=== PATIENT | female | born 1960 | race Hispanic/Latino ===

== ENCOUNTER 2016-09-25 20:14 | Inpatient (IN) | payer MEDICAID ==
[2016-09-25] MEDS ORDERED: MORPHINE IV ONE (20:56)
[2016-09-25] MEDS ORDERED: ZOFRAN IV ONE (20:56)
--- NOTE | 2016-09-25 20:59 | Emergency Department Report ---
HPI - General Chief Complaint: Dyspnea/Respdistress Time Seen by Provider: 09/25/16 20:43 - HPI HPI: Room 2 The patient is a 56-year-old female presenting with chief complaint of shortness of breath and epigastric abdominal pain. The patient states she developed shortness of breath this morning. Patient states she has had epigastric abdominal pain attributed to her peptic ulcer disease months. The patient states she has had a cough productive of white sputum. The patient admits to an episode of hematemesis 2-3 days ago. Patient was seen and admitted to the hospital by myself several weeks ago for hypoxia Location: [see above] Duration: [see above] Quality: Shortness of breath, pain Severity: [see above] Modifying factors: [see above] Context: [see above] Mode of transportation: [not driving] ED Past Medical Hx - Past Medical History Previous Medical History?: Yes Hx Hypertension: Yes Hx Congestive Heart Failure: Yes Hx Arthritis: Yes Hx COPD: Yes Additional medical history: Sepsis 2013--[place], shingles, no sores, still in pain - Surgical History Past Surgical History?: Yes Additional Surgical History: Skin Grafts placed after acid quiroga (placed 09/2015) - Family History Family history: no significant - Social History Smoking Status: Former Smoker (states she quit "several months ago) Substance Use Type: None (denies illicit drug use) - Medications Home Medications: Home Medications Medication Instructions Recorded Confirmed Last Taken Type Furosemide [Lasix TAB] 40 mg PO QDAY #30 tablet 10/27/15 10/31/15 Unknown Rx SILVER sulfADIAZINE 50 GRAM 1 applic TP BID #1 tube 10/27/15 10/31/15 Unknown Rx [Thermazene 50 Gram] Pantoprazole [Protonix TAB] 40 mg PO BID 42 Days 11/29/15 Unknown Rx predniSONE [Deltasone] 50 mg PO QDAY #5 tab 12/14/15 Unknown Rx ALBUTEROL Inhaler [ProAir HFA 2 puff IH QID PRN #1 inhalation 09/17/16 Unknown Rx Inhaler] Budesonide [Pulmicort Respules] 0.5 mg IH Q12HRT #30 nebu 09/17/16 Unknown Rx Clindamycin [Clindamycin CAP] 300 mg PO QID 5 Days 09/17/16 Unknown Rx Doxycycline Hyclate [Doxycycline 100 mg PO Q12HR #20 tab 09/17/16 Unknown Rx Hyclate TAB] Levofloxacin [Levaquin TAB] 500 mg PO QDAY #7 tablet 09/17/16 Unknown Rx Lisinopril [Zestril TAB] 20 mg PO QDAY #30 tablet 09/17/16 Unknown Rx Metoprolol Xl [Metoprolol 50 mg PO QDAY #30 tablet 09/17/16 Unknown Rx SUCCINATE ER TAB] Nicotine [Habitrol] 14 mg TD DAILY #10 patch 09/17/16 Unknown Rx Tiotropium [Spiriva] 18 mcg IH QDAY #30 cap 09/17/16 Unknown Rx oxyCODONE /ACETAMINOPHEN [Percocet 2 tab PO Q6H PRN #30 tablet 09/17/16 Unknown Rx 5/325 mg] ED Review of Systems ROS: Stated complaint: SOB Other details as noted in HPI Comment: All other systems reviewed and negative Constitutional: denies: chills, fever Eyes: denies: eye pain, eye discharge, vision change ENT: denies: ear pain, throat pain Respiratory: shortness of breath Cardiovascular: denies: chest pain, palpitations Endocrine: no symptoms reported Gastrointestinal: abdominal pain, nausea, vomiting, hematemesis Genitourinary: denies: urgency, dysuria, discharge Musculoskeletal: denies: back pain, joint swelling, arthralgia Skin: denies: rash, lesions Neurological: denies: headache, weakness, paresthesias Psychiatric: denies: anxiety, depression Hematological/Lymphatic: denies: easy bleeding, easy bruising Physical Exam - Physical Exam Vital Signs: Vital Signs 09/25/16 09/25/16 09/25/16 20:20 20:28 20:30 Temperature 98.7 F Pulse Rate 100 H Respiratory 18 Rate Blood Pressure 99/62 84/52 O2 Sat by Pulse 98 99 96 Oximetry 09/25/16 20:40 Temperature Pulse Rate 100 H Respiratory 13 Rate Blood Pressure O2 Sat by Pulse 98 Oximetry Physical Exam: GENERAL: The patient is well-developed well-nourished female lying on stretcher not appearing to be in acute distress. [] HEENT: Normocephalic. Atraumatic. Extraocular motions are intact. Patient has moist mucous membranes. NECK: Supple. Trachea midline CHEST/LUNGS: Clear to auscultation. There is no respiratory distress noted. HEART/CARDIOVASCULAR: Regular. There is no tachycardia. There is no gallop rub or murmur. ABDOMEN: Abdomen is soft, nontender to palpation with stethoscope. Patient has normal bowel sounds. There is no abdominal distention. SKIN: There is no rash. There is no edema. There is no diaphoresis. NEURO: The patient is awake, alert, and oriented. The patient is cooperative. The patient has normal speech MUSCULOSKELETAL:There is no evidence of acute injury. ED Course Vital Signs 09/25/16 09/25/16 09/25/16 20:20 20:28 20:30 Temperature 98.7 F Pulse Rate 100 H Respiratory 18 Rate Blood Pressure 99/62 84/52 O2 Sat by Pulse 98 99 96 Oximetry 09/25/16 20:40 Temperature Pulse Rate 100 H Respiratory 13 Rate Blood Pressure O2 Sat by Pulse 98 Oximetry ED Medical Decision Making - Lab Data Result diagrams: 09/25/16 21:08 09/25/16 21:08 Laboratory Tests 09/25/16 09/25/16 09/25/16 21:08 21:08 21:08 WBC 20.3 H RBC 2.99 L Hgb 10.5 Hct 30.7 MCV 103 H MCH 35 H MCHC 34 RDW 14.6 Plt Count 475 H Add Manual Diff Complete Total Counted 100 Seg Neuts % (Manual) 79.0 H Band Neutrophils % 0 Lymphocytes % (Manual) 13.0 L Reactive Lymphs % (Man) 0 Monocytes % (Manual) 6.0 Eosinophils % (Manual) 2.0 Basophils % (Manual) 0 Metamyelocytes % 0 Myelocytes % 0 Promyelocytes % 0 Blast Cells % 0 Nucleated RBC % 1.0 H Seg Neutrophils # Man 16.0 H Band Neutrophils # 0.0 Lymphocytes # (Manual) 2.6 Abs React Lymphs (Man) 0.0 Monocytes # (Manual) 1.2 H Eosinophils # (Manual) 0.4 Basophils # (Manual) 0.0 Metamyelocytes # 0.0 Myelocytes # 0.0 Promyelocytes # 0.0 Blast Cells # 0.0 WBC Morphology Not Reportable Hypersegmented Neuts Not Reportable Hyposegmented Neuts Not Reportable Hypogranular Neuts Not Reportable Smudge Cells Not Reportable Toxic Granulation Not Reportable Toxic Vacuolation Not Reportable Dohle Bodies Not Reportable Pelger-Huet Anomaly Not Reportable Sanchez Rods Not Reportable Platelet Estimate Appears increased Clumped Platelets Not Reportable Plt Clumps, EDTA Not Reportable Large Platelets 1+ Giant Platelets Not Reportable Platelet Satelliting Not Reportable Plt Morphology Comment Not Reportable RBC Morphology Not Reportable Dimorphic RBCs Not Reportable Polychromasia Not Reportable Hypochromasia 1+ Poikilocytosis Not Reportable Anisocytosis 1+ Microcytosis Not Reportable Macrocytosis Not Reportable Spherocytes Not Reportable Pappenheimer Bodies Not Reportable Sickle Cells Not Reportable Target Cells Not Reportable Tear Drop Cells Not Reportable Ovalocytes Not Reportable Helmet Cells Not Reportable [place] Bodies Not Reportable [place] Rings Not Reportable Ranjan Cells Not Reportable Bite Cells Not Reportable Crenated Cell Not Reportable Elliptocytes Not Reportable Acanthocytes (Spur) Not Reportable Rouleaux Not Reportable Hemoglobin C Crystals Not Reportable Schistocytes Not Reportable Malaria parasites Not Reportable [place] Bodies Not Reportable Hem Pathologist Commnt No PT 14.1 INR 1.04 APTT 39.8 H D-Dimer 420.26 H POC ABG pH POC ABG pCO2 POC ABG pO2 POC ABG HCO3 POC ABG Total CO2 POC ABG O2 Sat POC ABG Base Excess FiO2 Sodium 131 L Potassium 4.5 Chloride 89.1 L Carbon Dioxide 24 Anion Gap 22 BUN 2 L Creatinine 0.6 L Estimated GFR > 60 BUN/Creatinine Ratio 3.33 Glucose 100 Calcium 8.6 Total Bilirubin < 0.20 AST 11 ALT 12 Alkaline Phosphatase 86 Total Creatine Kinase 33 CK-MB (CK-2) 2.0 CK-MB (CK-2) Rel Index 6.0 H Troponin T NT-Pro-B Natriuret Pep 355.6 Total Protein 5.5 L Albumin 3.2 L Albumin/Globulin Ratio 1.4 Amylase Lipase Blood Type Antibody Screen SHANNA Antibody Screen 09/25/16 09/25/16 09/25/16 21:08 21:08 21:08 WBC RBC Hgb Hct MCV MCH MCHC RDW Plt Count Add Manual Diff Total Counted Seg Neuts % (Manual) Band Neutrophils % Lymphocytes % (Manual) Reactive Lymphs % (Man) Monocytes % (Manual) Eosinophils % (Manual) Basophils % (Manual) Metamyelocytes % Myelocytes % Promyelocytes % Blast Cells % Nucleated RBC % Seg Neutrophils # Man Band Neutrophils # Lymphocytes # (Manual) Abs React Lymphs (Man) Monocytes # (Manual) Eosinophils # (Manual) Basophils # (Manual) Metamyelocytes # Myelocytes # Promyelocytes # Blast Cells # WBC Morphology Hypersegmented Neuts Hyposegmented Neuts Hypogranular Neuts Smudge Cells Toxic Granulation Toxic Vacuolation Dohle Bodies Pelger-Huet Anomaly Sanchez Rods Platelet Estimate Clumped Platelets Plt Clumps, EDTA Large Platelets Giant Platelets Platelet Satelliting Plt Morphology Comment RBC Morphology Dimorphic RBCs Polychromasia Hypochromasia Poikilocytosis Anisocytosis Microcytosis Macrocytosis Spherocytes Pappenheimer Bodies Sickle Cells Target Cells Tear Drop Cells Ovalocytes Helmet Cells [place] Bodies [place] Rings Ranjan Cells Bite Cells Crenated Cell Elliptocytes Acanthocytes (Spur) Rouleaux Hemoglobin C Crystals Schistocytes Malaria parasites [place] Bodies Hem Pathologist Commnt PT INR APTT D-Dimer POC ABG pH POC ABG pCO2 POC ABG pO2 POC ABG HCO3 POC ABG Total CO2 POC ABG O2 Sat POC ABG Base Excess FiO2 Sodium Potassium Chloride Carbon Dioxide Anion Gap BUN Creatinine Estimated GFR BUN/Creatinine Ratio Glucose Calcium Total Bilirubin AST ALT Alkaline Phosphatase Total Creatine Kinase CK-MB (CK-2) CK-MB (CK-2) Rel Index Troponin T < 0.010 NT-Pro-B Natriuret Pep Total Protein Albumin Albumin/Globulin Ratio Amylase 51 Lipase 45 Blood Type AB POSITIVE Antibody Screen TNR SHANNA Antibody Screen Negative 09/25/16 09/25/16 21:25 21:44 WBC RBC Hgb Hct MCV MCH MCHC RDW Plt Count Add Manual Diff Total Counted Seg Neuts % (Manual) Band Neutrophils % Lymphocytes % (Manual) Reactive Lymphs % (Man) Monocytes % (Manual) Eosinophils % (Manual) Basophils % (Manual) Metamyelocytes % Myelocytes % Promyelocytes % Blast Cells % Nucleated RBC % Seg Neutrophils # Man Band Neutrophils # Lymphocytes # (Manual) Abs React Lymphs (Man) Monocytes # (Manual) Eosinophils # (Manual) Basophils # (Manual) Metamyelocytes # Myelocytes # Promyelocytes # Blast Cells # WBC Morphology Hypersegmented Neuts Hyposegmented Neuts Hypogranular Neuts Smudge Cells Toxic Granulation Toxic Vacuolation Dohle Bodies Pelger-Huet Anomaly [place] Rods Platelet Estimate Clumped Platelets Plt Clumps, EDTA Large Platelets Giant Platelets Platelet Satelliting Plt Morphology Comment RBC Morphology Dimorphic RBCs Polychromasia Hypochromasia Poikilocytosis Anisocytosis Microcytosis Macrocytosis Spherocytes Pappenheimer Bodies Sickle Cells Target Cells Tear Drop Cells Ovalocytes Helmet Cells [place] Bodies [place] Rings [place] Cells Bite Cells Crenated Cell Elliptocytes Acanthocytes (Spur) Rouleaux Hemoglobin C Crystals Schistocytes Malaria parasites [place] Bodies Hem Pathologist Commnt PT INR APTT D-Dimer POC ABG pH 7.459 H 7.384 POC ABG pCO2 33.0 L 38.7 POC ABG pO2 24 L 52 L POC ABG HCO3 23.4 23.1 POC ABG Total CO2 24 24 POC ABG O2 Sat 48 86 POC ABG Base Excess 0 -2 FiO2 21 21 Sodium Potassium Chloride Carbon Dioxide Anion Gap BUN Creatinine Estimated GFR BUN/Creatinine Ratio Glucose Calcium Total Bilirubin AST ALT Alkaline Phosphatase Total Creatine Kinase CK-MB (CK-2) CK-MB (CK-2) Rel Index Troponin T NT-Pro-B Natriuret Pep Total Protein Albumin Albumin/Globulin Ratio Amylase Lipase Blood Type Antibody Screen SHANNA Antibody Screen - EKG Data -: EKG Interpreted by Mn EKG shows normal: sinus rhythm Rate: normal - EKG Data When compared to previous EKG there are: changes noted Interpretation: nonspecific ST-T wave monisha (Biphasic T-wave in lead V3 when compared to previous EKG dated 09/15/2016) - Radiology Data Radiology results: report reviewed (CT chest), image reviewed (CT chest) CT chest (read by radiologist)-no pulmonary embolism or other acute chest finding. Fluid adjacent to the gastric pylorus and duodenal bulb may be secondary to peptic ulcer disease or other infectious/inflammatory process. Clinical correlation is requested. - Differential Diagnosis CHF, COPD, PE, ACS, pancreatitis, peptic ulcer disease, malingering Critical care attestation.: If time is entered above; I have spent that time in minutes in the direct care of this critically ill patient, excluding procedure time. ED Disposition Clinical Impression: Hypoxia, Leukocytosis Disposition: [id number] OP ADMIT IP TO THIS HOSP Is pt being admited?: Yes Does the pt Need Aspirin: No Condition: Fair Referrals: PRIMARY CARE, [Primary Care Provider] - 3-5 Days Time of Disposition: 00:19 (hospitalist paged)
[2016-09-25 21:36] LABS: Hematocrit 30.7 % (30.3-42.9); Hemoglobin 10.5 gm/dl (10.1-14.3); Mean Corpuscular HGB Conc 34 % (30-34); Mean Corpuscular Hemoglobin 35 pg (28-32); Mean Corpuscular Volume 103 fl (79-97); Platelet Count 475 K/mm3 (140-440); Red Blood Count 2.99 M/mm3 (3.65-5.03); Red Cell Distribution Width 14.6 % (13.2-15.2)
[2016-09-25 21:39] LABS: White Blood Count 20.3 K/mm3 (4.5-11.0)
[2016-09-25 21:41] LABS: Amylase 51 units/L (27-131); Lipase 45 units/L (13-60)
[2016-09-25 21:46] LABS: INR 1.04 (0.87-1.13)
[2016-09-25 21:47] LABS: Partial Thromboplastin Time 39.8 Sec. (24.2-36.6)
[2016-09-25 21:51] LABS: Alanine Aminotransferase 12 units/L (7-56); Albumin 3.2 g/dL (3.9-5); Albumin/Globulin Ratio 1.4 %; Alkaline Phosphatase 86 units/L (35-129); Anion Gap 22 mmol/L; BUN/Creatinine Ratio 3.33; Bilirubin,Total < 0.20 mg/dL (0.1-1.2); Blood Urea Nitrogen 2 mg/dL (7-17); Calcium 8.6 mg/dL (8.4-10.2); Carbon Dioxide 24 mmol/L (22-30); Chloride 89.1 mmol/L (98-107); Creatine Kinase 33 units/L (30-135); Glucose 100 mg/dL (65-100); Potassium 4.5 mmol/L (3.6-5.0); Sodium 131 mmol/L (137-145); Total Protein 5.5 g/dL (6.3-8.2)
[2016-09-25 22:05] LABS: ISTAT DEVICE 0
[2016-09-25 22:05] LABS: ISTAT Base Excess -2; ISTAT DEVICE 0; ISTAT HCO3 23.1; ISTAT PCO2 38.7 (35-45); ISTAT PH 7.384 (7.35-7.45); ISTAT PO2 52 (80-105); ISTAT SO2 86; ISTAT TCO2 24
[2016-09-25 22:12] LABS: Basophils % (Manual) 0 % (0.0-1.8); Blastocytes % (Manual) 0 %
[2016-09-25 22:13] LABS: Anisocytosis 1+; Large Platelets 1+; Platelet Estimate Appears Increased
[2016-09-25 22:14] LABS: Diff Status Complete; Hypochromasia 1+
[2016-09-25] MEDS ORDERED: NACL ONE (22:56)
--- NOTE | 2016-09-25 23:55 | Cat Scan Report ---
FINAL REPORT EXAM: CT ANGIO CHEST HISTORY: hypoxia TECHNIQUE: CT imaging obtained through the chest in pulmonary angiographic phase following intravenous administration of Omnipaque 350 contrast. Transaxial, Coronal and sagittal reformats including maximal intensity projections are provided. PRIORS: 12/12/2015, CT 11/27/2015 FINDINGS: Heart size within normal limits. Coronary artery disease is noted. Main pulmonary artery is within normal limits in caliber. No pulmonary embolism. Thoracic aorta is normal in course and caliber. No pneumothorax, effusion or focal airspace disease. Mild centrilobular emphysema. The central airways are patent. No bronchiectasis. Imaged portion of the upper abdomen is remarkable for jose-pyloric and periduodenal fluid on axial series 3, image 129. The superficial soft tissues are unremarkable. No acute bony abnormality or worrisome osseous lesions identified. IMPRESSION: No pulmonary embolism or other acute chest finding. Fluid adjacent to the gastric pylorus and duodenal bulb may be secondary to peptic ulcer disease or other infectious/inflammatory process. Clinical correlation is requested.
--- NOTE | 2016-09-26 02:23 | Admit Criteria Form ---
Admission Criteria Documentation: PULMONARY DISEASE GRG Clinical Indications for Admission to Inpatient Care ( Place 'X' for any and all applicable criteria): Hospital admission is needed for appropriate care of the patient because of 1 or more of the following(1)(2): [ ]I. Impending or actual respiratory arrest. See Respiratory Failure GRG guideline for severe respiratory disease and long-term mechanical ventilation patients. (3)(4) (5) [ ]II. Severe airflow or ventilation abnormalities (not responsive to emergency and observation care treatment as appropriate) as indicated by 1 or more of the following (6)(7)(8)(9) : [ ]a) PCO2 greater than 42 mm Hg (5.6 kPa) and pH less than 7.35 (new) [ ]b) Documented PCO2 increased more than 5 mm Hg (0.7 kPa) from disease baseline [ ]c) Airflow measurements[A] less than 60% of previous best or predicted (eg, peak expiratory flow rate less than 300 L/min) despite intensive emergent treatment(B) [ ]d) Required respiratory treatments that are performable only in acute inpatient setting [ ]III. Severe respiratory findings (not responsive to emergency and observation care treatment as appropriate) including 1 or more of the following(6)(9)(10): [ ]a) Respiratory distress as indicated by ALL of the following(6)(11): [ ]i) Patient with 1 or more of the following: [ ]1) Dyspnea (difficulty breathing) [ ]2) Tachypnea [ ]3) Abnormal breathing pattern (eg, chest retractions) [ ]4) Other evidence of difficulty breathing [ ]ii) Evidence of respiratory compromise indicated by 1 or more of the following: [ ]1) Hypoxemia [ ]2) Altered mental status [ ]3) Other evidence of respiratory compromise (eg, pulmonary edema on chest x-ray) [ ]b) Stridor [ ]c) Gross hemoptysis(12) [ ]d) Acute cyanosis [ ]IV. Chronic lung disease with severe deterioration (not responsive to emergency and observation care treatment as appropriate) as indicated by 1 or more of the following(7) (13): [ ]a) SaO2 5% below baseline in patient with chronic hypoxemia [ ]b) New requirement for supplemental oxygen to keep SaO2 at baseline or acceptable level [ ]c) Required supplemental oxygen performable only in acute inpatient setting [ ]d) Severe airflow or ventilation abnormalities [ ]e) Previouslymobile patient unable to walk between rooms [ ]f) Inability to eat or sleep due to dyspnea [ ]g) Altered mental status that is severe or persistent [ ]V. Empyema or lung abscess(14)(15) [ ]Vl. Severe atelectasis or lung collapse(16)(17) [ ]Luis. Tuberculosis requiring inpatient treatment as indicated by 1 or more of the following(18)(19)(20)(21): [ ]a) Diagnosis suspected (eg, symptomatic patient from endemic area or in high-risk population, with abnormal chest imaging) and cannot be ruled out within observation care timeframe (ie, sputum analysis, nucleic acid amplification techniques not rapidly available or not diagnostic) [ ]b) Severely symptomatic patient (eg, Hypoxemia, Hemodynamic instability, Tachypnea) [ ]c) Bzkvp-[id number]-ymrhgpyvr infection suspected in newly diagnosed patient (eg, treatment regimen may require near-term adjustment) [ ]d) Newly diagnosed patient at high-risk of short-term deterioration (eg, HIV positive, frail, immunocompromised, chronic lung disease) [ ]e) High infectivity suspected (eg, laryngeal disease, cavitary pulmonary lesions, ongoing positivity of sputum) and 1 or more of the following: [ ]i) Unexposed household contacts at high risk (eg, immunocompromised, elderly, infants, chronic lung disease) [ ]ii) Patient unable or unwilling to avoid exposing others (eg, significant psychiatric disease, substance abuse, developmental disability) [ ]f) Complication of tuberculosis requiring inpatient treatment (eg , constrictive pericarditis, tubercular meningitis) [ ]g) Hospitalization mandated by public health authority (eg, patient continually noncompliant with directly observed therapy) [ ]VIII. High-risk pulmonary infection as indicated by 1 or more of the following(22)(23)(24)(25): [ ]a) Temperature less than 95 degrees F (35 degrees C) or greater than 103.1 degrees F (39.5 degrees C) [ ]b) Hemodynamic instability [ ]c) Immunocompromised patient (eg, AIDS, post transplant, neutropenic)(26)(27) [ ]d) History of severe COPD(28) [ ]e) History of severely symptomatic congestive heart failure(29) [ ]f) Other high-risk comorbidity (eg, poorly controlled diabetes, cirrhosis, chronic renal insufficiency) [ ]g) Hypoxemia [ ]h) severe stridor (30) [ ]i) Outpatient, observation, or recovery facility therapy has failed, is not appropriate, or is not feasible. [ ]IX. Complications of tracheostomy that remains after emergency or observation level care(31)(32)(33)(34) [ ]X. Respiratory complications of organ transplant (eg, rejection, respiratory failure, respiratory infection)(27) [ ]XI. Severe pulmonary arterial hypertension or pulmonary vascular disease requiring inpatient care indicated by 1 or more of the following(35)(36)(37)(38): [ ]a) Initiation or change of vasodilators (IV, subcutaneous, or inhaled) or other vasoactive medications needed [ ]b) IV anticoagulation needed (eg, immediate anticoagulation necessary, alternatives not appropriate) [ ]c) Arterial or pulmonary artery catheter monitoring needed due to infusion or other treatment [ ]XII. Cystic fibrosis requiring inpatient care as indicated by 1 or more of the following(39)(40): [ ]a) Severe exacerbation that does not respond to intensified home therapy(41) [ ]b) Severe exacerbation with patient unable to perform prescribed treatments at home [ ]c) Pneumonia [ ]d) Pneumothorax(42) [ ]e) Atelectasis [ ]f) Hemoptysis(43) [ ]XIII. Bronchiectasis requiring inpatient care as indicated by 1 or more of the following(44)(45): [ ]a) Respiratory distress [ ]b) Severe exacerbation and outpatient or observation care therapy has failed, is not appropriate, or is not feasible. [ ]XIV. Sarcoidosis requiring inpatient care as indicated by 1 or more of the following(46)(47)(48): [ ]a) Respiratory distress [ ]b) Cardiac involvement with arrhythmia(49) [ ]c) Outpatient or observation care therapy has failed, is not appropriate, or is not feasible. [ ]XV. Intestitial lung disease requiring inpatient care as indicated by 1 or more of the following(50)(51): [ ]a) Respiratory distress [ ]b) Severe exacerbation and outpatient or observation care therapy has failed, is not appropriate, or is not feasible [ ]XVI. Allergic pneumonitis requiring inpatient care as indicated by 1 or more of the following(52): [ ]a) Respiratory distress [ ]b) Acute eosinophilic pneumonia [ ]c) [place] with cardiac involvement [ ]d) Outpatient or observation care therapy has failed, is not appropriate, or is not feasible [ ]XVIl. Severe right heart failure requiring inpatient care as indicated by 1 or more of the following(35)(53)(54): [ ]a) Respiratory distress [ ]b) Debilitating anasarca that remains after emergency or observation level care (eg, tissue [ ]c) breakdown with severe infection, inability to void due to edema) [C](41)(42)(43)(44) [ ]d) Hemodynamic instability [ ]e) Syncope [ ]f) Angina that requires inpatient care (eg, not treatable in emergency or observation level of care) [ ]g) Increasing organ failure (eg, liver congestion with significant and worsening or new elevation of transaminases) [ ]XVIll. Injury requiring inpatient care (medical) as indicated by 1 or more of the following(59)(60)(61) [ ]a) Significant inhalation injury (eg, smoke inhalation, other toxic inhalation)(62)(63)(64) [ ]b) Airway obstruction that remains or is unstable after emergency or observation level care(65)(66) [ ]c) Severe pain requiring acute inpatient management [ ]d) Lung contusion(67) [ ]e) Flail chest(68) [ ]f) Bronchial tree injury [ ]g) Air or fat emboli [ ]h) Other injury not treatable in emergency or observation level care (eg, hemothorax)(55) [ ]XlX. Pulmonary hemorrhage or significant hemoptysis(12)(43)(69) [ ]XXl. Complications of transplanted lung indicated by 1 or more of the following(70)(71) [ ]a) Acute graft rejection requiring inpatient management (eg, intravenous immunosuppression)(72)(73)(74) [ ]b) Failure of transplant lung as indicated by 1 or more of the following(75)(76): [ ]i) Anastomotic leak [ ]ii) Airway ischemia or necrosis [ ]iii) Airway fistula [ ]iv) Obstructing granulation tissue requiring intervention [ ]v) Bronchial stenosis or stricture requiring intervention [ ]vi) Tracheobronchomalacia requiring intervention [ ]vii) Severe airflow or ventilation abnormalities [ ]viii) Severe respiratory findings [ ]c) Infection requiring inpatient management (eg, Hemodynamic instability, need for intravenous antimicrobial treatment)(77)(78)(79)(80)(81)(82 [ ]d) Other complication of transplanted lung (eg, obliterative bronchiolitis, plastic bronchitis, thrombotic microangiopathy, constrictive pericarditis) requiring inpatient management(83)(84)(85)(86)(87) [ ]XXll. Inpatient palliative care needed.[D](88)(89)(90)(91) [X ]XXlll. Pulmonary Disease condition, symptom, or finding for which emergency and observation care have failed or are not considered appropriate. The original [facility] content created by [employer] has been revised. The portions of the content which have been revised are identified through the use of italic text or in bold, and [facility] has neither reviewed nor approved the modified material. All other unmodified content is copyright [employer] [facility] [facility]. Please see references footnoted in the original [facility] edition 2017 Admission Criteria Met: Yes
[2016-09-26] MEDS ORDERED: MILK OF MAGNESIA PO PRN (02:42)
[2016-09-26] MEDS ORDERED: TYLENOL PO PRN (02:42)
[2016-09-26] MEDS ORDERED: DULCOLAX PR PRN (02:42)
[2016-09-26] MEDS ORDERED: ZOFRAN IV PRN (02:42)
--- NOTE | 2016-09-26 02:46 | History and Physical Report ---
History of Present Illness Date of examination: 09/26/16 History of present illness: 55-year-old woman history of COPD on home oxygen, hypertension, coronary comes emergency room with complaints of shortness of breath,. The patient is homeless and currently lives in a shed, she has no oxygen. States she had an episode of hematemesis last week Patient denies chest pain, palpitation, abdominal pain, hematochezia, dysuria, frequency, focal weakness, dysarthria, fever chills, polydipsia polyuria, hot or cold intolerance, easy bruisability, or rash or bleeding from mucosal membrane, rhinorrhea, epistaxis, earache, tinnitus, blurry vision, eye discharge , anxiety, depression. Other review of systems negative PAST SURGICAL HISTORY: Skin graft SOCIAL HISTORY: Smokes 5 cigars a day, no alcohol or drugs FAMILY HISTORY: Hypertension Medications and Allergies Allergies Allergy/AdvReac Type Severity Reaction Status Date / Time Penicillins Allergy Unknown Verified 09/25/16 20:28 Home Medications Medication Instructions Recorded Confirmed Last Taken Type Furosemide [Lasix TAB] 40 mg PO QDAY #30 tablet 10/27/15 10/31/15 Unknown Rx SILVER sulfADIAZINE 50 GRAM 1 applic TP BID #1 tube 10/27/15 10/31/15 Unknown Rx [Thermazene 50 Gram] Pantoprazole [Protonix TAB] 40 mg PO BID 42 Days 11/29/15 Unknown Rx predniSONE [Deltasone] 50 mg PO QDAY #5 tab 12/14/15 Unknown Rx ALBUTEROL Inhaler [ProAir HFA 2 puff IH QID PRN #1 inhalation 09/17/16 Unknown Rx Inhaler] Budesonide [Pulmicort Respules] 0.5 mg IH Q12HRT #30 nebu 09/17/16 Unknown Rx Clindamycin [Clindamycin CAP] 300 mg PO QID 5 Days 09/17/16 Unknown Rx Doxycycline Hyclate [Doxycycline 100 mg PO Q12HR #20 tab 09/17/16 Unknown Rx Hyclate TAB] Levofloxacin [Levaquin TAB] 500 mg PO QDAY #7 tablet 09/17/16 Unknown Rx Lisinopril [Zestril TAB] 20 mg PO QDAY #30 tablet 09/17/16 Unknown Rx Metoprolol Xl [Metoprolol 50 mg PO QDAY #30 tablet 09/17/16 Unknown Rx SUCCINATE ER TAB] Nicotine [Habitrol] 14 mg TD DAILY #10 patch 09/17/16 Unknown Rx Tiotropium [Spiriva] 18 mcg IH QDAY #30 cap 09/17/16 Unknown Rx oxyCODONE /ACETAMINOPHEN [Percocet 2 tab PO Q6H PRN #30 tablet 09/17/16 Unknown Rx 5/325 mg] Exam - Physical Exam Narrative exam: Gen. appearance: Patient lying in bed, no apparent distress HEENT: Normocephalic, atraumatic, pupils equally round and reactive to light, extraocular movement intact, and no sclericterus,. No JVD or thyromegaly or nodule,neck supple, no carotid bruit ,mucous membranes moist, no exudate or erythema Heart: S1, S2, regular rate and rhythm Lungs: Wheezing Clear to auscultation crackles bilaterally, breathing comfortable Abdomen: Positive bowel sounds, nontender, nondistended, no organomegaly Extremity: No edema, cyanosis, clubbing Skin: No rash, nodules, warm, dry Neuro: Oriented 3, cranial nerves II-12 intact, speech is fluent, motor and sensory intact - Constitutional Vitals: Temp Pulse Resp BP Pulse Ox 98.7 F 116 H 18 93/46 100 09/25/16 20:28 09/26/16 01:10 09/26/16 01:10 09/26/16 01:10 09/26/16 01:10 Results - Labs CBC & Chem 7: 09/25/16 21:08 09/25/16 21:08 Labs: Abnormal lab results 09/25/16 09/25/16 09/25/16 Range/Units 21:08 21:08 21:08 WBC 20.3 H (4.5-11.0) K/mm3 RBC 2.99 L (3.65-5.03) M/mm3 MCV 103 H (79-97) fl MCH 35 H (28-32) pg Plt Count 475 H (140-440) K/mm3 Seg Neuts % (Manual) 79.0 H (40.0-70.0) % Lymphocytes % (Manual) 13.0 L (13.4-35.0) % Nucleated RBC % 1.0 H (0.0-0.9) % Seg Neutrophils # Man 16.0 H (1.8-7.7) K/mm3 Monocytes # (Manual) 1.2 H (0.0-0.8) K/mm3 APTT 39.8 H (24.2-36.6) Sec. D-Dimer 420.26 H (0-234) ng/mlDDU POC ABG pH (7.35-7.45) POC ABG pCO2 (35-45) POC ABG pO2 (80-105) Sodium 131 L (137-145) mmol/L Chloride 89.1 L (98-107) mmol/L BUN 2 L (7-17) mg/dL Creatinine 0.6 L (0.7-1.2) mg/dL CK-MB (CK-2) Rel Index 6.0 H (0-4) Total Protein 5.5 L (6.3-8.2) g/dL Albumin 3.2 L (3.9-5) g/dL 09/25/16 09/25/16 Range/Units 21:25 21:44 WBC (4.5-11.0) K/mm3 RBC (3.65-5.03) M/mm3 MCV (79-97) fl MCH (28-32) pg Plt Count (140-440) K/mm3 Seg Neuts % (Manual) (40.0-70.0) % Lymphocytes % (Manual) (13.4-35.0) % Nucleated RBC % (0.0-0.9) % Seg Neutrophils # Man (1.8-7.7) K/mm3 Monocytes # (Manual) (0.0-0.8) K/mm3 APTT (24.2-36.6) Sec. D-Dimer (0-234) ng/mlDDU POC ABG pH 7.459 H (7.35-7.45) POC ABG pCO2 33.0 L (35-45) POC ABG pO2 24 L 52 L (80-105) Sodium (137-145) mmol/L Chloride (98-107) mmol/L BUN (7-17) mg/dL Creatinine (0.7-1.2) mg/dL CK-MB (CK-2) Rel Index (0-4) Total Protein (6.3-8.2) g/dL Albumin (3.9-5) g/dL Assessment and Plan COPD exacerbation Hematemesis, resolved Peptic ulcer disease Hypertension Admit to medicine Start high-dose IV steroids, nebulized treatments Monitor hemoglobin Start GI and DVT prophylaxis with SCD Continue appropriate outpatient medications
[2016-09-26] MEDS ORDERED: ZITHROMAX PO ONE (08:20)
[2016-09-26] MEDS ORDERED: LASIX IV SCH (09:00)
[2016-09-26] MEDS: DUONEB 0.5 MG-3 MG/3 ML SOLN IH SCH ×2 (09:05→15:00)
[2016-09-26 09:50] LABS: ISTAT Base Excess TNR; ISTAT HCO3 TNR; ISTAT PCO2 TNR (35-45); ISTAT PH TNR (7.35-7.45)
[2016-09-26 09:51] LABS: ISTAT PO2 TNR (80-105); ISTAT SO2 TNR; ISTAT TCO2 TNR
[2016-09-26] MEDS ORDERED: LOVENOX SUB-Q SCH (10:00)
[2016-09-26] MEDS ORDERED: TOPROL XL PO SCH (10:00)
[2016-09-26] MEDS ORDERED: HABITROL TD SCH (10:00)
[2016-09-26] MEDS ORDERED: PROTONIX IV SCH (10:00)
[2016-09-26] MEDS ORDERED: ZESTRIL PO SCH (10:00)
[2016-09-26] MEDS ORDERED: PROTONIX PO SCH (10:00)
--- NOTE | 2016-09-26 13:20 | Discharge Summary ---
Providers - Providers Date of Admission: 09/26/16 02:42 Attending physician: ASHLEY LESLIE MD Primary care physician: METAL MELTER Hospitalization Condition: Fair Hospital course: 55-year-old woman history of COPD on home oxygen, hypertension, coronary comes emergency room with complaints of shortness of breath, she has chronic shortness of breath. She is on home oxygen. She was seen because she had some shortness of breath, however shortness of breath resolved shortly after receiving nebulizer treatments and steroids. She was offered skilled nursing placement as she does not have a residence at present, however she refused stating that she does not trust been around people and she gets by by herself she gets a monthly check and she would rather stay in hotels. She stated that she has oxygen wheelchair and her check coming and does not need any further services. She reported having an episode of coffee-ground emesis about a week ago that has since resolved and further vomiting, no weakness and fatigue. She did have baseline status. She was referred to [facility] neurology clinic for follow-up of episode of coffee-ground emesis, hemoglobin was stable while she was in hospital. Discharge diagnoses COPD exacerbation Acute on chronic hypoxic respiratory failure CHF, chronic systolic Coffee-ground emesis, possible GI bleed Disposition: DC-01 TO HOME OR SELFCARE Time spent for discharge: 33 minutes Core Measure Documentation - Palliative Care Palliative Care/ Comfort Measures: Not Applicable - Core Measures Any of the following diagnoses?: heart failure - Heart Failure Discharge Requirements EARL/ARB for LVSD if EF <40%: Yes Beta jania at discharge: Yes Exam - Constitutional Vitals: Temp Pulse Resp BP Pulse Ox 98.5 F 10 L 18 109/77 99 09/26/16 08:00 09/26/16 10:22 09/26/16 08:00 09/26/16 08:00 09/26/16 08:00 General appearance: Present: no acute distress, well-nourished - EENT Eyes: Present: PERRL ENT: hearing intact, clear oral mucosa - Neck Neck: Present: supple, normal ROM - Respiratory Respiratory effort: normal Respiratory: bilateral: CTA - Cardiovascular Heart Sounds: Present: S1 & S2. Absent: rub, click - Extremities Extremities: pulses symmetrical, No edema Peripheral Pulses: within normal limits - Abdominal General gastrointestinal: Present: soft, non-tender, non-distended, normal bowel sounds Female genitourinary: Present: normal - Integumentary Integumentary: Present: clear, warm, dry - Musculoskeletal Musculoskeletal: gait normal, strength equal bilaterally - Psychiatric Psychiatric: appropriate mood/affect, intact judgment & insight - Neurologic Neurologic: CNII-XII intact, moves all extremities Plan Follow up with: PRIMARY CAREMD [Primary Care Provider] - 3-5 Days ISAI CONNELLY MD [Staff Physician] - 7 Days Prescriptions: ALBUTEROL Inhaler [ProAir HFA Inhaler] 2 puff IH QID PRN #1 inhalation PRN Reason: Shortness Of Breath Azithromycin [Zithromax TAB] 250 mg PO QDAY #4 tablet Budesonide [Pulmicort Respules] 0.5 mg IH Q12HRT #30 nebu Furosemide [Lasix TAB] 40 mg PO QDAY #30 tablet Gabapentin [Neurontin] 100 mg PO Q8HR #90 capsule Ipratropium/Albuterol Sulfate [Duoneb 0.5 mg-3 mg/3 ml Soln] 1 ampul IH Q6HRT # 120 ampul.neb Lisinopril [Zestril TAB] 20 mg PO QDAY #30 tablet Metoprolol Xl [Metoprolol SUCCINATE ER TAB] 50 mg PO QDAY #30 tablet Nicotine [Habitrol] 14 mg TD DAILY #30 patch oxyCODONE /ACETAMINOPHEN [Percocet 5/325 mg] 2 tab PO Q6H PRN #14 tablet PRN Reason: Pain, Moderate (4-6) Pantoprazole [Protonix TAB] 40 mg PO BID #60 tablet Prednisone [predniSONE 5 mg (6-Day Pack, 21 Tabs)] 5 mg PO .TAPER #1 tab.ds.pk SILVER sulfADIAZINE 50 GRAM [Thermazene 50 Gram] 1 applic TP BID #1 tube Tiotropium [Spiriva] 18 mcg IH QDAY #30 cap
[2016-09-26] MEDS ORDERED: NEURONTIN PO SCH (14:00)
[2016-09-26 15:19] VITALS: BP 109/66
[2016-09-26] MEDS ORDERED: BROVANA NEBU IH SCH (20:00)
[2016-09-26] MEDS ORDERED: PULMICORT IH SCH (20:00)
[2016-09-27] MEDS ORDERED: ZITHROMAX PO SCH (10:00)
== END 2016-09-26 17:00 | disposition home or self-care (01) | DRG 189 ==
LOC: ED 20:14 → 3A 09-26 02:42
PROVIDERS: ADMIT Internal Medicine; ATTEND Internal Medicine
PROC: 4A033R1 Measurement of Arterial Saturation, Peripheral, Percutaneous Approach (ICD-10-PCS; principal; 2016-09-26)
DX: J96.21 Acute and chronic respiratory failure with hypoxia (principal); J44.1 Chronic obstructive pulmonary disease with (acute) exacerbation; I11.0 Hypertensive heart disease with heart failure; M19.90 Unspecified osteoarthritis, unspecified site; F17.200 Nicotine dependence, unspecified, uncomplicated; K27.9 Peptic ulcer, site unspecified, unspecified as acute or chronic, without hemorrhage or perforation; I50.22 Chronic systolic (congestive) heart failure; Z88.0 Allergy status to penicillin
CPT/HCPCS: 36415; 71275; 80053; 82150; 82550; 82553; 82803; 83690; 83880; 84484; 85007; 85025; 85379; 85610; 85730; 86850; 86900; 86901; 93005; 93010; 94640; J1940; J2270; J2405; J2930; Q9967

== ENCOUNTER 2016-10-08 19:39 | Emergency (ER) | payer MEDICAID ==
[2016-10-09 02:45] LABS: Basophils % (Auto) 0.6 % (0.0-1.8); Eosinophils % (Auto) 0.5 % (0.0-4.3); Hematocrit 38.6 % (30.3-42.9); Hemoglobin 13.1 gm/dl (10.1-14.3); Mean Corpuscular HGB Conc 34 % (30-34); Mean Corpuscular Hemoglobin 35 pg (28-32); Mean Corpuscular Volume 102 fl (79-97); Platelet Count 514 K/mm3 (140-440); Red Blood Count 3.77 M/mm3 (3.65-5.03); White Blood Count 19.8 K/mm3 (4.5-11.0)
[2016-10-09 03:09] LABS: Creatine Kinase MB 1.7 ng/mL (0.0-4.0)
[2016-10-09 03:11] LABS: Alanine Aminotransferase 14 units/L (7-56); Albumin 3.9 g/dL (3.9-5); Albumin/Globulin Ratio 1.2 %; Alkaline Phosphatase 90 units/L (35-129); Anion Gap 20 mmol/L; BUN/Creatinine Ratio 14.44; Blood Urea Nitrogen 13 mg/dL (7-17); Calcium 9.2 mg/dL (8.4-10.2); Carbon Dioxide 26 mmol/L (22-30); Chloride 82.7 mmol/L (98-107); Creatine Kinase 22 units/L (30-135); Glucose 99 mg/dL (65-100); Lipase 65 units/L (13-60); Potassium 3.1 mmol/L (3.6-5.0); Sodium 126 mmol/L (137-145); Total Protein 7.1 g/dL (6.3-8.2)
--- NOTE | 2016-10-09 08:18 | XRay Report ---
Chest 2 views. History: Dyspnea. Findings: The heart and pulmonary vessels are normal. The lungs are hyperinflated and clear. There is no pleural fluid. Impression: No acute findings or interval changes since October 02, 2016.
--- NOTE | 2016-10-09 13:16 | Emergency Department Report ---
ED General Adult HPI - General Chief complaint: Dyspnea/Respdistress Stated complaint: OARLIA Time Seen by Provider: 10/09/16 13:13 Source: EMS Mode of arrival: Wheelchair Limitations: No Limitations - History of Present Illness Initial comments: This is a patient with recent discharge from this facility. Apparently she was admitted and evaluated for chest pain. Her discharge summary indicates that she was treated for an exacerbation of COPD with steroids and nebulized treatment. I do not think she is currently on prednisone however. She was thought to have "sepsis due to bronchitis", "hyponatremia on Lasix". Her workup included myocardial perfusion scan which I believe was negative as well as CTA of the chest. Patient reports that she has had other CTAs at other facilities which have come out negative. The patient again presents to this facility complaining of weakness, 75 pound weight loss, right-sided chest pain and some dyspnea. She is noted to have multiple ecchymotic areas of her arms. She states that she has had this since she was treated with blood thinners for hospitalization more than one year ago. She is not currently on anticoagulants nor Plavix. According to the record the patient is "functionally quadriplegic" and wheelchair bound. She has previously been on O2 but does not have access to this now. -: week(s), month(s) Location: chest Radiation: non-radiation Severity scale (0 -10): 7 Quality: aching Consistency: constant Improves with: none Worsens with: none Associated Symptoms: cough, shortness of breath, weakness Treatments Prior to Arrival: none - Related Data Home Medications Medication Instructions Recorded Confirmed Last Taken Doxycycline [Vibramycin CAP] 100 mg PO Q12HR 10/03/16 10/03/16 10/03/16 Previous Rx's Medication Instructions Recorded Last Taken Type ALBUTEROL Inhaler [ProAir HFA 2 puff IH QID PRN #1 inhalation 09/26/16 Unknown Rx Inhaler] Budesonide [Pulmicort Respules] 0.5 mg IH Q12HRT #30 nebu 09/26/16 Unknown Rx Furosemide [Lasix TAB] 40 mg PO QDAY #30 tablet 09/26/16 10/03/16 Rx Gabapentin [Neurontin] 100 mg PO Q8HR #90 capsule 09/26/16 Unknown Rx Ipratropium/Albuterol Sulfate 1 ampul IH Q6HRT #120 ampul.neb 09/26/16 Unknown Rx [DUONEB *Not for PRN Use*] Lisinopril [Zestril TAB] 20 mg PO QDAY #30 tablet 09/26/16 Unknown Rx Metoprolol Xl [Metoprolol 50 mg PO QDAY #30 tablet 09/26/16 Unknown Rx SUCCINATE ER TAB] oxyCODONE /ACETAMINOPHEN [Percocet 2 tab PO Q6H PRN #14 tablet 09/26/16 Unknown Rx 5/325 mg] Tiotropium [Spiriva] 18 mcg IH QDAY #30 cap 10/04/16 Unknown Rx Allergies Allergy/AdvReac Type Severity Reaction Status Date / Time Penicillins Allergy Unknown Verified 09/25/16 20:28 ED Review of Systems ROS: Stated complaint: ORALIA Other details as noted in HPI Constitutional: weakness. denies: chills, fever Eyes: denies: eye pain, eye discharge, vision change ENT: denies: ear pain, throat pain Respiratory: cough (chronic without any acute exacerbation), shortness of breath , wheezing Cardiovascular: chest pain. denies: palpitations Endocrine: no symptoms reported Gastrointestinal: nausea, other (weight loss). denies: abdominal pain, diarrhea Genitourinary: denies: urgency, dysuria, discharge Musculoskeletal: denies: back pain, joint swelling, arthralgia Skin: denies: rash, lesions Neurological: denies: headache, weakness, paresthesias Psychiatric: denies: anxiety, depression Hematological/Lymphatic: denies: easy bleeding, easy bruising ED Past Medical Hx - Past Medical History Previous Medical History?: Yes Hx Hypertension: Yes Hx Congestive Heart Failure: Yes Hx Arthritis: Yes Hx COPD: Yes Additional medical history: Sepsis 2013--Todd, shingles, no sores, still in pain - Surgical History Past Surgical History?: Yes Additional Surgical History: Skin Grafts placed after acid quiroga (placed 09/2015) - Social History Smoking Status: Current Some Day Smoker - Medications Home Medications: Home Medications Medication Instructions Recorded Confirmed Last Taken Type ALBUTEROL Inhaler [ProAir HFA 2 puff IH QID PRN #1 inhalation 09/26/16 10/03/16 Unknown Rx Inhaler] Budesonide [Pulmicort Respules] 0.5 mg IH Q12HRT #30 nebu 09/26/16 10/03/16 Unknown Rx Furosemide [Lasix TAB] 40 mg PO QDAY #30 tablet 09/26/16 10/03/16 10/03/16 Rx Gabapentin [Neurontin] 100 mg PO Q8HR #90 capsule 09/26/16 10/03/16 Unknown Rx Ipratropium/Albuterol Sulfate 1 ampul IH Q6HRT #120 ampul.neb 09/26/16 10/03/16 Unknown Rx [DUONEB *Not for PRN Use*] Lisinopril [Zestril TAB] 20 mg PO QDAY #30 tablet 09/26/16 10/03/16 Unknown Rx Metoprolol Xl [Metoprolol 50 mg PO QDAY #30 tablet 09/26/16 10/03/16 Unknown Rx SUCCINATE ER TAB] oxyCODONE /ACETAMINOPHEN [Percocet 2 tab PO Q6H PRN #14 tablet 09/26/16 Unknown Rx 5/325 mg] Doxycycline [Vibramycin CAP] 100 mg PO Q12HR 10/03/16 10/03/16 10/03/16 History Tiotropium [Spiriva] 18 mcg IH QDAY #30 cap 10/04/16 Unknown Rx ED Physical Exam - General Limitations: No Limitations General appearance: cachectic, other (fellow volume depleted) - Head Head exam: Present: atraumatic - Eye Eye exam: Absent: scleral icterus - ENT ENT exam: Present: mucous membranes dry - Neck Neck exam: Present: normal inspection. Absent: tenderness, meningismus - Respiratory Respiratory exam: Present: wheezes, decreased breath sounds - Cardiovascular Cardiovascular Exam: Present: regular rate, normal rhythm. Absent: systolic murmur, diastolic murmur, rubs, gallop - GI/Abdominal GI/Abdominal exam: Present: soft, normal bowel sounds. Absent: distended, tenderness, guarding, rebound, rigid - Extremities Exam Extremities exam: Present: normal capillary refill, other (no acute deformity). Absent: tenderness, pedal edema, joint swelling, calf tenderness - Back Exam Back exam: Present: normal inspection. Absent: CVA tenderness (R), CVA tenderness (L) - Neurological Exam Neurological exam: Present: alert, oriented X3, CN II-XII intact. Absent: motor sensory deficit - Psychiatric Psychiatric exam: Present: normal affect, normal mood - Skin Skin exam: Present: warm, dry, intact, ecchymosis. Absent: rash ED Course Vital Signs 10/08/16 10/09/16 10/09/16 19:40 05:18 13:32 Temperature 97.2 F L 98.8 F Pulse Rate 115 H 97 H Pulse Rate [ 98 H Anterior Bilateral Upper Lobe] Respiratory 18 Rate Respiratory 16 Rate [Anterior Bilateral Upper Lobe] Blood Pressure 85/55 126/80 O2 Sat by Pulse 97 100 Oximetry 10/09/16 13:44 Temperature Pulse Rate Pulse Rate [ 97 H Anterior Bilateral Upper Lobe] Respiratory Rate Respiratory 16 Rate [Anterior Bilateral Upper Lobe] Blood Pressure O2 Sat by Pulse Oximetry - Reevaluation(s) Reevaluation #1: Discussed with Dr. Gutierrez. States will see and admit. 10/09/16 14:09 10/09/16 14:09 ED Medical Decision Making - Lab Data Result diagrams: 10/09/16 02:31 10/09/16 02:31 Laboratory Results - last 24 hr 10/09/16 10/09/16 02:31 02:31 WBC 19.8 H RBC 3.77 Hgb 13.1 Hct 38.6 MCV 102 H MCH 35 H MCHC 34 RDW 14.0 Plt Count 514 H Lymph % (Auto) 17.5 Ross % (Auto) 6.4 Eos % (Auto) 0.5 Baso % (Auto) 0.6 Lymph # 3.5 Ross # 1.3 H Eos # 0.1 Baso # 0.1 Seg Neutrophils % 75.0 H Seg Neutrophils # 14.9 H Sodium 126 L Potassium 3.1 L D Chloride 82.7 L Carbon Dioxide 26 Anion Gap 20 BUN 13 Creatinine 0.9 Estimated GFR > 60 BUN/Creatinine Ratio 14.44 Glucose 99 Calcium 9.2 Total Bilirubin 0.40 AST 11 ALT 14 Alkaline Phosphatase 90 Total Creatine Kinase 22 L CK-MB (CK-2) 1.7 CK-MB (CK-2) Rel Index 7.7 H Troponin T < 0.010 Total Protein 7.1 Albumin 3.9 Albumin/Globulin Ratio 1.2 Lipase 65 H - EKG Data -: EKG Interpreted by Me EKG shows normal: sinus rhythm, axis, intervals, QRS complexes, ST-T waves Rate: normal - EKG Data Interpretation: other (P pulmonale) - Radiology Data interpreted by me: Chest x-ray showed no acute process Critical care attestation.: If time is entered above; I have spent that time in minutes in the direct care of this critically ill patient, excluding procedure time. ED Disposition Clinical Impression: COPD exacerbation, Hyponatremia, Hypokalemia, Right-sided chest pain Leukocytosis Qualifiers: Leukocytosis type: unspecified Qualified Code(s): D72.829 - Elevated white blood cell count, unspecified Disposition: OP ADMIT IP TO THIS HOSP Is pt being admited?: Yes Does the pt Need Aspirin: Yes Condition: Stable Instructions: Chronic Obstructive Pulmonary Disease (ED), Chest Pain (ED) Referrals: PRIMARY CARE, [Primary Care Provider] - 3-5 Days Time of Disposition: 14:09
[2016-10-09] MEDS ORDERED: DUONEB *Not for PRN Use IH ONE (13:24)
[2016-10-09] MEDS ORDERED: NACL 0.9% 1000 ML 1,000 ML IV ONE (13:25)
[2016-10-09] MEDS ORDERED: K-DUR PO ONE (13:25)
[2016-10-09] MEDS ORDERED: NORCO 5/325 PO ONE (13:25)
[2016-10-09] MEDS ORDERED: BABY ASPIRIN PO ONE (14:10)
--- NOTE | 2016-10-09 14:11 | Admit Criteria Form ---
Admission Criteria Documentation: GENERAL ADMISSION CRITERIA (Place 'X' for any and all applicable criteria): Admission is indicated for ANY ONE of the following: [ ]I. Hemodynamic instability as indicated by ANY ONE of the following(1)(2) (3)(4)(5): [ ]a) Vital sign abnormality not readily corrected by appropriate treatment within 12 to 24 hours indicated by ANY ONE of the following: [ ]i) Hypotension [ ]ii) Symptomatic Tachycardia unresponsive to treatment (eg , analgesia, fluids, sedation as indicated) [ ]iii) Orthostatic vital sign changes unresponsive to treatment (eg, fluids) [ ]b) Vital sign abnormality that is severe indicated by ANY ONE of the following: [ ]i) Inadequate perfusion indicated by ANY ONE of the following: [ ]1) Lactic acidosis (greater than 2 mmol/L) [ ]2) New abnormal capillary refill (greater than 3 seconds) [ ]3) Other metabolic acidosis (arterial pH less than 7.35) not otherwise explained [ ]4) Reduced urine output [ ]5) Altered mental status [ ]6) Myocardial Ischemia [ ]v) Mean arterial pressure[A] less than 60 mm Hg [ ]vi) Mean arterial pressure[A] less than 70 mm Hg after 30 minutes of appropriate treatment (eg, fluid resuscitation) [ ]vii) IV inotropic or vasopressor medication required to maintain adequate blood pressure or perfusion [ ]viii) Sustained heart rate greater than 120 beats per minute in adult or child 6 years or older[B]] [ ]II. Hypertension requiring inpatient treatment as indicated by ANY ONE of the following(6)(7)(8): [ ]a) SBP greater than 220 mm Hg or DBP greater than 120 mm Hg despite treatment [ ]b) SBP greater than 140 mm Hg or DBP greater than 100 mm Hg with evidence of acute end organ damage as indicated by ANY ONE of the following: [ ]i) Encephalopathy [ ]ii) Acute renal failure as indicated by new onset of ANY ONE of the following(9)(10)(11)(12)(13): [ ]1) A 3-fold rise in serum creatinine from baseline [ ]2) Serum creatinine greater than 4 mg/dL ( 354 micromoles/L) with acute rise greater than 0.5 mg/dL (44.2 micromoles/L) [ ]3) Reduction of more than 75% in estimated glomerular filtration rate from baseline [ ]4) Estimated glomerular filtration rate less than 35 mL/min/1.73m2 (0.59 mL/sec/1.73m2) in child up to 18 years of age [ ]5) Cessation of urine output indicated by ALL of the following: [ ]A. Adequate volume status [ ]B. Inadequate urine output as indicated by ANY ONE of the following: [ ]a. Urine output less than 0.3 mL/kg/hr for 24 hours [ ]b. Anuria (urine output less than 0.1 mL/kg/hr) for 12 hours [ ]iii) Aortic dissection [ ]iv) Myocardial ischemia [ ]v) Left ventricular heart failure [ ]vi) Retinal hemorrhage [ ]vii) Other significant finding [ ]c) Hypertension in child requiring inpatient treatment as indicated by ALL of the following(14)(15)(16): [ ]i) Outpatient treatment not effective, not available, or not appropriate [ ]ii) SBP or DBP greater than 95th percentile for age [ ]iii) Evidence of acute end organ damage as indicated by ANY ONE of the following: [ ]1) Altered mental status [ ]2) Acute renal failure as indicated by new onset of ANY ONE of the following(9)(10)(11)(12)(13): [ ]A. A 3-fold rise in serum creatinine from baseline [ ]B. Serum creatinine greater than 4 mg/dL (354 micromoles/L) with acute rise greater than 0.5 mg/dL (44.2 micromoles/L) [ ]C. Reduction of more than 75% in estimated glomerular filtration rate from baseline [ ]D. Estimated glomerular filtration rate less than 35 mL/min/1.73m2 (0.59 mL/sec/1.73m2)in child up to 18 years of age [ ]E. Cessation of urine output indicated by ALL of the following: [ ]a. Adequate volume status [ ]b. Inadequate urine output as indicated by ANY ONE of the following: [ ]1) Urine output less than 0.3 mL/kg/hr for 24 hours [ ]2) Anuria (urine output less than 0.1 mL/kg/hr) for 12 hours [ ]3) Severe headache [ ]4) Visual disturbance [ ]5) Retinal hemorrhage [ ]6) Other significant finding [ ]III. Acute cardiac or peripheral ischemia as indicated by ANY ONE of the following: [ ]a) Acute coronary syndrome(17)(18) [ ]b) Acute peripheral ischemia (eg, pulseless, cool, mottled, or cyanotic extremity)(19) [ ]IV. Cardiac arrhythmias or findings of immediate concern indicated by ANY ONE of the following(20)(21): [ ]a) Heart rhythms that are inherently dangerous or unstable indicated by ANY ONE of the following(22)(23)(24): [ ]i) Resuscitated ventricular fibrillation or cardiac arrest [ ]ii) Ventricular escape rhythm [ ]iii) Sustained ventricular tachycardia (30 seconds or more of ventricular rhythm at greater than 100 beats per minute) [ ]iv) Nonsustained ventricular tachycardia and ANY ONE of the following: [ ]1) Suspected cardiac ischemia as cause or consequence of ventricular tachycardia [ ]2) In setting of acute myocarditis [ ]b) Unstable cardiac conduction defects indicated by ANY ONE of the following(24)(25)(26): [ ]i) Type II second-degree atrioventricular block [ ]ii) Third-degree atrioventricular block [ ]iii) New-onset left bundle branch block with suspected myocardial ischemia [ ]c) Any heart rhythm and ANY ONE of the following(22)(23)(27)(28)( 29): [ ] i) Continuous long-term ECG monitoring needed (eg, initiation of drug requiring monitoring for more than 24 hours) [ ] ii) Patient has automatic implanted cardioverter defibrillator that is repeatedly firing, malfunctioning, or in need of immediate adjustment of settings beyond the scope of ambulatory or observation care. [ ]d) Heart rhythms of concern due to ANY ONE of the following: [ ]i) Hypotension [ ]ii) Respiratory distress [ ]iii) Association with other significant symptoms (eg, bradycardia with syncope or ongoing dizziness, supraventricular tachycardia with chest pain) (27)(28) (30) [ ] V. Severe heart failure as indicated by ANY ONE of the following ( 31)(32): [ ]a) Respiratory distress [ ]b) Hypotension [ ]c) Anasarca (refractory to outpatient therapy) [ ]d) Cardiac arrhythmias of immediate concern [ ]e) Myocardial ischemia [ ]. Respiratory abnormalities, including ANY ONE of the following(33)(34) (35)(36): [ ]a) Respiratory rate greater than 30 breaths per minute unresponsive to treatment [A] [ ]b) New saturation of arterial oxygen less than 90% [ ]c) New partial pressure of carbon dioxide greater than 44 mm Hg ( 5.9 kPa) [ ]d) Supplemental oxygen or respiratory treatments needed that are new or not performable at other levels of care [ ]e) New-onset cyanosis [ ]f) Inability to protect airway [ ]g) Chronic lung disease with severe deterioration (not responsive to emergency and observation care treatment as appropriate) as indicated by ANY ONE of the following(34)(36 ): [ ]i) SaO2 5% below baseline in patient with chronic hypoxemia [ ]ii) New requirement for supplemental oxygen to keep SaO2 at baseline or acceptable level [ ]iii) Required supplemental oxygen performable only in acute inpatient setting [ ]iv) Severe airflow or ventilation abnormalities [ ]v) Previously mobile patient unable to walk between rooms [ ]vi Inability to eat or sleep due to dyspnea [ ]vii) Rapid rate of exacerbation onset [ ]viii) Altered mental status ]VII. Severe airflow or ventilation abnormalities (not responsive to emergency and observation care treatment as appropriate) as indicated by ANY ONE of the following(33)(34)(35)(37): [ ]a) PCO2 greater than 42 mm Hg (5.6 kPa) and pH less than 7.35 (new ) [ ]b) Documented PCO2 increased more than 5 mm Hg (0.7 kPa) from disease baseline [ ]c) Airflow measurements [B] less than 60% of previous best or predicted (eg, peak expiratory flow rate less than 300 L/minute) despite intensive emergent treatment [C] [ ]d) Required respiratory treatments that are performable only in acute inpatient setting [ ]VIII. Impending or actual respiratory arrest ( Also use Respiratory Failure GRG for severe respiratory disease and long-term mechanical ventilation patients) [ ]IX. Neurologic abnormalities, including ANY ONE of the following: [ ]a) New findings that suggest ANY ONE of the following: [ ]i) EXCELLENCE LEADER infection(38) [ ]ii) Cerebral bleeding, ischemia, or vasospasm(39)(40) [ ]iii) Increased intracranial pressure, hydrocephalus, or cerebral edema(41)(42)(43) [ ]iv) Spinal cord injury(44) [ ]b) Uncontrolled seizures(45) [ ]c) New-onset coma (eg, [place] coma scale score less than 9) or unexplained abnormal mental status (eg, [place] coma scale score less than 14) [D](41)(46)(47) [ ]X. New-onset severe neurologic findings requiring inpatient care; examples include(42)(48)(49): [ ]a) Papilledema [ ]b) Cerebral edema [ ]c) Mass effect on CT scan [ ]XI. Suspected acute intra-abdominal process with peritoneal signs, abdominal mass, or similar findings (50)(51)(52) [ ]XII. Severe physiologic disorder remaining after emergency or observation level care (as appropriate) as indicated by ANY ONE of the following (53): [ ]a) Significant dehydration [ ]b) Diabetic ketoacidosis [ ]c) Hyperglycemic hyperosmolar state (eg, osmolality greater than 320 mOsm/kg (mmol/kg) [ ]d) Hypoglycemia [ ]e) Other (new) acid-base disorder with pH less than 7.35 or greater than 7.5(54) [ ]f) Thyroid storm (55) [ ]g) Myxedema coma (55) [ ]XIII. Abdominal abnormalities with ANY ONE of the following(56)(57): [ ]a) Absent bowel sounds with complete ileus [ ]b) Signs of intestinal obstruction or peritonitis [E] [ ]c) Nausea and vomiting that cannot be controlled with outpatient or observation care [ ]XIV. Acute renal failure as indicated by new onset of ANY ONE of the following(9)(10)(11)(12)(13): [ ]a) A 3-fold rise in serum creatinine from baseline [ ]b) Serum creatinine greater than 4 mg/dL (354 micromoles/L) with acute rise greater than 0.5 mg/dL (44.2 micromoles/L) [ ]c) Reduction of more than 75% in estimated glomerular filtration rate from baseline [ ]d) Estimated glomerular filtration rate less than 35 mL/min/ 1.73m2 (0.59 mL/sec/1.73m2) in child up to 18 years of age [ ]e) Cessation of urine output indicated by ALL of the following: [ ]i) Adequate volume status [ ]ii) Inadequate urine output as indicated by ANY ONE of the following: [ ]1) Urine output less than 0.3 mL/kg/hr for 24 hours [ ]2) Anuria (urine output less than 0.1 mL/kg/hr) for 12 hours [ ]XV. Significant uremic complications as indicated by ANY ONE of the following(58)(59)(60): [ ]a) Outpatient therapy is ineffective or not feasible for ANY ONE of the following: [ ]i) Severe heart failure [ ]ii) Severehypertension [ ]iii) Pleural effusion [ ]iv) Pericarditis or pericardial effusion [ ]b) Cardiac arrhythmias of immediate concern [ ]c) Intractable nausea or vomiting [ ]d) Recurrent seizures [ ]e) Encephalopathy [ ]f) Bleeding abnormalities (eg, platelet dysfunction) with active (eg, gastrointestinal) bleeding [ ]g) Dialysis indicated before long-term access or ambulatory arrangements can be made [ ]h) Significant metabolic or electrolyte abnormalities (eg, severe acidosis or hyperkalemia) [ ]XVI. High fever or other high-risk infection situation as indicated by ANY ONE of the following(61)(62)(63)(64): [ ]a) Outpatient and observation care antimicrobial treatment unavailable, not effective, or not appropriate [ ]b) Documented bacteremia [ ]c) Temperature greater than 40.5 degrees C (104.9 degrees F) ( oral) [ ]d) Temperature greater than 39.5 degrees C (103.1 degrees F) ( oral) or less than 36 degrees C (96.8 degrees F) (rectal) that does not respond to e treatment and observation care [ ] XVII. Temperature less than 95 degrees F (35 degrees C)(rectal)(65) [ ] XVIII. Severe nutritional abnormalities as indicated by ALL of the following (66)(67): [ ]a) Inability to tolerate or establish sufficient oral or other enteral nutrition in outpatient setting [ ]b) Parenteral nutrition regimen need that must be implemented on inpatient basis [X ] XIX. Severe electrolyte abnormalities indicated by ALL of the following(68 )(69)(70): [X ]a) Electrolytes and associated findings are not as expected for patient baseline or acceptable treatment effects. [X ]b) Severe abnormalities indicated by ANY ONE of the following: [X ]i) Sodium less than 130 mEq/L (mmol/L) (new) [ ]ii)Sodium less than 135 mEq/L (mmol/L) with ANY ONE of the following: [ ]1) Uncorrectable (to near normal or chronic baseline) after trial of outpatient and emergency treatment [ ]2) Altered mental status [ ]3) Seizures [ ]4) Severe medical etiology requiring inpatient management (eg, heart failure, hypovolemia) [ ]iii) Sodium greater than 155 mEq/L (mmol/L) [ ]iv) Sodium greater than 150 mEq/L (mmol/L) with ANY ONE of the following: [ ]1) Uncorrectable (to near normal or chronic baseline) with outpatient and emergency treatment [ ]2) Altered mental status [ ]3) Seizures [ ]4) Severe medical etiology (eg, hypovolemia, diabetes insipidus) [ ]v) Potassium less than 2.5 mEq/L (mmol/L) despite outpatient and emergency treatment [ ]vi) Potassium less than 3 mEq/L (mmol/L) with ANY ONE of the following: [ ]1) Weakness [ ]2) Cardiac abnormality (eg, arrhythmia, conduction disturbance) [ ]3) Cardiac ischemia [ ]4) Ileus [ ]5) Ongoing medical cause requiring inpatient management (eg, acute renal wasting or SIADH) [ ]6) Other severe symptoms [ ]vii) Potassium greater than 6.5 mEq/L (mmol/L) [ ]viii) Potassium greater than 5 mEq/L (mmol/L) with ANY ONE of the following: [ ]1) Uncorrectable (to near normal or chronic baseline) with outpatient and emergency treatment [ ]2) Severe ECG findings [F] [ ]3) Acute worsening of renal failure (creatinine greater than 2.5 mg/dL (221 micromoles/L) or significant elevation for age and size) [ ]4) Severe weakness [ ]5) Severe medical etiology (eg, hemolysis, infection, drug overdose) [ ]ix) Calcium less than 7 mg/dL (1.75 mmol/L) despite outpatient and emergency treatment (72) [ ]x) Calcium less than 8 mg/dL (2 mmol/L) with significant symptoms or findings; examples include(72): [ ]1) Altered mental status [ ]2) Muscle spasms [ ]3) Seizures [ ]4) Breathing difficulty [ ]5) Cardiac abnormality (eg, arrhythmia or conduction disturbance) [ ]xi) Calcium greater than 14 mg/dL (3.5 mmol/L)(72) [ ]xii) Calcium greater than 12 mg/dL (3 mmol/L) with ANY ONE of the following(72): [ ]1) Uncorrectable (to near normal or chronic baseline) with outpatient and emergency treatment [ ]2) Significant dehydration or hypovolemia as indicated by ALL of the following(70)(73)(74): [ ]A. Not resolved with initial treatments [ ]B. Clinically significant dehydration as indicated by ANY ONE of the following: [ ]a. Vomiting refractory to outpatient treatment (ie, precluding oral rehydration) [ ]b. Inability to drink [ ]c. Hypernatremia or other electrolyte abnormality unable to be corrected with outpatient and emergency treatment [ ]d. Failure to remain hydrated with outpatient therapy [ ]e. Reduced urine output [ ]f. Hypotension [ ]g. Serious cause for dehydration requiring acute hospitalization (eg, bowel obstruction, increased intracranial pressure, infectious cause) [ ]h. Child with ANY ONE of the following(75): [ ]1) Severe abdominal tenderness [ ]2) Adequate care not available at home [ ]3) Severe dehydration ( greater than 9% loss of body weight) [ ]4) Significant symptoms or findings; examples include: [ ]A. Altered mental status [ ]B. Cardiac abnormality (eg, arrhythmia, conduction disturbance) [ ]C. Malignant etiology requiring inpatient treatment [ ]xiii) Phosphorus less than 1 mg/dL (0.32 mmol/L) [ ]xiv) Phosphorus less than 1.5 mg/dL (0.48 mmol/L) with ANY ONE of the following: [ ]1) Patient unresponsive to outpatient and emergency treatment [ ]2) Significant symptoms or findings; examples include: [ ]A. Weakness [ ]B. Altered mental status [ ]C. Breathing difficulty [ ]D. Seizures [ ]E. Rhabdomyolysis [ ]xv) Phosphorus greater than 10 mg/dL (3.2 mmol/L) [ ]xvi) Phosphorus greater than 4.5 mg/dL (1.45 mmol/L) (new) with ANY ONE of the following: [ ]1) Severe medical etiology (eg, crush injury, acute renal failure) [ ]2) Associated hypocalcemia with significant findings; examples include: [ ]A. Neurologic symptoms [ ]B. Altered mental status [ ]C. Muscle spasms [ ]D. Seizures [ ]E. Breathing difficulty [ ]F. Cardiac abnormality (eg, arrhythmia, conduction disturbance) [ ]xvii) Magnesium less than 1 mg/dL (0.41 mmol/L) [ ]xviii) Magnesium less than 1.5 mg/dL (0.62 mmol/L) with ANY ONE of the following: [ ]1) Patient unresponsive to outpatient and emergency treatment [ ]2) Associated hypocalcemia with significant findings; examples include: [ ]A. Altered mental status [ ]B. Muscle spasms [ ]C. Seizures [ ]D. Breathing difficulty [ ]E. Cardiac abnormality (eg, arrhythmia , conduction disturbance) [ ]3) Associated hypokalemia (potassium less than 3 mEq/L (mmol/L)) with risk of arrhythmia [ ]xix) Magnesium greater than 4 mEq/L (2 mmol/L) [ ]xx) Magnesium greater than 2.5 mEq/L (1.25 mmol/L) with significant symptoms or findings; examples include: [ ]1) Weakness [ ]2) Altered mental status [ ]3) Cardiac abnormality (eg, arrhythmia, conduction disturbance) [ ]4) Breathing difficulty [ ]5) Severe medical etiology (eg, renal failure, hypovolemia) [ ]xxi) Uric acid greater than 20 mg/dL (1190 micromoles/L)(76) [ ]xxii) Uric acid greater than 8 mg/dL (476 micromoles/L) with significant symptoms or findings of tumor lysis syndrome; examples include(76): [ ]1) Creatinine greater than 1.5 times upper limit of normal [ ]2) Cardiac abnormality (eg, arrhythmia, conduction disturbance) [ ]3) Seizure [ ]XX. Acute blood loss causing significant abnormality as indicated by ANY ONE of the following(77)(78): [ ]a) Hemoglobin less than 10 g/dL (100 g/L) (not baseline) [ ]b) Hematocrit less than 30% (0.30) (not baseline) [ ]c) Repeat hematocrit decreased more than 2% (0.02) [ ]d) Uncontrolled bleeding [ ]XXI. Severe anemia indicated by ANY ONE of the following(78)(79): [ ]a) Altered mental status [ ]b) Chest pain [ ]c) Exertional dyspnea [ ]d) Syncope [ ]e) Other findings suggesting inadequate perfusion [ ]f) Treatment with transfusion or volume replacement is ineffective at resolving ANY ONE of the following [G]: [ ]i) Tachycardia for age [ ]ii) Orthostatic vital sign changes as indicated by ANY ONE of the following(80): [ ]1) Fall in SBP of 20 mm Hg or more 1 to 3 minutes after patient sits or stands from recumbent position [ ]2) Fall in DBP of 10 mm Hg or more 1 to 3 minutes after patient sits or stands from recumbent position [ ]XXII. High-risk low platelet count as indicated by ANY ONE of the following( 81)(82): [ ]a) Severe or life-threatening bleeding (eg, intracranial, major gastrointestinal, or extensive mucosal bleeding), with any reduced platelet count [ ]b) Platelet count less than 20,000/mm3 (20 x109/L) with any active bleeding [ ]c) Platelet count less than 10,000/mm3 (10 x109/L) with minor purpura or petechiae [ ]d) Platelet count less than 5000/mm3 (5 x109/L) [ ]e) Low platelet count with hemolytic anemia [ ]XXIII. Disseminated intravascular coagulation(77)(83) [ ]XXIV. Severe adverse drug or systemic toxin reaction requiring inpatient treatment; examples include(84)(85): [ ]a) Serotonin syndrome(86) [ ]b) Neuroleptic malignant syndrome(86) [ ]c) Cholinergic syndrome with severe symptoms (eg, bronchorrhea, weakness, mental status changes, seizures) [ ]d) Sympathetic syndrome with severe symptoms (eg, seizures, mental status changes, cardiac dysrhythmias) [ ]e) Anticholinergic syndrome [ ]XXV. Severe pain requiring acute inpatient management as indicated by ALL of the following (87)(88)(89): [ ]a) Continuous or frequent (eg, every 2 to 4 hours) parenteral analgesics required [H] [ ]b) Rapid improvement expected from treatment or acute intervention (eg, surgery, anesthesia procedure) [ ]XXVI.Severe behavioral health issues judged unmanageable at a lower level of care (eg, residential) in a patient who is ANY ONE of the following(91) [ ]a) Acutely suicidal [ ]b) A danger to self (eg, self-mutilating or suicidal behavior) [ ]c) A danger to others (eg, assaultive or homicidal behavior) [ ]d) Incapacitated because of grave disability (eg, inability to provide for self at lower level of care) (92) [ ]XXVII. Inpatient monitoring needed; examples include(1)(3)(87)(93)(94)(95)(96 ): [ ]a) Vital signs, neurologic signs, or vascular checks more frequently than every 4 hours [ ]b) Cardiac or respiratory monitoring beyond the scope (eg, over 24 hours) of observation care [ ]c) Pulmonary artery catheter monitoring [ ]d) Suspected compartment syndrome(97) (98) [ ]e) Cerebral bleeding, hydrocephalus, or vasospasm monitoring [ ]f) Increased intracranial pressure or cerebral edema monitoring [ ]g) monitoring [ ]XXVIII. Treatment requiring inpatient care; examples include: [ ]a) IV fluid to replace significant ongoing losses (greater than 3 L/m2 per day)(53) [ ]b) High concentration oxygen (greater than 40%)(33)(99)(100) [ ]c) Frequent respiratory therapy (more frequently than every 4 hours) to maintain airflow rates greater than 60% of baseline(33)(99)(100) [ ]d) Epidural analgesia(87) [ ]e) IV anticoagulation, vasoactive, or antiarrhythmic medication(19 )(23) [ ]f) Acute thrombolytics (generally require 24 hours of observation )(101)(102) [ ]XXIX. Emergency procedures needed; examples include: [ ]a) Emergency inpatient surgery [ ]b) Temporary pacemaker placement(103) [ ]c) Chest tube placement with active evacuation (eg, suction, drainage)(104) [ ]d) Emergent cardioversion(105) [ ]e) Emergent cardiac or vascular procedures (eg, cardiac catheterization, angioplasty) (17)(18) [ ]f) Emergent dialysis access placement and institution(10)(106) [ ]g) Emergent pericardiocentesis(107) [ ]h) Emergent plasmapheresis or leukapheresis(83) [ ]i) Emergent tracheostomy The original [employer] content created by [employer] has been revised. The portions of the content which have been revised are identified through the use of italic text or in bold, and [employer] has neither reviewed nor approved the modified material. All other unmodified content is copyright [employer]. Please see references footnoted in the original [employer] edition 2016 Admission Criteria Met: Yes
[2016-10-09] MEDS ORDERED: ULTRAM PO ONE (14:12)
[2016-10-09 14:42] LABS: INR 0.96 (0.87-1.13)
[2016-10-09 15:34] VITALS: BP 130/70
== END 2016-10-09 14:40 | disposition left against medical advice (07) ==
LOC: ED 19:39
DX: J44.1 Chronic obstructive pulmonary disease with (acute) exacerbation (principal); E87.1 Hypo-osmolality and hyponatremia; R07.89 Other chest pain; D72.829 Elevated white blood cell count, unspecified; E87.6 Hypokalemia; I10 Essential (primary) hypertension; I50.9 Heart failure, unspecified; M19.90 Unspecified osteoarthritis, unspecified site; J44.9 Chronic obstructive pulmonary disease, unspecified; A41.9 Sepsis, unspecified organism; Z72.0 Tobacco use; Z88.0 Allergy status to penicillin
CPT/HCPCS: 36415; 51701; 71020; 80048; 80053; 82140; 82550; 82553; 83690; 83880; 84439; 84443; 84484; 85025; 85610; 85730; 87040; 93005; 93010; 94640; 96360; 99284; J7030

== ENCOUNTER 2016-11-21 20:36 | Inpatient (IN) | payer MEDICAID ==
[2016-11-21] MEDS ORDERED: DUONEB *Not for PRN Use IH ONE (20:46)
[2016-11-21] MEDS ORDERED: MAGNESIUM SULFATE 2GM/50ML 2 GM/50 ML BAG IV ONE (21:24)
[2016-11-21] MEDS ORDERED: NORCO 5/325 PO ONE (21:26)
[2016-11-21 21:56] LABS: Hematocrit 36.2 % (30.3-42.9); Hemoglobin 11.9 gm/dl (10.1-14.3); Mean Corpuscular HGB Conc 33 % (30-34); Mean Corpuscular Hemoglobin 31 pg (28-32); Mean Corpuscular Volume 94 fl (79-97); Platelet Count 347 K/mm3 (140-440); Red Blood Count 3.85 M/mm3 (3.65-5.03); White Blood Count 13.8 K/mm3 (4.5-11.0)
[2016-11-21 22:04] LABS: Anion Gap 16 mmol/L; BUN/Creatinine Ratio 8.57; Blood Urea Nitrogen 6 mg/dL (7-17); Calcium 8.5 mg/dL (8.4-10.2); Carbon Dioxide 29 mmol/L (22-30); Chloride 99.3 mmol/L (98-107); Glucose 73 mg/dL (65-100); Sodium 140 mmol/L (137-145)
[2016-11-21 22:06] LABS: INR 0.93 (0.87-1.13)
--- NOTE | 2016-11-21 22:21 | Emergency Department Report ---
ED Shortness of Breath HPI - General Chief Complaint: Dyspnea/Respdistress Stated Complaint: ORALIA Time Seen by Provider: 11/21/16 21:19 Source: EMS Mode of arrival: Stretcher Limitations: No Limitations - History of Present Illness Initial Comments: 56-year-old female with a past medical history arthritis, CHF, COPD, and hypertension presents to the hospital complaints of shortness of breath chronically but worsening today. Patient using her inhaler without any provement. Patient is not having any nebulizing machines, she does not use home oxygen, has never been intubated. Patient does continue to smoke on occasion. Positive cough productive of clear sputum occasionally yellow. Patient complains of intermittent chest tightness associated with shortness of breath and wheezing. No reports of fever. Patient chronically uses a wheelchair. Positive history of bleeding peptic ulcer disease and chronic posthepatic neuralgia. - Related Data Home Medications Medication Instructions Recorded Confirmed Last Taken Doxycycline [Vibramycin CAP] 100 mg PO Q12HR 10/03/16 11/22/16 10/03/16 Previous Rx's Medication Instructions Recorded Last Taken Type ALBUTEROL Inhaler [ProAir HFA 2 puff IH QID PRN #1 inhalation 09/26/16 Unknown Rx Inhaler] Budesonide [Pulmicort Respules] 0.5 mg IH Q12HRT #30 nebu 09/26/16 Unknown Rx Furosemide [Lasix TAB] 40 mg PO QDAY #30 tablet 09/26/16 10/03/16 Rx Gabapentin [Neurontin] 100 mg PO Q8HR #90 capsule 09/26/16 Unknown Rx Ipratropium/Albuterol Sulfate 1 ampul IH Q6HRT #120 ampul.neb 09/26/16 Unknown Rx [DUONEB *Not for PRN Use*] Lisinopril [Zestril TAB] 20 mg PO QDAY #30 tablet 09/26/16 Unknown Rx Metoprolol Xl [Metoprolol 50 mg PO QDAY #30 tablet 09/26/16 Unknown Rx SUCCINATE ER TAB] oxyCODONE /ACETAMINOPHEN [Percocet 2 tab PO Q6H PRN #14 tablet 09/26/16 Unknown Rx 5/325 mg] Tiotropium [Spiriva] 18 mcg IH QDAY #30 cap 10/04/16 Unknown Rx Allergies Allergy/AdvReac Type Severity Reaction Status Date / Time Penicillins Allergy Unknown Verified 09/25/16 20:28 ED Review of Systems ROS: Stated complaint: ORALIA Other details as noted in HPI Comment: All other systems reviewed and negative Other: Constitutional: No fevers chills Eyes: No eye pain visual changes ENT: No ear pain or throat pain Neck: Denies pain Respiratory: As per HPI Cardiovascular: Denies palpitations, syncope GI: Denies abdominal pain, nausea, vomiting, diarrhea : Denies dysuria Musculoskeletal: Denies back pain Skin: Denies rash, lesions, erythema Neurologic: Denies headache, numbness, weakness Psychiatric: Denies suicidal ideation, hallucinations ED Past Medical Hx - Past Medical History Hx Hypertension: Yes Hx Congestive Heart Failure: Yes Hx Arthritis: Yes Hx COPD: Yes Additional medical history: Sepsis 2013--[place], history shingles with chronic postherpetic neurologist. Bleeding peptic ulcers requiring blood transfusion - Surgical History Additional Surgical History: Skin Grafts placed after acid quiroga (placed 09/2015) - Social History Smoking Status: Current Every Day Smoker Substance Use Type: Alcohol - Medications Home Medications: Home Medications Medication Instructions Recorded Confirmed Last Taken Type ALBUTEROL Inhaler [ProAir HFA 2 puff IH QID PRN #1 inhalation 09/26/16 11/22/16 Unknown Rx Inhaler] Budesonide [Pulmicort Respules] 0.5 mg IH Q12HRT #30 nebu 09/26/16 11/22/16 Unknown Rx Furosemide [Lasix TAB] 40 mg PO QDAY #30 tablet 09/26/16 11/22/16 10/03/16 Rx Gabapentin [Neurontin] 100 mg PO Q8HR #90 capsule 09/26/16 11/22/16 Unknown Rx Ipratropium/Albuterol Sulfate 1 ampul IH Q6HRT #120 ampul.neb 09/26/16 11/22/16 Unknown Rx [DUONEB *Not for PRN Use*] Lisinopril [Zestril TAB] 20 mg PO QDAY #30 tablet 09/26/16 11/22/16 Unknown Rx Metoprolol Xl [Metoprolol 50 mg PO QDAY #30 tablet 09/26/16 11/22/16 Unknown Rx SUCCINATE ER TAB] oxyCODONE /ACETAMINOPHEN [Percocet 2 tab PO Q6H PRN #14 tablet 09/26/16 Unknown Rx 5/325 mg] Doxycycline [Vibramycin CAP] 100 mg PO Q12HR 10/03/16 11/22/16 10/03/16 History Tiotropium [Spiriva] 18 mcg IH QDAY #30 cap 10/04/16 11/22/16 Unknown Rx ED Physical Exam - General Limitations: No Limitations - Other Other exam information: General: No limitations, patient is alert in no acute distress Head exam: Atraumatic, normocephalic Eyes exam: Normal appearance ENT: Moist mucous membrane, normal oropharynx Neck exam: Normal inspection, full range of motion Respiratory exam: Diminished breath sounds bilaterally, no rales, crackles. No wheezing while receiving nebulized treatment Cardiovascular: Normal rate and rhythm Abdomen: Soft, nondistended, and nontender, with normal bowel sounds, no rebound, or guarding Extremity: Full range of motion normal inspection no deformity, no calf tenderness or edema Back: Normal Inspection, full range of motion, no tenderness Neurologic: Alert, oriented x3, cranial nerves intact, no motor or sensory deficit Psychiatric: normal affect, normal mood Skin: Warm, dry, intact ED Course Vital Signs 11/21/16 11/21/16 11/21/16 21:31 21:50 21:54 Temperature 98.6 F Pulse Rate 94 H Pulse Rate [ 108 H Anterior Bilateral Throughout] Respiratory 22 22 Rate Respiratory 20 Rate [Anterior Bilateral Throughout] Blood Pressure 87/52 [Left] O2 Sat by Pulse 100 100 Oximetry - Reevaluation(s) Reevaluation #1: 11/22/16 01:15 pt continues to feel sob and weak ED Medical Decision Making - Lab Data Result diagrams: 11/21/16 21:32 11/21/16 21:32 Lab Results 11/21/16 11/21/16 11/21/16 Range/Units 21:32 21:32 21:32 WBC 13.8 H (4.5-11.0) K/mm3 RBC 3.85 (3.65-5.03) M/mm3 Hgb 11.9 (10.1-14.3) gm/dl Hct 36.2 (30.3-42.9) % MCV 94 (79-97) fl MCH 31 (28-32) pg MCHC 33 (30-34) % RDW 17.0 H (13.2-15.2) % Plt Count 347 (140-440) K/mm3 Baso % (Auto) Rail Tractor Operator Add Manual Diff Complete Total Counted 100 Seg Neuts % (Manual) 77.0 H (40.0-70.0) % Band Neutrophils % 0 % Lymphocytes % (Manual) 15.0 (13.4-35.0) % Reactive Lymphs % (Man) 0 % Monocytes % (Manual) 4.0 (0.0-7.3) % Eosinophils % (Manual) 2.0 (0.0-4.3) % Basophils % (Manual) 2.0 H (0.0-1.8) % Metamyelocytes % 0 % Myelocytes % 0 % Promyelocytes % 0 % Blast Cells % 0 % Nucleated RBC % Not Reportable Seg Neutrophils # Man 10.6 H (1.8-7.7) K/mm3 Band Neutrophils # 0.0 K/mm3 Lymphocytes # (Manual) 2.1 (1.2-5.4) K/mm3 Abs React Lymphs (Man) 0.0 K/mm3 Monocytes # (Manual) 0.6 (0.0-0.8) K/mm3 Eosinophils # (Manual) 0.3 (0.0-0.4) K/mm3 Basophils # (Manual) 0.3 H (0.0-0.1) K/mm3 Metamyelocytes # 0.0 K/mm3 Myelocytes # 0.0 K/mm3 Promyelocytes # 0.0 K/mm3 Blast Cells # 0.0 K/mm3 WBC Morphology Not Reportable Hypersegmented Neuts Not Reportable Hyposegmented Neuts Not Reportable Hypogranular Neuts Not Reportable Smudge Cells Not Reportable Toxic Granulation Not Reportable Toxic Vacuolation Not Reportable Dohle Bodies Not Reportable Pelger-Huet Anomaly Not Reportable Sanchez Rods Not Reportable Platelet Estimate Appears normal Clumped Platelets Not Reportable Plt Clumps, EDTA Not Reportable Large Platelets Not Reportable Giant Platelets Not Reportable Platelet Satelliting Not Reportable Plt Morphology Comment Not Reportable RBC Morphology Not Reportable Dimorphic RBCs Not Reportable Polychromasia Not Reportable Hypochromasia Not Reportable Poikilocytosis Not Reportable Anisocytosis Few Microcytosis Not Reportable Macrocytosis Not Reportable Spherocytes Not Reportable Pappenheimer Bodies Not Reportable Sickle Cells Not Reportable Target Cells Not Reportable Tear Drop Cells Rare Ovalocytes Not Reportable Stomatocytes Few Helmet Cells Not Reportable Izquierdo-Brentford Bodies Not Reportable Conley Rings Not Reportable Ranjan Cells Not Reportable Bite Cells Not Reportable Crenated Cell Not Reportable Elliptocytes Not Reportable Acanthocytes (Spur) Not Reportable Rouleaux Not Reportable Hemoglobin C Crystals Not Reportable Schistocytes Not Reportable Malaria parasites Not Reportable Alton Bodies Not Reportable Hem Pathologist Commnt No PT (12.2-14.9) Sec. INR (0.87-1.13) Sodium 140 (137-145) mmol/L Potassium 4.0 (3.6-5.0) mmol/L Chloride 99.3 (98-107) mmol/L Carbon Dioxide 29 (22-30) mmol/L Anion Gap 16 mmol/L BUN 6 L (7-17) mg/dL Creatinine 0.7 (0.7-1.2) mg/dL Estimated GFR > 60 ml/min BUN/Creatinine Ratio 8.57 % Glucose 73 (65-100) mg/dL Calcium 8.5 (8.4-10.2) mg/dL Troponin T < 0.010 (0.00-0.029) ng/mL NT-Pro-B Natriuret Pep 712.8 (0-900) pg/mL 11/21/16 Range/Units 21:32 WBC (4.5-11.0) K/mm3 RBC (3.65-5.03) M/mm3 Hgb (10.1-14.3) gm/dl Hct (30.3-42.9) % MCV (79-97) fl MCH (28-32) pg MCHC (30-34) % RDW (13.2-15.2) % Plt Count (140-440) K/mm3 Baso % (Auto) Add Manual Diff Total Counted Seg Neuts % (Manual) (40.0-70.0) % Band Neutrophils % % Lymphocytes % (Manual) (13.4-35.0) % Reactive Lymphs % (Man) % Monocytes % (Manual) (0.0-7.3) % Eosinophils % (Manual) (0.0-4.3) % Basophils % (Manual) (0.0-1.8) % Metamyelocytes % % Myelocytes % % Promyelocytes % % Blast Cells % % Nucleated RBC % Seg Neutrophils # Man (1.8-7.7) K/mm3 Band Neutrophils # K/mm3 Lymphocytes # (Manual) (1.2-5.4) K/mm3 Abs React Lymphs (Man) K/mm3 Monocytes # (Manual) (0.0-0.8) K/mm3 Eosinophils # (Manual) (0.0-0.4) K/mm3 Basophils # (Manual) (0.0-0.1) K/mm3 Metamyelocytes # K/mm3 Myelocytes # K/mm3 Promyelocytes # K/mm3 Blast Cells # K/mm3 WBC Morphology Hypersegmented Neuts Hyposegmented Neuts Hypogranular Neuts Smudge Cells Toxic Granulation Toxic Vacuolation Dohle Bodies Pelger-Huet Anomaly Sanchez Rods Platelet Estimate Clumped Platelets Plt Clumps, EDTA Large Platelets Giant Platelets Platelet Satelliting Plt Morphology Comment RBC Morphology Dimorphic RBCs Polychromasia Hypochromasia Poikilocytosis Anisocytosis Microcytosis Macrocytosis Spherocytes Pappenheimer Bodies Sickle Cells Target Cells Tear Drop Cells Ovalocytes Stomatocytes Helmet Cells Izquierdo-Brentford Bodies Conley Rings Ranjan Cells Bite Cells Crenated Cell Elliptocytes Acanthocytes (Spur) Rouleaux Hemoglobin C Crystals Schistocytes Malaria parasites Alton Bodies Hem Pathologist Commnt PT 12.4 (12.2-14.9) Sec. INR 0.93 (0.87-1.13) Sodium (137-145) mmol/L Potassium (3.6-5.0) mmol/L Chloride (98-107) mmol/L Carbon Dioxide (22-30) mmol/L Anion Gap mmol/L BUN (7-17) mg/dL Creatinine (0.7-1.2) mg/dL Estimated GFR ml/min BUN/Creatinine Ratio % Glucose (65-100) mg/dL Calcium (8.4-10.2) mg/dL Troponin T (0.00-0.029) ng/mL NT-Pro-B Natriuret Pep (0-900) pg/mL - EKG Data -: EKG Interpreted by Me (sinus rhythm rate 100 no STEMI) - EKG Data When compared to previous EKG there are: no significant change (compared to 02/2017) - Radiology Data Radiology results: image reviewed (cxr: naf) - Medical Decision Making Ancillary admitted to the hospital for a COPD exacerbation with generalized weakness - Differential Diagnosis COPD, bronchitis, CHF, PE Critical Care Time: No Critical care attestation.: If time is entered above; I have spent that time in minutes in the direct care of this critically ill patient, excluding procedure time. ED Disposition Clinical Impression: COPD exacerbation Disposition: OP ADMIT IP TO THIS HOSP Is pt being admited?: Yes Condition: Stable Time of Disposition: 01:16 (/hosp)
[2016-11-21 22:37] LABS: Blastocytes % (Manual) 0 %
[2016-11-21 22:38] LABS: Stomatocytes Few
[2016-11-21 22:39] LABS: Anisocytosis Few; Diff Status Complete; Tear Drop Cells Rare
[2016-11-22] MEDS ORDERED: ZOFRAN IV PRN (02:02)
[2016-11-22] MEDS ORDERED: TYLENOL PO PRN (02:02)
[2016-11-22] MEDS ORDERED: MILK OF MAGNESIA PO PRN (02:02)
[2016-11-22] MEDS ORDERED: DULCOLAX PR PRN (02:02)
[2016-11-22] MEDS: CLEOCIN PO SCH ×2 (02:05→10:04)
--- NOTE | 2016-11-22 02:14 | History and Physical Report ---
History of Present Illness Date of examination: 11/22/16 History of present illness: 55-year-old woman history of COPD on home oxygencomes emergency room with complaints of shortness of breath,. The patient has no electricity or water at home, she is unable to use oxygen or nebulizer treatments. Also complaining that her wisdom tooth on the right is hurting and swollen Review Of Systems: Constitutional: no fever, chills, weight loss Ears, eyes, nose, mouth and throat: no nasal congestion, no nasal discharge, no sinus pressure, blurry vision, diplopia Neck: No neck pain or rigidity. Cardiovascular: chest pain, orthopnea, palpitations Respiratory: No cough Gastrointestinal: abdominal pain, hematochezia Genitourinary : no dysuria, frequency , hematuria Musculoskeletal: no joint swelling or muscle ache Integumentary: no rash, no pruritis Neurological: no parathesias, focal weakness Endocrine: no cold or heat intolerance, no polyuria or polydipsia Hematologic/Lymphatic: no easy bruising, no easy bleeding, no gland swelling Allergic/Immunologic: no urticaria, no angioedema. Past medical history:COPD on home oxyge PAST SURGICAL HISTORY: Skin graft SOCIAL HISTORY: Smokes 5 cigars a day, no alcohol or drugs FAMILY HISTORY: Hypertension Medications and Allergies Allergies Allergy/AdvReac Type Severity Reaction Status Date / Time Penicillins Allergy Unknown Verified 09/25/16 20:28 Home Medications Medication Instructions Recorded Confirmed Last Taken Type ALBUTEROL Inhaler [ProAir HFA 2 puff IH QID PRN #1 inhalation 09/26/16 11/22/16 Unknown Rx Inhaler] Budesonide [Pulmicort Respules] 0.5 mg IH Q12HRT #30 nebu 09/26/16 11/22/16 Unknown Rx Furosemide [Lasix TAB] 40 mg PO QDAY #30 tablet 09/26/16 11/22/16 10/03/16 Rx Gabapentin [Neurontin] 100 mg PO Q8HR #90 capsule 09/26/16 11/22/16 Unknown Rx Ipratropium/Albuterol Sulfate 1 ampul IH Q6HRT #120 ampul.neb 09/26/16 11/22/16 Unknown Rx [DUONEB *Not for PRN Use*] Lisinopril [Zestril TAB] 20 mg PO QDAY #30 tablet 09/26/16 11/22/16 Unknown Rx Metoprolol Xl [Metoprolol 50 mg PO QDAY #30 tablet 09/26/16 11/22/16 Unknown Rx SUCCINATE ER TAB] oxyCODONE /ACETAMINOPHEN [Percocet 2 tab PO Q6H PRN #14 tablet 09/26/16 Unknown Rx 5/325 mg] Doxycycline [Vibramycin CAP] 100 mg PO Q12HR 10/03/16 11/22/16 10/03/16 History Tiotropium [Spiriva] 18 mcg IH QDAY #30 cap 10/04/16 11/22/16 Unknown Rx Active Meds: Active Medications Acetaminophen (Tylenol) 650 mg PO Q4H PRN PRN Reason: Pain MILD(1-3)/Fever >100.5/PENG Acetaminophen/Hydrocodone Bitart ([place] 5/325) 1 each PO Q6H PRN PRN Reason: Pain, Moderate (4-6) Albuterol/Ipratropium (Duoneb *Not For Prn Use*) 1 ampul IH Q6HRT PRASANNA Bisacodyl (Dulcolax) 10 mg AL QDAY PRN PRN Reason: Constipation unrelieved by [facility] [place] Clindamycin HCl (Cleocin) 300 mg PO Q8H PRASANNA Enoxaparin Sodium (Lovenox) 30 mg SUB-Q QDAY PRASANNA Magnesium Hydroxide (Milk Of Magnesia) 30 ml PO Q4H PRN PRN Reason: Constipation Methylprednisolone Sodium Succinate (Solu-Medrol) 125 mg IV Q6H PRASANNA Ondansetron HCl (Zofran) 4 mg IV Q8H PRN PRN Reason: N/V unrelieved by Reglan Exam - Physical Exam Narrative exam: Gen. appearance: Patient lying in bed, no apparent distress HEENT: Normocephalic, atraumatic, pupils equally round and reactive to light, extraocular movement intact, and no sclericterus,. No JVD or thyromegaly or nodule,neck supple, no carotid bruit ,mucous membranes moist, no exudate or erythema Heart: S1, S2, regular rate and rhythm Lungs: Wheezing bilaterally, breathing comfortable Abdomen: Positive bowel sounds, nontender, nondistended, no organomegaly Extremity: No edema, cyanosis, clubbing Skin: No rash, nodules, warm, dry Neuro: Oriented 3, cranial nerves II-12 intact, speech is fluent, motor and sensory intact - Constitutional Vitals: Temp Pulse Resp BP Pulse Ox 98.6 F 94 H 22 87/52 100 11/21/16 21:54 11/21/16 21:54 11/21/16 21:54 11/21/16 21:54 11/21/16 21:54 Results - Labs CBC & Chem 7: 11/21/16 21:32 11/21/16 21:32 Labs: Abnormal lab results 11/21/16 11/21/16 Range/Units 21:32 21:32 WBC 13.8 H (4.5-11.0) K/mm3 RDW 17.0 H (13.2-15.2) % Seg Neuts % (Manual) 77.0 H (40.0-70.0) % Basophils % (Manual) 2.0 H (0.0-1.8) % Seg Neutrophils # Man 10.6 H (1.8-7.7) K/mm3 Basophils # (Manual) 0.3 H (0.0-0.1) K/mm3 BUN 6 L (7-17) mg/dL - Imaging and Cardiology EKG: image reviewed Chest x-ray: image reviewed Assessment and Plan Assessment COPD exacerbation Tooth abscess Plan Admit to medicine Start high-dose IV steroids, nebulized treatments, clindamycin DVT prophylaxis with SCD Continue appropriate outpatient medications
[2016-11-22] MEDS: NORCO 5/325 PO PRN ×2 (02:52→05:55)
[2016-11-22 03:06] LABS: Creatine Kinase MB 1.9 ng/mL (0.0-4.0)
[2016-11-22 03:07] LABS: Creatine Kinase 23 units/L (30-135)
[2016-11-22] MEDS ORDERED: DUONEB *Not for PRN Use IH SCH (08:00)
--- NOTE | 2016-11-22 08:16 | XRay Report ---
PORTABLE CHEST INDICATION: Shortness of breath. History of CHF/COPD. COMPARISON: 10/09/2016 FINDINGS: Portable, frontal chest radiograph demonstrates stable cardiomediastinal silhouette. Stable hyperexpanded lungs with slightly prominent markings throughout. Possible bibasilar nipple shadows. No pleural effusions or CHF. EKG leads. Demineralized bones. CONCLUSION: COPD again suspected without significant acute chest process, as described. Please correlate. Thank you for the opportunity to participate in this patient's care.
--- NOTE | 2016-11-22 08:21 | Admit Criteria Form ---
Admission Criteria Documentation: COPD Clinical Indications for Admission to Inpatient Care ([place]/ check or initial the applicable condition/criteria) Admission is indicated for ANY ONE of the following (1)(2)(3): [ ]I. Acute exacerbation by high-risk comorbidity(e.g., pneumonia, dysrhythmia, heart failure, pleural effusion, pneumothorax) or severe underlying COPD (eg, baseline FEV1 less than 50% predicted) [X ]II. Inpatient admission required[A] rather than observation care (see Chronic Obstructive Pulmonary Disease: Observation Care) because of ANY ONE of the following: [X ]a) New or pre-existing signs or symptoms of COPD (eg, dyspnea or Tachypnea at rest or with minimal activity) that persist despite outpatient and observation care treatment [ ]b) New-onset hypoxemia (room air SaO2 less than 90%, PO2 less than 60 mm Hg (8.0 kPa)) that persists despite outpatient and observation care treatment [ ]c) Worsening of pre-existing hypoxemia (eg, new or increased requirement for supplemental oxygen to maintain oxygenation at baseline level) that persists despite outpatient and observation care treatment, with oxygen treatment needs performable only in acute inpatient setting [ ]d) Hypercarbia (PCO2 greater than 40 mm Hg (5.3 kPa))-induced respiratory acidosis (pH less than 7.35) that persists despite outpatient and observation care treatment [ ]e) Supplemental oxygen or respiratory treatments for over 24 hours that are performable only in acute inpatient setting [ ]f) Chest tube placement with active evacuation (e.g., suction, drainage) (6) [ ]g) Other condition, treatment or monitoring requiring inpatient admission [ ]III. Planned invasive surgical or diagnostic procedures requiring acute- care hospitalization [ ]IV. Acute respiratory failure (e.g., uncompensated hypercarbia, severe hypoxemia) [ ]V. Severe comorbid condition (e.g., severe steroid myopathy, acute vertebral fracture) that has acutely worsened pulmonary function [ ]. Altered mental status that is severe or persistent Extended stay beyond goal length of stay may be needed for (29)(30)(31)(32)(33) : [ ]a ) Respiratory Failure. [ ]b) Severe or persisting hypoxemia or hypercarbia [ ]c) Severe or persistent dyspnea [ ]d) Clinically significant Comorbidities (e.g. chronic heart failure, atrial fibrillation with rapid response, pneumonia)(36) [ ]e) Malnutrition (33) The original [facility] [facility] content created by [facility] has been revised. The portions of the content which have been revised are identified through the use of italic text or in bold, and [facility] has neither reviewed nor approved the modified material. All other unmodified content is copyright [facility]. Please see references footnoted in the original [facility] edition 2017 Admission Criteria Met: Yes
[2016-11-22 08:29] VITALS: BP 100/56
[2016-11-22 08:40] LABS: Creatine Kinase MB 1.4 ng/mL (0.0-4.0)
[2016-11-22 08:41] LABS: Creatine Kinase 19 units/L (30-135)
[2016-11-22] MEDS ORDERED: LOVENOX SUB-Q SCH (10:00)
[2016-11-22] MEDS ORDERED: ORAJEL 20% MM PRN (10:00)
[2016-11-22 10:10] LABS: Hemoglobin 11.3 gm/dl (10.1-14.3); Mean Corpuscular HGB Conc 32 % (30-34); Mean Corpuscular Hemoglobin 30 pg (28-32); Mean Corpuscular Volume 94 fl (79-97); Red Cell Distribution Width 16.3 % (13.2-15.2); White Blood Count 7.8 K/mm3 (4.5-11.0)
--- NOTE | 2016-11-22 10:30 | Discharge Summary ---
Providers - Providers Date of Admission: 11/22/16 02:02 Attending physician: MIKEY MACEDO 11/22/16 10:27 Consult to Case Management [CONS] Routine Services Needed at Discharge: Vacuum Pan Tender Primary care physician: MOTOR VEHICLE ASSEMBLY SUPERVISOR Hospitalization Condition: Stable Disposition: DC-30 STILL A PATIENT Exam - Constitutional Vitals: Temp Pulse Resp BP Pulse Ox 98.6 F 80 19 100/56 100 11/22/16 07:00 11/22/16 07:00 11/22/16 07:00 11/22/16 07:00 11/22/16 07:00 Plan Activity: no restrictions Additional Instructions: 1.Follow up with PCP in 1 week. 2.Follow up with Dentist in 1-2 days. 3.Continue home Oxygen Follow up with: PRIMARY CARE,MD [Primary Care Provider] - 7 Days Prescriptions: Benzocaine [Orajel Liquid 20%] 1 applic MM Q6H PRN #1 bottle PRN Reason: Mouth Pain Prednisone [predniSONE 5 mg (6-Day Pack, 21 Tabs)] 5 mg PO .TAPER #1 tab.ds.pk traMADol [Ultram 50 MG tab] 50 mg PO Q6HR PRN #12 tablet PRN Reason: Pain
[2016-11-22 11:28] LABS: Platelet Count 297 K/mm3 (140-440)
== END 2016-11-22 11:42 | disposition home or self-care (01) | DRG 158 ==
LOC: ED 20:36 → 3A 11-22 02:02
PROVIDERS: ADMIT Internal Medicine; ATTEND Internal Medicine
DX: K04.7 Periapical abscess without sinus (principal); J44.1 Chronic obstructive pulmonary disease with (acute) exacerbation; M19.90 Unspecified osteoarthritis, unspecified site; J44.9 Chronic obstructive pulmonary disease, unspecified; I50.9 Heart failure, unspecified; I11.0 Hypertensive heart disease with heart failure; F17.210 Nicotine dependence, cigarettes, uncomplicated; Z82.49 Family history of ischemic heart disease and other diseases of the circulatory system
CPT/HCPCS: 36415; 71010; 80048; 82550; 82553; 83880; 84484; 85007; 85025; 85027; 85610; 93005; 93010; 94640; 96374; 96375; J1650; J2930; J3475

== ENCOUNTER 2016-12-04 15:54 | Inpatient (IN) | payer MEDICAID ==
[2016-12-04 17:07] LABS: Basophils % (Auto) 0.1 % (0.0-1.8); Eosinophils % (Auto) 0.2 % (0.0-4.3); Hematocrit 37.4 % (30.3-42.9); Hemoglobin 12.2 gm/dl (10.1-14.3); Mean Corpuscular HGB Conc 33 % (30-34); Mean Corpuscular Hemoglobin 30 pg (28-32); Mean Corpuscular Volume 93 fl (79-97); Platelet Count 291 K/mm3 (140-440); Red Blood Count 4.03 M/mm3 (3.65-5.03); Red Cell Distribution Width 16.7 % (13.2-15.2); White Blood Count 18.8 K/mm3 (4.5-11.0)
[2016-12-04 17:16] LABS: INR 0.86 (0.87-1.13)
[2016-12-04] MEDS ORDERED: MAGNESIUM SULFATE 2GM/50ML 2 GM/50 ML BAG IV ONE (17:17)
[2016-12-04] MEDS ORDERED: ATIVAN IV ONE (17:17)
[2016-12-04] MEDS ORDERED: DUONEB *Not for PRN Use IH ONE ×2 (17:17→22:45)
[2016-12-04] MEDS ORDERED: NACL 0.9% 1000 ML 1,000 ML IV ONE (17:17)
[2016-12-04 17:31] LABS: Alanine Aminotransferase 22 units/L (7-56); Albumin 4.1 g/dL (3.9-5); Albumin/Globulin Ratio 1.5 %; Alkaline Phosphatase 81 units/L (35-129); Blood Urea Nitrogen 15 mg/dL (7-17); Calcium 9.2 mg/dL (8.4-10.2); Carbon Dioxide 32 mmol/L (22-30); Chloride 91.7 mmol/L (98-107); Glucose 68 mg/dL (65-100); Lipase 23 units/L (13-60); Potassium 3.7 mmol/L (3.6-5.0); Sodium 139 mmol/L (137-145); Total Protein 6.8 g/dL (6.3-8.2)
[2016-12-04 17:38] LABS: Anion Gap 19 mmol/L
[2016-12-04] MEDS ORDERED: PROVENTIL IH ONE (18:05)
[2016-12-04] MEDS ORDERED: ULTRAM PO ONE (18:57)
[2016-12-04] MEDS ORDERED: LEVAQUIN 500MG/100ML 500 MG/100 ML BAG IV SCH (19:00)
--- NOTE | 2016-12-04 19:17 | Emergency Department Report ---
ED General Adult HPI - General Chief complaint: Dyspnea/Respdistress Stated complaint: ORALIA,CHEST PAIN Time Seen by Provider: 12/04/16 16:49 Source: patient, EMS Mode of arrival: Stretcher Limitations: Physical Limitation - History of Present Illness Initial comments: Patient is a chronically nicotine dependent COPD with frequent hospitalizations. She arrives in the emergency department quite anxious stating that she can't breathe. She states he has no home nebulizer and no home oxygen. She has been recently discharged. She also immediately states that she has post hepatic neuralgia and she needs two Ultram. I have reviewed her previous blood gases. They do show substantial hypoxia. However she does not appear to retain CO2. 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) Radiation: non-radiation Severity scale (0 -10): 0 Quality: burning, aching Consistency: constant Improves with: none Worsens with: none Associated Symptoms: cough (cough is productive she states white sputum), shortness of breath (wheezing) Treatments Prior to Arrival: none - Related Data Previous Rx's Medication Instructions Recorded Last Taken Type ALBUTEROL Inhaler [ProAir HFA 2 puff IH QID PRN #1 inhalation 09/26/16 Unknown Rx Inhaler] Budesonide [Pulmicort Respules] 0.5 mg IH Q12HRT #30 nebu 09/26/16 Unknown Rx Furosemide [Lasix TAB] 40 mg PO QDAY #30 tablet 09/26/16 10/03/16 Rx Gabapentin [Neurontin] 100 mg PO Q8HR #90 capsule 09/26/16 Unknown Rx Ipratropium/Albuterol Sulfate 1 ampul IH Q6HRT #120 ampul.neb 09/26/16 Unknown Rx [DUONEB *Not for PRN Use*] Lisinopril [Zestril TAB] 20 mg PO QDAY #30 tablet 09/26/16 Unknown Rx Tiotropium [Spiriva] 18 mcg IH QDAY #30 cap 10/04/16 Unknown Rx Benzocaine [Orajel Liquid 20%] 1 applic MM Q6H PRN #1 bottle 11/22/16 Unknown Rx Azithromycin [Zithromax Z-KIM] 0 mg PO DAILY #1 tab 12/02/16 Unknown Rx Prednisone [predniSONE 5 mg (6-Day 5 mg PO .TAPER #1 tab.ds.pk 12/02/16 Unknown Rx Pack, 21 Tabs)] traMADol [Ultram 50 MG tab] 50 mg PO Q8H PRN #12 tablet 12/02/16 Unknown Rx Allergies Allergy/AdvReac Type Severity Reaction Status Date / Time Penicillins Allergy Unknown Verified 09/25/16 20:28 ED Review of Systems ROS: Stated complaint: ORALIA,CHEST PAIN Other details as noted in HPI Constitutional: denies: chills, fever Eyes: denies: eye pain, eye discharge, vision change ENT: denies: ear pain, throat pain Respiratory: cough, shortness of breath, wheezing Cardiovascular: chest pain (chronic right-sided). denies: palpitations Endocrine: no symptoms reported Gastrointestinal: denies: abdominal pain, nausea, diarrhea Genitourinary: denies: urgency, dysuria, discharge Musculoskeletal: denies: back pain, joint swelling, arthralgia Skin: denies: rash, lesions Neurological: denies: headache, weakness, paresthesias Psychiatric: denies: anxiety, depression Hematological/Lymphatic: denies: easy bleeding, easy bruising ED Past Medical Hx - Past Medical History Hx Hypertension: Yes Hx Congestive Heart Failure: Yes Hx Diabetes: No Hx Arthritis: Yes Hx COPD: Yes Additional medical history: Sepsis 2013--[place], history shingles with chronic postherpetic neurologist. Bleeding peptic ulcers requiring blood transfusion - Surgical History Additional Surgical History: Skin Grafts placed after acid quiroga (placed 09/2015) - Social History Smoking Status: Current Every Day Smoker Substance Use Type: None - Medications Home Medications: Home Medications Medication Instructions Recorded Confirmed Last Taken Type ALBUTEROL Inhaler [ProAir HFA 2 puff IH QID PRN #1 inhalation 09/26/16 11/24/16 Unknown Rx Inhaler] Budesonide [Pulmicort Respules] 0.5 mg IH Q12HRT #30 nebu 09/26/16 11/24/16 Unknown Rx Furosemide [Lasix TAB] 40 mg PO QDAY #30 tablet 09/26/16 11/24/16 10/03/16 Rx Gabapentin [Neurontin] 100 mg PO Q8HR #90 capsule 09/26/16 11/24/16 Unknown Rx Ipratropium/Albuterol Sulfate 1 ampul IH Q6HRT #120 ampul.neb 09/26/16 11/24/16 Unknown Rx [DUONEB *Not for PRN Use*] Lisinopril [Zestril TAB] 20 mg PO QDAY #30 tablet 09/26/16 11/24/16 Unknown Rx Tiotropium [Spiriva] 18 mcg IH QDAY #30 cap 10/04/16 11/24/16 Unknown Rx Benzocaine [Orajel Liquid 20%] 1 applic MM Q6H PRN #1 bottle 11/22/16 11/24/16 Unknown Rx Azithromycin [Zithromax Z-KIM] 0 mg PO DAILY #1 tab 12/02/16 Unknown Rx Prednisone [predniSONE 5 mg (6-Day 5 mg PO .TAPER #1 tab.ds.pk 12/02/16 Unknown Rx Pack, 21 Tabs)] traMADol [Ultram 50 MG tab] 50 mg PO Q8H PRN #12 tablet 12/02/16 Unknown Rx ED Physical Exam - General Limitations: Physical Limitation General appearance: alert, anxious - Head Head exam: Present: atraumatic, normocephalic - Eye Eye exam: Present: normal appearance. Absent: scleral icterus - ENT ENT exam: Present: mucous membranes dry - Neck Neck exam: Present: normal inspection. Absent: tenderness, meningismus - Respiratory Respiratory exam: Present: respiratory distress, wheezes, rhonchi - Cardiovascular Cardiovascular Exam: Present: normal rhythm, tachycardia. Absent: systolic murmur, diastolic murmur, rubs, gallop - GI/Abdominal GI/Abdominal exam: Present: soft, normal bowel sounds. Absent: distended, tenderness, guarding, rebound - Extremities Exam Extremities exam: Present: normal inspection - Back Exam Back exam: Present: normal inspection - Neurological Exam Neurological exam: Present: alert, oriented X3, CN II-XII intact. Absent: motor sensory deficit - Psychiatric Psychiatric exam: Present: anxious, flat affect - Skin Skin exam: Present: warm, dry, intact, normal color. Absent: rash ED Course Vital Signs 12/04/16 12/04/16 16:06 18:48 Temperature 99.0 F 99.0 F Pulse Rate 130 H 110 H Respiratory 24 22 Rate Blood Pressure 119/62 Blood Pressure 100/57 [Left] O2 Sat by Pulse 95 92 Oximetry - Reevaluation(s) Reevaluation #1: Patient is given a small dose of Ativan which appeared to be of help. She was given 2 nebs and additional albuterol. Her pulse oximetry was well maintained on 2 L nasal cannula. She requested Ultram for her chronic right-sided chest pain. I discussed her case with Dr. Gutierrez, hospitalist. The patient will be admitted to the hospitalist service. 12/04/16 19:25 ED Medical Decision Making - Lab Data Result diagrams: 12/04/16 16:42 12/04/16 16:42 Laboratory Results - last 24 hr 12/04/16 12/04/16 12/04/16 16:42 16:42 16:42 WBC 18.8 H RBC 4.03 Hgb 12.2 Hct 37.4 MCV 93 MCH 30 MCHC 33 RDW 16.7 H Plt Count 291 Lymph % (Auto) 4.7 L [place] % (Auto) 5.1 Eos % (Auto) 0.2 Baso % (Auto) 0.1 Lymph # 0.9 L [place] # 1.0 H Eos # 0.0 Baso # 0.0 Seg Neutrophils % 89.9 H Seg Neutrophils # 16.9 H PT 12.1 L INR 0.86 L APTT 28.0 D-Dimer 184.25 Sodium 139 Potassium 3.7 Chloride 91.7 L Carbon Dioxide 32 H D Anion Gap 19 BUN 15 Creatinine 0.5 L Estimated GFR > 60 BUN/Creatinine Ratio 30.00 Glucose 68 Calcium 9.2 Magnesium 2.20 Total Bilirubin 0.40 AST 18 ALT 22 Alkaline Phosphatase 81 Troponin T Total Protein 6.8 Albumin 4.1 Albumin/Globulin Ratio 1.5 Lipase 23 12/04/16 16:42 WBC RBC Hgb Hct MCV MCH MCHC RDW Plt Count Lymph % (Auto) [place] % (Auto) Eos % (Auto) Baso % (Auto) Lymph # [place] # Eos # Baso # Seg Neutrophils % Seg Neutrophils # PT INR APTT D-Dimer Sodium Potassium Chloride Carbon Dioxide Anion Gap BUN Creatinine Estimated GFR BUN/Creatinine Ratio Glucose Calcium Magnesium Total Bilirubin AST ALT Alkaline Phosphatase Troponin T < 0.010 Total Protein Albumin Albumin/Globulin Ratio Lipase - EKG Data -: EKG Interpreted by Md EKG shows normal: sinus rhythm, axis, intervals, QRS complexes, ST-T waves Rate: tachycardia - EKG Data Interpretation: nonspecific ST-T wave monisha, other (right atrial enlargement and possible left atrial enlargement nonspecific changes) - Radiology Data interpreted by me: Chest x-ray shows chronic changes in the right base. I don't see any acute infiltrate Critical care attestation.: If time is entered above; I have spent that time in minutes in the direct care of this critically ill patient, excluding procedure time. ED Disposition Clinical Impression: COPD exacerbation, Tobacco abuse Leukocytosis Qualifiers: Leukocytosis type: unspecified Qualified Code(s): D72.829 - Elevated white blood cell count, unspecified Disposition: OP ADMIT IP TO THIS HOSP Is pt being admited?: Yes Does the pt Need Aspirin: Yes Condition: Stable Instructions: Chronic Obstructive Pulmonary Disease (ED) Referrals: PRIMARY CARE, [Primary Care Provider] - 3-5 Days Time of Disposition: 19:29
[2016-12-04] MEDS ORDERED: BABY ASPIRIN PO ONE (19:36)
--- NOTE | 2016-12-04 20:26 | Admit Criteria Form ---
Admission Criteria Documentation: COPD Clinical Indications for Admission to Inpatient Care (Lime/ check or initial the applicable condition/criteria) Admission is indicated for ANY ONE of the following (1)(2)(3): [ ]I. Acute exacerbation by high-risk comorbidity(e.g., pneumonia, dysrhythmia, heart failure, pleural effusion, pneumothorax) or severe underlying COPD (eg, baseline FEV1 less than 50% predicted) [X ]II. Inpatient admission required[A] rather than observation care (see Chronic Obstructive Pulmonary Disease: Observation Care) because of ANY ONE of the following: [X ]a) New or pre-existing signs or symptoms of COPD (eg, dyspnea or Tachypnea at rest or with minimal activity) that persist despite outpatient and observation care treatment [ ]b) New-onset hypoxemia (room air SaO2 less than 90%, PO2 less than 60 mm Hg (8.0 kPa)) that persists despite outpatient and observation care treatment [ ]c) Worsening of pre-existing hypoxemia (eg, new or increased requirement for supplemental oxygen to maintain oxygenation at baseline level) that persists despite outpatient and observation care treatment, with oxygen treatment needs performable only in acute inpatient setting [ ]d) Hypercarbia (PCO2 greater than 40 mm Hg (5.3 kPa))-induced respiratory acidosis (pH less than 7.35) that persists despite outpatient and observation care treatment [ ]e) Supplemental oxygen or respiratory treatments for over 24 hours that are performable only in acute inpatient setting [ ]f) Chest tube placement with active evacuation (e.g., suction, drainage) (6) [ ]g) Other condition, treatment or monitoring requiring inpatient admission [ ]III. Planned invasive surgical or diagnostic procedures requiring acute- care hospitalization [ ]IV. Acute respiratory failure (e.g., uncompensated hypercarbia, severe hypoxemia) [ ]V. Severe comorbid condition (e.g., severe steroid myopathy, acute vertebral fracture) that has acutely worsened pulmonary function [ ]. Altered mental status that is severe or persistent Extended stay beyond goal length of stay may be needed for (29)(30)(31)(32)(33) : [ ]a ) Respiratory Failure. [ ]b) Severe or persisting hypoxemia or hypercarbia [ ]c) Severe or persistent dyspnea [ ]d) Clinically significant Comorbidities (e.g. chronic heart failure, atrial fibrillation with rapid response, pneumonia)(36) [ ]e) Malnutrition (33) The original [facility] content created by [facility] has been revised. The portions of the content which have been revised are identified through the use of italic text or in bold, and [facility] has neither reviewed nor approved the modified material. All other unmodified content is copyright [facility]. Please see references footnoted in the original [facility] edition 2017 Admission Criteria Met: Yes
[2016-12-04] MEDS ORDERED: BABY ASPIRIN ONE (21:02)
[2016-12-04] MEDS ORDERED: ULTRAM PO PRN (21:16)
[2016-12-04] MEDS ORDERED: PROAIR IH PRN (21:16)
--- NOTE | 2016-12-04 21:16 | History and Physical Report ---
History of Present Illness Date of examination: 12/04/16 Date of admission: 12/04/16 19:36 Medications and Allergies Allergies Allergy/AdvReac Type Severity Reaction Status Date / Time Penicillins Allergy Unknown Verified 09/25/16 20:28 Home Medications Medication Instructions Recorded Confirmed Last Taken Type ALBUTEROL Inhaler [ProAir HFA 2 puff IH QID PRN #1 inhalation 09/26/16 11/24/16 Unknown Rx Inhaler] Budesonide [Pulmicort Respules] 0.5 mg IH Q12HRT #30 nebu 09/26/16 11/24/16 Unknown Rx Furosemide [Lasix TAB] 40 mg PO QDAY #30 tablet 09/26/16 11/24/16 10/03/16 Rx Gabapentin [Neurontin] 100 mg PO Q8HR #90 capsule 09/26/16 11/24/16 Unknown Rx Ipratropium/Albuterol Sulfate 1 ampul IH Q6HRT #120 ampul.neb 09/26/16 11/24/16 Unknown Rx [DUONEB *Not for PRN Use*] Lisinopril [Zestril TAB] 20 mg PO QDAY #30 tablet 09/26/16 11/24/16 Unknown Rx Tiotropium [Spiriva] 18 mcg IH QDAY #30 cap 10/04/16 11/24/16 Unknown Rx Benzocaine [Orajel Liquid 20%] 1 applic MM Q6H PRN #1 bottle 11/22/16 11/24/16 Unknown Rx Azithromycin [Zithromax Z-KIM] 0 mg PO DAILY #1 tab 12/02/16 Unknown Rx Prednisone [predniSONE 5 mg (6-Day 5 mg PO .TAPER #1 tab.ds.pk 12/02/16 Unknown Rx Pack, 21 Tabs)] traMADol [Ultram 50 MG tab] 50 mg PO Q8H PRN #12 tablet 12/02/16 Unknown Rx Active Meds: Active Medications Sodium Chloride (Nacl 0.9% 1000 Ml) 1,000 mls @ 125 mls/hr IV ONCE ONE Stop: 12/05/16 01:16 Last Admin: 12/04/16 18:47 Dose: 125 mls/hr Levofloxacin/Dextrose (Levaquin 500mg/100ml) 500 mg in 100 mls @ 100 mls/hr IV Q24H PRASANNA PRN Reason: Protocol Last Admin: 12/04/16 20:02 Dose: 100 mls/hr Exam - Constitutional Vitals: Temp Pulse Resp BP Pulse Ox 99.0 F 110 H 22 100/57 92 12/04/16 18:48 12/04/16 18:48 12/04/16 18:48 12/04/16 18:48 12/04/16 18:48 Results - Labs CBC & Chem 7: 12/04/16 16:42 12/04/16 16:42 Labs: Laboratory Last Values WBC 18.8 K/mm3 (4.5-11.0) H 12/04/16 16:42 RBC 4.03 M/mm3 (3.65-5.03) 12/04/16 16:42 Hgb 12.2 gm/dl (10.1-14.3) 12/04/16 16:42 Hct 37.4 % (30.3-42.9) 12/04/16 16:42 MCV 93 fl (79-97) 12/04/16 16:42 MCH 30 pg (28-32) 12/04/16 16:42 MCHC 33 % (30-34) 12/04/16 16:42 RDW 16.7 % (13.2-15.2) H 12/04/16 16:42 Plt Count 291 K/mm3 (140-440) 12/04/16 16:42 Lymph % (Auto) 4.7 % (13.4-35.0) L 12/04/16 16:42 [place] % (Auto) 5.1 % (0.0-7.3) 12/04/16 16:42 Eos % (Auto) 0.2 % (0.0-4.3) 12/04/16 16:42 Baso % (Auto) 0.1 % (0.0-1.8) 12/04/16 16:42 Lymph # 0.9 K/mm3 (1.2-5.4) L 12/04/16 16:42 [place] # 1.0 K/mm3 (0.0-0.8) H 12/04/16 16:42 Eos # 0.0 K/mm3 (0.0-0.4) 12/04/16 16:42 Baso # 0.0 K/mm3 (0.0-0.1) 12/04/16 16:42 Seg Neutrophils % 89.9 % (40.0-70.0) H 12/04/16 16:42 Seg Neutrophils # 16.9 K/mm3 (1.8-7.7) H 12/04/16 16:42 PT 12.1 Sec. (12.2-14.9) L 12/04/16 16:42 INR 0.86 (0.87-1.13) L 12/04/16 16:42 APTT 28.0 Sec. (24.2-36.6) 12/04/16 16:42 D-Dimer 184.25 ng/mlDDU (0-234) 12/04/16 16:42 Sodium 139 mmol/L (137-145) 12/04/16 16:42 Potassium 3.7 mmol/L (3.6-5.0) 12/04/16 16:42 Chloride 91.7 mmol/L (98-107) L 12/04/16 16:42 Carbon Dioxide 32 mmol/L (22-30) H D 12/04/16 16:42 Anion Gap 19 mmol/L 12/04/16 16:42 BUN 15 mg/dL (7-17) 12/04/16 16:42 Creatinine 0.5 mg/dL (0.7-1.2) L 12/04/16 16:42 Estimated GFR > 60 ml/min 12/04/16 16:42 BUN/Creatinine Ratio 30.00 % 12/04/16 16:42 Glucose 68 mg/dL (65-100) 12/04/16 16:42 Calcium 9.2 mg/dL (8.4-10.2) 12/04/16 16:42 Magnesium 2.20 mg/dL (1.7-2.3) 12/04/16 16:42 Total Bilirubin 0.40 mg/dL (0.1-1.2) 12/04/16 16:42 AST 18 units/L (5-40) 12/04/16 16:42 ALT 22 units/L (7-56) 12/04/16 16:42 Alkaline Phosphatase 81 units/L (35-129) 12/04/16 16:42 Troponin T < 0.010 ng/mL (0.00-0.029) 12/04/16 16:42 Total Protein 6.8 g/dL (6.3-8.2) 12/04/16 16:42 Albumin 4.1 g/dL (3.9-5) 12/04/16 16:42 Albumin/Globulin Ratio 1.5 % 12/04/16 16:42 Lipase 23 units/L (13-60) 12/04/16 16:42
[2016-12-04] MEDS ORDERED: ZOFRAN IV PRN (21:17)
[2016-12-04] MEDS ORDERED: TYLENOL PO PRN (21:17)
[2016-12-04] MEDS ORDERED: DULCOLAX PR PRN (21:17)
[2016-12-04] MEDS ORDERED: AMBIEN PO PRN (21:20)
[2016-12-04] MEDS ORDERED: PROVENTIL IH PRN (21:21)
[2016-12-04] MEDS ORDERED: DUONEB *Not for PRN Use IH (21:22)
[2016-12-04] MEDS ORDERED: DUONEB *Not for PRN Use IH SCH (21:30)
[2016-12-04] MEDS ORDERED: PEPCID IV ONE (21:48)
[2016-12-04] MEDS ORDERED: ZESTRIL ONE (21:48)
[2016-12-04] MEDS ORDERED: NEURONTIN ONE (21:48)
[2016-12-04] MEDS: NEURONTIN PO SCH (21:57)
[2016-12-04] MEDS: PEPCID IV SCH (21:57)
[2016-12-04] MEDS: ZESTRIL PO SCH (21:57)
[2016-12-04] MEDS ORDERED: LEVAQUIN 250MG/50ML 250 MG/50 ML BAG IV ONE (22:00)
[2016-12-04] MEDS ORDERED: LEVAQUIN 750MG/150ML 750 MG/150 ML BAG IV SCH (22:00)
[2016-12-04] MEDS ORDERED: AMBIEN ONE (22:43)
[2016-12-04] MEDS ORDERED: PULMICORT IH ONE (22:44)
[2016-12-04] MEDS: PULMICORT IH SCH (22:48)
[2016-12-04] MEDS: DUONEB *Not for PRN Use IH SCH (22:48)
[2016-12-04] MEDS: AMBIEN PO PRN (22:58)
[2016-12-05] MEDS: DUONEB *Not for PRN Use IH SCH ×4 (02:38→20:43)
[2016-12-05] MEDS: NEURONTIN PO SCH ×3 (05:07→21:19)
[2016-12-05] MEDS: LASIX PO SCH (05:07)
[2016-12-05 05:49] LABS: Hematocrit 33.8 % (30.3-42.9); Hemoglobin 11.2 gm/dl (10.1-14.3); Mean Corpuscular HGB Conc 33 % (30-34); Mean Corpuscular Hemoglobin 30 pg (28-32); Mean Corpuscular Volume 92 fl (79-97); Platelet Count 217 K/mm3 (140-440); Red Blood Count 3.68 M/mm3 (3.65-5.03); Red Cell Distribution Width 16.8 % (13.2-15.2); White Blood Count 7.6 K/mm3 (4.5-11.0)
[2016-12-05 06:03] LABS: Alanine Aminotransferase 17 units/L (7-56); Albumin 3.1 g/dL (3.9-5); Albumin/Globulin Ratio 1.1 %; Alkaline Phosphatase 64 units/L (35-129); Anion Gap 15 mmol/L; Blood Urea Nitrogen 17 mg/dL (7-17); Calcium 8.4 mg/dL (8.4-10.2); Carbon Dioxide 27 mmol/L (22-30); Chloride 94.4 mmol/L (98-107); Glucose 139 mg/dL (65-100); Potassium 4.3 mmol/L (3.6-5.0); Sodium 132 mmol/L (137-145); Total Protein 5.9 g/dL (6.3-8.2)
[2016-12-05] MEDS: PULMICORT IH SCH ×2 (07:09→20:44)
[2016-12-05] MEDS ORDERED: PROVENTIL IH PRN (08:00)
[2016-12-05 08:14] LABS: Basophils % (Manual) 0 % (0.0-1.8); Blastocytes % (Manual) 0 %; Eosinophils % (Manual) 0 % (0.0-4.3); Total Cells Counted Percent 0
--- NOTE | 2016-12-05 08:14 | XRay Report ---
CHEST TWO VIEWS: 12/04/16 15:54:00 CLINICAL: Dyspnea. COMPARISON: 11/30/16 FINDINGS: Normal heart and pulmonary vasculature. The lungs are mildly hyperexpanded but clear. No airspace disease or pleural effusion. Mild degenerative changes in the spine. IMPRESSION: Mild pulmonary hyperinflation but otherwise normal.
[2016-12-05 08:15] LABS: Diff Status Complete; Platelet Estimate Cons; RBC Morphology Normal
[2016-12-05] MEDS: DILAUDID IV PRN ×2 (08:30→21:15)
[2016-12-05] MEDS: PEPCID IV SCH (09:21)
[2016-12-05] MEDS: ZESTRIL PO SCH (09:23)
--- NOTE | 2016-12-05 09:46 | Event Note ---
Date: 12/05/16 See H/p in reports
[2016-12-05] MEDS ORDERED: SPIRIVA IH SCH (10:00)
--- NOTE | 2016-12-05 10:02 | Progress Note ---
Assessment and Plan Assessment and plan: Acute hypoxic respiratory failure. Patient's saturations on admission were found to be 77%. Patient will be maintained on O2 and we will start BiPAP as clinically indicated. Continue supportive care. Acute COPD exacerbation. Patient will be maintained on the COPD pathway. Continue IV steroids and bronchodilators. Sepsis. Patient meets criteria given the tachycardia and leukocytosis diagnosis of acute bronchitis. Continue to follow blood cultures and lactic acid levels. Acute bronchitis. Chest x-ray reveals no evidence of pneumonia. Continue IV antibiotics and monitor closely. Chronic pain syndrome. Patient is narcotic dependent. Continue supportive care. Tobacco abuse. Patient will be counseled on cessation. Compensated chronic congestive heart failure. DVT prophylaxis. History Interval history: Patient complains of cough. Hospitalist Physical - Constitutional Vitals: Temp Pulse Resp BP Pulse Ox 97.7 F 104 H 18 129/79 77 L 12/05/16 07:44 12/05/16 09:23 12/05/16 09:00 12/05/16 09:23 12/05/16 07:44 General appearance: Present: no acute distress, well-nourished - EENT Eyes: Present: PERRL, EOM intact ENT: hearing intact, clear oral mucosa, dentition normal - Neck Neck: Present: supple, normal ROM - Respiratory Respiratory effort: normal Respiratory: bilateral: diminished, rhonchi, wheezing - Cardiovascular Rhythm: regular Heart Sounds: Present: S1 & S2. Absent: gallop, rub - Extremities Extremities: no ischemia, No edema, Full ROM - Abdominal General gastrointestinal: soft, non-tender, non-distended, normal bowel sounds - Integumentary Integumentary: Present: clear, warm, dry - Neurologic Neurologic: CNII-XII intact, moves all extremities Results - Labs CBC & Chem 7: 12/05/16 05:26 12/05/16 05:26 Labs: Laboratory Last Values WBC 7.6 K/mm3 (4.5-11.0) 12/05/16 05:26 RBC 3.68 M/mm3 (3.65-5.03) 12/05/16 05:26 Hgb 11.2 gm/dl (10.1-14.3) 12/05/16 05:26 Hct 33.8 % (30.3-42.9) 12/05/16 05:26 MCV 92 fl (79-97) 12/05/16 05:26 MCH 30 pg (28-32) 12/05/16 05:26 MCHC 33 % (30-34) 12/05/16 05:26 RDW 16.8 % (13.2-15.2) H 12/05/16 05:26 Plt Count 217 K/mm3 (140-440) 12/05/16 05:26 Lymph % (Auto) 4.7 % (13.4-35.0) L 12/04/16 16:42 [place] % (Auto) 5.1 % (0.0-7.3) 12/04/16 16:42 Eos % (Auto) 0.2 % (0.0-4.3) 12/04/16 16:42 Baso % (Auto) 0.1 % (0.0-1.8) 12/04/16 16:42 Lymph # 0.9 K/mm3 (1.2-5.4) L 12/04/16 16:42 [place] # 1.0 K/mm3 (0.0-0.8) H 12/04/16 16:42 Eos # 0.0 K/mm3 (0.0-0.4) 12/04/16 16:42 Baso # 0.0 K/mm3 (0.0-0.1) 12/04/16 16:42 Add Manual Diff Complete 12/05/16 05:26 Total Counted 100 12/05/16 05:26 Seg Neutrophils % Banjo Repairer 12/05/16 05:26 Seg Neuts % (Manual) 93.0 % (40.0-70.0) H 12/05/16 05:26 Band Neutrophils % 0 % 12/05/16 05:26 Lymphocytes % (Manual) 7.0 % (13.4-35.0) L 12/05/16 05:26 Reactive Lymphs % (Man) 0 % 12/05/16 05:26 Monocytes % (Manual) 0 % (0.0-7.3) 12/05/16 05:26 Eosinophils % (Manual) 0 % (0.0-4.3) 12/05/16 05:26 Basophils % (Manual) 0 % (0.0-1.8) 12/05/16 05:26 Metamyelocytes % 0 % 12/05/16 05:26 Myelocytes % 0 % 12/05/16 05:26 Promyelocytes % 0 % 12/05/16 05:26 Blast Cells % 0 % 12/05/16 05:26 Nucleated RBC % Not Reportable 12/05/16 05:26 Seg Neutrophils # 16.9 K/mm3 (1.8-7.7) H 12/04/16 16:42 Seg Neutrophils # Man 7.1 K/mm3 (1.8-7.7) 12/05/16 05:26 Band Neutrophils # 0.0 K/mm3 12/05/16 05:26 Lymphocytes # (Manual) 0.5 K/mm3 (1.2-5.4) L 12/05/16 05:26 Abs React Lymphs (Man) 0.0 K/mm3 12/05/16 05:26 Monocytes # (Manual) 0.0 K/mm3 (0.0-0.8) 12/05/16 05:26 Eosinophils # (Manual) 0.0 K/mm3 (0.0-0.4) 12/05/16 05:26 Basophils # (Manual) 0.0 K/mm3 (0.0-0.1) 12/05/16 05:26 Metamyelocytes # 0.0 K/mm3 12/05/16 05:26 Myelocytes # 0.0 K/mm3 12/05/16 05:26 Promyelocytes # 0.0 K/mm3 12/05/16 05:26 Blast Cells # 0.0 K/mm3 12/05/16 05:26 WBC Morphology Not Reportable 12/05/16 05:26 Hypersegmented Neuts Not Reportable 12/05/16 05:26 Hyposegmented Neuts Not Reportable 12/05/16 05:26 Hypogranular Neuts Not Reportable 12/05/16 05:26 Smudge Cells Not Reportable 12/05/16 05:26 Toxic Granulation Not Reportable 12/05/16 05:26 Toxic Vacuolation Not Reportable 12/05/16 05:26 Dohle Bodies Not Reportable 12/05/16 05:26 Pelger-Huet Anomaly Not Reportable 12/05/16 05:26 [place] Rods Not Reportable 12/05/16 05:26 Platelet Estimate Cons 12/05/16 05:26 Clumped Platelets Not Reportable 12/05/16 05:26 Plt Clumps, EDTA Not Reportable 12/05/16 05:26 Large Platelets Not Reportable 12/05/16 05:26 Giant Platelets Not Reportable 12/05/16 05:26 Platelet Satelliting Not Reportable 12/05/16 05:26 Plt Morphology Comment Not Reportable 12/05/16 05:26 RBC Morphology Normal 12/05/16 05:26 Dimorphic RBCs Not Reportable 12/05/16 05:26 Polychromasia Not Reportable 12/05/16 05:26 Hypochromasia Not Reportable 12/05/16 05:26 Poikilocytosis Not Reportable 12/05/16 05:26 Anisocytosis Not Reportable 12/05/16 05:26 Microcytosis Not Reportable 12/05/16 05:26 Macrocytosis Not Reportable 12/05/16 05:26 Spherocytes Not Reportable 12/05/16 05:26 Pappenheimer Bodies Not Reportable 12/05/16 05:26 Sickle Cells Not Reportable 12/05/16 05:26 Target Cells Not Reportable 12/05/16 05:26 Tear Drop Cells Not Reportable 12/05/16 05:26 Ovalocytes Not Reportable 12/05/16 05:26 Helmet Cells Not Reportable 12/05/16 05:26 [place] Bodies Not Reportable 12/05/16 05:26 [place] Rings Not Reportable 12/05/16 05:26 Ranjan Cells Not Reportable 12/05/16 05:26 Bite Cells Not Reportable 12/05/16 05:26 Crenated Cell Not Reportable 12/05/16 05:26 Elliptocytes Not Reportable 12/05/16 05:26 Acanthocytes (Spur) Not Reportable 12/05/16 05:26 Rouleaux Not Reportable 12/05/16 05:26 Hemoglobin C Crystals Not Reportable 12/05/16 05:26 Schistocytes Not Reportable 12/05/16 05:26 Malaria parasites Not Reportable 12/05/16 05:26 [place] Bodies Not Reportable 12/05/16 05:26 Hem Pathologist Commnt No 12/05/16 05:26 PT 12.1 Sec. (12.2-14.9) L 12/04/16 16:42 INR 0.86 (0.87-1.13) L 12/04/16 16:42 APTT 28.0 Sec. (24.2-36.6) 12/04/16 16:42 D-Dimer 184.25 ng/mlDDU (0-234) 12/04/16 16:42 Sodium 132 mmol/L (137-145) L D 12/05/16 05:26 Potassium 4.3 mmol/L (3.6-5.0) 12/05/16 05:26 Chloride 94.4 mmol/L (98-107) L 12/05/16 05:26 Carbon Dioxide 27 mmol/L (22-30) 12/05/16 05:26 Anion Gap 15 mmol/L 12/05/16 05:26 BUN 17 mg/dL (7-17) 12/05/16 05:26 Creatinine 0.4 mg/dL (0.7-1.2) L 12/05/16 05:26 Estimated GFR > 60 ml/min 12/05/16 05:26 BUN/Creatinine Ratio 42.50 % 12/05/16 05:26 Glucose 139 mg/dL (65-100) H 12/05/16 05:26 Hemoglobin A1c 5.3 % (4-6) 12/04/16 16:42 Calcium 8.4 mg/dL (8.4-10.2) 12/05/16 05:26 Magnesium 2.20 mg/dL (1.7-2.3) 12/04/16 16:42 Total Bilirubin 0.30 mg/dL (0.1-1.2) 12/05/16 05:26 AST 16 units/L (5-40) 12/05/16 05:26 ALT 17 units/L (7-56) 12/05/16 05:26 Alkaline Phosphatase 64 units/L (35-129) 12/05/16 05:26 Troponin T < 0.010 ng/mL (0.00-0.029) 12/04/16 16:42 Total Protein 5.9 g/dL (6.3-8.2) L 12/05/16 05:26 Albumin 3.1 g/dL (3.9-5) L 12/05/16 05:26 Albumin/Globulin Ratio 1.1 % 12/05/16 05:26 Lipase 23 units/L (13-60) 12/04/16 16:42
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
[2016-12-05] MEDS: HALDOL PO PRN (13:20)
[2016-12-05] MEDS: HABITROL TD SCH (13:20)
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
[2016-12-05] MEDS ORDERED: LEVAQUIN 750MG/150ML 750 MG/150 ML BAG IV SCH (19:00)
[2016-12-05] MEDS: LEVAQUIN PO SCH (21:19)
[2016-12-05] MEDS: PEPCID PO SCH (21:19)
[2016-12-05] MEDS: AMBIEN PO PRN (23:05)
[2016-12-06] MEDS: DILAUDID IV PRN (04:10)
[2016-12-06] MEDS: LASIX PO SCH (05:13)
[2016-12-06] MEDS: NEURONTIN PO SCH ×3 (05:13→21:34)
[2016-12-06 07:00] LABS: Hematocrit 33.4 % (30.3-42.9); Hemoglobin 11.1 gm/dl (10.1-14.3); Mean Corpuscular HGB Conc 33 % (30-34); Mean Corpuscular Hemoglobin 30 pg (28-32); Mean Corpuscular Volume 91 fl (79-97); Platelet Count 274 K/mm3 (140-440); Red Blood Count 3.66 M/mm3 (3.65-5.03); Red Cell Distribution Width 16.5 % (13.2-15.2); White Blood Count 12.9 K/mm3 (4.5-11.0)
[2016-12-06 07:21] LABS: BUN/Creatinine Ratio 33.33; Blood Urea Nitrogen 20 mg/dL (7-17); Calcium 8.9 mg/dL (8.4-10.2); Carbon Dioxide 31 mmol/L (22-30); Glucose 150 mg/dL (65-100); Potassium 3.5 mmol/L (3.6-5.0); Sodium 139 mmol/L (137-145)
[2016-12-06 07:34] LABS: Anion Gap 19 mmol/L
[2016-12-06] MEDS: DUONEB *Not for PRN Use IH SCH ×3 (08:20→22:54)
[2016-12-06] MEDS: PULMICORT IH SCH ×2 (08:20→22:54)
--- NOTE | 2016-12-06 09:13 | Progress Note ---
Assessment and Plan Assessment and plan: Acute hypoxic respiratory failure. Patient's saturations on admission were found to be 77%. Patient will be maintained on O2 and we will start BiPAP as clinically indicated. Continue supportive care. Acute COPD exacerbation. Patient will be maintained on the COPD pathway. Continue IV steroids and bronchodilators. Leukocytosis. Etiology likely secondary to steroids. Acute bronchitis. Chest x-ray reveals no evidence of pneumonia. Continue IV antibiotics and monitor closely. Chronic pain syndrome. Patient is narcotic dependent. Continue supportive care. Tobacco abuse. Patient will be counseled on cessation. Compensated chronic congestive heart failure. DVT prophylaxis. History Interval history: Patient still complains of cough. Hospitalist Physical - Constitutional Vitals: Temp Pulse Resp BP Pulse Ox 97.7 F 96 H 22 129/79 92 12/05/16 07:44 12/05/16 20:58 12/06/16 07:40 12/05/16 09:23 12/05/16 20:47 General appearance: Present: no acute distress, well-nourished - EENT Eyes: Present: PERRL, EOM intact ENT: hearing intact, clear oral mucosa, dentition normal - Neck Neck: Present: supple, normal ROM - Respiratory Respiratory effort: normal Respiratory: bilateral: CTA - Cardiovascular Rhythm: regular Heart Sounds: Present: S1 & S2. Absent: gallop, rub - Extremities Extremities: no ischemia, No edema, Full ROM - Abdominal General gastrointestinal: soft, non-tender, non-distended, normal bowel sounds - Integumentary Integumentary: Present: clear, warm, dry - Neurologic Neurologic: CNII-XII intact, moves all extremities Results - Labs CBC & Chem 7: 12/06/16 05:50 12/06/16 05:50 Labs: Laboratory Last Values WBC 12.9 K/mm3 (4.5-11.0) H 12/06/16 05:50 RBC 3.66 M/mm3 (3.65-5.03) 12/06/16 05:50 Hgb 11.1 gm/dl (10.1-14.3) 12/06/16 05:50 Hct 33.4 % (30.3-42.9) 12/06/16 05:50 MCV 91 fl (79-97) 12/06/16 05:50 MCH 30 pg (28-32) 12/06/16 05:50 MCHC 33 % (30-34) 12/06/16 05:50 RDW 16.5 % (13.2-15.2) H 12/06/16 05:50 Plt Count 274 K/mm3 (140-440) 12/06/16 05:50 Lymph % (Auto) 4.7 % (13.4-35.0) L 12/04/16 16:42 [place] % (Auto) 5.1 % (0.0-7.3) 12/04/16 16:42 Eos % (Auto) 0.2 % (0.0-4.3) 12/04/16 16:42 Baso % (Auto) 0.1 % (0.0-1.8) 12/04/16 16:42 Lymph # 0.9 K/mm3 (1.2-5.4) L 12/04/16 16:42 [place] # 1.0 K/mm3 (0.0-0.8) H 12/04/16 16:42 Eos # 0.0 K/mm3 (0.0-0.4) 12/04/16 16:42 Baso # 0.0 K/mm3 (0.0-0.1) 12/04/16 16:42 Add Manual Diff Complete 12/05/16 05:26 Total Counted 100 12/05/16 05:26 Seg Neutrophils % Slot Floor Attendant 12/06/16 05:50 Seg Neuts % (Manual) 93.0 % (40.0-70.0) H 12/05/16 05:26 Band Neutrophils % 0 % 12/05/16 05:26 Lymphocytes % (Manual) 7.0 % (13.4-35.0) L 12/05/16 05:26 Reactive Lymphs % (Man) 0 % 12/05/16 05:26 Monocytes % (Manual) 0 % (0.0-7.3) 12/05/16 05:26 Eosinophils % (Manual) 0 % (0.0-4.3) 12/05/16 05:26 Basophils % (Manual) 0 % (0.0-1.8) 12/05/16 05:26 Metamyelocytes % 0 % 12/05/16 05:26 Myelocytes % 0 % 12/05/16 05:26 Promyelocytes % 0 % 12/05/16 05:26 Blast Cells % 0 % 12/05/16 05:26 Nucleated RBC % Not Reportable 12/05/16 05:26 Seg Neutrophils # 16.9 K/mm3 (1.8-7.7) H 12/04/16 16:42 Seg Neutrophils # Man 7.1 K/mm3 (1.8-7.7) 12/05/16 05:26 Band Neutrophils # 0.0 K/mm3 12/05/16 05:26 Lymphocytes # (Manual) 0.5 K/mm3 (1.2-5.4) L 12/05/16 05:26 Abs React Lymphs (Man) 0.0 K/mm3 12/05/16 05:26 Monocytes # (Manual) 0.0 K/mm3 (0.0-0.8) 12/05/16 05:26 Eosinophils # (Manual) 0.0 K/mm3 (0.0-0.4) 12/05/16 05:26 Basophils # (Manual) 0.0 K/mm3 (0.0-0.1) 12/05/16 05:26 Metamyelocytes # 0.0 K/mm3 12/05/16 05:26 Myelocytes # 0.0 K/mm3 12/05/16 05:26 Promyelocytes # 0.0 K/mm3 12/05/16 05:26 Blast Cells # 0.0 K/mm3 12/05/16 05:26 WBC Morphology Not Reportable 12/05/16 05:26 Hypersegmented Neuts Not Reportable 12/05/16 05:26 Hyposegmented Neuts Not Reportable 12/05/16 05:26 Hypogranular Neuts Not Reportable 12/05/16 05:26 Smudge Cells Not Reportable 12/05/16 05:26 Toxic Granulation Not Reportable 12/05/16 05:26 Toxic Vacuolation Not Reportable 12/05/16 05:26 Dohle Bodies Not Reportable 12/05/16 05:26 Pelger-Huet Anomaly Not Reportable 12/05/16 05:26 Sanchez Rods Not Reportable 12/05/16 05:26 Platelet Estimate Cons 12/05/16 05:26 Clumped Platelets Not Reportable 12/05/16 05:26 Plt Clumps, EDTA Not Reportable 12/05/16 05:26 Large Platelets Not Reportable 12/05/16 05:26 Giant Platelets Not Reportable 12/05/16 05:26 Platelet Satelliting Not Reportable 12/05/16 05:26 Plt Morphology Comment Not Reportable 12/05/16 05:26 RBC Morphology Normal 12/05/16 05:26 Dimorphic RBCs Not Reportable 12/05/16 05:26 Polychromasia Not Reportable 12/05/16 05:26 Hypochromasia Not Reportable 12/05/16 05:26 Poikilocytosis Not Reportable 12/05/16 05:26 Anisocytosis Not Reportable 12/05/16 05:26 Microcytosis Not Reportable 12/05/16 05:26 Macrocytosis Not Reportable 12/05/16 05:26 Spherocytes Not Reportable 12/05/16 05:26 Pappenheimer Bodies Not Reportable 12/05/16 05:26 Sickle Cells Not Reportable 12/05/16 05:26 Target Cells Not Reportable 12/05/16 05:26 Tear Drop Cells Not Reportable 12/05/16 05:26 Ovalocytes Not Reportable 12/05/16 05:26 Helmet Cells Not Reportable 12/05/16 05:26 Izquierdo-Barrett Bodies Not Reportable 12/05/16 05:26 Shelby Rings Not Reportable 12/05/16 05:26 Ranjan Cells Not Reportable 12/05/16 05:26 Bite Cells Not Reportable 12/05/16 05:26 Crenated Cell Not Reportable 12/05/16 05:26 Elliptocytes Not Reportable 12/05/16 05:26 Acanthocytes (Spur) Not Reportable 12/05/16 05:26 Rouleaux Not Reportable 12/05/16 05:26 Hemoglobin C Crystals Not Reportable 12/05/16 05:26 Schistocytes Not Reportable 12/05/16 05:26 Malaria parasites Not Reportable 12/05/16 05:26 Alton Bodies Not Reportable 12/05/16 05:26 Hem Pathologist Commnt No 12/05/16 05:26 PT 12.1 Sec. (12.2-14.9) L 12/04/16 16:42 INR 0.86 (0.87-1.13) L 12/04/16 16:42 APTT 28.0 Sec. (24.2-36.6) 12/04/16 16:42 D-Dimer 184.25 ng/mlDDU (0-234) 12/04/16 16:42 Sodium 139 mmol/L (137-145) D 12/06/16 05:50 Potassium 3.5 mmol/L (3.6-5.0) L 12/06/16 05:50 Chloride 93.0 mmol/L (98-107) L 12/06/16 05:50 Carbon Dioxide 31 mmol/L (22-30) H 12/06/16 05:50 Anion Gap 19 mmol/L 12/06/16 05:50 BUN 20 mg/dL (7-17) H 12/06/16 05:50 Creatinine 0.6 mg/dL (0.7-1.2) L 12/06/16 05:50 Estimated GFR > 60 ml/min 12/06/16 05:50 BUN/Creatinine Ratio 33.33 % 12/06/16 05:50 Glucose 150 mg/dL (65-100) H 12/06/16 05:50 Hemoglobin A1c 5.3 % (4-6) 12/04/16 16:42 Calcium 8.9 mg/dL (8.4-10.2) 12/06/16 05:50 Magnesium 2.20 mg/dL (1.7-2.3) 12/04/16 16:42 Total Bilirubin 0.30 mg/dL (0.1-1.2) 12/05/16 05:26 AST 16 units/L (5-40) 12/05/16 05:26 ALT 17 units/L (7-56) 12/05/16 05:26 Alkaline Phosphatase 64 units/L (35-129) 12/05/16 05:26 Troponin T < 0.010 ng/mL (0.00-0.029) 12/04/16 16:42 Total Protein 5.9 g/dL (6.3-8.2) L 12/05/16 05:26 Albumin 3.1 g/dL (3.9-5) L 12/05/16 05:26 Albumin/Globulin Ratio 1.1 % 12/05/16 05:26 Lipase 23 units/L (13-60) 12/04/16 16:42
[2016-12-06 09:19] LABS: Basophils % (Manual) 0 % (0.0-1.8); Blastocytes % (Manual) 0 %; Diff Status Complete; Eosinophils % (Manual) 0 % (0.0-4.3); RBC Morphology Normal
[2016-12-06] MEDS: HABITROL TD SCH (10:09)
[2016-12-06] MEDS: PEPCID PO SCH ×2 (10:10→21:34)
[2016-12-06] MEDS: PERCOCET 5/325 PO PRN (10:10)
[2016-12-06] MEDS: ZESTRIL PO SCH (10:10)
--- NOTE | 2016-12-06 13:31 | Progress Note ---
Assessment and Plan Imp: 1. Acute bronchitis 2. Centrilobular emphysema 3. COPD exac. 4. A/C respiratory failure, hypoxia 5. Chronic nicotine dependence, cigs 6. Non-compliance Rec: 1. Only taking Proventil at home prn; would add dual bronchodilator such as Bevespi 2 puffs BID at d/c (believe this is covered on Medicaid) 2. Agree w/ Solumedrol -> taper, Levaquin, Duonebs, Pulmicort/Brovana 3. Stop smoking, patient aware 4. Need to make sure she has home O2 5. Recurrent hospital admissions are due to #'s 5 and 6 above 6. Mucinex BID 7. Flutter valve 8. Pain management per primary Plan of care reviewed w/ patient, she understands/agrees Subjective Date of service: 12/06/16 Principal diagnosis: COPD exac. Interval history: Still with SOB, wheezing, cough w/ yellow sputum. Having trouble clearing sputum. On NC. Active Medications Acetaminophen (Tylenol) 650 mg PO Q4H PRN PRN Reason: Pain MILD(1-3)/Fever >100.5/PENG Albuterol (Proventil) 2.5 mg IH Q4HRT PRN PRN Reason: Shortness Of Breath Albuterol/Ipratropium (Duoneb *Not For Prn Use*) 1 ampul IH TIDRT [facility] Last Admin: 12/06/16 13:23 Dose: 1 ampul Arformoterol Tartrate (Brovana Nebu) 15 mcg IH Q12HRT [facility] Bisacodyl (Dulcolax) 10 mg PA QDAY PRN PRN Reason: Constipation unrelieved by MOM Budesonide (Pulmicort) 0.5 mg IH Q12HRT [facility] Last Admin: 12/06/16 08:20 Dose: 0.5 mg Famotidine (Pepcid) 20 mg PO BID [facility] Last Admin: 12/06/16 10:10 Dose: 20 mg Furosemide (Lasix) 40 mg PO DAILY@0600 [facility] Last Admin: 12/06/16 05:13 Dose: 40 mg Gabapentin (Neurontin) 100 mg PO Q8HR [facility] Last Admin: 12/06/16 05:13 Dose: 100 mg Guaifenesin (Mucinex Er) 600 mg PO BID [facility] Haloperidol (Haldol) 2 mg PO Q8H PRN PRN Reason: Agitation Last Admin: 12/05/16 13:20 Dose: 2 mg Levofloxacin (Levaquin) 750 mg PO Q24H [facility] Last Admin: 12/05/16 21:19 Dose: 750 mg Lisinopril (Zestril) 20 mg PO QDAY [facility] Last Admin: 12/05/16 09:23 Dose: Not Given Magnesium Hydroxide (Milk Of Magnesia) 30 ml PO Q4H PRN PRN Reason: Constipation Methylprednisolone Sodium Succinate (Solu-Medrol) 40 mg IV Q8HR [facility] Nicotine (Habitrol) 21 mg TD QDAY [facility] Last Admin: 12/06/16 10:09 Dose: 21 mg Ondansetron HCl (Zofran) 4 mg IV Q8H PRN PRN Reason: N/V unrelieved by Reglan Oxycodone/Acetaminophen (Percocet 5/325) 1 tab PO Q6H PRN PRN Reason: Pain, Moderate (4-6) Last Admin: 12/06/16 10:10 Dose: 1 tab Tramadol HCl (Ultram) 50 mg PO Q8H PRN PRN Reason: Pain Last Admin: 12/05/16 13:21 Dose: 50 mg Zolpidem Tartrate (Ambien) 5 mg PO QHS PRN PRN Reason: Insomnia Last Admin: 12/05/16 23:05 Dose: 5 mg Objective Vital Signs - 12hr 12/06/16 12/06/16 12/06/16 04:10 07:40 08:20 Pulse Rate [ 104 H Anterior Bilateral Throughout] Respiratory 21 22 Rate Respiratory 20 Rate [Anterior Bilateral Throughout] O2 Sat by Pulse 94 Oximetry 12/06/16 12/06/16 08:30 13:23 Pulse Rate [ 109 H 108 H Anterior Bilateral Throughout] Respiratory Rate Respiratory 20 20 Rate [Anterior Bilateral Throughout] O2 Sat by Pulse Oximetry Constitutional: no acute distress, alert Eyes: non-icteric ENT: oropharynx moist Neck: supple Ascultation: Bilateral: wheezes Cardiovascular: regular rate and rhythm Gastrointestinal: normoactive bowel sounds, soft, non-tender, non-distended Integumentary: normal Extremities: no cyanosis, no edema, pink and warm Neurologic: normal mental status, non-focal exam, pupils equal and round, CN II- XII normal Psychiatric: anxious CBC and BMP: 12/06/16 05:50 12/06/16 05:50 ABG, PT/INR, D-dimer: PT/INR, D-dimer PT 12.1 Sec. (12.2-14.9) L 12/04/16 16:42 INR 0.86 (0.87-1.13) L 12/04/16 16:42 D-Dimer 184.25 ng/mlDDU (0-234) 12/04/16 16:42 Abnormal lab findings: Abnormal Labs 12/05/16 12/05/16 12/06/16 05:26 05:26 05:50 WBC 12.9 H RDW 16.8 H 16.5 H Seg Neuts % (Manual) 93.0 H 91.0 H Lymphocytes % (Manual) 7.0 L 7.0 L Seg Neutrophils # Man 11.7 H Lymphocytes # (Manual) 0.5 L 0.9 L Sodium 132 L D Potassium Chloride 94.4 L Carbon Dioxide BUN Creatinine 0.4 L Glucose 139 H Total Protein 5.9 L Albumin 3.1 L 12/06/16 05:50 WBC RDW Seg Neuts % (Manual) Lymphocytes % (Manual) Seg Neutrophils # Man Lymphocytes # (Manual) Sodium Potassium 3.5 L Chloride 93.0 L Carbon Dioxide 31 H BUN 20 H Creatinine 0.6 L Glucose 150 H Total Protein Albumin Chest x-ray: report reviewed, image reviewed
[2016-12-06] MEDS: MUCINEX ER PO SCH ×2 (15:44→21:34)
[2016-12-06] MEDS: MILK OF MAGNESIA PO PRN (15:48)
[2016-12-06] MEDS: AMBIEN PO PRN (21:34)
[2016-12-06] MEDS: LEVAQUIN PO SCH (21:37)
[2016-12-06] MEDS: BROVANA NEBU IH SCH (22:53)
[2016-12-07] MEDS: NEURONTIN PO SCH ×3 (05:18→21:00)
[2016-12-07] MEDS: PERCOCET 5/325 PO PRN ×3 (05:18→20:52)
[2016-12-07] MEDS: LASIX PO SCH (05:19)
[2016-12-07] MEDS: MUCINEX ER PO SCH ×2 (10:00→21:00)
[2016-12-07] MEDS: ZESTRIL PO SCH ×2 (10:14→10:18)
[2016-12-07] MEDS: PEPCID PO SCH ×2 (10:14→21:00)
[2016-12-07] MEDS: HABITROL TD SCH (10:14)
--- NOTE | 2016-12-07 10:15 | Progress Note ---
Assessment and Plan - Patient Problems (1) COPD exacerbation Current Visit: Yes Status: Acute Plan to address problem: Patient advanced disease on steroids and bronchodilators at this time. We'll need to ensure long-term beta agonists and long-term steroid use and oxygen BiPAP upon discharge. (2) Leukocytosis Current Visit: Yes Status: Acute Qualifiers: Leukocytosis type: unspecified Qualified Code(s): D72.829 - Elevated white blood cell count, unspecified Plan to address problem: Resolving most likely secondary to acute bronchitis. (3) Tobacco abuse Current Visit: Yes Status: Acute Plan to address problem: Tobacco cessation education (4) Acute bronchitis Current Visit: No Status: Acute Qualifiers: Bronchitis organism: B Plan to address problem: Continue current antibiotics markedly steroids and bronchodilators. Seems to be improving. (5) Acute respiratory failure, unspecified whether with hypoxia or hypercapnia Current Visit: No Status: Acute Qualifiers: Respiratory failure complication: hypoxia Qualified Code(s): J96.01 - Acute respiratory failure with hypoxia Plan to address problem: Defect Kyle acute bronchitis COPD exacerbation continue COPD pathway (6) COPD (chronic obstructive pulmonary disease) Current Visit: No Status: Acute Qualifiers: COPD type: C Chronic bronchitis type: C Emphysema type: E (7) Congestive heart failure Current Visit: No Status: Acute Qualifiers: Congestive heart failure type: C Congestive heart failure chronicity: C Plan to address problem: I'll compensated not active at this time. (8) Shingles rash Current Visit: No Status: Acute Qualifiers: Herpes zoster complications: without complications Herpes zoster neurologic complication detail: H Herpes zoster ocular complication detail: H Qualified Code(s): B02.9 - Zoster without complications (9) Oral aphthous ulcer Current Visit: Yes Status: Acute Plan to address problem: Add Magic mouthwash History Interval history: patient complains of mouth pain today also continues to cough productive cough have chronic shortness of breath at night. Hospitalist Physical - Constitutional Vitals: Temp Pulse Resp BP Pulse Ox 97.9 F 80 20 136/85 92 12/07/16 07:07 12/07/16 07:07 12/07/16 07:07 12/07/16 07:07 12/07/16 07:07 General appearance: Present: no acute distress, well-nourished - EENT Eyes: Present: PERRL, EOM intact ENT: hearing intact, clear oral mucosa, ulcerations - Neck Neck: Present: supple, normal ROM - Respiratory Respiratory: bilateral: diminished, rhonchi - Extremities Extremities: no ischemia, pulses intact, No edema, normal temperature, normal color Peripheral Pulses: within normal limits - Abdominal General gastrointestinal: soft, non-tender, normal bowel sounds - Psychiatric Psychiatric: appropriate mood/affect - Neurologic Neurologic: CNII-XII intact, moves all extremities Results - Labs CBC & Chem 7: 12/06/16 05:50 12/06/16 05:50 Labs: Laboratory Last Values WBC 12.9 K/mm3 (4.5-11.0) H 12/06/16 05:50 RBC 3.66 M/mm3 (3.65-5.03) 12/06/16 05:50 Hgb 11.1 gm/dl (10.1-14.3) 12/06/16 05:50 Hct 33.4 % (30.3-42.9) 12/06/16 05:50 MCV 91 fl (79-97) 12/06/16 05:50 MCH 30 pg (28-32) 12/06/16 05:50 MCHC 33 % (30-34) 12/06/16 05:50 RDW 16.5 % (13.2-15.2) H 12/06/16 05:50 Plt Count 274 K/mm3 (140-440) 12/06/16 05:50 Lymph % (Auto) 4.7 % (13.4-35.0) L 12/04/16 16:42 Charles % (Auto) 5.1 % (0.0-7.3) 12/04/16 16:42 Eos % (Auto) 0.2 % (0.0-4.3) 12/04/16 16:42 Baso % (Auto) 0.1 % (0.0-1.8) 12/04/16 16:42 Lymph # 0.9 K/mm3 (1.2-5.4) L 12/04/16 16:42 Charles # 1.0 K/mm3 (0.0-0.8) H 12/04/16 16:42 Eos # 0.0 K/mm3 (0.0-0.4) 12/04/16 16:42 Baso # 0.0 K/mm3 (0.0-0.1) 12/04/16 16:42 Add Manual Diff Complete 12/06/16 05:50 Total Counted 100 12/06/16 05:50 Seg Neutrophils % Long Term 12/06/16 05:50 Seg Neuts % (Manual) 91.0 % (40.0-70.0) H 12/06/16 05:50 Band Neutrophils % 0 % 12/06/16 05:50 Lymphocytes % (Manual) 7.0 % (13.4-35.0) L 12/06/16 05:50 Reactive Lymphs % (Man) 0 % 12/06/16 05:50 Monocytes % (Manual) 2.0 % (0.0-7.3) 12/06/16 05:50 Eosinophils % (Manual) 0 % (0.0-4.3) 12/06/16 05:50 Basophils % (Manual) 0 % (0.0-1.8) 12/06/16 05:50 Metamyelocytes % 0 % 12/06/16 05:50 Myelocytes % 0 % 12/06/16 05:50 Promyelocytes % 0 % 12/06/16 05:50 Blast Cells % 0 % 12/06/16 05:50 Nucleated RBC % Not Reportable 12/06/16 05:50 Seg Neutrophils # 16.9 K/mm3 (1.8-7.7) H 12/04/16 16:42 Seg Neutrophils # Man 11.7 K/mm3 (1.8-7.7) H 12/06/16 05:50 Band Neutrophils # 0.0 K/mm3 12/06/16 05:50 Lymphocytes # (Manual) 0.9 K/mm3 (1.2-5.4) L 12/06/16 05:50 Abs React Lymphs (Man) 0.0 K/mm3 12/06/16 05:50 Monocytes # (Manual) 0.3 K/mm3 (0.0-0.8) 12/06/16 05:50 Eosinophils # (Manual) 0.0 K/mm3 (0.0-0.4) 12/06/16 05:50 Basophils # (Manual) 0.0 K/mm3 (0.0-0.1) 12/06/16 05:50 Metamyelocytes # 0.0 K/mm3 12/06/16 05:50 Myelocytes # 0.0 K/mm3 12/06/16 05:50 Promyelocytes # 0.0 K/mm3 12/06/16 05:50 Blast Cells # 0.0 K/mm3 12/06/16 05:50 WBC Morphology Not Reportable 12/06/16 05:50 Hypersegmented Neuts Not Reportable 12/06/16 05:50 Hyposegmented Neuts Not Reportable 12/06/16 05:50 Hypogranular Neuts Not Reportable 12/06/16 05:50 Smudge Cells Not Reportable 12/06/16 05:50 Toxic Granulation Not Reportable 12/06/16 05:50 Toxic Vacuolation Not Reportable 12/06/16 05:50 Dohle Bodies Not Reportable 12/06/16 05:50 Pelger-Huet Anomaly Not Reportable 12/06/16 05:50 Sanchez Rods Not Reportable 12/06/16 05:50 Platelet Estimate Appears normal 12/06/16 05:50 Clumped Platelets Not Reportable 12/06/16 05:50 Plt Clumps, EDTA Not Reportable 12/06/16 05:50 Large Platelets Not Reportable 12/06/16 05:50 Giant Platelets Not Reportable 12/06/16 05:50 Platelet Satelliting Not Reportable 12/06/16 05:50 Plt Morphology Comment Not Reportable 12/06/16 05:50 RBC Morphology Normal 12/06/16 05:50 Dimorphic RBCs Not Reportable 12/06/16 05:50 Polychromasia Not Reportable 12/06/16 05:50 Hypochromasia Not Reportable 12/06/16 05:50 Poikilocytosis Not Reportable 12/06/16 05:50 Anisocytosis Not Reportable 12/06/16 05:50 Microcytosis Not Reportable 12/06/16 05:50 Macrocytosis Not Reportable 12/06/16 05:50 Spherocytes Not Reportable 12/06/16 05:50 Pappenheimer Bodies Not Reportable 12/06/16 05:50 Sickle Cells Not Reportable 12/06/16 05:50 Target Cells Not Reportable 12/06/16 05:50 Tear Drop Cells Not Reportable 12/06/16 05:50 Ovalocytes Not Reportable 12/06/16 05:50 Helmet Cells Not Reportable 12/06/16 05:50 [place] Bodies Not Reportable 12/06/16 05:50 [place] Rings Not Reportable 12/06/16 05:50 [place] Cells Not Reportable 12/06/16 05:50 Bite Cells Not Reportable 12/06/16 05:50 Crenated Cell Not Reportable 12/06/16 05:50 Elliptocytes Not Reportable 12/06/16 05:50 Acanthocytes (Spur) Not Reportable 12/06/16 05:50 Rouleaux Not Reportable 12/06/16 05:50 Hemoglobin C Crystals Not Reportable 12/06/16 05:50 Schistocytes Not Reportable 12/06/16 05:50 Malaria parasites Not Reportable 12/06/16 05:50 [place] Bodies Not Reportable 12/06/16 05:50 Hem Pathologist Commnt No 12/06/16 05:50 PT 12.1 Sec. (12.2-14.9) L 12/04/16 16:42 INR 0.86 (0.87-1.13) L 12/04/16 16:42 APTT 28.0 Sec. (24.2-36.6) 12/04/16 16:42 D-Dimer 184.25 ng/mlDDU (0-234) 12/04/16 16:42 Sodium 139 mmol/L (137-145) D 12/06/16 05:50 Potassium 3.5 mmol/L (3.6-5.0) L 12/06/16 05:50 Chloride 93.0 mmol/L (98-107) L 12/06/16 05:50 Carbon Dioxide 31 mmol/L (22-30) H 12/06/16 05:50 Anion Gap 19 mmol/L 12/06/16 05:50 BUN 20 mg/dL (7-17) H 12/06/16 05:50 Creatinine 0.6 mg/dL (0.7-1.2) L 12/06/16 05:50 Estimated GFR > 60 ml/min 12/06/16 05:50 BUN/Creatinine Ratio 33.33 % 12/06/16 05:50 Glucose 150 mg/dL (65-100) H 12/06/16 05:50 Hemoglobin A1c 5.3 % (4-6) 12/04/16 16:42 Calcium 8.9 mg/dL (8.4-10.2) 12/06/16 05:50 Magnesium 2.20 mg/dL (1.7-2.3) 12/04/16 16:42 Total Bilirubin 0.30 mg/dL (0.1-1.2) 12/05/16 05:26 AST 16 units/L (5-40) 12/05/16 05:26 ALT 17 units/L (7-56) 12/05/16 05:26 Alkaline Phosphatase 64 units/L (35-129) 12/05/16 05:26 Troponin T < 0.010 ng/mL (0.00-0.029) 12/04/16 16:42 Total Protein 5.9 g/dL (6.3-8.2) L 12/05/16 05:26 Albumin 3.1 g/dL (3.9-5) L 12/05/16 05:26 Albumin/Globulin Ratio 1.1 % 12/05/16 05:26 Lipase 23 units/L (13-60) 12/04/16 16:42 - Imaging and Cardiology Chest x-ray: image reviewed
[2016-12-07] MEDS: DUONEB *Not for PRN Use IH SCH ×3 (11:22→20:32)
[2016-12-07] MEDS: BROVANA NEBU IH SCH ×2 (11:22→20:37)
[2016-12-07] MEDS: PULMICORT IH SCH ×2 (11:22→20:36)
[2016-12-07] MEDS: HALDOL PO PRN (11:30)
--- NOTE | 2016-12-07 12:51 | Progress Note ---
Assessment and Plan Imp: 1. Acute bronchitis 2. Centrilobular emphysema 3. COPD exac. 4. A/C respiratory failure, hypoxia 5. Chronic nicotine dependence, cigs 6. Non-compliance Rec: 1. Only taking Proventil at home prn; would add dual bronchodilator such as Bevespi 2 puffs BID at d/c (believe this is covered on Medicaid) 2. Agree w/ Solumedrol -> taper again and send out on long prednisone taper; cont. Levaquin x 7 days total; cont. Duonebs, Pulmicort/Brovana 3. Stop smoking, patient aware 4. Magic mouthwash 5. Recurrent hospital admissions are due to #'s 5 and 6 above 6. Mucinex BID 7. Flutter valve 8. Pain management per primary 9. Please check with mental health case manager to make sure she has home O2 set up prior to d /c; once this is done she can go pulm-caceres Plan of care reviewed w/ patient, she understands/agrees Subjective Date of service: 12/07/16 Principal diagnosis: COPD exac. Interval history: Remains on NC. Multiple complaints including chest pain from prior shingles, anxiety, mouth hurting, SOB. Active Medications Acetaminophen (Tylenol) 650 mg PO Q4H PRN PRN Reason: Pain MILD(1-3)/Fever >100.5/PENG Albuterol (Proventil) 2.5 mg IH Q4HRT PRN PRN Reason: Shortness Of Breath Albuterol/Ipratropium (Duoneb *Not For Prn Use*) 1 ampul IH TIDRT [facility] Last Admin: 12/07/16 11:22 Dose: Not Given Arformoterol Tartrate (Brovana Nebu) 15 mcg IH Q12HRT [facility] Last Admin: 12/07/16 11:22 Dose: Not Given Bisacodyl (Dulcolax) 10 mg [place] QDAY PRN PRN Reason: Constipation unrelieved by MOM Budesonide (Pulmicort) 0.5 mg IH Q12HRT [facility] Last Admin: 12/07/16 11:22 Dose: Not Given Famotidine (Pepcid) 20 mg PO BID [facility] Last Admin: 12/07/16 10:14 Dose: 20 mg Furosemide (Lasix) 40 mg PO DAILY@0600 [facility] Last Admin: 12/07/16 05:19 Dose: 40 mg Gabapentin (Neurontin) 100 mg PO Q8HR [facility] Last Admin: 12/07/16 05:18 Dose: 100 mg Guaifenesin (Mucinex Er) 600 mg PO BID [facility] Last Admin: 12/07/16 10:00 Dose: 600 mg Haloperidol (Haldol) 2 mg PO Q8H PRN PRN Reason: Agitation Last Admin: 12/07/16 11:30 Dose: 2 mg Levofloxacin (Levaquin) 750 mg PO Q24H [facility] Last Admin: 12/06/16 21:37 Dose: 750 mg Lidocaine HCl (Magic Mouthwash) 15 ml PO TID [facility] Lisinopril (Zestril) 20 mg PO QDAY [facility] Last Admin: 12/07/16 10:18 Dose: Not Given Magnesium Hydroxide (Milk Of Magnesia) 30 ml PO Q4H PRN PRN Reason: Constipation Last Admin: 12/06/16 15:48 Dose: 30 ml Methylprednisolone Sodium Succinate (Solu-Medrol) 20 mg IV Q8HR [facility] Nicotine (Habitrol) 21 mg TD QDAY [facility] Last Admin: 12/07/16 10:14 Dose: 21 mg Ondansetron HCl (Zofran) 4 mg IV Q8H PRN PRN Reason: N/V unrelieved by Reglan Oxycodone/Acetaminophen (Percocet 5/325) 1 tab PO Q6H PRN PRN Reason: Pain, Moderate (4-6) Last Admin: 12/07/16 11:37 Dose: 1 tab Tramadol HCl (Ultram) 50 mg PO Q8H PRN PRN Reason: Pain Last Admin: 12/05/16 13:21 Dose: 50 mg Zolpidem Tartrate (Ambien) 5 mg PO QHS PRN PRN Reason: Insomnia Last Admin: 12/06/16 21:34 Dose: 5 mg Objective Vital Signs - 12hr 12/07/16 07:07 Temperature 97.9 F Pulse Rate 80 Respiratory 20 Rate Blood Pressure 136/85 O2 Sat by Pulse 92 Oximetry Constitutional: no acute distress, alert Eyes: non-icteric ENT: oropharynx moist Neck: supple Effort: normal Ascultation: Bilateral: clear Cardiovascular: regular rate and rhythm Gastrointestinal: normoactive bowel sounds, soft, non-tender, non-distended Integumentary: normal Extremities: no cyanosis, no edema, pink and warm Neurologic: normal mental status, non-focal exam, pupils equal and round, CN II- XII normal Psychiatric: anxious CBC and BMP: 12/06/16 05:50 12/06/16 05:50 ABG, PT/INR, D-dimer: PT/INR, D-dimer PT 12.1 Sec. (12.2-14.9) L 12/04/16 16:42 INR 0.86 (0.87-1.13) L 12/04/16 16:42 D-Dimer 184.25 ng/mlDDU (0-234) 12/04/16 16:42 Abnormal lab findings: Abnormal Labs 12/05/16 12/05/16 12/06/16 05:26 05:26 05:50 WBC 12.9 H RDW 16.8 H 16.5 H Seg Neuts % (Manual) 93.0 H 91.0 H Lymphocytes % (Manual) 7.0 L 7.0 L Seg Neutrophils # Man 11.7 H Lymphocytes # (Manual) 0.5 L 0.9 L Sodium 132 L D Potassium Chloride 94.4 L Carbon Dioxide BUN Creatinine 0.4 L Glucose 139 H Total Protein 5.9 L Albumin 3.1 L 12/06/16 05:50 WBC RDW Seg Neuts % (Manual) Lymphocytes % (Manual) Seg Neutrophils # Man Lymphocytes # (Manual) Sodium Potassium 3.5 L Chloride 93.0 L Carbon Dioxide 31 H BUN 20 H Creatinine 0.6 L Glucose 150 H Total Protein Albumin Chest x-ray: report reviewed, image reviewed
[2016-12-07] MEDS: MAGIC MOUTHWASH PO SCH ×2 (13:37→21:00)
[2016-12-07] MEDS: ATIVAN IV PRN (18:27)
[2016-12-07] MEDS: MILK OF MAGNESIA PO PRN (18:28)
[2016-12-07] MEDS: LEVAQUIN PO SCH (21:03)
[2016-12-07] MEDS: AMBIEN PO PRN (23:00)
[2016-12-08] MEDS: PERCOCET 5/325 PO PRN ×2 (03:47→11:49)
[2016-12-08] MEDS: LASIX PO SCH (05:49)
[2016-12-08] MEDS: NEURONTIN PO SCH (05:49)
[2016-12-08] MEDS: ATIVAN IV PRN ×2 (05:55→11:51)
[2016-12-08 07:39] VITALS: BP 138/94
[2016-12-08] MEDS: BROVANA NEBU IH SCH (08:46)
[2016-12-08] MEDS: DUONEB *Not for PRN Use IH SCH ×2 (08:46→13:45)
[2016-12-08] MEDS: PULMICORT IH SCH (08:46)
--- NOTE | 2016-12-08 08:51 | Discharge Summary ---
Providers - Providers Date of Admission: 12/04/16 19:36 Date of discharge: 12/08/16 Attending physician: NEVA ALBARRAN 12/04/16 21:17 Consult to Physician [CONS] Routine Consulting Provider: SAMUEL JIMENEZ Reason For Exam: COPD Place consult to:: DR. JIMENEZ Notified:: OFFICE Phone number called:: [phone] Was contact made?: Yes If yes, spoke with:: JACOB Jeter called:: 09:31 12/05/16 11:35 Consult to Mental Health [CONS] Routine Reason For Exam: tangential thinking Place consult to:: Mental Health Notified:: Meena Phone number called:: [phone] Was contact made?: Yes If yes, spoke with:: Meena Jeter called:: 12:07 Primary care physician: MECH[employer]IC [employer]INE Hospitalization Condition: Poor Hospital course: Patient presented with a COPD exacerbation and acute bronchitis. Patient has multiple exacerbations all secondary to continue cigarette smoking. We mentioned smoking cessation many times throughout the last 48 hours. And stressed his importance. Would discharge on 7 days of Levaquin. We'll also start patient on long-acting beta agonist and long-acting steroids as well as along 3 week steroid tape and follow-up pulmonology and also be discharged with home O2. Disposition: TO HOME OR SELFCARE - Discharge Diagnoses (1) COPD exacerbation Status: Acute (2) Leukocytosis Status: Acute Qualifiers: Leukocytosis type: unspecified Qualified Code(s): D72.829 - Elevated white blood cell count, unspecified (3) Tobacco abuse Status: Acute (4) Acute bronchitis Status: Acute Qualifiers: Bronchitis organism: B (5) Acute respiratory failure, unspecified whether with hypoxia or hypercapnia Status: Acute Qualifiers: Respiratory failure complication: hypoxia Qualified Code(s): J96.01 - Acute respiratory failure with hypoxia (6) COPD (chronic obstructive pulmonary disease) Status: Acute Qualifiers: COPD type: C Chronic bronchitis type: C Emphysema type: E (7) Congestive heart failure Status: Inactive Qualifiers: Congestive heart failure type: C Congestive heart failure chronicity: C (8) Shingles rash Status: Chronic Qualifiers: Herpes zoster complications: without complications Herpes zoster neurologic complication detail: H Herpes zoster ocular complication detail: H Qualified Code(s): B02.9 - Zoster without complications (9) Oral aphthous ulcer Status: Acute Core Measure Documentation - Palliative Care Palliative Care/ Comfort Measures: Not Applicable - Core Measures Any of the following diagnoses?: history only Exam - Constitutional Vitals: Temp Pulse Resp BP Pulse Ox 97.9 F 111 H 16 138/94 96 12/08/16 07:37 12/08/16 07:37 12/08/16 07:37 12/08/16 07:37 12/08/16 07:37 General appearance: Present: no acute distress - EENT Eyes: Present: PERRL, EOM intact ENT: hearing intact, clear oral mucosa - Neck Neck: Present: supple, normal ROM - Respiratory Respiratory effort: normal Respiratory: bilateral: wheezing (few at chronic) - Cardiovascular Rhythm: regular - Extremities Extremities: no ischemia, pulses intact, pulses symmetrical, No edema, normal temperature Peripheral Pulses: within normal limits - Abdominal General gastrointestinal: Present: soft, non-tender, non-distended - Musculoskeletal Musculoskeletal: strength equal bilaterally - Psychiatric Psychiatric: appropriate mood/affect - Neurologic Neurologic: CNII-XII intact Plan Activity: no restrictions, other (stop smoking) Weight Bearing Status: Weight Bear as Tolerated Diet: low salt Special Instructions: smoking cessation Durable Medical Equipment Needed Upon Discharge: Oxygen Follow up with: PRIMARY CARE, [Primary Care Provider] - 3-5 Days Prescriptions: ALBUTEROL Inhaler [ProAir HFA Inhaler] 2 puff IH QID PRN #1 inhalation PRN Reason: Shortness Of Breath ALBUTEROL NEB's [Proventil 0.083% NEBS] 2.5 mg IH Q4HRT PRN #7 nebu PRN Reason: Shortness Of Breath Arformoterol Nebu [Brovana Nebu] 15 mcg IH Q12HRT #1 ml Budesonide [Pulmicort Respules] 0.5 mg IH Q12HRT #30 nebu Gabapentin [Neurontin] 100 mg PO Q8HR #90 capsule Glycopyrrolate/Formoterol Fum [Bevespi Aerosphere Inhaler] 10.7 gm IH BID #7 hfa.aer.ad guaiFENesin ER [Mucinex ER] 600 mg PO BID #20 tablet Haloperidol [Haldol] 2 mg PO Q8H PRN #30 tablet PRN Reason: Agitation Ipratropium/Albuterol Sulfate [DUONEB *Not for PRN Use*] 1 ampul IH Q6HRT #120 ampul.neb Levofloxacin [Levaquin TAB] 500 mg PO QDAY #10 tablet Levofloxacin [Levaquin TAB] 750 mg PO Q24H #7 tablet Nicotine [Habitrol] 21 mg TD QDAY #20 patch Nystas/Diphen/Xyl Visc/Mylanta [Magic Mouthwash] 15 ml PO TID #1 oral.liqd oxyCODONE /ACETAMINOPHEN [Percocet 5/325 mg] 1 tab PO Q6H PRN #30 tablet PRN Reason: Pain, Moderate (4-6) Prednisone [predniSONE (Donell) ER TAB] 10 mg PO QDAY #30 tablet. traMADol [Ultram 50 MG tab] 50 mg PO Q8H PRN #12 tablet PRN Reason: Pain
[2016-12-08] MEDS: MUCINEX ER PO SCH (11:49)
[2016-12-08] MEDS: HABITROL TD SCH (11:51)
[2016-12-08] MEDS: PEPCID PO SCH (11:51)
[2016-12-08] MEDS: ZESTRIL PO SCH (11:52)
== END 2016-12-08 14:40 | disposition home or self-care (01) | DRG 871 ==
LOC: ED 15:54 → 4A 19:36 → 3A 12-05 01:02
PROVIDERS: ADMIT Internal Medicine; ATTEND Hospitalist
DX: A41.9 Sepsis, unspecified organism (principal); J96.21 Acute and chronic respiratory failure with hypoxia; J44.1 Chronic obstructive pulmonary disease with (acute) exacerbation; J20.9 Acute bronchitis, unspecified; G89.4 Chronic pain syndrome; F17.210 Nicotine dependence, cigarettes, uncomplicated; F41.9 Anxiety disorder, unspecified; I11.0 Hypertensive heart disease with heart failure; I50.9 Heart failure, unspecified; M19.90 Unspecified osteoarthritis, unspecified site; J44.0 Chronic obstructive pulmonary disease with (acute) lower respiratory infection; B02.9 Zoster without complications; K12.0 Recurrent oral aphthae; Z71.6 Tobacco abuse counseling; Z88.0 Allergy status to penicillin; Z91.14 Patient's other noncompliance with medication regimen; Z79.51 Long term (current) use of inhaled steroids
CPT/HCPCS: 36415; 71020; 80048; 80053; 83036; 83690; 83735; 84484; 85007; 85025; 85379; 85610; 85730; 93005; 93010; 94640; 94760; 96365; 96366; 96367; 96375; 99285; 99406; J1170; J1956; J2060; J2920; J2930; J3475; J7030

== ENCOUNTER 2017-02-22 10:36 | Emergency (ER) | payer MEDICAID ==
[2017-02-22 11:27] LABS: Basophils % (Auto) 0.2 % (0.0-1.8); Eosinophils % (Auto) 1.5 % (0.0-4.3); Hematocrit 33.3 % (30.3-42.9); Hemoglobin 10.4 gm/dl (10.1-14.3); Mean Corpuscular HGB Conc 31 % (30-34); Mean Corpuscular Hemoglobin 28 pg (28-32); Mean Corpuscular Volume 90 fl (79-97); Platelet Count 494 K/mm3 (140-440); Red Blood Count 3.72 M/mm3 (3.65-5.03); White Blood Count 19.8 K/mm3 (4.5-11.0)
[2017-02-22 11:35] LABS: Red Cell Distribution Width 20.3 % (13.2-15.2)
[2017-02-22 11:40] LABS: Anion Gap 14 mmol/L; BUN/Creatinine Ratio 30; Blood Urea Nitrogen 12 mg/dL (7-17); Calcium 8.9 mg/dL (8.4-10.2); Carbon Dioxide 29 mmol/L (22-30); Chloride 100.5 mmol/L (98-107); Glucose 121 mg/dL (65-100); Potassium 4.3 mmol/L (3.6-5.0); Sodium 139 mmol/L (137-145)
--- NOTE | 2017-02-22 12:07 | XRay Report ---
CHEST TWO VIEWS: 02/22/17 10:36:00 CLINICAL: Chest pain. COMPARISON: [facility] Chest 02/17/17 FINDINGS: Stable mild cardiomegaly. Normal pulmonary vessels. Stable pulmonary hyperinflation andblunting costophrenic angles. No airspace disease or pleural effusion. Osteopenia. Exaggerated thoracic kyphosis and anterior wedge compression fractures of T6 and T8 which appear to benew compared to 12/12/16 CT chest. IMPRESSION: Stable COPD and mild cardiomegaly without CHF. Acute or subacute T6 and T8 nontraumatic vertebral compression fractures.
[2017-02-22] MEDS ORDERED: ATROVENT IH ONE (21:05)
[2017-02-22] MEDS ORDERED: PROVENTIL IH ONE (21:06)
--- NOTE | 2017-02-22 21:09 | Emergency Department Report ---
ED Shortness of Breath HPI - General Chief Complaint: Dyspnea/Respdistress Stated Complaint: SOB Time Seen by Provider: 02/22/17 20:49 Source: patient Mode of arrival: Wheelchair Limitations: Other - History of Present Illness Initial Comments: 57 yo pat that looks 77 yr old is chronically on 2l oxygen at home. She is chronically short of breath and recently admitted to the hospital. Pt is complaining of shortness of breath and rib and back pain. she denies trauma MD Complaint: shortness of breath -: year(s) (many) Pain Scale: 5 Quality: aching, throbbing Consistency: constant Improves With: medication Worsens With: movement Known History Of: COPD Context: recent URI Associated Symptoms: cough, other (rib and back pain) - Related Data Previous Rx's Medication Instructions Recorded Last Taken Type ALBUTEROL Inhaler [ProAir HFA 2 puff IH QID PRN #1 inhalation 02/13/17 Unknown Rx Inhaler] Arformoterol Nebu [Brovana Nebu] 15 mcg IH Q12HRT #60 neb 02/13/17 Unknown Rx Budesonide [Pulmicort Respules] 0.5 mg IH Q12HRT #60 nebu 02/13/17 Unknown Rx Famotidine [Pepcid] 20 mg PO BID #60 tablet 02/13/17 Unknown Rx Furosemide [Lasix TAB] 40 mg PO QDAY #30 tablet 02/13/17 Unknown Rx Gabapentin [Neurontin] 100 mg PO Q8HR #90 capsule 02/13/17 Unknown Rx Haloperidol [Haldol] 2 mg PO Q8H PRN #30 tablet 02/13/17 Unknown Rx Ipratropium/Albuterol Sulfate 1 ampul IH Q6HRT #120 ampul.neb 02/13/17 Unknown Rx [DUONEB *Not for PRN Use*] Levofloxacin [Levaquin TAB] 750 mg PO DAILY #7 tablet 02/13/17 Unknown Rx Lisinopril [Zestril TAB] 20 mg PO QDAY #30 tablet 02/13/17 Unknown Rx Nicotine [Habitrol] 21 mg TD QDAY #30 patch 02/13/17 Unknown Rx Nystas/Diphen/Xyl Visc/Mylanta 15 ml PO TID #1 oral.liqd 02/13/17 Unknown Rx [Magic Mouthwash] predniSONE [Deltasone] 10 mg PO .TAPER #48 tab 02/13/17 Unknown Rx traMADol [Ultram 50 MG tab] 50 mg PO Q8H PRN #30 tablet 02/13/17 Unknown Rx Morphine [Morphine ORAL SOLN 10 5 mg PO Q8HR #14 udc 02/23/17 Unknown Rx MG/5 ML] Allergies Allergy/AdvReac Type Severity Reaction Status Date / Time Penicillins Allergy Unknown Verified 02/22/17 10:53 ED Review of Systems ROS: Stated complaint: SOB Other details as noted in HPI Constitutional: denies: chills, fever Eyes: denies: eye pain, eye discharge, vision change ENT: denies: ear pain, throat pain Respiratory: cough, shortness of breath, SOB at rest. denies: wheezing Cardiovascular: denies: chest pain, palpitations Endocrine: no symptoms reported Gastrointestinal: denies: abdominal pain, nausea, vomiting, diarrhea Genitourinary: denies: urgency, dysuria, discharge Musculoskeletal: back pain, arthralgia. denies: joint swelling Skin: denies: rash, lesions Neurological: denies: headache, weakness, paresthesias Psychiatric: denies: anxiety, depression Hematological/Lymphatic: denies: easy bleeding, easy bruising ED Past Medical Hx - Past Medical History Hx Hypertension: Yes Hx Congestive Heart Failure: Yes Hx Diabetes: No Hx Arthritis: Yes Hx Asthma: Yes Hx COPD: Yes Additional medical history: Sepsis 2013--[place], history shingles with chronic postherpetic neurologist. Bleeding peptic ulcers requiring blood transfusion - Surgical History Additional Surgical History: Skin Grafts placed after acid quiroga (placed 09/2015) - Social History Smoking Status: Current Every Day Smoker Substance Use Type: None - Medications Home Medications: Home Medications Medication Instructions Recorded Confirmed Last Taken Type ALBUTEROL Inhaler [ProAir HFA 2 puff IH QID PRN #1 inhalation 02/13/17 02/18/17 Unknown Rx Inhaler] Arformoterol Nebu [Brovana Nebu] 15 mcg IH Q12HRT #60 neb 02/13/17 02/18/17 Unknown Rx Budesonide [Pulmicort Respules] 0.5 mg IH Q12HRT #60 nebu 02/13/17 02/18/17 Unknown Rx Famotidine [Pepcid] 20 mg PO BID #60 tablet 02/13/17 02/18/17 Unknown Rx Furosemide [Lasix TAB] 40 mg PO QDAY #30 tablet 02/13/17 02/18/17 Unknown Rx Gabapentin [Neurontin] 100 mg PO Q8HR #90 capsule 02/13/17 02/18/17 Unknown Rx Haloperidol [Haldol] 2 mg PO Q8H PRN #30 tablet 02/13/17 02/18/17 Unknown Rx Ipratropium/Albuterol Sulfate 1 ampul IH Q6HRT #120 ampul.neb 02/13/17 02/18/17 Unknown Rx [DUONEB *Not for PRN Use*] Levofloxacin [Levaquin TAB] 750 mg PO DAILY #7 tablet 02/13/17 02/18/17 Unknown Rx Lisinopril [Zestril TAB] 20 mg PO QDAY #30 tablet 02/13/17 02/18/17 Unknown Rx Nicotine [Habitrol] 21 mg TD QDAY #30 patch 02/13/17 02/18/17 Unknown Rx Nystas/Diphen/Xyl Visc/Mylanta 15 ml PO TID #1 oral.liqd 02/13/17 02/18/17 Unknown Rx [Magic Mouthwash] predniSONE [Deltasone] 10 mg PO .TAPER #48 tab 02/13/17 02/18/17 Unknown Rx traMADol [Ultram 50 MG tab] 50 mg PO Q8H PRN #30 tablet 02/13/17 02/18/17 Unknown Rx Morphine [Morphine ORAL SOLN 10 5 mg PO Q8HR #14 udc 02/23/17 Unknown Rx MG/5 ML] ED Physical Exam - General Limitations: Other General appearance: alert, in no apparent distress - Head Head exam: Present: atraumatic, normocephalic - Eye Eye exam: Present: normal appearance, EOMI. Absent: scleral icterus, conjunctival injection - ENT ENT exam: Present: mucous membranes moist - Neck Neck exam: Present: normal inspection - Respiratory Respiratory exam: Present: normal lung sounds bilaterally. Absent: respiratory distress - Cardiovascular Cardiovascular Exam: Present: regular rate, normal rhythm. Absent: systolic murmur, diastolic murmur, rubs, gallop - GI/Abdominal GI/Abdominal exam: Present: soft, normal bowel sounds - Extremities Exam Extremities exam: Present: normal inspection - Back Exam Back exam: Present: normal inspection, tenderness (thoracic midline tenderness, left rib tenderness) - Neurological Exam Neurological exam: Present: alert, oriented X3 - Psychiatric Psychiatric exam: Present: normal affect, normal mood - Skin Skin exam: Present: warm, dry, intact, normal color. Absent: rash ED Course Vital Signs 02/22/17 02/22/17 02/22/17 10:53 20:44 20:46 Temperature 98.7 F Pulse Rate 109 H 96 H 97 H Pulse Rate [ Right Bases] Respiratory 18 16 22 Rate Respiratory Rate [Right Bases] Blood Pressure 141/94 O2 Sat by Pulse 100 99 Oximetry 02/22/17 02/22/17 02/22/17 20:48 20:50 20:51 Temperature Pulse Rate 97 H 95 H 95 H Pulse Rate [ Right Bases] Respiratory 22 26 H 24 Rate Respiratory Rate [Right Bases] Blood Pressure O2 Sat by Pulse 98 99 99 Oximetry 02/22/17 02/22/17 02/22/17 20:53 20:55 20:57 Temperature Pulse Rate 95 H 97 H 105 H Pulse Rate [ Right Bases] Respiratory 22 18 30 H Rate Respiratory Rate [Right Bases] Blood Pressure 145/90 145/90 145/90 O2 Sat by Pulse 99 99 98 Oximetry 02/22/17 02/22/17 02/22/17 20:59 21:01 21:03 Temperature Pulse Rate 99 H 100 H 95 H Pulse Rate [ Right Bases] Respiratory 20 21 22 Rate Respiratory Rate [Right Bases] Blood Pressure 145/90 164/86 164/86 O2 Sat by Pulse 99 97 99 Oximetry 02/22/17 02/22/17 21:05 21:08 Temperature Pulse Rate 95 H Pulse Rate [ 84 Right Bases] Respiratory 26 H Rate Respiratory 20 Rate [Right Bases] Blood Pressure 164/86 O2 Sat by Pulse 99 Oximetry ED Medical Decision Making - Lab Data Result diagrams: 02/22/17 11:12 02/22/17 11:12 - Radiology Data Radiology results: report reviewed (cta chest:NO PE CT THORACIC SPINE: ACUTE FRACTURES AT T2/T3/T7/T9 ) - Medical Decision Making NEEDS PAIN MANAGEMENT FOR HER FRACTURES. HER COPD IS THE SAME ALWAYS. SHE IS IN NO RESPIRATORY DISTRESS AND DR HAKAN FIELDS HAS REDFUSED ADMISSION OF THE PT. I NURY D/DOM HOME ON MORPHINE. I BELIEVE PT HAS THESE FRACTURES BECAUSE OF OSTEOPOROSIS AND CHRONIC STEROID USE Critical care attestation.: If time is entered above; I have spent that time in minutes in the direct care of this critically ill patient, excluding procedure time. ED Disposition Clinical Impression: Fracture of thoracic spine Qualifiers: Encounter type: initial encounter Thoracic vertebra fracture level: unspecified thoracic vertebra Fracture type: closed Fracture morphology: unspecified fracture morphology Qualified Code(s): S22.009A - Unspecified fracture of unspecified thoracic vertebra, initial encounter for closed fracture COPD (chronic obstructive pulmonary disease) Qualifiers: COPD type: COPD with acute exacerbation Qualified Code(s): J44.1 - Chronic obstructive pulmonary disease with (acute) exacerbation Disposition: TO HOME OR SELFCARE Is pt being admited?: No Does the pt Need Aspirin: No Condition: Stable Instructions: Chronic Obstructive Pulmonary Disease (ED), Vertebral Compression Fracture (ED) Prescriptions: Morphine [Morphine ORAL SOLN 10 MG/5 ML] 5 mg PO Q8HR #14 [facility] [place] PRIMARY CARE, [Primary Care Provider] - 3-5 Days [facility] [Outside] - 3-5 Days Time of Disposition: 00:12
[2017-02-22] MEDS ORDERED: ATIVAN IV ONE (21:45)
[2017-02-22] MEDS ORDERED: ATIVAN ONE (21:45)
[2017-02-22] MEDS ORDERED: DECADRON 20 MG in NACL 0.9% 50 ML IV ONE (22:00)
[2017-02-22] MEDS ORDERED: NACL ONE (22:30)
--- NOTE | 2017-02-22 22:54 | Cat Scan Report ---
FINAL REPORT PROCEDURE: CT ANGIO CHEST TECHNIQUE: Computerized tomographic angiography of the chest was performed after the IV injection of iodinated nonionic contrast including image processing. The image data was postprocessed using 2-dimensional multiplanar reformatted (MPR) and 3-dimensional (MIP and/or volume rendered) techniques. HISTORY: chest pain COMPARISON: No prior studies are available for comparison. FINDINGS: Heart and pericardium: Mild cardiomegaly is noted. Thoracic aorta: Normal. Pulmonary vasculature: Normal. Lymph nodes: No enlarged thoracic lymph nodes. Lungs: Centrilobular emphysematous changes are noted involving bilateral lungs. There are no infiltrates or mass lesions.. Pleural space: No effusion, thickening, or pneumothorax. Musculoskeletal structures: No significant abnormality. Upper abdominal structures: Small cysts measuring about 5 millimeters are noted in bilateral lobes of liver . IMPRESSION: Emphysema. No acute pulmonary infiltrates. Mild cardiomegaly. Small simple cysts of liver cannot be further evaluated.
--- NOTE | 2017-02-22 23:01 | Cat Scan Report ---
FINAL REPORT PROCEDURE: CT THORACIC SPINE WO CON TECHNIQUE: Computerized axial tomography of the thoracic spine was performed from C7 - L1 without contrast material. HISTORY: chest pain COMPARISON: 09/25/2016 FINDINGS: Mild degree superior endplate compression deformities are noted involving T2,T3 and T9 vertebral bodies and moderate superior endplate compression deformity is noted involving T7 vertebral body. There is no evidence of any associated spinal canal or neural foraminal compromise. Pre and paravertebral soft tissues are within normal limits. IMPRESSION: Fractures involving T2, T3, T7 and T9 vertebral bodies are new since the prior study. MRI may be recommended for further evaluation.
[2017-02-22 23:56] VITALS: BP 164/86
== END 2017-02-23 01:00 | disposition home or self-care (01) ==
LOC: ED 10:36
DX: S22.009A Unspecified fracture of unspecified thoracic vertebra, initial encounter for closed fracture (principal); J44.1 Chronic obstructive pulmonary disease with (acute) exacerbation; I10 Essential (primary) hypertension; M19.90 Unspecified osteoarthritis, unspecified site; J45.909 Unspecified asthma, uncomplicated; I50.9 Heart failure, unspecified; F17.200 Nicotine dependence, unspecified, uncomplicated; Z88.0 Allergy status to penicillin; X58.XXXA Exposure to other specified factors, initial encounter; Y93.9 Activity, unspecified; Y99.9 Unspecified external cause status; Y92.89 Other specified places as the place of occurrence of the external cause
CPT/HCPCS: 36415; 71020; 71275; 72128; 80048; 84484; 85025; 93005; 93010; 96365; 96375; 99285; J1100; J2060; Q9967

== ENCOUNTER 2017-03-14 09:40 | Inpatient (IN) | payer MEDICAID ==
[2017-03-14 10:14] LABS: Basophils % (Auto) 0.5 % (0.0-1.8); Hematocrit 31.4 % (30.3-42.9); Hemoglobin 10.5 gm/dl (10.1-14.3); Mean Corpuscular HGB Conc 34 % (30-34); Mean Corpuscular Hemoglobin 29 pg (28-32); Mean Corpuscular Volume 88 fl (79-97); Platelet Count 382 K/mm3 (140-440); Red Blood Count 3.57 M/mm3 (3.65-5.03); White Blood Count 8.9 K/mm3 (4.5-11.0)
[2017-03-14 10:34] LABS: Anion Gap 16 mmol/L; BUN/Creatinine Ratio 18; Blood Urea Nitrogen 9 mg/dL (7-17); Calcium 8.9 mg/dL (8.4-10.2); Carbon Dioxide 29 mmol/L (22-30); Chloride 94.8 mmol/L (98-107); Glucose 90 mg/dL (65-100); Potassium 4.8 mmol/L (3.6-5.0); Sodium 135 mmol/L (137-145)
--- NOTE | 2017-03-14 10:57 | XRay Report ---
AP portal chest x-ray. History: Shortness of breath. Findings: Evidence of COPD is again noted. Mild cardiomegaly is stable. No focal infiltrates are seen. Blunting of the costophrenic angles is again noted. Impression: COPD with no acute findings or interval changes since February 22, 2017.
[2017-03-14] MEDS ORDERED: ATROVENT IH ONE (13:17)
[2017-03-14] MEDS ORDERED: PROVENTIL IH ONE (13:17)
[2017-03-14] MEDS ORDERED: ULTRAM PO ONE (13:18)
[2017-03-14 14:11] LABS: ISTAT Base Excess 4; ISTAT HCO3 30.2; ISTAT PH 7.333 (7.35-7.45); ISTAT PO2 99 (80-105); ISTAT SO2 97; ISTAT TCO2 32
--- NOTE | 2017-03-14 15:07 | Emergency Department Report ---
ED Shortness of Breath HPI - General Chief Complaint: Dyspnea/Respdistress Stated Complaint: ORALIA Source: patient, old records reviewed (cta chest 02/22/17 no PE) Mode of arrival: Stretcher Limitations: No Limitations - History of Present Illness Initial Comments: 57-year-old female with a past medical history asthma, CHF, COPD, hypertension and chronic right-sided chest pain secondary to postherpetic neuralgia presents with possible complaints of shortness of breath due to COPD exacerbation. Patient has chronic shortness of breath and reports a chronic progressive worsening in her symptoms. Patient takes 2 L of oxygen all the time. She denies cough or chest pain different from her chronic postherpetic neuralgia right-sided chest wall pain. Patient is cooperative yellow sputum. Subjective fever reported. Denies history of intubations. Patient continues to smoke one to 2 cigarettes a day - Related Data Previous Rx's Medication Instructions Recorded Last Taken Type ALBUTEROL Inhaler [ProAir HFA 2 puff IH QID PRN #1 inhalation 02/13/17 Unknown Rx Inhaler] Arformoterol Nebu [Brovana Nebu] 15 mcg IH Q12HRT #60 neb 02/13/17 Unknown Rx Budesonide [Pulmicort Respules] 0.5 mg IH Q12HRT #60 nebu 02/13/17 Unknown Rx Famotidine [Pepcid] 20 mg PO BID #60 tablet 02/13/17 Unknown Rx Furosemide [Lasix TAB] 40 mg PO QDAY #30 tablet 02/13/17 Unknown Rx Gabapentin [Neurontin] 100 mg PO Q8HR #90 capsule 02/13/17 Unknown Rx Haloperidol [Haldol] 2 mg PO Q8H PRN #30 tablet 02/13/17 Unknown Rx Ipratropium/Albuterol Sulfate 1 ampul IH Q6HRT #120 ampul.neb 02/13/17 Unknown Rx [DUONEB *Not for PRN Use*] Levofloxacin [Levaquin TAB] 750 mg PO DAILY #7 tablet 02/13/17 Unknown Rx Lisinopril [Zestril TAB] 20 mg PO QDAY #30 tablet 02/13/17 Unknown Rx Nicotine [Habitrol] 21 mg TD QDAY #30 patch 02/13/17 Unknown Rx Nystas/Diphen/Xyl Visc/Mylanta 15 ml PO TID #1 oral.liqd 02/13/17 Unknown Rx [Magic Mouthwash] predniSONE [Deltasone] 10 mg PO .TAPER #48 tab 02/13/17 Unknown Rx traMADol [Ultram 50 MG tab] 50 mg PO Q8H PRN #30 tablet 02/13/17 Unknown Rx Morphine [Morphine ORAL SOLN 10 5 mg PO Q8HR #14 udc 02/23/17 Unknown Rx MG/5 ML] Allergies Allergy/AdvReac Type Severity Reaction Status Date / Time Penicillins Allergy Unknown Verified 02/22/17 10:53 ED Review of Systems ROS: Stated complaint: ORALIA Other details as noted in HPI Comment: All other systems reviewed and negative Other: Constitutional: No fevers chills Eyes: No eye pain visual changes ENT: No ear pain or throat pain Neck: Denies pain Respiratory: as per hpi Cardiovascular: Denies palpitations, syncope GI: Denies abdominal pain, nausea, vomiting, diarrhea : Denies dysuria Musculoskeletal: Denies back pain Skin: Denies rash, lesions, erythema Neurologic: Denies headache, numbness, weakness Psychiatric: Denies suicidal ideation, hallucinations ED Past Medical Hx - Past Medical History Hx Hypertension: Yes Hx Congestive Heart Failure: Yes Hx Diabetes: No Hx Arthritis: Yes Hx Asthma: Yes Hx COPD: Yes Additional medical history: Sepsis 2013--[place], history shingles with chronic postherpetic neurologist. Bleeding peptic ulcers requiring blood transfusion - Surgical History Additional Surgical History: Skin Grafts placed after acid quiroga (placed 09/2015) - Social History Smoking Status: Current Every Day Smoker Substance Use Type: None - Medications Home Medications: Home Medications Medication Instructions Recorded Confirmed Last Taken Type ALBUTEROL Inhaler [ProAir HFA 2 puff IH QID PRN #1 inhalation 02/13/17 02/18/17 Unknown Rx Inhaler] Arformoterol Nebu [Brovana Nebu] 15 mcg IH Q12HRT #60 neb 02/13/17 02/18/17 Unknown Rx Budesonide [Pulmicort Respules] 0.5 mg IH Q12HRT #60 nebu 02/13/17 02/18/17 Unknown Rx Famotidine [Pepcid] 20 mg PO BID #60 tablet 02/13/17 02/18/17 Unknown Rx Furosemide [Lasix TAB] 40 mg PO QDAY #30 tablet 02/13/17 02/18/17 Unknown Rx Gabapentin [Neurontin] 100 mg PO Q8HR #90 capsule 02/13/17 02/18/17 Unknown Rx Haloperidol [Haldol] 2 mg PO Q8H PRN #30 tablet 02/13/17 02/18/17 Unknown Rx Ipratropium/Albuterol Sulfate 1 ampul IH Q6HRT #120 ampul.neb 02/13/17 02/18/17 Unknown Rx [DUONEB *Not for PRN Use*] Levofloxacin [Levaquin TAB] 750 mg PO DAILY #7 tablet 02/13/17 02/18/17 Unknown Rx Lisinopril [Zestril TAB] 20 mg PO QDAY #30 tablet 02/13/17 02/18/17 Unknown Rx Nicotine [Habitrol] 21 mg TD QDAY #30 patch 02/13/17 02/18/17 Unknown Rx Nystas/Diphen/Xyl Visc/Mylanta 15 ml PO TID #1 oral.liqd 02/13/17 02/18/17 Unknown Rx [Magic Mouthwash] predniSONE [Deltasone] 10 mg PO .TAPER #48 tab 02/13/17 02/18/17 Unknown Rx traMADol [Ultram 50 MG tab] 50 mg PO Q8H PRN #30 tablet 02/13/17 02/18/17 Unknown Rx Morphine [Morphine ORAL SOLN 10 5 mg PO Q8HR #14 udc 02/23/17 Unknown Rx MG/5 ML] ED Physical Exam - General Limitations: No Limitations - Other Other exam information: General: No limitations, patient is alert in no acute distress Head exam: Atraumatic, normocephalic Eyes exam: Normal appearance ENT: Moist mucous membrane, normal oropharynx Neck exam: Normal inspection, full range of motion, no meningismus nontender Respiratory exam: No wheezing. Patient has diminished breath sounds bilaterally with poor air movement Cardiovascular: Normal rate and rhythm Abdomen: Soft, nondistended, and nontender, with normal bowel sounds, no rebound, or guarding Extremity: Full range of motion normal inspection no deformity, no calf tenderness or edema Back: Normal Inspection, full range of motion, no tenderness Neurologic: Alert, oriented x3, cranial nerves intact, no motor or sensory deficit Psychiatric: normal affect, normal mood Skin: Warm, dry, intact ED Course Vital Signs 03/14/17 03/14/17 03/14/17 09:50 10:37 11:49 Temperature 97.8 F Pulse Rate 98 H Pulse Rate [ Posterior Bilateral Throughout] Respiratory 22 20 Rate Respiratory Rate [Posterior Bilateral Throughout] Blood Pressure 143/98 Blood Pressure [Left] O2 Sat by Pulse 92 92 96 Oximetry 03/14/17 03/14/17 03/14/17 12:01 13:56 14:19 Temperature Pulse Rate 98 H Pulse Rate [ 79 80 Posterior Bilateral Throughout] Respiratory 22 Rate Respiratory 20 20 Rate [Posterior Bilateral Throughout] Blood Pressure Blood Pressure 126/81 [Left] O2 Sat by Pulse 94 Oximetry 03/14/17 14:38 Temperature Pulse Rate 81 Pulse Rate [ Posterior Bilateral Throughout] Respiratory 20 Rate Respiratory Rate [Posterior Bilateral Throughout] Blood Pressure Blood Pressure 140/75 [Left] O2 Sat by Pulse 97 Oximetry - Reevaluation(s) Reevaluation #1: 03/14/17 15:43 Patient requesting medications for her chronic pain secondary to previous shingles infection. Patient states she feels dizzy. Patient intermittently interrupted her nebulized treatments and refused cardiac monitoring intermittently as well. - ABG Interpretation Ph: 7.33 PCO2: 57 PO2: 99 Bicarbonate: 30 Interpretation: respiratory acidosis Additional Comments: abg perfored on 3 L o2 decreased oxygen to 2 L NC after abg result ED Medical Decision Making - Lab Data Result diagrams: 03/14/17 10:02 03/14/17 10:02 Lab Results 03/14/17 03/14/17 03/14/17 Range/Units 10:02 10:02 13:57 WBC 8.9 (4.5-11.0) K/mm3 RBC 3.57 L (3.65-5.03) M/mm3 Hgb 10.5 (10.1-14.3) gm/dl Hct 31.4 (30.3-42.9) % MCV 88 (79-97) fl MCH 29 (28-32) pg MCHC 34 (30-34) % RDW 19.0 H (13.2-15.2) % Plt Count 382 (140-440) K/mm3 Lymph % (Auto) 19.3 (13.4-35.0) % Green % (Auto) 11.5 H (0.0-7.3) % Eos % (Auto) 2.0 (0.0-4.3) % Baso % (Auto) 0.5 (0.0-1.8) % Lymph # 1.7 (1.2-5.4) K/mm3 Green # 1.0 H (0.0-0.8) K/mm3 Eos # 0.2 (0.0-0.4) K/mm3 Baso # 0.0 (0.0-0.1) K/mm3 Seg Neutrophils % 66.7 (40.0-70.0) % Seg Neutrophils # 5.9 (1.8-7.7) K/mm3 POC ABG pH 7.333 L (7.35-7.45) POC ABG pCO2 57.0 H (35-45) POC ABG pO2 99 (80-105) POC ABG HCO3 30.2 POC ABG Total CO2 32 POC ABG O2 Sat 97 POC ABG Base Excess 4 FiO2 3 % Sodium 135 L (137-145) mmol/L Potassium 4.8 (3.6-5.0) mmol/L Chloride 94.8 L (98-107) mmol/L Carbon Dioxide 29 (22-30) mmol/L Anion Gap 16 mmol/L BUN 9 (7-17) mg/dL Creatinine 0.5 L (0.7-1.2) mg/dL Estimated GFR > 60 ml/min BUN/Creatinine Ratio 18 % Glucose 90 (65-100) mg/dL Calcium 8.9 (8.4-10.2) mg/dL Troponin T < 0.010 (0.00-0.029) ng/mL - EKG Data -: EKG Interpreted by Tx EKG shows normal: sinus rhythm, axis, QRS complexes (147), ST-T waves (no stemi/ t inv) Rate: normal (92) - Radiology Data Radiology results: report reviewed (cxr: copd, no acute changes.) - Medical Decision Making Patient treated with nebs, Solu-Medrol. Pt continues to c/o shortness of breath and complaints of dizziness. ABG shows mild CO2 retention compared to baseline. Will admit to hospital for further - Differential Diagnosis COPD, pneumonia, bronchitis Critical Care Time: No Critical care attestation.: If time is entered above; I have spent that time in minutes in the direct care of this critically ill patient, excluding procedure time. ED Disposition Clinical Impression: COPD exacerbation, Acute respiratory acidosis Disposition: OP ADMIT IP TO THIS HOSP Is pt being admited?: Yes Condition: Stable Time of Disposition: 15:06 (Dr castillo/hosp)
--- NOTE | 2017-03-14 18:52 | History and Physical Report ---
History of Present Illness Date of examination: 03/14/17 Date of admission: 03/14/17 15:07 Chief complaint: Cc Increasing SOB for 2 days History of present illness: - History of Present Illness Initial Comments: 57-year-old female with a past medical history asthma, CHF, COPD, hypertension and chronic right-sided chest pain secondary to postherpetic neuralgia presents with possible complaints of shortness of breath due to COPD exacerbation. Patient has chronic shortness of breath and reports a chronic progressive worsening in her symptoms. Patient takes 2 L of oxygen all the time. She denies cough or chest pain different from her chronic postherpetic neuralgia right-sided chest wall pain. Patient is cooperative yellow sputum. Subjective fever reported. Denies history of intubations. Patient continues to smoke one to 2 cigarettes a day Past Medical History Hx Hypertension: Yes Hx Congestive Heart Failure: Yes Hx Diabetes: No Hx Arthritis: Yes Hx Asthma: Yes Hx COPD: Yes Additional medical history: Sepsis 2013--[facility], history shingles with chronic postherpetic neurologist. Bleeding peptic ulcers requiring blood transfusion - Surgical History Additional Surgical History: Skin Grafts placed after acid quiroga (placed 09/2015) - Social History Smoking Status: Current Every Day Smoker Substance Use Type: None - Medications Home Medications: Home Medications Medication Instructions Recorded Confirmed Last Taken Type ALBUTEROL Inhaler [ProAir HFA 2 puff IH QID PRN #1 inhalation 02/13/17 02/18/17 Unknown Rx Inhaler] Arformoterol Nebu [Brovana Nebu] 15 mcg IH Q12HRT #60 neb 02/13/17 02/18/17 Unknown Rx Budesonide [Pulmicort Respules] 0.5 mg IH Q12HRT #60 nebu 02/13/17 02/18/17 Unknown Rx Famotidine [Pepcid] 20 mg PO BID #60 tablet 02/13/17 02/18/17 Unknown Rx Furosemide [Lasix TAB] 40 mg PO QDAY #30 tablet 02/13/17 02/18/17 Unknown Rx Gabapentin [Neurontin] 100 mg PO Q8HR #90 capsule 02/13/17 02/18/17 Unknown Rx Haloperidol [Haldol] 2 mg PO Q8H PRN #30 tablet 02/13/17 02/18/17 Unknown Rx Ipratropium/Albuterol Sulfate 1 ampul IH Q6HRT #120 ampul.neb 02/13/17 02/18/17 Unknown Rx [DUONEB *Not for PRN Use*] Levofloxacin [Levaquin TAB] 750 mg PO DAILY #7 tablet 02/13/17 02/18/17 Unknown Rx Lisinopril [Zestril TAB] 20 mg PO QDAY #30 tablet 02/13/17 02/18/17 Unknown Rx Nicotine [Habitrol] 21 mg TD QDAY #30 patch 02/13/17 02/18/17 Unknown Rx Nystas/Diphen/Xyl Visc/Mylanta 15 ml PO TID #1 oral.liqd 02/13/17 02/18/17 Unknown Rx [Magic Mouthwash] predniSONE [Deltasone] 10 mg PO .TAPER #48 tab 02/13/17 02/18/17 Unknown Rx traMADol [Ultram 50 MG tab] 50 mg PO Q8H PRN #30 tablet 02/13/17 02/18/17 Unknown Rx Morphine [Morphine ORAL SOLN 10 5 mg PO Q8HR #14 udc 02/23/17 Unknown Rx MG/5 ML] Review of Systems ROS: Stated complaint: ORALIA Other details as noted in HPI Comment: All other systems reviewed and negative Other: Constitutional: No fevers chills Eyes: No eye pain visual changes ENT: No ear pain or throat pain Neck: Denies pain Respiratory: as per hpi Cardiovascular: Denies palpitations, syncope GI: Denies abdominal pain, nausea, vomiting, diarrhea : Denies dysuria Musculoskeletal: Denies back pain Skin: Denies rash, lesions, erythema Neurologic: Denies headache, numbness, weakness Psychiatric: Denies suicidal ideation, hallucinations Medications and Allergies Allergies Allergy/AdvReac Type Severity Reaction Status Date / Time Penicillins Allergy Unknown Verified 02/22/17 10:53 Home Medications Medication Instructions Recorded Confirmed Last Taken Type ALBUTEROL Inhaler [ProAir HFA 2 puff IH QID PRN #1 inhalation 02/13/17 02/18/17 Unknown Rx Inhaler] Arformoterol Nebu [Brovana Nebu] 15 mcg IH Q12HRT #60 neb 02/13/17 02/18/17 Unknown Rx Budesonide [Pulmicort Respules] 0.5 mg IH Q12HRT #60 nebu 02/13/17 02/18/17 Unknown Rx Famotidine [Pepcid] 20 mg PO BID #60 tablet 02/13/17 02/18/17 Unknown Rx Furosemide [Lasix TAB] 40 mg PO QDAY #30 tablet 02/13/17 02/18/17 Unknown Rx Gabapentin [Neurontin] 100 mg PO Q8HR #90 capsule 02/13/17 02/18/17 Unknown Rx Haloperidol [Haldol] 2 mg PO Q8H PRN #30 tablet 02/13/17 02/18/17 Unknown Rx Ipratropium/Albuterol Sulfate 1 ampul IH Q6HRT #120 ampul.neb 02/13/17 02/18/17 Unknown Rx [DUONEB *Not for PRN Use*] Levofloxacin [Levaquin TAB] 750 mg PO DAILY #7 tablet 02/13/17 02/18/17 Unknown Rx Lisinopril [Zestril TAB] 20 mg PO QDAY #30 tablet 02/13/17 02/18/17 Unknown Rx Nicotine [Habitrol] 21 mg TD QDAY #30 patch 02/13/17 02/18/17 Unknown Rx Nystas/Diphen/Xyl Visc/Mylanta 15 ml PO TID #1 oral.liqd 02/13/17 02/18/17 Unknown Rx [Magic Mouthwash] predniSONE [Deltasone] 10 mg PO .TAPER #48 tab 02/13/17 02/18/17 Unknown Rx traMADol [Ultram 50 MG tab] 50 mg PO Q8H PRN #30 tablet 02/13/17 02/18/17 Unknown Rx Morphine [Morphine ORAL SOLN 10 5 mg PO Q8HR #14 udc 02/23/17 Unknown Rx MG/5 ML] Exam - Constitutional Vitals: Temp Pulse Resp BP Pulse Ox 97.8 F 90 18 137/87 94 03/14/17 16:54 03/14/17 16:54 03/14/17 18:03 03/14/17 16:54 03/14/17 16:54 General appearance: Present: mild distress, severe distress, well-nourished - EENT Eyes: Present: PERRL ENT: hearing intact, clear oral mucosa - Neck Neck: Present: supple, normal ROM - Respiratory Respiratory effort: normal Respiratory: bilateral: diminished, rhonchi - Cardiovascular Heart rate: 80 Rhythm: regular Heart Sounds: Present: S1 & S2. Absent: rub, click - Extremities Extremities: no ischemia, pulses intact, pulses symmetrical, No edema Peripheral Pulses: within normal limits - Abdominal General gastrointestinal: Present: soft, non-tender, non-distended, normal bowel sounds Female genitourinary: Present: normal - Rectal Rectal Exam: deferred - Integumentary Integumentary: Present: clear, warm, dry - Musculoskeletal Musculoskeletal: gait normal, strength equal bilaterally - Psychiatric Psychiatric: appropriate mood/affect, intact judgment & insight - Neurologic Neurologic: CNII-XII intact, moves all extremities - Allied Health Allied health notes reviewed: nursing Results - Labs CBC & Chem 7: 03/14/17 10:02 03/14/17 10:02 Labs: Laboratory Last Values WBC 8.9 K/mm3 (4.5-11.0) 03/14/17 10:02 RBC 3.57 M/mm3 (3.65-5.03) L 03/14/17 10:02 Hgb 10.5 gm/dl (10.1-14.3) 03/14/17 10:02 Hct 31.4 % (30.3-42.9) 03/14/17 10:02 MCV 88 fl (79-97) 03/14/17 10:02 MCH 29 pg (28-32) 03/14/17 10:02 MCHC 34 % (30-34) 03/14/17 10:02 RDW 19.0 % (13.2-15.2) H 03/14/17 10:02 Plt Count 382 K/mm3 (140-440) 03/14/17 10:02 Lymph % (Auto) 19.3 % (13.4-35.0) 03/14/17 10:02 [place] % (Auto) 11.5 % (0.0-7.3) H 03/14/17 10:02 Eos % (Auto) 2.0 % (0.0-4.3) 03/14/17 10:02 Baso % (Auto) 0.5 % (0.0-1.8) 03/14/17 10:02 Lymph # 1.7 K/mm3 (1.2-5.4) 03/14/17 10:02 [place] # 1.0 K/mm3 (0.0-0.8) H 03/14/17 10:02 Eos # 0.2 K/mm3 (0.0-0.4) 03/14/17 10:02 Baso # 0.0 K/mm3 (0.0-0.1) 03/14/17 10:02 Seg Neutrophils % 66.7 % (40.0-70.0) 03/14/17 10:02 Seg Neutrophils # 5.9 K/mm3 (1.8-7.7) 03/14/17 10:02 POC ABG pH 7.333 (7.35-7.45) L 03/14/17 13:57 POC ABG pCO2 57.0 (35-45) H 03/14/17 13:57 POC ABG pO2 99 (80-105) 03/14/17 13:57 POC ABG HCO3 30.2 03/14/17 13:57 POC ABG Total CO2 32 03/14/17 13:57 POC ABG O2 Sat 97 03/14/17 13:57 POC ABG Base Excess 4 03/14/17 13:57 FiO2 3 % 03/14/17 13:57 Sodium 135 mmol/L (137-145) L 03/14/17 10:02 Potassium 4.8 mmol/L (3.6-5.0) 03/14/17 10:02 Chloride 94.8 mmol/L (98-107) L 03/14/17 10:02 Carbon Dioxide 29 mmol/L (22-30) 03/14/17 10:02 Anion Gap 16 mmol/L 03/14/17 10:02 BUN 9 mg/dL (7-17) 03/14/17 10:02 Creatinine 0.5 mg/dL (0.7-1.2) L 03/14/17 10:02 Estimated GFR > 60 ml/min 03/14/17 10:02 BUN/Creatinine Ratio 18 % 03/14/17 10:02 Glucose 90 mg/dL (65-100) 03/14/17 10:02 Calcium 8.9 mg/dL (8.4-10.2) 03/14/17 10:02 Troponin T < 0.010 ng/mL (0.00-0.029) 03/14/17 10:02 - Imaging and Cardiology EKG: report reviewed Chest x-ray: report reviewed (Copd) Assessment and Plan Advance Directives: Yes (Full code) VTE prophylaxis?: Chemical Plan of care discussed with patient/family: Yes - Patient Problems (1) Acute respiratory failure with hypercapnia Current Visit: Yes Status: Acute Plan to address problem: Pt has a Pco2 of 57 Duonebs IV solumedrol and IV Levaquin for now Bipap if necessary. (2) COPD exacerbation Current Visit: Yes Status: Acute Plan to address problem: As Above (3) Postherpetic neuralgia Current Visit: Yes Status: Chronic Plan to address problem: Cont analgesics Gabapentin and Morphine (4) HTN (hypertension) Current Visit: Yes Status: Chronic Qualifiers: Hypertension type: essential hypertension Qualified Code(s): I10 - Essential (primary) hypertension Plan to address problem: Cont antihypertensives (5) GERD (gastroesophageal reflux disease) Current Visit: Yes Status: Chronic Qualifiers: Esophagitis presence: without esophagitis Qualified Code(s): K21.9 - Gastro -esophageal reflux disease without esophagitis Plan to address problem: Cont PPI's (6) Nicotine dependence Current Visit: Yes Status: Chronic Qualifiers: Nicotine product type: cigarettes Plan to address problem: On Nicoderm patch (7) DVT prophylaxis Current Visit: Yes Status: Acute Plan to address problem: on lovenox
[2017-03-14] MEDS: DUONEB *Not for PRN Use IH SCH (19:52)
[2017-03-14] MEDS: LEVAQUIN 750MG/150ML 750 MG/150 ML BAG IV SCH (20:10)
[2017-03-14] MEDS: MORPHINE IV PRN (20:11)
[2017-03-15] MEDS: MORPHINE IV PRN ×5 (00:07→19:16)
[2017-03-15] MEDS: DUONEB *Not for PRN Use IH SCH ×4 (02:08→20:03)
[2017-03-15] MEDS ORDERED: PROAIR IH PRN (07:11)
[2017-03-15] MEDS ORDERED: ULTRAM PO PRN (07:11)
[2017-03-15] MEDS ORDERED: HALDOL PO PRN (07:11)
[2017-03-15] MEDS ORDERED: PROVENTIL IH PRN (07:25)
[2017-03-15] MEDS ORDERED: BROVANA NEBU IH SCH (08:00)
[2017-03-15] MEDS ORDERED: ZESTRIL PO SCH (10:00)
[2017-03-15] MEDS: PULMICORT IH SCH ×2 (10:32→20:03)
[2017-03-15] MEDS: HABITROL TD SCH (11:39)
[2017-03-15] MEDS: PEPCID PO SCH ×2 (11:39→21:45)
[2017-03-15] MEDS: LASIX PO SCH (11:40)
[2017-03-15] MEDS: MAGIC MOUTHWASH PO SCH ×3 (11:40→20:19)
--- NOTE | 2017-03-15 12:43 | Progress Note ---
Assessment and Plan Assessment and plan: Patient is a 57-year-old woman who is a frequent flyer to the ED, who is basically homeless living in a correction/nursing home, frequent visitor to the [facility] even when she is not being admitted, I have seen her quite a few times in her wheelchair outside hospital grounds smoking with oxygen. 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 She wants 2 things: Her narcotics and stay in hospital thru weekend. -Acute on chronic respiratory failure due to COPD: Treat with oxygen, IV steroids, antibiotics, nebulizer atc -Acute exacerbation of COPD: See above -Chronic pain syndrome: Continue home narcotics -Tobacco dependance: camp head counselor on stopping -Suspected malnourish: get albumin/cmp levels -Functional quadriplegia: PT -Dvt prophylaxis: added sq lovenox History Interval history: Patient was seen and examined. Follow-up on current diagnosis/sob. Overnight uneventful. Patient denies any nausea/vomiting or severe headaches. Imaging, nursing note, chart, labs and old chart reviewed. Discussed with patient. Hospitalist Physical - Physical exam Narrative exam: GEN: Chronically debilitated ill-appearing NAD, AWAKE, ALERT, ORIENTATED 3 HEENT: NCAT, EOMI, PERRL, OP Clear NECK: supple, no adenopathy, no thyromegaly, no JVD CVS/HEART: RRR, NORMAL S1S2, NO JVD, pulses present bilaterally CHEST/LUNGS: Symmetrical chest expansion, good air entry bilaterally GI/Abdomen: soft, NTND, good bowel sounds, no guarding or rebound /Bladder: no suprapubic tenderness, no CVA or paraspinal tenderness EXT/Skin: no c/c/e, no obvious rash MSK: Partial quadriplegia wheelchair-bound Neuro: CN 2-12 grossly intact, no new focal deficits Psych: calm - Constitutional Vitals: Temp Pulse Resp BP Pulse Ox 98.3 F 98 H 20 141/89 93 03/15/17 07:35 03/15/17 10:42 03/15/17 10:42 03/15/17 07:35 03/15/17 07:35 Results - Labs CBC & Chem 7: 03/14/17 10:02 03/14/17 10:02 Labs: Laboratory Last Values WBC 8.9 K/mm3 (4.5-11.0) 03/14/17 10:02 RBC 3.57 M/mm3 (3.65-5.03) L 03/14/17 10:02 Hgb 10.5 gm/dl (10.1-14.3) 03/14/17 10:02 Hct 31.4 % (30.3-42.9) 03/14/17 10:02 MCV 88 fl (79-97) 03/14/17 10:02 MCH 29 pg (28-32) 03/14/17 10:02 MCHC 34 % (30-34) 03/14/17 10:02 RDW 19.0 % (13.2-15.2) H 03/14/17 10:02 Plt Count 382 K/mm3 (140-440) 03/14/17 10:02 Lymph % (Auto) 19.3 % (13.4-35.0) 03/14/17 10:02 [place] % (Auto) 11.5 % (0.0-7.3) H 03/14/17 10:02 Eos % (Auto) 2.0 % (0.0-4.3) 03/14/17 10:02 Baso % (Auto) 0.5 % (0.0-1.8) 03/14/17 10:02 Lymph # 1.7 K/mm3 (1.2-5.4) 03/14/17 10:02 [place] # 1.0 K/mm3 (0.0-0.8) H 03/14/17 10:02 Eos # 0.2 K/mm3 (0.0-0.4) 03/14/17 10:02 Baso # 0.0 K/mm3 (0.0-0.1) 03/14/17 10:02 Seg Neutrophils % 66.7 % (40.0-70.0) 03/14/17 10:02 Seg Neutrophils # 5.9 K/mm3 (1.8-7.7) 03/14/17 10:02 POC ABG pH 7.333 (7.35-7.45) L 03/14/17 13:57 POC ABG pCO2 57.0 (35-45) H 03/14/17 13:57 POC ABG pO2 99 (80-105) 03/14/17 13:57 POC ABG HCO3 30.2 03/14/17 13:57 POC ABG Total CO2 32 03/14/17 13:57 POC ABG O2 Sat 97 03/14/17 13:57 POC ABG Base Excess 4 03/14/17 13:57 FiO2 3 % 03/14/17 13:57 Sodium 135 mmol/L (137-145) L 03/14/17 10:02 Potassium 4.8 mmol/L (3.6-5.0) 03/14/17 10:02 Chloride 94.8 mmol/L (98-107) L 03/14/17 10:02 Carbon Dioxide 29 mmol/L (22-30) 03/14/17 10:02 Anion Gap 16 mmol/L 03/14/17 10:02 BUN 9 mg/dL (7-17) 03/14/17 10:02 Creatinine 0.5 mg/dL (0.7-1.2) L 03/14/17 10:02 Estimated GFR > 60 ml/min 03/14/17 10:02 BUN/Creatinine Ratio 18 % 03/14/17 10:02 Glucose 90 mg/dL (65-100) 03/14/17 10:02 Calcium 8.9 mg/dL (8.4-10.2) 03/14/17 10:02 Troponin T < 0.010 ng/mL (0.00-0.029) 03/14/17 10:02
[2017-03-15] MEDS: NEURONTIN PO SCH ×2 (15:40→21:45)
[2017-03-15] MEDS: LOVENOX SUB-Q SCH (15:42)
[2017-03-15] MEDS: MORPHINE PO SCH ×2 (15:53→21:45)
--- NOTE | 2017-03-15 16:17 | Consultation ---
History of Present Illness Consult date: 03/15/17 Requesting physician: TAYO NAVA Reason for consult: COPD History of present illness: 57 yo with severe COPD, admitted w/ increased SOB, wheezing, cough with yellow sputum, worsening ABG/hypoxia. Smoking 6 cigs/day now. No fevers, chills, chest pain, hemoptysis. Active Medications Albuterol (Proventil) 2.5 mg IH Q4HRT PRN PRN Reason: Shortness Of Breath Last Admin: 03/15/17 10:32 Dose: 2.5 mg Albuterol/Ipratropium (Duoneb *Not For Prn Use*) 1 ampul IH Q6HRT [facility] Last Admin: 03/15/17 07:24 Dose: 1 ampul Budesonide (Pulmicort) 0.5 mg IH Q12HRT [facility] Last Admin: 03/15/17 10:32 Dose: 0.5 mg Enoxaparin Sodium (Lovenox) 40 mg SUB-Q QDAY@1000 [facility] Last Admin: 03/15/17 15:42 Dose: Not Given Famotidine (Pepcid) 20 mg PO BID [facility] Last Admin: 03/15/17 11:39 Dose: 20 mg Furosemide (Lasix) 40 mg PO QDAY [facility] Last Admin: 03/15/17 11:40 Dose: 40 mg Gabapentin (Neurontin) 100 mg PO Q8HR [facility] Last Admin: 03/15/17 15:40 Dose: 100 mg Haloperidol (Haldol) 2 mg PO Q8H PRN PRN Reason: Agitation Levofloxacin/Dextrose (Levaquin 750mg/150ml) 750 mg in 150 mls @ 100 mls/hr IV Q24H [facility] PRN Reason: Protocol Last Admin: 03/14/17 20:10 Dose: 100 mls/hr Lidocaine HCl (Magic Mouthwash) 15 ml PO TID [facility] Last Admin: 03/15/17 15:40 Dose: 15 ml Lisinopril (Zestril) 20 mg PO QDAY [facility] Last Admin: 03/15/17 11:38 Dose: Not Given Methylprednisolone Sodium Succinate (Solu-Medrol) 60 mg IV Q8H [facility] Last Admin: 03/15/17 11:38 Dose: 60 mg Morphine Sulfate (Morphine) 2 mg IV Q4H PRN PRN Reason: Pain, Moderate (4-6) Last Admin: 03/15/17 13:08 Dose: 2 mg Morphine Sulfate (Morphine) 5 mg PO Q8HR [facility] Last Admin: 03/15/17 15:53 Dose: 5 mg Nicotine (Habitrol) 21 mg TD QDAY [facility] Last Admin: 03/15/17 11:39 Dose: 21 mg Tramadol HCl (Ultram) 50 mg PO Q8H PRN PRN Reason: Pain Past History Past Medical History: other (COPD, GERD, Shingles, Anxiety, chronic respiratory failure, chronic pain) Social history: smoking, full code. denies: alcohol abuse, prescription drug abuse, IV drug use Family history: other (No pulm issues reported) Medications and Allergies Allergies Allergy/AdvReac Type Severity Reaction Status Date / Time Penicillins Allergy Unknown Verified 02/22/17 10:53 Home Medications Medication Instructions Recorded Confirmed Last Taken Type ALBUTEROL Inhaler [ProAir HFA 2 puff IH QID PRN #1 inhalation 02/13/17 02/18/17 Unknown Rx Inhaler] Arformoterol Nebu [Brovana Nebu] 15 mcg IH Q12HRT #60 neb 02/13/17 02/18/17 Unknown Rx Budesonide [Pulmicort Respules] 0.5 mg IH Q12HRT #60 nebu 02/13/17 02/18/17 Unknown Rx Famotidine [Pepcid] 20 mg PO BID #60 tablet 02/13/17 02/18/17 Unknown Rx Furosemide [Lasix TAB] 40 mg PO QDAY #30 tablet 02/13/17 02/18/17 Unknown Rx Gabapentin [Neurontin] 100 mg PO Q8HR #90 capsule 02/13/17 02/18/17 Unknown Rx Haloperidol [Haldol] 2 mg PO Q8H PRN #30 tablet 02/13/17 02/18/17 Unknown Rx Ipratropium/Albuterol Sulfate 1 ampul IH Q6HRT #120 ampul.neb 02/13/17 02/18/17 Unknown Rx [DUONEB *Not for PRN Use*] Levofloxacin [Levaquin TAB] 750 mg PO DAILY #7 tablet 02/13/17 02/18/17 Unknown Rx Lisinopril [Zestril TAB] 20 mg PO QDAY #30 tablet 02/13/17 02/18/17 Unknown Rx Nicotine [Habitrol] 21 mg TD QDAY #30 patch 02/13/17 02/18/17 Unknown Rx Nystas/Diphen/Xyl Visc/Mylanta 15 ml PO TID #1 oral.liqd 02/13/17 02/18/17 Unknown Rx [Magic Mouthwash] predniSONE [Deltasone] 10 mg PO .TAPER #48 tab 02/13/17 02/18/17 Unknown Rx traMADol [Ultram 50 MG tab] 50 mg PO Q8H PRN #30 tablet 02/13/17 02/18/17 Unknown Rx Morphine [Morphine ORAL SOLN 10 5 mg PO Q8HR #14 udc 02/23/17 Unknown Rx MG/5 ML] Active Meds: Active Medications Albuterol (Proventil) 2.5 mg IH Q4HRT PRN PRN Reason: Shortness Of Breath Last Admin: 03/15/17 10:32 Dose: 2.5 mg Albuterol/Ipratropium (Duoneb *Not For Prn Use*) 1 ampul IH Q6HRT [facility] Last Admin: 03/15/17 07:24 Dose: 1 ampul Budesonide (Pulmicort) 0.5 mg IH Q12HRT [facility] Last Admin: 03/15/17 10:32 Dose: 0.5 mg Enoxaparin Sodium (Lovenox) 40 mg SUB-Q QDAY@1000 [facility] Last Admin: 03/15/17 15:42 Dose: Not Given Famotidine (Pepcid) 20 mg PO BID [facility] Last Admin: 03/15/17 11:39 Dose: 20 mg Furosemide (Lasix) 40 mg PO QDAY [facility] Last Admin: 03/15/17 11:40 Dose: 40 mg Gabapentin (Neurontin) 100 mg PO Q8HR [facility] Last Admin: 03/15/17 15:40 Dose: 100 mg Haloperidol (Haldol) 2 mg PO Q8H PRN PRN Reason: Agitation Levofloxacin/Dextrose (Levaquin 750mg/150ml) 750 mg in 150 mls @ 100 mls/hr IV Q24H [facility] PRN Reason: Protocol Last Admin: 03/14/17 20:10 Dose: 100 mls/hr Lidocaine HCl (Magic Mouthwash) 15 ml PO TID [facility] Last Admin: 03/15/17 15:40 Dose: 15 ml Lisinopril (Zestril) 20 mg PO QDAY [facility] Last Admin: 03/15/17 11:38 Dose: Not Given Methylprednisolone Sodium Succinate (Solu-Medrol) 60 mg IV Q8H [facility] Last Admin: 03/15/17 11:38 Dose: 60 mg Morphine Sulfate (Morphine) 2 mg IV Q4H PRN PRN Reason: Pain, Moderate (4-6) Last Admin: 03/15/17 13:08 Dose: 2 mg Morphine Sulfate (Morphine) 5 mg PO Q8HR [facility] Last Admin: 03/15/17 15:53 Dose: 5 mg Nicotine (Habitrol) 21 mg TD QDAY [facility] Last Admin: 03/15/17 11:39 Dose: 21 mg Tramadol HCl (Ultram) 50 mg PO Q8H PRN PRN Reason: Pain Review of Systems All systems: negative Constitutional: weight loss Physical Examination Vital signs: Vital Signs Temp Pulse BP Pulse Ox 97.8 F 98 H 143/98 92 03/14/17 09:50 03/14/17 09:50 03/14/17 09:50 03/14/17 09:50 General appearance: no acute distress, alert Eyes: non-icteric ENT: oropharynx moist Neck: supple Effort: normal Ascultation: Bilateral: wheezes Cardiovascular: regular rate and rhythm (no mrg) Gastrointestinal: normoactive bowel sounds, soft, non-tender, non-distended Integumentary: normal Extremities: no cyanosis, no edema, pink and warm normal mental status, non-focal exam, pupils equal and round, CN II-XII normal mood appropriate, affect normal Results - Laboratory Findings CBC and BMP: 03/14/17 10:02 03/14/17 10:02 ABG POC ABG pH 7.333 (7.35-7.45) L 03/14/17 13:57 POC ABG pCO2 57.0 (35-45) H 03/14/17 13:57 POC ABG pO2 99 (80-105) 03/14/17 13:57 POC ABG HCO3 30.2 03/14/17 13:57 POC ABG Total CO2 32 03/14/17 13:57 POC ABG O2 Sat 97 03/14/17 13:57 Abnormal lab findings: Abnormal Labs 03/14/17 03/14/17 03/14/17 10:02 10:02 13:57 RBC 3.57 L RDW 19.0 H [place] % (Auto) 11.5 H [place] # 1.0 H POC ABG pH 7.333 L POC ABG pCO2 57.0 H Sodium 135 L Chloride 94.8 L Creatinine 0.5 L - Diagnostic Findings Chest x-ray: report reviewed, image reviewed (clear lungs) Assessment and Plan Imp: 1. Acute bronchitis 2. COPD exac. 3. Centrilobular emphysema 4. A/C respiratory failure, hypoxia and hypercapnea 5. Chronic nicotine dependence, cigs 6. Non-compliance Rec: 1. Only taking Proventil at home prn; would add dual bronchodilator such as Bevespi 2 puffs BID at d/c (believe this is covered on Medicaid) 2. Agree w/ Solumedrol -> send out on long prednisone taper; cont. Levaquin x 7 days total; cont. Duonebs 3. Stop smoking, patient aware 4. Recurrent hospital admissions are due to #'s 5 and 6 above 5. Has home O2 6. Recommend outpatient pulm f/u Plan of care reviewed w/ patient, she understands/agrees Thanks for the consult. Will follow closely.
[2017-03-15] MEDS: LEVAQUIN 750MG/150ML 750 MG/150 ML BAG IV SCH (20:19)
[2017-03-16] MEDS: MORPHINE IV PRN ×4 (01:09→18:56)
[2017-03-16] MEDS: DUONEB *Not for PRN Use IH SCH ×4 (02:32→19:20)
[2017-03-16] MEDS: NEURONTIN PO SCH ×3 (05:00→21:21)
[2017-03-16] MEDS: MORPHINE PO SCH ×3 (05:00→21:23)
[2017-03-16 07:23] LABS: Hematocrit 29.5 % (30.3-42.9); Hemoglobin 9.6 gm/dl (10.1-14.3); Mean Corpuscular HGB Conc 33 % (30-34); Mean Corpuscular Hemoglobin 28 pg (28-32); Mean Corpuscular Volume 87 fl (79-97); Platelet Count 461 K/mm3 (140-440); Red Blood Count 3.41 M/mm3 (3.65-5.03); Red Cell Distribution Width 18.8 % (13.2-15.2); White Blood Count 19.1 K/mm3 (4.5-11.0)
[2017-03-16 07:41] LABS: Alanine Aminotransferase 11 units/L (7-56); Albumin/Globulin Ratio 1.8 %; Alkaline Phosphatase 80 units/L (35-129); Anion Gap 16 mmol/L; BUN/Creatinine Ratio 33; Bilirubin,Total < 0.20 mg/dL (0.1-1.2); Blood Urea Nitrogen 20 mg/dL (7-17); Calcium 9.2 mg/dL (8.4-10.2); Carbon Dioxide 33 mmol/L (22-30); Chloride 91.4 mmol/L (98-107); Glucose 206 mg/dL (65-100); Potassium 5.1 mmol/L (3.6-5.0); Sodium 135 mmol/L (137-145); Total Protein 6.2 g/dL (6.3-8.2)
[2017-03-16] MEDS: PULMICORT IH SCH ×2 (08:28→19:20)
[2017-03-16] MEDS ORDERED: KIONEX PO NR (09:00)
[2017-03-16] MEDS: HABITROL TD SCH ×2 (09:27→10:45)
[2017-03-16] MEDS: COLACE PO SCH ×2 (09:27→21:22)
[2017-03-16] MEDS: MAGIC MOUTHWASH PO SCH ×3 (09:28→19:32)
[2017-03-16] MEDS: LASIX PO SCH (09:28)
[2017-03-16] MEDS: PEPCID PO SCH ×2 (09:28→21:21)
[2017-03-16] MEDS: LOVENOX SUB-Q SCH (09:34)
--- NOTE | 2017-03-16 09:42 | Progress Note ---
Assessment and Plan Assessment and plan: Acute on chronic respiratory failure due to COPD exacerbation. Give solumedrol iv, supplemental Oxygen, antibiotics, nebulizer Acute exacerbation of COPD: Pulmonology following. Chronic pain syndrome: Continue home narcotics Tobacco dependance: counseled on stopping smoking cigarettes Functional quadriplegia: PT DVT prophylaxis: Lovenox subcut Full code status. History Interval history: Shortness of breath, Cough no fever no vomiting Hospitalist Physical - Physical exam Narrative exam: GEN APPEARANCE : Not in acute distress HEENT: Normocephalic, Atraumatic NECK : supple, no JVD LUNGS: Bilateral rhonchi, wheezingy, no rales, no wheeze HEART: S1 and S2 regular, no murmurs, rubs or gallop, ABD: Soft, non tender, non distended, normal bowel sounds EXT: No edema, no clubbing, no cyanosis NEURO: Awake,alert, oriented x3, no focal signs Psych: Normal mood - Constitutional Vitals: Temp Pulse Resp BP Pulse Ox 98.7 F 90 18 126/74 95 03/16/17 07:40 03/16/17 07:40 03/16/17 07:40 03/16/17 07:40 03/16/17 07:40 Results - Labs CBC & Chem 7: 03/16/17 07:01 03/16/17 07:01 Labs: Laboratory Last Values WBC 19.1 K/mm3 (4.5-11.0) H 03/16/17 07:01 RBC 3.41 M/mm3 (3.65-5.03) L 03/16/17 07:01 Hgb 9.6 gm/dl (10.1-14.3) L 03/16/17 07:01 Hct 29.5 % (30.3-42.9) L 03/16/17 07:01 MCV 87 fl (79-97) 03/16/17 07:01 MCH 28 pg (28-32) 03/16/17 07:01 MCHC 33 % (30-34) 03/16/17 07:01 RDW 18.8 % (13.2-15.2) H 03/16/17 07:01 Plt Count 461 K/mm3 (140-440) H 03/16/17 07:01 Lymph % (Auto) 19.3 % (13.4-35.0) 03/14/17 10:02 [place] % (Auto) 11.5 % (0.0-7.3) H 03/14/17 10:02 Eos % (Auto) 2.0 % (0.0-4.3) 03/14/17 10:02 Baso % (Auto) 0.5 % (0.0-1.8) 03/14/17 10:02 Lymph # 1.7 K/mm3 (1.2-5.4) 03/14/17 10:02 [place] # 1.0 K/mm3 (0.0-0.8) H 03/14/17 10:02 Eos # 0.2 K/mm3 (0.0-0.4) 03/14/17 10:02 Baso # 0.0 K/mm3 (0.0-0.1) 03/14/17 10:02 Seg Neutrophils % 66.7 % (40.0-70.0) 03/14/17 10:02 Seg Neutrophils # 5.9 K/mm3 (1.8-7.7) 03/14/17 10:02 POC ABG pH 7.333 (7.35-7.45) L 03/14/17 13:57 POC ABG pCO2 57.0 (35-45) H 03/14/17 13:57 POC ABG pO2 99 (80-105) 03/14/17 13:57 POC ABG HCO3 30.2 03/14/17 13:57 POC ABG Total CO2 32 03/14/17 13:57 POC ABG O2 Sat 97 03/14/17 13:57 POC ABG Base Excess 4 03/14/17 13:57 FiO2 3 % 03/14/17 13:57 Sodium 135 mmol/L (137-145) L 03/16/17 07:01 Potassium 5.1 mmol/L (3.6-5.0) H 03/16/17 07:01 Chloride 91.4 mmol/L (98-107) L 03/16/17 07:01 Carbon Dioxide 33 mmol/L (22-30) H 03/16/17 07:01 Anion Gap 16 mmol/L 03/16/17 07:01 BUN 20 mg/dL (7-17) H 03/16/17 07:01 Creatinine 0.6 mg/dL (0.7-1.2) L 03/16/17 07:01 Estimated GFR > 60 ml/min 03/16/17 07:01 BUN/Creatinine Ratio 33 % 03/16/17 07:01 Glucose 206 mg/dL (65-100) H 03/16/17 07:01 Calcium 9.2 mg/dL (8.4-10.2) 03/16/17 07:01 Total Bilirubin < 0.20 mg/dL (0.1-1.2) 03/16/17 07:01 AST 11 units/L (5-40) 03/16/17 07:01 ALT 11 units/L (7-56) 03/16/17 07:01 Alkaline Phosphatase 80 units/L (35-129) 03/16/17 07:01 Troponin T < 0.010 ng/mL (0.00-0.029) 03/14/17 10:02 Total Protein 6.2 g/dL (6.3-8.2) L 03/16/17 07:01 Albumin 4.0 g/dL (3.9-5) 03/16/17 07:01 Albumin/Globulin Ratio 1.8 % 03/16/17 07:01
[2017-03-16] MEDS ORDERED: LOVENOX SUB-Q SCH (10:00)
--- NOTE | 2017-03-16 14:43 | Event Note ---
Date: 03/16/17 Patient off floor when I came by. Continue current care and will f/u in AM.
[2017-03-16] MEDS: TESSALON PERLES PO SCH ×2 (18:56→21:21)
[2017-03-16] MEDS: LEVAQUIN 750MG/150ML 750 MG/150 ML BAG IV SCH (19:33)
[2017-03-17] MEDS: MORPHINE IV PRN ×3 (01:08→12:55)
[2017-03-17] MEDS: DUONEB *Not for PRN Use IH SCH ×4 (01:33→20:48)
[2017-03-17] MEDS: TESSALON PERLES PO SCH ×3 (05:50→21:17)
[2017-03-17] MEDS: NEURONTIN PO SCH ×3 (05:50→21:17)
[2017-03-17] MEDS: MORPHINE PO SCH ×4 (05:50→22:27)
[2017-03-17 07:14] LABS: Hemoglobin 9.3 gm/dl (10.1-14.3); Mean Corpuscular HGB Conc 32 % (30-34); Mean Corpuscular Hemoglobin 28 pg (28-32); Mean Corpuscular Volume 87 fl (79-97); Platelet Count 396 K/mm3 (140-440); Red Blood Count 3.34 M/mm3 (3.65-5.03); Red Cell Distribution Width 18.9 % (13.2-15.2); White Blood Count 12.6 K/mm3 (4.5-11.0)
[2017-03-17 07:19] LABS: Anion Gap 14 mmol/L; BUN/Creatinine Ratio 40; Blood Urea Nitrogen 20 mg/dL (7-17); Calcium 9.1 mg/dL (8.4-10.2); Carbon Dioxide 39 mmol/L (22-30); Glucose 128 mg/dL (65-100); Potassium 3.9 mmol/L (3.6-5.0); Sodium 140 mmol/L (137-145)
[2017-03-17] MEDS: MAGIC MOUTHWASH PO SCH ×3 (08:20→21:15)
--- NOTE | 2017-03-17 09:02 | Progress Note ---
Assessment and Plan Assessment and plan: Acute on chronic respiratory failure due to COPD exacerbation. Continue solumedrol iv, supplemental Oxygen, antibiotics, nebulizer. She is still short of breath. Still wheezing. Acute exacerbation of COPD: Pulmonology following. Chronic pain syndrome: Continue home narcotics Tobacco dependance: counseled on stopping smoking cigarettes Functional quadriplegia: PT DVT prophylaxis: Lovenox subcut Full code status. History Interval history: Still shortness of breath, Still Cough no fever no vomiting Hospitalist Physical - Physical exam Narrative exam: GEN APPEARANCE : Not in acute distress HEENT: Normocephalic, Atraumatic NECK : supple, no JVD LUNGS: Bilateral rhonchi, wheezingy, no rales, no wheeze HEART: S1 and S2 regular, no murmurs, rubs or gallop, ABD: Soft, non tender, non distended, normal bowel sounds EXT: No edema, no clubbing, no cyanosis NEURO: Awake,alert, oriented x3, no focal signs Psych: Normal mood - Constitutional Vitals: Temp Pulse Resp BP Pulse Ox 98.5 F 91 H 20 149/87 83 L 03/17/17 07:46 03/17/17 07:46 03/17/17 07:46 03/17/17 07:46 03/17/17 07:46 Results - Labs CBC & Chem 7: 03/17/17 05:41 03/17/17 05:41 Labs: Laboratory Last Values WBC 12.6 K/mm3 (4.5-11.0) H 03/17/17 05:41 RBC 3.34 M/mm3 (3.65-5.03) L 03/17/17 05:41 Hgb 9.3 gm/dl (10.1-14.3) L 03/17/17 05:41 Hct 29.0 % (30.3-42.9) L 03/17/17 05:41 MCV 87 fl (79-97) 03/17/17 05:41 MCH 28 pg (28-32) 03/17/17 05:41 MCHC 32 % (30-34) 03/17/17 05:41 RDW 18.9 % (13.2-15.2) H 03/17/17 05:41 Plt Count 396 K/mm3 (140-440) 03/17/17 05:41 Lymph % (Auto) 19.3 % (13.4-35.0) 03/14/17 10:02 Richardson % (Auto) 11.5 % (0.0-7.3) H 03/14/17 10:02 Eos % (Auto) 2.0 % (0.0-4.3) 03/14/17 10:02 Baso % (Auto) 0.5 % (0.0-1.8) 03/14/17 10:02 Lymph # 1.7 K/mm3 (1.2-5.4) 03/14/17 10:02 Richardson # 1.0 K/mm3 (0.0-0.8) H 03/14/17 10:02 Eos # 0.2 K/mm3 (0.0-0.4) 03/14/17 10:02 Baso # 0.0 K/mm3 (0.0-0.1) 03/14/17 10:02 Seg Neutrophils % 66.7 % (40.0-70.0) 03/14/17 10:02 Seg Neutrophils # 5.9 K/mm3 (1.8-7.7) 03/14/17 10:02 POC ABG pH 7.333 (7.35-7.45) L 03/14/17 13:57 POC ABG pCO2 57.0 (35-45) H 03/14/17 13:57 POC ABG pO2 99 (80-105) 03/14/17 13:57 POC ABG HCO3 30.2 03/14/17 13:57 POC ABG Total CO2 32 03/14/17 13:57 POC ABG O2 Sat 97 03/14/17 13:57 POC ABG Base Excess 4 03/14/17 13:57 FiO2 3 % 03/14/17 13:57 Sodium 140 mmol/L (137-145) 03/17/17 05:41 Potassium 3.9 mmol/L (3.6-5.0) D 03/17/17 05:41 Chloride 91.0 mmol/L (98-107) L 03/17/17 05:41 Carbon Dioxide 39 mmol/L (22-30) H 03/17/17 05:41 Anion Gap 14 mmol/L 03/17/17 05:41 BUN 20 mg/dL (7-17) H 03/17/17 05:41 Creatinine 0.5 mg/dL (0.7-1.2) L 03/17/17 05:41 Estimated GFR > 60 ml/min 03/17/17 05:41 BUN/Creatinine Ratio 40 % 03/17/17 05:41 Glucose 128 mg/dL (65-100) H 03/17/17 05:41 Calcium 9.1 mg/dL (8.4-10.2) 03/17/17 05:41 Total Bilirubin < 0.20 mg/dL (0.1-1.2) 03/16/17 07:01 AST 11 units/L (5-40) 03/16/17 07:01 ALT 11 units/L (7-56) 03/16/17 07:01 Alkaline Phosphatase 80 units/L (35-129) 03/16/17 07:01 Troponin T < 0.010 ng/mL (0.00-0.029) 03/14/17 10:02 Total Protein 6.2 g/dL (6.3-8.2) L 03/16/17 07:01 Albumin 4.0 g/dL (3.9-5) 03/16/17 07:01 Albumin/Globulin Ratio 1.8 % 03/16/17 07:01
[2017-03-17] MEDS: PULMICORT IH SCH ×2 (09:55→20:48)
[2017-03-17] MEDS: PEPCID PO SCH ×2 (10:26→21:17)
[2017-03-17] MEDS: LASIX PO SCH (10:26)
[2017-03-17] MEDS: HABITROL TD SCH (10:26)
[2017-03-17] MEDS: LOVENOX SUB-Q SCH ×2 (10:26→10:31)
[2017-03-17] MEDS: COLACE PO SCH ×2 (10:27→21:38)
[2017-03-17] MEDS ORDERED: ULTRAM PO PRN (11:02)
--- NOTE | 2017-03-17 11:17 | Progress Note ---
Assessment and Plan 57 y/o female with COPD exacerbation. COPD stable. Can switch to PO prednisone and taper from there Smoking cessation Should be ready for discharge in am. Subjective Date of service: 03/17/17 Interval history: No acute events. Stable Objective Vital Signs - 12hr 03/17/17 03/17/17 03/17/17 00:10 01:34 07:46 Temperature 97.9 F 98.5 F Pulse Rate 112 H 91 H Pulse Rate [ 110 H Posterior Bilateral Throughout] Respiratory 16 20 Rate Respiratory 20 Rate [Posterior Bilateral Throughout] Blood Pressure 133/82 149/87 O2 Sat by Pulse 94 83 L Oximetry 03/17/17 09:55 Temperature Pulse Rate Pulse Rate [ Posterior Bilateral Throughout] Respiratory Rate Respiratory Rate [Posterior Bilateral Throughout] Blood Pressure O2 Sat by Pulse 95 Oximetry Constitutional: no acute distress, alert Eyes: non-icteric ENT: oropharynx moist Neck: supple Effort: normal Ascultation: Bilateral: wheezes Cardiovascular: regular rate and rhythm (no mrg) Gastrointestinal: normoactive bowel sounds, soft, non-tender, non-distended Integumentary: normal Extremities: no cyanosis, no edema, pink and warm Neurologic: normal mental status, non-focal exam, pupils equal and round, CN II- XII normal Psychiatric: mood appropriate, affect normal CBC and BMP: 03/17/17 05:41 03/17/17 05:41 ABG, PT/INR, D-dimer: ABG POC ABG pH 7.333 (7.35-7.45) L 03/14/17 13:57 POC ABG pCO2 57.0 (35-45) H 03/14/17 13:57 POC ABG pO2 99 (80-105) 03/14/17 13:57 POC ABG HCO3 30.2 03/14/17 13:57 POC ABG Total CO2 32 03/14/17 13:57 POC ABG O2 Sat 97 03/14/17 13:57 Abnormal lab findings: Abnormal Labs 03/14/17 03/14/17 03/14/17 10:02 10:02 13:57 WBC RBC 3.57 L Hgb Hct RDW 19.0 H Plt Count Schuyler % (Auto) 11.5 H Schuyler # 1.0 H POC ABG pH 7.333 L POC ABG pCO2 57.0 H Sodium 135 L Potassium Chloride 94.8 L Carbon Dioxide BUN Creatinine 0.5 L Glucose Total Protein 03/16/17 03/16/17 03/17/17 07:01 07:01 05:41 WBC 19.1 H 12.6 H RBC 3.41 L 3.34 L Hgb 9.6 L 9.3 L Hct 29.5 L 29.0 L RDW 18.8 H 18.9 H Plt Count 461 H Schuyler % (Auto) Schuyler # POC ABG pH POC ABG pCO2 Sodium 135 L Potassium 5.1 H Chloride 91.4 L Carbon Dioxide 33 H BUN 20 H Creatinine 0.6 L Glucose 206 H Total Protein 6.2 L 03/17/17 05:41 WBC RBC Hgb Hct RDW Plt Count [place] % (Auto) Schuyler # POC ABG pH POC ABG pCO2 Sodium Potassium Chloride 91.0 L Carbon Dioxide 39 H BUN 20 H Creatinine 0.5 L Glucose 128 H Total Protein
[2017-03-17] MEDS: LEVAQUIN 750MG/150ML 750 MG/150 ML BAG IV SCH (21:16)
[2017-03-18] MEDS: DUONEB *Not for PRN Use IH SCH ×3 (02:17→14:08)
[2017-03-18] MEDS: MORPHINE IV PRN (04:20)
[2017-03-18] MEDS: NEURONTIN PO SCH ×2 (06:32→13:09)
[2017-03-18] MEDS: TESSALON PERLES PO SCH (06:32)
[2017-03-18] MEDS: MORPHINE PO SCH (06:56)
[2017-03-18 08:28] VITALS: BP 125/72
[2017-03-18] MEDS: PULMICORT IH SCH (09:04)
--- NOTE | 2017-03-18 09:29 | Progress Note ---
Assessment and Plan 57 y/o female with COPD exacerbation. COPD stable. Prednisone taper Smoking cessation No objection to discharge Subjective Date of service: 03/18/17 Interval history: No acute events. Objective Vital Signs - 12hr 03/17/17 03/17/17 03/18/17 22:00 22:37 07:41 Temperature 98.4 F 98.6 F Pulse Rate 120 H 94 H Pulse Rate [ Anterior Bilateral Throughout] Respiratory 21 22 Rate Respiratory Rate [Anterior Bilateral Throughout] Blood Pressure 123/82 125/72 O2 Sat by Pulse 95 96 73 L Oximetry 03/18/17 03/18/17 09:00 09:05 Temperature Pulse Rate Pulse Rate [ 82 83 Anterior Bilateral Throughout] Respiratory Rate Respiratory 17 17 Rate [Anterior Bilateral Throughout] Blood Pressure O2 Sat by Pulse 85 Oximetry Constitutional: no acute distress, alert Eyes: non-icteric ENT: oropharynx moist Neck: supple Effort: normal Ascultation: Bilateral: wheezes Cardiovascular: regular rate and rhythm (no mrg) Gastrointestinal: normoactive bowel sounds, soft, non-tender, non-distended Integumentary: normal Extremities: no cyanosis, no edema, pink and warm Neurologic: normal mental status, non-focal exam, pupils equal and round, CN II- XII normal Psychiatric: mood appropriate, affect normal CBC and BMP: 03/17/17 05:41 03/17/17 05:41 ABG, PT/INR, D-dimer: ABG POC ABG pH 7.333 (7.35-7.45) L 03/14/17 13:57 POC ABG pCO2 57.0 (35-45) H 03/14/17 13:57 POC ABG pO2 99 (80-105) 03/14/17 13:57 POC ABG HCO3 30.2 03/14/17 13:57 POC ABG Total CO2 32 03/14/17 13:57 POC ABG O2 Sat 97 03/14/17 13:57 Abnormal lab findings: Abnormal Labs 03/14/17 03/14/17 03/14/17 10:02 10:02 13:57 WBC RBC 3.57 L Hgb Hct RDW 19.0 H Plt Count Garvin % (Auto) 11.5 H Garvin # 1.0 H POC ABG pH 7.333 L POC ABG pCO2 57.0 H Sodium 135 L Potassium Chloride 94.8 L Carbon Dioxide BUN Creatinine 0.5 L Glucose Total Protein 03/16/17 03/16/17 03/17/17 07:01 07:01 05:41 WBC 19.1 H 12.6 H RBC 3.41 L 3.34 L Hgb 9.6 L 9.3 L Hct 29.5 L 29.0 L RDW 18.8 H 18.9 H Plt Count 461 H Garvin % (Auto) Garvin # POC ABG pH POC ABG pCO2 Sodium 135 L Potassium 5.1 H Chloride 91.4 L Carbon Dioxide 33 H BUN 20 H Creatinine 0.6 L Glucose 206 H Total Protein 6.2 L 03/17/17 05:41 WBC RBC Hgb Hct RDW Plt Count Garvin % (Auto) Garvin # POC ABG pH POC ABG pCO2 Sodium Potassium Chloride 91.0 L Carbon Dioxide 39 H BUN 20 H Creatinine 0.5 L Glucose 128 H Total Protein
[2017-03-18] MEDS: LASIX PO SCH (09:48)
[2017-03-18] MEDS: PEPCID PO SCH (09:48)
[2017-03-18] MEDS: MAGIC MOUTHWASH PO SCH (09:48)
[2017-03-18] MEDS: LOVENOX SUB-Q SCH (09:49)
[2017-03-18] MEDS: COLACE PO SCH (09:49)
[2017-03-18] MEDS ORDERED: LEVAQUIN PO SCH (10:00)
--- NOTE | 2017-03-18 11:09 | Discharge Summary ---
Providers - Providers Date of Admission: 03/14/17 15:07 Date of discharge: 03/18/17 Attending physician: MIKEY MACEDO 03/14/17 18:16 Consult to Wound/ET Nurse [CONS] Routine Reason For Exam: wound eval 03/15/17 08:31 Consult to Physician [CONS] Routine Consulting Provider: HARMEET KELLY Reason For Exam: copd, pt known to your service Place consult to:: dr. laney matthews Notified:: answering service Phone number called:: Was contact made?: Yes If yes, spoke with:: butch Time called:: 09:34 03/15/17 12:45 Physical Therapy Evaluation and Treat [CONS] Routine Comment: Reason For Exam: functional quadiplegia, ?snf Primary care physician: IMPREGNATOR Hospitalization Condition: Fair Hospital course: Patient is 57 yo with COPD presented with shortness of breath. She was diagnosed with acute on chronic resp failure due to COPD exacerbation. She was started on solumedrol, Duoneb, Oxygen and admitted. She improved, shortness of breath improved and she was discharged home on 03/18/17. Patient is noncompliant and has had multiple frequent admissions. Total time spent on discharge, 32 mins Disposition: DC-01 TO HOME OR SELFCARE - Discharge Diagnoses (1) Acute and chronic respiratory failure Status: Acute Qualifiers: Respiratory failure complication: hypoxia and hypercapnia Qualified Code(s) : J96.21 - Acute and chronic respiratory failure with hypoxia; J96.22 - Acute and chronic respiratory failure with hypercapnia; J96.22 - Acute and chronic respiratory failure with hypercapnia; J96.22 - Acute and chronic respiratory failure with hypercapnia (2) COPD exacerbation Status: Acute (3) Chronic diastolic CHF (congestive heart failure) Status: Chronic (4) HTN (hypertension) Status: Chronic Qualifiers: Hypertension type: essential hypertension Qualified Code(s): I10 - Essential (primary) hypertension (5) Medical non-compliance Status: Chronic Core Measure Documentation - Palliative Care Palliative Care/ Comfort Measures: Not Applicable - Core Measures Any of the following diagnoses?: heart failure - Heart Failure Discharge Requirements EARL/ARB for LVSD if EF <40%: Not Applicable Beta jania at discharge: No Reason for no beta jania on DC: COPD Exam - Physical Exam Narrative exam: GEN APPEARANCE : Not in acute distress HEENT: Normocephalic, Atraumatic NECK : supple, no JVD LUNGS: Decreased breath sounds,no rales, no wheeze HEART: S1 and S2 regular, no murmurs, rubs or gallop, ABD: Soft, non tender, non distended, normal bowel sounds EXT: No edema, no clubbing, no cyanosis NEURO: Awake,alert, oriented x3, no focal signs Psych: Normal mood - Constitutional Vitals: Temp Pulse Resp BP Pulse Ox 98.6 F 83 17 125/72 85 03/18/17 07:41 03/18/17 09:05 03/18/17 09:05 03/18/17 07:41 03/18/17 09:05 Plan Activity: advance as tolerated Diet: low fat, low cholesterol, low salt Additional Instructions: 1.Follow up with PCP or [facility] in 1 week. 2.Continue Home Oxygen at 3l/min NC Follow up with: PRIMARY CAREMD [Primary Care Provider] - 7 Days
[2017-03-18] MEDS: HABITROL TD SCH (11:50)
--- NOTE | 2017-03-25 14:03 | Query-Infection ---
Dear ___Ana Date:__03/25/17 Lead Software Engineer/CDS:___Elaine / Celestemindy Phone#:___[phone] Exercise your independent professional judgment when responding to this query. Questions asked do not imply a particular answer is desired or expected. We greatly appreciate your clarification on this issue. Clinical Documentation States: 57 year old female was admitted on 03/14/17 The pulmonology consult note (Dr. Garcia) states " 57 yo with severe COPD, admitted w/ increased SOB, wheezing, cough with yellow sputum, worsening ABG/ hypoxia. Smoking 6 cigs/day now. No fevers, chills, chest pain, hemoptysis. Assessment and Plan Imp: 1. Acute bronchitis " The progress note (Dr. Perez 03/17/17) states " Acute on chronic respiratory failure due to COPD exacerbation. Continue solumedrol iv, supplemental Oxygen, antibiotics, nebulizer. She is still short of breath. Still wheezing. Acute exacerbation of COPD: Pulmonology following. " WBC: 19.1 Pulse rate: 122 Medications: IV Levofloxacin Clinical findings show: (please check applicable parameters) Infection, known /suspected, with some of the following indicators; Specify the infection: 3 General parameters [ ] Fever (core temp >38.30C or 100.40F) [ ] Hypothermia (core temp <36C) [ x] Heart rate >90 bpm [ ] Tachypnea: >20 bpm or pCO2 < 32 mmHg [ ] Altered mental status [ ] Significant edema / +ve fluid balance (>20 ml/kg 24 h) [ ] Hyperglycemia (Bl. glucose >110 mg/dl) w/o diabetes Inflammatory parameters [ x] Leukocytosis (white blood cell count >12,000/l) [ ] Leukopenia (white blood cell count <4,000/l) [ ] Bandemia (immature WBC > 10%) [ ] Leucocyte Left Shift [ ] Plasma procalcitonin>2 SD above the normal value Hemodynamic and tissue perfusion parameters [ ] Arterial hypotension(SBP <90 mmHg, MAP <70 mmHg,or a SBP drop >40 mmHg in adults) [ ] Hyperlactatemia (>3 mmol/l) [ ] Anion Gap (> 11mEG/l) [ ] Decreased capillary refill or mottling Organ dysfunction parameters [ ] Arterial hypoxemia (PaO2/FIO2 <300) [ ] Creatinine increase =0.5 mg/dl [ ] Acute oliguria (urine output <0.5 ml | kg |h or 45 mM/l for at least 2 hrs) [ ] Coagulation abnormalities (INR >1.5 or activated partial thromboplastin time >60 s) [ ] Ileus (absent rosalio wel sounds) [ ] Thrombocytopenia (platelet count <100,000/l) [ ] Hyperbilirubinemia (plasma total bilirubin >4 mg/dl) According to the clinical indications above, can Bacteremia be further specified? If so, please indicate below and in your Progress Notes and/ or Discharge Summary. Indicate if the condition was present on admission. PHYSICIAN RESPONSE: [ ] Sepsis [ ] Severe Sepsis [ ] Septic Shock [ ] Septicemia [ ] Sepsis now resolved [x ] SIRS due to non-infectious cause with organ dysfunction [ ] SIRS due to non-infectious cause without organ dysfunction [ ] Other: [ ] Comment/Explanation: Present on Admission: [x ] Yes (Y) [ ] Clinically undeterminable (W) [ ] No (N) [ ] Ruled Out Please also document response in your Progress Notes and/or Discharge Summary and indicate if the condition was present on admission Notes: SIRS/ SIRS WITH ORGAN DYSFUNCTION Systemic inflammatory response syndrome (SIRS) generally refers to the systemic response to trauma/quiroga or other insult such as Acute Myocardial Infarction, Acute Pancreatitis, and Major Surgery with symptoms including fever, tachycardia , tachypnea, and leukocytosis (1). BACTEREMIA Presence of viable bacteria in the circulating blood (2). This term is reserved for patients that do not manifest above SIRS response. SEPTICEMIA Generally refers to a systemic disease associated with the presence of pathological microorganisms or toxins in the blood, which can include bacteria, viruses, fungi or other organisms (1). SEPSIS Generally refers to SIRS due infection (1). SEVERE SEPSIS Generally refers to sepsis associated with acute organ dysfunction (1). SEPTIC SHOCK Generally refers to circulatory failure associated with severe sepsis (2), and defined as hypotension or hypoperfusion despite adequate fluid resuscitation (1 hour) (3). REFERENCES: 1. [employer] [employer]/Society of Critical Care Medicine Consensus Conference. Definitions for sepsis and organ failure and guidelines for the use of innovative therapies in sepsis. Critical Care Med 1992;20:864 - 74. 2. Sandoval alcantar MM, Brayden MP, Jake DOMINIQUE, Delvis E, Charli D, Chevy D, Neri J, Inwood SM , Berny JL, Arnold G; International Sepsis Definitions Conference. 2001 SCCM/ESICM/ACCP/ATS/SIS International Sepsis Definitions Conference. Intensive Care Med. 2002 Apr;29(4):530-8. Epub 2002Jun 25. Review. PubMed PMID:[id number] 3. ICD-9-CM Official Guidelines for Coding and Reporting 4. Medscape Drugs, Diseases and Procedures references 5. [employer] Textbook of Internal Medicine. 18th Edition MTDD
== END 2017-03-18 16:06 | disposition home or self-care (01) | DRG 189 ==
LOC: ED 09:40 → 3A 15:07
PROVIDERS: ADMIT Internal Medicine; ATTEND Internal Medicine
PROC: 4A033R1 Measurement of Arterial Saturation, Peripheral, Percutaneous Approach (ICD-10-PCS; principal; 2017-03-14)
DX: J96.22 Acute and chronic respiratory failure with hypercapnia (principal); R53.2 Functional quadriplegia; J20.9 Acute bronchitis, unspecified; J96.21 Acute and chronic respiratory failure with hypoxia; R65.11 Systemic inflammatory response syndrome (SIRS) of non-infectious origin with acute organ dysfunction; J44.1 Chronic obstructive pulmonary disease with (acute) exacerbation; E87.2 Acidosis; B02.29 Other postherpetic nervous system involvement; I50.9 Heart failure, unspecified; I11.0 Hypertensive heart disease with heart failure; M19.90 Unspecified osteoarthritis, unspecified site; F17.210 Nicotine dependence, cigarettes, uncomplicated; R04.2 Hemoptysis; F41.9 Anxiety disorder, unspecified; J44.0 Chronic obstructive pulmonary disease with (acute) lower respiratory infection; G89.4 Chronic pain syndrome; Z99.81 Dependence on supplemental oxygen; Z88.0 Allergy status to penicillin; Z79.899 Other long term (current) drug therapy; Z91.19 Patient's noncompliance with other medical treatment and regimen; Z71.6 Tobacco abuse counseling
CPT/HCPCS: 36415; 71010; 80048; 80053; 82803; 84484; 85025; 85027; 93005; 93010; 94640; 94644; 94760; 96374; J1650; J1956; J2270; J2930

== ENCOUNTER 2017-03-20 15:19 | Inpatient (IN) | payer MEDICAID ==
[2017-03-20 15:53] LABS: Basophils % (Auto) 0.3 % (0.0-1.8); Eosinophils % (Auto) 1.3 % (0.0-4.3); Hematocrit 34.3 % (30.3-42.9); Hemoglobin 10.8 gm/dl (10.1-14.3); Mean Corpuscular HGB Conc 32 % (30-34); Mean Corpuscular Hemoglobin 27 pg (28-32); Mean Corpuscular Volume 87 fl (79-97); Platelet Count 415 K/mm3 (140-440); Red Blood Count 3.95 M/mm3 (3.65-5.03); Red Cell Distribution Width 18.4 % (13.2-15.2); White Blood Count 17.2 K/mm3 (4.5-11.0)
[2017-03-20 16:12] LABS: Anion Gap 13 mmol/L; BUN/Creatinine Ratio 44; Blood Urea Nitrogen 22 mg/dL (7-17); Calcium 9.1 mg/dL (8.4-10.2); Carbon Dioxide 38 mmol/L (22-30); Chloride 92.5 mmol/L (98-107); Glucose 98 mg/dL (65-100); Potassium 4.1 mmol/L (3.6-5.0); Sodium 139 mmol/L (137-145)
[2017-03-20] MEDS ORDERED: PROVENTIL IH ONE (17:16)
[2017-03-20] MEDS ORDERED: ATROVENT IH ONE (17:16)
--- NOTE | 2017-03-20 17:38 | Emergency Department Report ---
HPI - General Chief Complaint: Dyspnea/Respdistress Time Seen by Provider: 03/20/17 17:08 - HPI HPI: This is a 57-year-old female who presents to the emergency department by EMS from home with complaint of shortness of breath. She has a past medical history significant for asthma, COPD, CHF, GERD with history of ulcers, and she has some chronic right-sided chest pain secondary to postherpetic neuralgia. She is still a smoker although she says she quit a few days ago. She is oxygen dependent at home at 2 L. She is not currently have a primary care physician. She says that she is feeling short of breath, weak and had a fall at home. She is out of her nebulizer and inhaler medications. No recent travel or sick contacts at home. ED Past Medical Hx - Past Medical History Hx Hypertension: Yes Hx Congestive Heart Failure: Yes Hx Diabetes: No Hx Arthritis: Yes Hx Asthma: Yes Hx COPD: Yes Hx HIV: No Additional medical history: Sepsis 2013--[place], history shingles with chronic postherpetic neurologist. Bleeding peptic ulcers requiring blood transfusion - Surgical History Additional Surgical History: Skin Grafts placed after acid quiroga (placed 09/2015) - Social History Smoking Status: Current Every Day Smoker Substance Use Type: None - Medications Home Medications: Home Medications Medication Instructions Recorded Confirmed Last Taken Type Arformoterol Nebu [Brovana Nebu] 15 mcg IH Q12HRT #60 neb 02/13/17 03/20/17 Unknown Rx Budesonide [Pulmicort Respules] 0.5 mg IH Q12HRT #60 nebu 02/13/17 03/20/17 Unknown Rx Gabapentin [Neurontin] 100 mg PO Q8HR #90 capsule 02/13/17 03/20/17 3 Days Ago Rx ~03/13/17 Haloperidol [Haldol] 2 mg PO Q8H PRN #30 tablet 02/13/17 03/20/17 Unknown Rx Ipratropium/Albuterol Sulfate 1 ampul IH Q6HRT #120 ampul.neb 02/13/17 03/20/17 3 Days Ago Rx [DUONEB *Not for PRN Use*] ~03/13/17 Famotidine [Pepcid] 20 mg PO BID #60 tablet 12/19/17 12/21/17 Unknown Rx Prednisone [predniSONE 5 mg (6-Day 5 mg PO .TAPER #1 tab.ds.pk 03/18/17 Unknown Rx Pack, 21 Tabs)] traMADol [Ultram 50 MG tab] 100 mg PO Q8H PRN #20 tablet 03/18/17 03/20/17 Unknown Rx ED Review of Systems ROS: Stated complaint: SOB Other details as noted in HPI Comment: All other systems reviewed and negative Constitutional: denies: chills, fever Eyes: denies: eye pain, eye discharge, vision change ENT: denies: ear pain, throat pain Respiratory: cough, shortness of breath, wheezing Cardiovascular: denies: chest pain, palpitations Gastrointestinal: denies: abdominal pain, nausea, diarrhea Genitourinary: denies: urgency, dysuria, discharge Musculoskeletal: denies: back pain, joint swelling, arthralgia Skin: denies: rash, lesions Neurological: denies: headache, weakness, paresthesias Physical Exam - Physical Exam Vital Signs: Vital Signs 03/20/17 15:21 Temperature 97.5 F L Respiratory 24 Rate Blood Pressure 152/98 O2 Sat by Pulse 91 Oximetry Physical Exam: GENERAL: The patient is well-developed well-nourished. HENT: Normocephalic. Atraumatic. Patient has moist mucous membranes. EYES: Extraocular motions are intact. Pupils equal reactive to light bilaterally. NECK: Supple. Trachea is midline. CHEST/LUNGS: There is some wheezing throughout the chest. No tachypnea or accessory muscle use. There is no respiratory distress noted. HEART/CARDIOVASCULAR: Regular. There is no tachycardia. There is no murmur. ABDOMEN: Abdomen is soft, nontender. Patient has normal bowel sounds. There is no abdominal distention. SKIN: Skin is warm and dry. NEURO: The patient is awake, alert, and oriented. The patient is cooperative. The patient has no focal neurologic deficits. The patient has normal speech. MUSCULOSKELETAL: There is no tenderness or deformity. There is no evidence of acute injury. ED Course Vital Signs 03/20/17 15:21 Temperature 97.5 F L Respiratory 24 Rate Blood Pressure 152/98 O2 Sat by Pulse 91 Oximetry - ABG Interpretation Ph: [phone] PCO2: 69 PO2: 119 Bicarbonate: 41 Interpretation: respiratory acidosis, metabolic alkalosis ED Medical Decision Making - Lab Data Result diagrams: 03/20/17 15:36 03/20/17 15:36 - EKG Data -: EKG Interpreted by Me EKG shows normal: sinus rhythm, axis, intervals, QRS complexes, ST-T waves Rate: normal - EKG Data When compared to previous EKG there are: previous EKG unavailable Interpretation: normal EKG - Radiology Data Radiology results: report reviewed EXAM: XR CHEST ROUTINE 2V HISTORY: Shortness of breath TECHNIQUE: PA and lateral views of the chest PRIORS: CXR 02/17/2017, CT chest 02/22/2017 FINDINGS: Lines, tubes, and devices: N/A Lungs and pleura: Trachea is normal in position. Flattening of the hemidiaphragms suggests hyperinflation related to COPD. There are areas of new infiltrate in each lung base suspicious for pneumonia. These are likely located in the right middle lobe and lingula. There is no evidence for pleural effusion, vascular congestion, or pneumothorax. Cardiomediastinal silhouette: Cardiac and mediastinal silhouettes are unremarkable. Other: Bony structures demonstrates stable wedge deformities in the mid thoracic spine with mild kyphosis. IMPRESSION: New infiltrates in the lung bases, likely in the right middle lobe and lingula, suspicious for pneumonia. Hyperinflation is again noted. - Medical Decision Making Patient presents with some shortness breath, wheezing and cough. She is a history of COPD and is still a tobacco smoker. He was given breathing treatments and steroids and at first she appeared consistent with a COPD exacerbation. Infiltrates were not obvious to me on her x-ray but was read by radiology as concern for infiltrates of the right middle lobe and lingula. The patient eventually got some Levaquin. Blood cultures have now been sent. She was admitted by the hospitalist, . - Differential Diagnosis COPD, Asthma, Pneumonia, CHF Critical Care Time: No Critical care attestation.: If time is entered above; I have spent that time in minutes in the direct care of this critically ill patient, excluding procedure time. ED Disposition Clinical Impression: COPD exacerbation, Tobacco abuse, Hypercapnia Pneumonia Qualifiers: Pneumonia type: due to unspecified organism Laterality: unspecified laterality Lung location: unspecified part of lung Qualified Code(s): J18.9 - Pneumonia, unspecified organism Disposition: OP ADMIT IP TO THIS HOSP Is pt being admited?: Yes Condition: Stable
[2017-03-20 18:05] LABS: INR 0.81 (0.87-1.13)
[2017-03-20 18:06] LABS: Partial Thromboplastin Time 28.8 Sec. (24.2-36.6)
[2017-03-20 18:50] LABS: ISTAT Base Excess 16; ISTAT HCO3 41.3; ISTAT PCO2 69.6 (35-45); ISTAT PH 7.381 (7.35-7.45); ISTAT PO2 119 (80-105); ISTAT SO2 98; ISTAT TCO2 43
--- NOTE | 2017-03-20 19:21 | XRay Report ---
FINAL REPORT EXAM: XR CHEST ROUTINE 2V HISTORY: Shortness of breath TECHNIQUE: PA and lateral views of the chest PRIORS: CXR 02/17/2017, CT chest 02/22/2017 FINDINGS: Lines, tubes, and devices: N/A Lungs and pleura: Trachea is normal in position. Flattening of the hemidiaphragms suggests hyperinflation related to COPD. There are areas of new infiltrate in each lung base suspicious for pneumonia. These are likely located in the right middle lobe and lingula. There is no evidence for pleural effusion, vascular congestion, or pneumothorax. Cardiomediastinal silhouette: Cardiac and mediastinal silhouettes are unremarkable. Other: Bony structures demonstrates stable wedge deformities in the mid thoracic spine with mild kyphosis. IMPRESSION: New infiltrates in the lung bases, likely in the right middle lobe and lingula, suspicious for pneumonia. Hyperinflation is again noted.
[2017-03-20] MEDS ORDERED: TYLENOL PO PRN (21:39)
[2017-03-20] MEDS ORDERED: ZOFRAN IV PRN (21:39)
[2017-03-20] MEDS ORDERED: DULCOLAX PR PRN (21:39)
[2017-03-20] MEDS ORDERED: MILK OF MAGNESIA PO PRN (21:39)
--- NOTE | 2017-03-20 21:41 | History and Physical Report ---
History of Present Illness Date of examination: 03/20/17 Date of admission: 03/20/17 18:56 History of present illness: 56-year-old woman history of COPD on home oxygen, CHF, GERD comes emergency room with complaints of shortness of breath, cough productive of yellow phlegm. Also complain of generalized weakness, unable to do her ADLS Review Of Systems: Constitutional: no fever, chills, weight loss Ears, eyes, nose, mouth and throat: no nasal congestion, no nasal discharge, no sinus pressure, blurry vision, diplopia Neck: No neck pain or rigidity. Cardiovascular: chest pain, orthopnea, palpitations Respiratory: + cough Gastrointestinal: abdominal pain, hematochezia Genitourinary : no dysuria, frequency , hematuria Musculoskeletal: no joint swelling or muscle ache Integumentary: no rash, no pruritis Neurological: no parathesias, focal weakness Endocrine: no cold or heat intolerance, no polyuria or polydipsia Hematologic/Lymphatic: no easy bruising, no easy bleeding, no gland swelling Allergic/Immunologic: no urticaria, no angioedema. Past medical history:COPD on home oxygen, CHF, GERD PAST SURGICAL HISTORY: Skin graft SOCIAL HISTORY: Smokes 5 cigars a day, no alcohol or drugs FAMILY HISTORY: Hypertension Medications and Allergies Allergies Allergy/AdvReac Type Severity Reaction Status Date / Time Penicillins Allergy Unknown Verified 02/22/17 10:53 Home Medications Medication Instructions Recorded Confirmed Last Taken Type Arformoterol Nebu [Brovana Nebu] 15 mcg IH Q12HRT #60 neb 02/13/17 03/20/17 Unknown Rx Budesonide [Pulmicort Respules] 0.5 mg IH Q12HRT #60 nebu 02/13/17 03/20/17 Unknown Rx Gabapentin [Neurontin] 100 mg PO Q8HR #90 capsule 02/13/17 03/20/17 3 Days Ago Rx ~03/13/17 Haloperidol [Haldol] 2 mg PO Q8H PRN #30 tablet 02/13/17 03/20/17 Unknown Rx Ipratropium/Albuterol Sulfate 1 ampul IH Q6HRT #120 ampul.neb 02/13/17 03/20/17 3 Days Ago Rx [DUONEB *Not for PRN Use*] ~03/13/17 Famotidine [Pepcid] 20 mg PO BID #60 tablet 03/18/17 03/20/17 Unknown Rx Prednisone [predniSONE 5 mg (6-Day 5 mg PO .TAPER #1 tab.ds.pk 03/18/17 Unknown Rx Pack, 21 Tabs)] traMADol [Ultram 50 MG tab] 100 mg PO Q8H PRN #20 tablet 03/18/17 03/20/17 Unknown Rx Active Meds: Active Medications Acetaminophen (Tylenol) 650 mg PO Q4H PRN PRN Reason: Pain MILD(1-3)/Fever >100.5/PENG Albuterol/Ipratropium (Duoneb *Not For Prn Use*) 1 ampul IH Q6HRT PRASANNA Bisacodyl (Dulcolax) 10 mg CO QDAY PRN PRN Reason: Constipation unrelieved by MOM Heparin Sodium (Porcine) (Heparin) 5,000 unit SUB-Q Q8HR PRASANNA Azithromycin 500 mg/ Sodium (Chloride) 250 mls @ 250 mls/hr IV Q24HR PRASANNA Magnesium Hydroxide (Milk Of Magnesia) 30 ml PO Q4H PRN PRN Reason: Constipation Methylprednisolone Sodium Succinate (Solu-Medrol) 125 mg IV Q6HR PRASANNA Ondansetron HCl (Zofran) 4 mg IV Q8H PRN PRN Reason: N/V unrelieved by Reglan Exam - Physical Exam Narrative exam: Gen. appearance: Patient lying in bed, no apparent distress HEENT: Normocephalic, atraumatic, pupils equally round and reactive to light, extraocular movement intact, and no sclericterus,. No JVD or thyromegaly or nodule,neck supple, no carotid bruit ,mucous membranes moist, no exudate or erythema Heart: S1, S2, regular rate and rhythm Lungs: Wheezing bilaterally, breathing comfortable Abdomen: Positive bowel sounds, nontender, nondistended, no organomegaly Extremity: No edema, cyanosis, clubbing Skin: No rash, nodules, warm, dry Neuro: Oriented 3, cranial nerves II-12 intact, speech is fluent, motor and sensory intact - Constitutional Vitals: Temp Pulse Resp BP Pulse Ox 97.5 F L 96 H 22 144/83 98 03/20/17 15:21 03/20/17 18:39 03/20/17 18:39 03/20/17 17:46 03/20/17 19:25 Results - Labs CBC & Chem 7: 03/20/17 15:36 03/20/17 15:36 Labs: Abnormal lab results 03/20/17 03/20/17 03/20/17 Range/Units 15:36 15:36 17:33 WBC 17.2 H (4.5-11.0) K/mm3 MCH 27 L (28-32) pg RDW 18.4 H (13.2-15.2) % [place] % (Auto) 8.8 H (0.0-7.3) % [place] # 1.5 H (0.0-0.8) K/mm3 Seg Neutrophils # 11.6 H (1.8-7.7) K/mm3 PT 11.6 L (12.2-14.9) Sec. INR 0.81 L (0.87-1.13) POC ABG pCO2 (35-45) POC ABG pO2 (80-105) Chloride 92.5 L (98-107) mmol/L Carbon Dioxide 38 H (22-30) mmol/L BUN 22 H (7-17) mg/dL Creatinine 0.5 L (0.7-1.2) mg/dL 03/20/17 Range/Units 18:44 WBC (4.5-11.0) K/mm3 MCH (28-32) pg RDW (13.2-15.2) % [place] % (Auto) (0.0-7.3) % [place] # (0.0-0.8) K/mm3 Seg Neutrophils # (1.8-7.7) K/mm3 PT (12.2-14.9) Sec. INR (0.87-1.13) POC ABG pCO2 69.6 H (35-45) POC ABG pO2 119 H (80-105) Chloride (98-107) mmol/L Carbon Dioxide (22-30) mmol/L BUN (7-17) mg/dL Creatinine (0.7-1.2) mg/dL Assessment and Plan Assessment Community Acquired Pneumonia COPD exacerbation with bronchitis CHF, stable GERD Plan Admit to medicine Start high-dose IV steroids, nebulized treatments, levaquin Continue appropriate outpatient medications DVT prophylaxis
[2017-03-20] MEDS ORDERED: ZITHROMAX 500 MG in NACL 0.9% 250ML 250 ML IV SCH (22:00)
[2017-03-20] MEDS: LEVAQUIN 750MG/150ML 750 MG/150 ML BAG IV SCH (22:46)
[2017-03-20] MEDS: HEPARIN SUB-Q SCH (22:57)
[2017-03-21] MEDS: DUONEB *Not for PRN Use IH SCH ×4 (02:39→21:21)
[2017-03-21 03:14] LABS: Hematocrit 32.4 % (30.3-42.9); Hemoglobin 10.5 gm/dl (10.1-14.3); Mean Corpuscular HGB Conc 33 % (30-34); Mean Corpuscular Hemoglobin 28 pg (28-32); Mean Corpuscular Volume 87 fl (79-97); Platelet Count 336 K/mm3 (140-440); Red Blood Count 3.72 M/mm3 (3.65-5.03); Red Cell Distribution Width 18.3 % (13.2-15.2); White Blood Count 10.2 K/mm3 (4.5-11.0)
[2017-03-21 03:31] LABS: Anion Gap 11 mmol/L; BUN/Creatinine Ratio 46; Blood Urea Nitrogen 23 mg/dL (7-17); Calcium 8.9 mg/dL (8.4-10.2); Carbon Dioxide 38 mmol/L (22-30); Glucose 268 mg/dL (65-100); Potassium 4.5 mmol/L (3.6-5.0); Sodium 137 mmol/L (137-145)
[2017-03-21] MEDS: HEPARIN SUB-Q SCH ×3 (06:32→23:20)
[2017-03-21 07:40] LABS: Blastocytes % (Manual) 0 %
[2017-03-21 07:41] LABS: Anisocytosis 1+; Basophils % (Manual) 0 % (0.0-1.8); Eosinophils % (Manual) 0 % (0.0-4.3); Stomatocytes Few
[2017-03-21 07:42] LABS: Diff Status Complete
[2017-03-21] MEDS ORDERED: HALDOL PO PRN (08:04)
--- NOTE | 2017-03-21 08:14 | Progress Note ---
<JORGE MOORE - Last Filed: 03/21/17 15:28> Assessment and Plan Assessment and plan: Patient is a 57-year-old female past medical history significant for asthma, COPD, CHF, GERD with history of ulcers, and she has some chronic right- sided chest pain secondary to postherpetic neuralgia who presents to the emergency department by EMS from home with complaint of shortness of breath. Acute COPD exacerbation Continue on Duoneb every 6 hours Continue IV steroid Solumedrol Initiated empiric Levaquin Oxygen as necessary Community Acquired Pneumonia Chest x-ray revealed right middle lobe infiltrates to the base Continue on Levaquin Congestive heart failure/pulmonary edema Stable Restart on current therapy Strict I&O's and daily weights Low-sodium/cardiac diet/fluid restriction Closely monitor electrolytes Cardiology evaluation Tobacco abuse Smoking cessation counseling done. Patient advised to quit DVT prophylaxis Heparin History Interval history: Patient complaints dyspnea on exertion and shortness of breath. Labs and nursing notes reviewed. Hospitalist Physical - Constitutional Vitals: Temp Pulse Resp BP Pulse Ox 98.4 F 105 H 20 130/77 97 03/21/17 07:20 03/21/17 07:20 03/21/17 07:20 03/21/17 07:20 03/21/17 07:23 General appearance: Present: no acute distress - EENT Eyes: Present: PERRL ENT: hearing intact - Neck Neck: Present: supple - Respiratory Respiratory effort: normal Respiratory: bilateral: wheezing - Cardiovascular Rhythm: regular Heart Sounds: Present: S1 & S2 - Abdominal General gastrointestinal: soft, non-tender - Integumentary Integumentary: Present: clear, warm, dry - Psychiatric Psychiatric: appropriate mood/affect - Neurologic Neurologic: moves all extremities - Allied Health Allied health notes reviewed: nursing Results - Labs CBC & Chem 7: 03/21/17 03:04 03/21/17 03:04 Labs: Laboratory Last Values WBC 10.2 K/mm3 (4.5-11.0) 03/21/17 03:04 RBC 3.72 M/mm3 (3.65-5.03) 03/21/17 03:04 Hgb 10.5 gm/dl (10.1-14.3) 03/21/17 03:04 Hct 32.4 % (30.3-42.9) 03/21/17 03:04 MCV 87 fl (79-97) 03/21/17 03:04 MCH 28 pg (28-32) 03/21/17 03:04 MCHC 33 % (30-34) 03/21/17 03:04 RDW 18.3 % (13.2-15.2) H 03/21/17 03:04 Plt Count 336 K/mm3 (140-440) 03/21/17 03:04 Lymph % (Auto) 22.6 % (13.4-35.0) 03/20/17 15:36 [place] % (Auto) 8.8 % (0.0-7.3) H 03/20/17 15:36 Eos % (Auto) 1.3 % (0.0-4.3) 03/20/17 15:36 Baso % (Auto) 0.3 % (0.0-1.8) 03/20/17 15:36 Lymph # 3.9 K/mm3 (1.2-5.4) 03/20/17 15:36 [place] # 1.5 K/mm3 (0.0-0.8) H 03/20/17 15:36 Eos # 0.2 K/mm3 (0.0-0.4) 03/20/17 15:36 Baso # 0.0 K/mm3 (0.0-0.1) 03/20/17 15:36 Add Manual Diff Complete 03/21/17 03:04 Total Counted 100 03/21/17 03:04 Seg Neutrophils % N[employer] Person 03/21/17 03:04 Seg Neuts % (Manual) 80.0 % (40.0-70.0) H 03/21/17 03:04 Band Neutrophils % 5.0 % 03/21/17 03:04 Lymphocytes % (Manual) 12.0 % (13.4-35.0) L 03/21/17 03:04 Reactive Lymphs % (Man) 0 % 03/21/17 03:04 Monocytes % (Manual) 3.0 % (0.0-7.3) 03/21/17 03:04 Eosinophils % (Manual) 0 % (0.0-4.3) 03/21/17 03:04 Basophils % (Manual) 0 % (0.0-1.8) 03/21/17 03:04 Metamyelocytes % 0 % 03/21/17 03:04 Myelocytes % 0 % 03/21/17 03:04 Promyelocytes % 0 % 03/21/17 03:04 Blast Cells % 0 % 03/21/17 03:04 Nucleated RBC % Not Reportable 03/21/17 03:04 Seg Neutrophils # 11.6 K/mm3 (1.8-7.7) H 03/20/17 15:36 Seg Neutrophils # Man 8.2 K/mm3 (1.8-7.7) H 03/21/17 03:04 Band Neutrophils # 0.5 K/mm3 03/21/17 03:04 Lymphocytes # (Manual) 1.2 K/mm3 (1.2-5.4) 03/21/17 03:04 Abs React Lymphs (Man) 0.0 K/mm3 03/21/17 03:04 Monocytes # (Manual) 0.3 K/mm3 (0.0-0.8) 03/21/17 03:04 Eosinophils # (Manual) 0.0 K/mm3 (0.0-0.4) 03/21/17 03:04 Basophils # (Manual) 0.0 K/mm3 (0.0-0.1) 03/21/17 03:04 Metamyelocytes # 0.0 K/mm3 03/21/17 03:04 Myelocytes # 0.0 K/mm3 03/21/17 03:04 Promyelocytes # 0.0 K/mm3 03/21/17 03:04 Blast Cells # 0.0 K/mm3 03/21/17 03:04 WBC Morphology Not Reportable 03/21/17 03:04 Hypersegmented Neuts Not Reportable 03/21/17 03:04 Hyposegmented Neuts Not Reportable 03/21/17 03:04 Hypogranular Neuts Not Reportable 03/21/17 03:04 Smudge Cells Not Reportable 03/21/17 03:04 Toxic Granulation Not Reportable 03/21/17 03:04 Toxic Vacuolation Not Reportable 03/21/17 03:04 Dohle Bodies Not Reportable 03/21/17 03:04 Pelger-Huet Anomaly Not Reportable 03/21/17 03:04 Sanchez Rods Not Reportable 03/21/17 03:04 Platelet Estimate Appears normal 03/21/17 03:04 Clumped Platelets Not Reportable 03/21/17 03:04 Plt Clumps, EDTA Not Reportable 03/21/17 03:04 Large Platelets Not Reportable 03/21/17 03:04 Giant Platelets Not Reportable 03/21/17 03:04 Platelet Satelliting Not Reportable 03/21/17 03:04 Plt Morphology Comment Not Reportable 03/21/17 03:04 RBC Morphology Not Reportable 03/21/17 03:04 Dimorphic RBCs Not Reportable 03/21/17 03:04 Polychromasia Not Reportable 03/21/17 03:04 Hypochromasia Not Reportable 03/21/17 03:04 Poikilocytosis Not Reportable 03/21/17 03:04 Anisocytosis 1+ 03/21/17 03:04 Microcytosis Not Reportable 03/21/17 03:04 Macrocytosis Not Reportable 03/21/17 03:04 Spherocytes Not Reportable 03/21/17 03:04 Pappenheimer Bodies Not Reportable 03/21/17 03:04 Sickle Cells Not Reportable 03/21/17 03:04 Target Cells Not Reportable 03/21/17 03:04 Tear Drop Cells Not Reportable 03/21/17 03:04 Ovalocytes Not Reportable 03/21/17 03:04 Stomatocytes Few 03/21/17 03:04 Helmet Cells Not Reportable 03/21/17 03:04 [place] Bodies Not Reportable 03/21/17 03:04 [place] Rings Not Reportable 03/21/17 03:04 Ranjan Cells Not Reportable 03/21/17 03:04 Bite Cells Not Reportable 03/21/17 03:04 Crenated Cell Not Reportable 03/21/17 03:04 Elliptocytes Not Reportable 03/21/17 03:04 Acanthocytes (Spur) Not Reportable 03/21/17 03:04 Rouleaux Not Reportable 03/21/17 03:04 Hemoglobin C Crystals Not Reportable 03/21/17 03:04 Schistocytes Not Reportable 03/21/17 03:04 Malaria parasites Not Reportable 03/21/17 03:04 [place] Bodies Not Reportable 03/21/17 03:04 Hem Pathologist Commnt No 03/21/17 03:04 PT 11.6 Sec. (12.2-14.9) L 03/20/17 17:33 INR 0.81 (0.87-1.13) L 03/20/17 17:33 APTT 28.8 Sec. (24.2-36.6) 03/20/17 17:33 POC ABG pH 7.381 (7.35-7.45) 03/20/17 18:44 POC ABG pCO2 69.6 (35-45) H 03/20/17 18:44 POC ABG pO2 119 (80-105) H 03/20/17 18:44 POC ABG HCO3 41.3 03/20/17 18:44 POC ABG Total CO2 43 03/20/17 18:44 POC ABG O2 Sat 98 03/20/17 18:44 POC ABG Base Excess 16 03/20/17 18:44 FiO2 2 % 03/20/17 18:44 Sodium 137 mmol/L (137-145) 03/21/17 03:04 Potassium 4.5 mmol/L (3.6-5.0) 03/21/17 03:04 Chloride 93.0 mmol/L (98-107) L 03/21/17 03:04 Carbon Dioxide 38 mmol/L (22-30) H 03/21/17 03:04 Anion Gap 11 mmol/L 03/21/17 03:04 BUN 23 mg/dL (7-17) H 03/21/17 03:04 Creatinine 0.5 mg/dL (0.7-1.2) L 03/21/17 03:04 Estimated GFR > 60 ml/min 03/21/17 03:04 BUN/Creatinine Ratio 46 % 03/21/17 03:04 Glucose 268 mg/dL (65-100) H 03/21/17 03:04 Calcium 8.9 mg/dL (8.4-10.2) 03/21/17 03:04 Troponin T < 0.010 ng/mL (0.00-0.029) 03/20/17 15:36 NT-Pro-B Natriuret Pep 76.56 pg/mL (0-900) 03/20/17 17:33 <ASHLEY LESLIE M - Last Filed: 03/21/17 23:21> Hospitalist Physical - Constitutional Vitals: Temp Pulse Resp BP Pulse Ox 98.3 F 96 H 18 147/90 97 03/21/17 21:15 03/21/17 21:15 03/21/17 21:15 03/21/17 21:15 03/21/17 21:15 Results - Labs CBC & Chem 7: 03/21/17 03:04 03/21/17 03:04 Labs: Laboratory Last Values WBC 10.2 K/mm3 (4.5-11.0) 03/21/17 03:04 RBC 3.72 M/mm3 (3.65-5.03) 03/21/17 03:04 Hgb 10.5 gm/dl (10.1-14.3) 03/21/17 03:04 Hct 32.4 % (30.3-42.9) 03/21/17 03:04 MCV 87 fl (79-97) 03/21/17 03:04 MCH 28 pg (28-32) 03/21/17 03:04 MCHC 33 % (30-34) 03/21/17 03:04 RDW 18.3 % (13.2-15.2) H 03/21/17 03:04 Plt Count 336 K/mm3 (140-440) 03/21/17 03:04 Lymph % (Auto) 22.6 % (13.4-35.0) 03/20/17 15:36 [place] % (Auto) 8.8 % (0.0-7.3) H 03/20/17 15:36 Eos % (Auto) 1.3 % (0.0-4.3) 03/20/17 15:36 Baso % (Auto) 0.3 % (0.0-1.8) 03/20/17 15:36 Lymph # 3.9 K/mm3 (1.2-5.4) 03/20/17 15:36 [place] # 1.5 K/mm3 (0.0-0.8) H 03/20/17 15:36 Eos # 0.2 K/mm3 (0.0-0.4) 03/20/17 15:36 Baso # 0.0 K/mm3 (0.0-0.1) 03/20/17 15:36 Add Manual Diff Complete 03/21/17 03:04 Total Counted 100 03/21/17 03:04 Seg Neutrophils % [employer] Person 03/21/17 03:04 Seg Neuts % (Manual) 80.0 % (40.0-70.0) H 03/21/17 03:04 Band Neutrophils % 5.0 % 03/21/17 03:04 Lymphocytes % (Manual) 12.0 % (13.4-35.0) L 03/21/17 03:04 Reactive Lymphs % (Man) 0 % 03/21/17 03:04 Monocytes % (Manual) 3.0 % (0.0-7.3) 03/21/17 03:04 Eosinophils % (Manual) 0 % (0.0-4.3) 03/21/17 03:04 Basophils % (Manual) 0 % (0.0-1.8) 03/21/17 03:04 Metamyelocytes % 0 % 03/21/17 03:04 Myelocytes % 0 % 03/21/17 03:04 Promyelocytes % 0 % 03/21/17 03:04 Blast Cells % 0 % 03/21/17 03:04 Nucleated RBC % Not Reportable 03/21/17 03:04 Seg Neutrophils # 11.6 K/mm3 (1.8-7.7) H 03/20/17 15:36 Seg Neutrophils # Man 8.2 K/mm3 (1.8-7.7) H 03/21/17 03:04 Band Neutrophils # 0.5 K/mm3 03/21/17 03:04 Lymphocytes # (Manual) 1.2 K/mm3 (1.2-5.4) 03/21/17 03:04 Abs React Lymphs (Man) 0.0 K/mm3 03/21/17 03:04 Monocytes # (Manual) 0.3 K/mm3 (0.0-0.8) 03/21/17 03:04 Eosinophils # (Manual) 0.0 K/mm3 (0.0-0.4) 03/21/17 03:04 Basophils # (Manual) 0.0 K/mm3 (0.0-0.1) 03/21/17 03:04 Metamyelocytes # 0.0 K/mm3 03/21/17 03:04 Myelocytes # 0.0 K/mm3 03/21/17 03:04 Promyelocytes # 0.0 K/mm3 03/21/17 03:04 Blast Cells # 0.0 K/mm3 03/21/17 03:04 WBC Morphology Not Reportable 03/21/17 03:04 Hypersegmented Neuts Not Reportable 03/21/17 03:04 Hyposegmented Neuts Not Reportable 03/21/17 03:04 Hypogranular Neuts Not Reportable 03/21/17 03:04 Smudge Cells Not Reportable 03/21/17 03:04 Toxic Granulation Not Reportable 03/21/17 03:04 Toxic Vacuolation Not Reportable 03/21/17 03:04 Dohle Bodies Not Reportable 03/21/17 03:04 Pelger-Huet Anomaly Not Reportable 03/21/17 03:04 Sanchez Rods Not Reportable 03/21/17 03:04 Platelet Estimate Appears normal 03/21/17 03:04 Clumped Platelets Not Reportable 03/21/17 03:04 Plt Clumps, EDTA Not Reportable 03/21/17 03:04 Large Platelets Not Reportable 03/21/17 03:04 Giant Platelets Not Reportable 03/21/17 03:04 Platelet Satelliting Not Reportable 03/21/17 03:04 Plt Morphology Comment Not Reportable 03/21/17 03:04 RBC Morphology Not Reportable 03/21/17 03:04 Dimorphic RBCs Not Reportable 03/21/17 03:04 Polychromasia Not Reportable 03/21/17 03:04 Hypochromasia Not Reportable 03/21/17 03:04 Poikilocytosis Not Reportable 03/21/17 03:04 Anisocytosis 1+ 03/21/17 03:04 Microcytosis Not Reportable 03/21/17 03:04 Macrocytosis Not Reportable 03/21/17 03:04 Spherocytes Not Reportable 03/21/17 03:04 Pappenheimer Bodies Not Reportable 03/21/17 03:04 Sickle Cells Not Reportable 03/21/17 03:04 Target Cells Not Reportable 03/21/17 03:04 Tear Drop Cells Not Reportable 03/21/17 03:04 Ovalocytes Not Reportable 03/21/17 03:04 Stomatocytes Few 03/21/17 03:04 Helmet Cells Not Reportable 03/21/17 03:04 [place] Bodies Not Reportable 03/21/17 03:04 [place] Rings Not Reportable 03/21/17 03:04 [place] Cells Not Reportable 03/21/17 03:04 Bite Cells Not Reportable 03/21/17 03:04 Crenated Cell Not Reportable 03/21/17 03:04 Elliptocytes Not Reportable 03/21/17 03:04 Acanthocytes (Spur) Not Reportable 03/21/17 03:04 Rouleaux Not Reportable 03/21/17 03:04 Hemoglobin C Crystals Not Reportable 03/21/17 03:04 Schistocytes Not Reportable 03/21/17 03:04 Malaria parasites Not Reportable 03/21/17 03:04 [place] Bodies Not Reportable 03/21/17 03:04 Hem Pathologist Commnt No 03/21/17 03:04 PT 11.6 Sec. (12.2-14.9) L 03/20/17 17:33 INR 0.81 (0.87-1.13) L 03/20/17 17:33 APTT 28.8 Sec. (24.2-36.6) 03/20/17 17:33 POC ABG pH 7.381 (7.35-7.45) 03/20/17 18:44 POC ABG pCO2 69.6 (35-45) H 03/20/17 18:44 POC ABG pO2 119 (80-105) H 03/20/17 18:44 POC ABG HCO3 41.3 03/20/17 18:44 POC ABG Total CO2 43 03/20/17 18:44 POC ABG O2 Sat 98 03/20/17 18:44 POC ABG Base Excess 16 03/20/17 18:44 FiO2 2 % 03/20/17 18:44 Sodium 137 mmol/L (137-145) 03/21/17 03:04 Potassium 4.5 mmol/L (3.6-5.0) 03/21/17 03:04 Chloride 93.0 mmol/L (98-107) L 03/21/17 03:04 Carbon Dioxide 38 mmol/L (22-30) H 03/21/17 03:04 Anion Gap 11 mmol/L 03/21/17 03:04 BUN 23 mg/dL (7-17) H 03/21/17 03:04 Creatinine 0.5 mg/dL (0.7-1.2) L 03/21/17 03:04 Estimated GFR > 60 ml/min 03/21/17 03:04 BUN/Creatinine Ratio 46 % 03/21/17 03:04 Glucose 268 mg/dL (65-100) H 03/21/17 03:04 POC Glucose 142 (70-105) H 03/21/17 21:22 Calcium 8.9 mg/dL (8.4-10.2) 03/21/17 03:04 Troponin T < 0.010 ng/mL (0.00-0.029) 03/20/17 15:36 NT-Pro-B Natriuret Pep 76.56 pg/mL (0-900) 03/20/17 17:33
[2017-03-21] MEDS: PEPCID PO SCH ×2 (09:13→21:12)
[2017-03-21] MEDS: NEURONTIN PO SCH ×3 (09:13→21:12)
[2017-03-21] MEDS: ULTRAM PO PRN ×2 (10:45→19:47)
[2017-03-21] MEDS: BROVANA NEBU IH SCH (21:21)
[2017-03-21] MEDS: PULMICORT IH SCH (21:21)
[2017-03-21] MEDS: LEVAQUIN 750MG/150ML 750 MG/150 ML BAG IV SCH (22:31)
[2017-03-22] MEDS: DUONEB *Not for PRN Use IH SCH ×4 (01:31→15:42)
[2017-03-22] MEDS: ULTRAM PO PRN ×2 (04:09→12:14)
[2017-03-22] MEDS: NEURONTIN PO SCH ×2 (04:10→06:53)
[2017-03-22] MEDS: HEPARIN SUB-Q SCH (06:52)
[2017-03-22] MEDS: PULMICORT IH SCH ×2 (07:31→12:31)
[2017-03-22] MEDS: BROVANA NEBU IH SCH (07:31)
[2017-03-22 08:35] VITALS: BP 187/107
[2017-03-22] MEDS: PEPCID PO SCH (09:41)
[2017-03-22] MEDS ORDERED: HABITROL TD SCH (10:00)
--- NOTE | 2017-03-22 15:26 | Discharge Summary ---
Providers - Providers Date of Admission: 03/20/17 18:56 Attending physician: ASHLEY LESLIE MD 03/21/17 23:23 Physical Therapy Evaluation and Treat [CONS] Routine Comment: Reason For Exam: debility Primary care physician: RICE FARMWORKER Hospitalization Condition: Stable Hospital course: Patient is a 57-year-old female past medical history significant for asthma, COPD, CHF, GERD with history of ulcers, and she has some chronic right- sided chest pain secondary to postherpetic neuralgia who presents to the emergency department by EMS from home with complaint of shortness of breath. She was admitted for acute exacerbation of COPD, acute hypoxic respiratory failure, and community-acquired pneumonia. She received antibiotics, nebulization treatments, oxygen supplementation and IV steroids. She received diuresis for CHF. She was counseled on tobacco cessation. R she decided that she did not want to stay in the hospital any longer and sign out AGAINST MEDICAL ADVICE. Discharge diagnosis Acute COPD exacerbation Acute Community Acquired Pneumonia Congestive heart failure, acute on chronic, diastolic/pulmonary edema Tobacco abuse Acute on chronic hypoxic respiratory failure Disposition: DC-07 LEFT AGAINST MED ADVICE Time spent for discharge: 33 minutes Core Measure Documentation - Palliative Care Palliative Care/ Comfort Measures: Not Applicable - Core Measures Any of the following diagnoses?: heart failure - Heart Failure Discharge Requirements EARL/ARB for LVSD if EF <40%: Not Applicable Reason for no EARL/ARB: Patient refusal Beta jania at discharge: No Reason for no beta jania on DC: Patient refusal Exam - Constitutional Vitals: Temp Pulse Resp BP Pulse Ox 97.5 F L 91 H 18 187/107 95 03/22/17 07:43 03/22/17 07:55 03/22/17 07:55 03/22/17 07:43 03/22/17 10:00 General appearance: Present: no acute distress, well-nourished - EENT Eyes: Present: PERRL ENT: hearing intact, clear oral mucosa - Neck Neck: Present: supple, normal ROM - Respiratory Respiratory effort: normal Respiratory: bilateral: diminished, wheezing - Cardiovascular Heart Sounds: Present: S1 & S2. Absent: rub, click - Extremities Extremities: pulses symmetrical, No edema Peripheral Pulses: within normal limits - Abdominal General gastrointestinal: Present: soft, non-tender, non-distended, normal bowel sounds Female genitourinary: Present: normal - Integumentary Integumentary: Present: clear, warm, dry - Musculoskeletal Musculoskeletal: gait normal, strength equal bilaterally - Psychiatric Psychiatric: appropriate mood/affect, intact judgment & insight - Neurologic Neurologic: CNII-XII intact, moves all extremities Plan Follow up with: PRIMARY CARE,MD [Primary Care Provider] - 3-5 Days Prescriptions: Arformoterol Nebu [Brovana Nebu] 15 mcg IH Q12HRT #60 neb Budesonide [Pulmicort Respules] 0.5 mg IH Q12HRT #60 nebu Famotidine [Pepcid] 20 mg PO BID #60 tablet Gabapentin [Neurontin] 100 mg PO Q8HR #90 capsule Haloperidol [Haldol] 2 mg PO Q8H PRN #90 tablet PRN Reason: Agitation Ipratropium/Albuterol Sulfate [DUONEB *Not for PRN Use*] 1 ampul IH Q6HRT #180 ampul.neb Levofloxacin [Levaquin] 750 mg PO QDAY #5 tablet Nicotine [Habitrol] 14 mg TD QDAY #30 patch Prednisone [predniSONE 5 mg (6-Day Pack, 21 Tabs)] 5 mg PO .TAPER #1 tab.ds.pk traMADol [Ultram 50 MG tab] 100 mg PO Q8H PRN #20 tablet PRN Reason: Pain, Mild (1-3)
== END 2017-03-22 13:00 | disposition left against medical advice (07) | DRG 189 ==
LOC: ED 15:19 → 3A 18:56
PROVIDERS: ADMIT Internal Medicine; ATTEND Internal Medicine
PROC: 4A033R1 Measurement of Arterial Saturation, Peripheral, Percutaneous Approach (ICD-10-PCS; principal; 2017-03-20)
DX: J96.22 Acute and chronic respiratory failure with hypercapnia (principal); I11.0 Hypertensive heart disease with heart failure; J18.9 Pneumonia, unspecified organism; J44.1 Chronic obstructive pulmonary disease with (acute) exacerbation; I50.9 Heart failure, unspecified; K21.9 Gastro-esophageal reflux disease without esophagitis; F17.210 Nicotine dependence, cigarettes, uncomplicated; J44.0 Chronic obstructive pulmonary disease with (acute) lower respiratory infection; M19.90 Unspecified osteoarthritis, unspecified site; Z53.21 Procedure and treatment not carried out due to patient leaving prior to being seen by health care provider; Z99.81 Dependence on supplemental oxygen; Z82.49 Family history of ischemic heart disease and other diseases of the circulatory system; Z88.0 Allergy status to penicillin; Z71.6 Tobacco abuse counseling
CPT/HCPCS: 36415; 71020; 80048; 82803; 82962; 83880; 84484; 85007; 85025; 85610; 85730; 87040; 93005; 93010; 94640; 94760; 96365; 96375; 99285; 99406; J0456; J1644; J1956; J2930; J7050

== ENCOUNTER 2017-03-25 18:20 | Emergency (ER) | payer MEDICAID ==
[2017-03-25 19:34] LABS: Hematocrit 34.4 % (30.3-42.9); Mean Corpuscular HGB Conc 32 % (30-34); Mean Corpuscular Hemoglobin 28 pg (28-32); Mean Corpuscular Volume 87 fl (79-97); Platelet Count 297 K/mm3 (140-440); Red Blood Count 3.95 M/mm3 (3.65-5.03); Red Cell Distribution Width 18.3 % (13.2-15.2); White Blood Count 16.2 K/mm3 (4.5-11.0)
[2017-03-25 19:44] LABS: Alanine Aminotransferase 13 units/L (7-56); Albumin 3.6 g/dL (3.9-5); Albumin/Globulin Ratio 1.6 %; Alkaline Phosphatase 66 units/L (35-129); BUN/Creatinine Ratio 53; Bilirubin,Total < 0.20 mg/dL (0.1-1.2); Blood Urea Nitrogen 21 mg/dL (7-17); Calcium 8.8 mg/dL (8.4-10.2); Carbon Dioxide 29 mmol/L (22-30); Glucose 118 mg/dL (65-100); Lipase 94 units/L (13-60); Potassium 5.2 mmol/L (3.6-5.0); Sodium 142 mmol/L (137-145); Total Protein 5.8 g/dL (6.3-8.2)
[2017-03-25 19:45] LABS: Anion Gap 15 mmol/L
[2017-03-25 20:37] LABS: Basophils % (Manual) 0 % (0.0-1.8); Blastocytes % (Manual) 0 %; Eosinophils % (Manual) 0 % (0.0-4.3)
[2017-03-25 20:39] LABS: Diff Status Complete; Large Platelets 1+; Platelet Estimate Consistent w Auto; RBC Morphology Normal
[2017-03-25] MEDS ORDERED: PROVENTIL IH ONE (20:43)
[2017-03-25] MEDS ORDERED: ATROVENT IH ONE (20:43)
[2017-03-25] MEDS ORDERED: DILAUDID IV ONE (20:43)
[2017-03-25] MEDS ORDERED: NACL 0.9% 250ML 250 ML IV ONE (20:43)
--- NOTE | 2017-03-25 20:45 | Emergency Department Report ---
ED General Adult HPI - General Chief complaint: Abdominal Pain Stated complaint: ORALIA Time Seen by Provider: 03/25/17 20:31 Source: patient, EMS, RN notes reviewed, old records reviewed Mode of arrival: Stretcher Limitations: No Limitations - History of Present Illness Initial comments: This is a 57-year-old female. She is previously known to this provider. Past medical history includes asthma, congestive heart failure, COPD, hypertension, chronic right-sided chest wall pain secondary to postherpetic neuralgia. Patient on home oxygen. 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 Patient is brought to the hospital by EMS. As per EMS documentation, patient was yelling without difficulty that she was experiencing shortness of breath and needs to go to the hospital. EMS further indicated no evidence of respiratory distress, including lack of tripoding, retractions, or wheezing. Patient complained of shortness of breath for 2-3 days, along with chest pain and abdominal pain. Patient further indicates of hydromorphone typically improves her pain. In the ER, patient complains of chest wall pain, abdominal pain and shortness of breath. She indicates the pain is chronic, and has been there for months and weeks, but it is worse over the past few days. It worsens with palpation and range of motion, and it decreases with rest. Of note, patient had a negative nuclear stress test at this hospital September 2015. Of note, patient makes multiple requests to eat while in the emergency department. Of note, patient also felt much improved after hydromorphone for her pain. -: Gradual Location: chest, abdomen Radiation: non-radiation Severity scale (0 -10): 10 Quality: burning, stabbing, aching Consistency: intermittent Improves with: medication, rest Worsens with: movement Associated Symptoms: cough, shortness of breath, weakness. denies: chest pain - Related Data Previous Rx's Medication Instructions Recorded Last Taken Type Arformoterol Nebu [Brovana Nebu] 15 mcg IH Q12HRT #60 neb 03/22/17 Unknown Rx Budesonide [Pulmicort Respules] 0.5 mg IH Q12HRT #60 nebu 03/22/17 Unknown Rx Famotidine [Pepcid] 20 mg PO BID #60 tablet 03/22/17 Unknown Rx Gabapentin [Neurontin] 100 mg PO Q8HR #90 capsule 03/22/17 Unknown Rx Haloperidol [Haldol] 2 mg PO Q8H PRN #90 tablet 03/22/17 Unknown Rx Ipratropium/Albuterol Sulfate 1 ampul IH Q6HRT #180 ampul.neb 03/22/17 Unknown Rx [DUONEB *Not for PRN Use*] Levofloxacin [Levaquin] 750 mg PO QDAY #5 tablet 03/22/17 Unknown Rx Nicotine [Habitrol] 14 mg TD QDAY #30 patch 03/22/17 Unknown Rx Prednisone [predniSONE 5 mg (6-Day 5 mg PO .TAPER #1 tab.ds.pk 03/22/17 Unknown Rx Pack, 21 Tabs)] traMADol [Ultram 50 MG tab] 100 mg PO Q8H PRN #20 tablet 03/22/17 Unknown Rx Acetaminophen [Tylenol Arthritis] 650 mg PO Q6HR PRN #30 tablet.er 03/25/17 Unknown Rx Albuterol Sulfate [Proair 90 mcg IH Q4HR PRN #2 aer.pow.ba 03/25/17 Unknown Rx Respiclick] Dicyclomine [Bentyl] 10 mg PO QID PRN #20 capsule 03/25/17 Unknown Rx Allergies Allergy/AdvReac Type Severity Reaction Status Date / Time Penicillins Allergy Unknown Verified 03/26/17 18:57 ED Review of Systems ROS: Stated complaint: ORALIA Other details as noted in HPI Constitutional: denies: fever Eyes: denies: eye discharge Respiratory: see HPI Cardiovascular: chest pain Gastrointestinal: abdominal pain Genitourinary: as per HPI Musculoskeletal: as per HPI Skin: as per HPI Neurological: as per HPI Psychiatric: as per HPI ED Past Medical Hx - Past Medical History Hx Hypertension: Yes Hx Congestive Heart Failure: Yes Hx Diabetes: No Hx Arthritis: Yes Hx Asthma: Yes Hx COPD: Yes Hx HIV: No Additional medical history: Sepsis 2013--Bird, history shingles with chronic postherpetic neurologist. Bleeding peptic ulcers requiring blood transfusion - Surgical History Additional Surgical History: Skin Grafts placed after acid quiroga (placed 09/2015) - Social History Smoking Status: Current Every Day Smoker - Medications Home Medications: Home Medications Medication Instructions Recorded Confirmed Last Taken Type Arformoterol Nebu [Brovana Nebu] 15 mcg IH Q12HRT #60 neb 03/22/17 Unknown Rx Budesonide [Pulmicort Respules] 0.5 mg IH Q12HRT #60 nebu 03/22/17 Unknown Rx Famotidine [Pepcid] 20 mg PO BID #60 tablet 03/22/17 Unknown Rx Gabapentin [Neurontin] 100 mg PO Q8HR #90 capsule 03/22/17 Unknown Rx Haloperidol [Haldol] 2 mg PO Q8H PRN #90 tablet 03/22/17 Unknown Rx Ipratropium/Albuterol Sulfate 1 ampul IH Q6HRT #180 ampul.neb 03/22/17 Unknown Rx [DUONEB *Not for PRN Use*] Levofloxacin [Levaquin] 750 mg PO QDAY #5 tablet 03/22/17 Unknown Rx Nicotine [Habitrol] 14 mg TD QDAY #30 patch 03/22/17 Unknown Rx Prednisone [predniSONE 5 mg (6-Day 5 mg PO .TAPER #1 tab.ds.pk 03/22/17 Unknown Rx Pack, 21 Tabs)] traMADol [Ultram 50 MG tab] 100 mg PO Q8H PRN #20 tablet 03/22/17 Unknown Rx Acetaminophen [Tylenol Arthritis] 650 mg PO Q6HR PRN #30 tablet.er 03/25/17 Unknown Rx Albuterol Sulfate [Proair 90 mcg IH Q4HR PRN #2 aer.pow.ba 03/25/17 Unknown Rx Respiclick] Dicyclomine [Bentyl] 10 mg PO QID PRN #20 capsule 03/25/17 Unknown Rx ED Physical Exam - General Limitations: Physical Limitation General appearance: alert, in no apparent distress - Head Head exam: Present: atraumatic, normocephalic - Eye Eye exam: Present: normal appearance, EOMI. Absent: nystagmus - ENT ENT exam: Present: normal exam, normal orophraynx, mucous membranes moist, normal external ear exam - Neck Neck exam: Present: normal inspection, full ROM - Respiratory Respiratory exam: Present: chest wall tenderness. Absent: respiratory distress - Cardiovascular Cardiovascular Exam: Present: normal rhythm, tachycardia, normal heart sounds. Absent: systolic murmur, diastolic murmur, rubs, gallop - GI/Abdominal GI/Abdominal exam: Present: soft, tenderness, normal bowel sounds. Absent: distended, guarding, rebound, rigid, pulsatile mass - Extremities Exam Extremities exam: Present: normal inspection, full ROM, normal capillary refill. Absent: tenderness, pedal edema, joint swelling, calf tenderness - Back Exam Back exam: Present: normal inspection, full ROM. Absent: tenderness, CVA tenderness (R), paraspinal tenderness, vertebral tenderness - Neurological Exam Neurological exam: Present: alert, oriented X3, CN II-XII intact, other ( Extraocular movements intact. Tongue midline. No facial droop. Facial sensation intact to light touch in the V1, V2, V3 distribution bilaterally. 5 and 5 strength in 4 extremities.. Sensation is intact to light touch in 4 extremities.). Absent: motor sensory deficit - Psychiatric Psychiatric exam: Present: anxious - Skin Skin exam: Present: warm, dry, intact, normal color. Absent: rash ED Course Vital Signs 03/25/17 03/25/17 03/25/17 18:50 18:56 18:57 Temperature 98.2 F Pulse Rate 116 H Pulse Rate [ Right Bases] Respiratory 24 24 Rate Respiratory Rate [Right Bases] Blood Pressure Blood Pressure 123/86 [Left] O2 Sat by Pulse 98 98 98 Oximetry 03/25/17 03/25/17 03/25/17 19:00 19:16 19:30 Temperature Pulse Rate 115 H 114 H 113 H Pulse Rate [ Right Bases] Respiratory 30 H 22 19 Rate Respiratory Rate [Right Bases] Blood Pressure 123/86 130/81 130/81 Blood Pressure [Left] O2 Sat by Pulse 98 99 99 Oximetry 03/25/17 03/25/17 03/25/17 19:36 19:46 20:00 Temperature 97.6 F Pulse Rate 114 H 110 H Pulse Rate [ Right Bases] Respiratory 22 22 Rate Respiratory Rate [Right Bases] Blood Pressure 130/81 130/81 Blood Pressure [Left] O2 Sat by Pulse 100 98 Oximetry 03/25/17 03/25/17 03/25/17 20:16 20:30 20:46 Temperature Pulse Rate 108 H Pulse Rate [ Right Bases] Respiratory 21 Rate Respiratory Rate [Right Bases] Blood Pressure 130/81 130/81 130/81 Blood Pressure [Left] O2 Sat by Pulse 98 97 Oximetry 03/25/17 03/25/17 03/25/17 21:00 21:02 21:46 Temperature Pulse Rate 106 H Pulse Rate [ 86 Right Bases] Respiratory 22 Rate Respiratory 20 Rate [Right Bases] Blood Pressure 130/81 114/76 Blood Pressure [Left] O2 Sat by Pulse 86 Oximetry 03/25/17 03/25/17 03/25/17 22:00 22:16 22:30 Temperature Pulse Rate Pulse Rate [ Right Bases] Respiratory Rate Respiratory Rate [Right Bases] Blood Pressure 128/80 128/80 128/80 Blood Pressure [Left] O2 Sat by Pulse 99 98 97 Oximetry 03/25/17 03/25/17 03/25/17 22:40 22:46 23:00 Temperature 98.2 F Pulse Rate 109 H Pulse Rate [ Right Bases] Respiratory 21 Rate Respiratory Rate [Right Bases] Blood Pressure 128/80 128/80 Blood Pressure [Left] O2 Sat by Pulse 97 99 99 Oximetry 03/25/17 03/25/17 23:16 23:30 Temperature Pulse Rate Pulse Rate [ Right Bases] Respiratory Rate Respiratory Rate [Right Bases] Blood Pressure 116/77 116/77 Blood Pressure [Left] O2 Sat by Pulse 90 98 Oximetry - Reevaluation(s) Reevaluation #1: 03/25/17 22:22 Differential diagnosis, including without limited to: COPD, congestive heart failure, pneumonia, pulmonary embolus, acute coronary syndrome, chronic herpetic neuralgia, conversion disorder, pancreatitis, hiatal hernia, narcotic dependence Assessment and plan: 57-year-old female with acute on chronic chest pain and abdominal pain. Objectively speaking she is afebrile with reassuring vital signs with the exception of tachycardia. She does not have any wheezing, rales or rhonchi on my exam, and this was further corroborated in documented by EMS. Patient offered albuterol and Atrovent which she declined. She did feel much improved at the hydromorphone, and is currently sitting in a stretcher in no distress. EKG shows motion artifact, but is grossly unremarkable, appears to be unchanged from prior EKG from a few days ago. Troponin negative 2, EKG unchanged 2, CT scan of the chest, abdomen, pelvis is pending. Given documented chronic chest pain, unchanged EKG, troponin negative 2, patient low risk by ROBBY score, low risk by heart score, and she is asking to eat food. We will see what her CAT scan shows. Reevaluation #2: 03/25/17 22:31 CT scan of the chest negative for pulmonary embolus, dissection, pneumonia. Multiple chronic incidental findings noted. Reevaluation #3: 03/25/17 22:42 Tachycardia resolved. EKG #3 is unchanged. Reevaluation #4: 03/25/17 23:32 CT scan of the chest, abdomen, pelvis does not demonstrate any acute disease or pathology that would require emergent intervention or hospital admissions. Multiple incidental findings are noted. Patient's tachycardia has resolved, and she is resting comfortably and in no distress. Reevaluation #5: 03/25/17 23:36 No wheezing is noted at this time. No hypoxia is noted at this time. Leukocytosis is appreciated, patient recently admitted to the [facility] and had steroids, this is the most likely etiology. ED Medical Decision Making - Lab Data Result diagrams: 03/25/17 19:12 03/25/17 19:12 Vital Signs 03/25/17 03/25/17 03/25/17 18:50 18:56 18:57 Temperature 98.2 F Pulse Rate 116 H Pulse Rate [ Right Bases] Respiratory 24 24 Rate Respiratory Rate [Right Bases] Blood Pressure Blood Pressure 123/86 [Left] O2 Sat by Pulse 98 98 98 Oximetry 03/25/17 03/25/17 03/25/17 19:00 19:16 19:30 Temperature Pulse Rate 115 H 114 H 113 H Pulse Rate [ Right Bases] Respiratory 30 H 22 19 Rate Respiratory Rate [Right Bases] Blood Pressure 123/86 130/81 130/81 Blood Pressure [Left] O2 Sat by Pulse 98 99 99 Oximetry 03/25/17 03/25/17 19:36 21:02 Temperature 97.6 F Pulse Rate 114 H Pulse Rate [ 86 Right Bases] Respiratory 22 Rate Respiratory 20 Rate [Right Bases] Blood Pressure Blood Pressure [Left] O2 Sat by Pulse 100 Oximetry Lab Results 03/25/17 03/25/17 03/25/17 Range/Units 19:12 19:12 20:42 WBC 16.2 H (4.5-11.0) K/mm3 RBC 3.95 (3.65-5.03) M/mm3 Hgb 11.0 (10.1-14.3) gm/dl Hct 34.4 (30.3-42.9) % MCV 87 (79-97) fl MCH 28 (28-32) pg MCHC 32 (30-34) % RDW 18.3 H (13.2-15.2) % Plt Count 297 (140-440) K/mm3 Add Manual Diff Complete Total Counted 100 Seg Neutrophils % Filler Shredder Helper Seg Neuts % (Manual) 92.0 H (40.0-70.0) % Band Neutrophils % 0 % Lymphocytes % (Manual) 7.0 L (13.4-35.0) % Reactive Lymphs % (Man) 0 % Monocytes % (Manual) 1.0 (0.0-7.3) % Eosinophils % (Manual) 0 (0.0-4.3) % Basophils % (Manual) 0 (0.0-1.8) % Metamyelocytes % 0 % Myelocytes % 0 % Promyelocytes % 0 % Blast Cells % 0 % Nucleated RBC % Not Reportable Seg Neutrophils # Man 14.9 H (1.8-7.7) K/mm3 Band Neutrophils # 0.0 K/mm3 Lymphocytes # (Manual) 1.1 L (1.2-5.4) K/mm3 Abs React Lymphs (Man) 0.0 K/mm3 Monocytes # (Manual) 0.2 (0.0-0.8) K/mm3 Eosinophils # (Manual) 0.0 (0.0-0.4) K/mm3 Basophils # (Manual) 0.0 (0.0-0.1) K/mm3 Metamyelocytes # 0.0 K/mm3 Myelocytes # 0.0 K/mm3 Promyelocytes # 0.0 K/mm3 Blast Cells # 0.0 K/mm3 WBC Morphology Not Reportable Hypersegmented Neuts Not Reportable Hyposegmented Neuts Not Reportable Hypogranular Neuts Not Reportable Smudge Cells Not Reportable Toxic Granulation Not Reportable Toxic Vacuolation Not Reportable Dohle Bodies Not Reportable Pelger-Huet Anomaly Not Reportable Sanchez Rods Not Reportable Platelet Estimate Consistent w auto Clumped Platelets Not Reportable Plt Clumps, EDTA Not Reportable Large Platelets 1+ Giant Platelets Not Reportable Platelet Satelliting Not Reportable Plt Morphology Comment Not Reportable RBC Morphology Normal Dimorphic RBCs Not Reportable Polychromasia Not Reportable Hypochromasia Not Reportable Poikilocytosis Not Reportable Anisocytosis Not Reportable Microcytosis Not Reportable Macrocytosis Not Reportable Spherocytes Not Reportable Pappenheimer Bodies Not Reportable Sickle Cells Not Reportable Target Cells Not Reportable Tear Drop Cells Not Reportable Ovalocytes Not Reportable Helmet Cells Not Reportable Izquierdo-[place] Bodies Not Reportable [place] Rings Not Reportable Stout Cells Not Reportable Bite Cells Not Reportable Crenated Cell Not Reportable Elliptocytes Not Reportable Acanthocytes (Spur) Not Reportable Rouleaux Not Reportable Hemoglobin C Crystals Not Reportable Schistocytes Not Reportable Malaria parasites Not Reportable [place] Bodies Not Reportable Hem Pathologist Commnt No Sodium 142 (137-145) mmol/L Potassium 5.2 H (3.6-5.0) mmol/L Chloride 103.0 (98-107) mmol/L Carbon Dioxide 29 D (22-30) mmol/L Anion Gap 15 mmol/L BUN 21 H (7-17) mg/dL Creatinine 0.4 L (0.7-1.2) mg/dL Estimated GFR > 60 ml/min BUN/Creatinine Ratio 53 % Glucose 118 H (65-100) mg/dL Calcium 8.8 (8.4-10.2) mg/dL Total Bilirubin < 0.20 (0.1-1.2) mg/dL AST 9 (5-40) units/L ALT 13 (7-56) units/L Alkaline Phosphatase 66 (35-129) units/L Troponin T < 0.010 (0.00-0.029) ng/mL Total Protein 5.8 L (6.3-8.2) g/dL Albumin 3.6 L (3.9-5) g/dL Albumin/Globulin Ratio 1.6 % Lipase 94 H (13-60) units/L Urine Color (Yellow) Urine Turbidity (Clear) Urine pH (5.0-7.0) Ur Specific [place] (1.003-1.030) Urine Protein (Negative) mg/dL Urine Glucose (UA) (Negative) mg/dL Urine Ketones (Negative) mg/dL Urine Blood (Negative) Urine Nitrite (Negative) Urine Bilirubin (Negative) Urine Urobilinogen (<2.0) mg/dL Ur Leukocyte Esterase (Negative) Urine WBC (Auto) (0.0-6.0) /HPF Urine RBC (Auto) (0.0-6.0) /HPF U Epithel Cells (Auto) (0-13.0) /HPF Amorphous Crystals Urine Mucus /HPF 03/25/17 03/25/17 Range/Units 21:53 Unknown WBC (4.5-11.0) K/mm3 RBC (3.65-5.03) M/mm3 Hgb (10.1-14.3) gm/dl Hct (30.3-42.9) % MCV (79-97) fl MCH (28-32) pg MCHC (30-34) % RDW (13.2-15.2) % Plt Count (140-440) K/mm3 Add Manual Diff Total Counted Seg Neutrophils % Seg Neuts % (Manual) (40.0-70.0) % Band Neutrophils % % Lymphocytes % (Manual) (13.4-35.0) % Reactive Lymphs % (Man) % Monocytes % (Manual) (0.0-7.3) % Eosinophils % (Manual) (0.0-4.3) % Basophils % (Manual) (0.0-1.8) % Metamyelocytes % % Myelocytes % % Promyelocytes % % Blast Cells % % Nucleated RBC % Seg Neutrophils # Man (1.8-7.7) K/mm3 Band Neutrophils # K/mm3 Lymphocytes # (Manual) (1.2-5.4) K/mm3 Abs React Lymphs (Man) K/mm3 Monocytes # (Manual) (0.0-0.8) K/mm3 Eosinophils # (Manual) (0.0-0.4) K/mm3 Basophils # (Manual) (0.0-0.1) K/mm3 Metamyelocytes # K/mm3 Myelocytes # K/mm3 Promyelocytes # K/mm3 Blast Cells # K/mm3 WBC Morphology Hypersegmented Neuts Hyposegmented Neuts Hypogranular Neuts Smudge Cells Toxic Granulation Toxic Vacuolation Dohle Bodies Pelger-Huet Anomaly Sanchez Rods Platelet Estimate Clumped Platelets Plt Clumps, EDTA Large Platelets Giant Platelets Platelet Satelliting Plt Morphology Comment RBC Morphology Dimorphic RBCs Polychromasia Hypochromasia Poikilocytosis Anisocytosis Microcytosis Macrocytosis Spherocytes Pappenheimer Bodies Sickle Cells Target Cells Tear Drop Cells Ovalocytes Helmet Cells Izquierdo-[place] Bodies Kunkle Rings Stout Cells Bite Cells Crenated Cell Elliptocytes Acanthocytes (Spur) Rouleaux Hemoglobin C Crystals Schistocytes Malaria parasites Alton Bodies Hem Pathologist Commnt Sodium (137-145) mmol/L Potassium (3.6-5.0) mmol/L Chloride (98-107) mmol/L Carbon Dioxide (22-30) mmol/L Anion Gap mmol/L BUN (7-17) mg/dL Creatinine (0.7-1.2) mg/dL Estimated GFR ml/min BUN/Creatinine Ratio % Glucose (65-100) mg/dL Calcium (8.4-10.2) mg/dL Total Bilirubin (0.1-1.2) mg/dL AST (5-40) units/L ALT (7-56) units/L Alkaline Phosphatase (35-129) units/L Troponin T < 0.010 (0.00-0.029) ng/mL Total Protein (6.3-8.2) g/dL Albumin (3.9-5) g/dL Albumin/Globulin Ratio % Lipase (13-60) units/L Urine Color Yellow (Yellow) Urine Turbidity Slightly-cloudy (Clear) Urine pH 7.0 (5.0-7.0) Ur Specific [place] 1.042 H (1.003-1.030) Urine Protein <15 mg/dl (Negative) mg/dL Urine Glucose (UA) Neg (Negative) mg/dL Urine Ketones Neg (Negative) mg/dL Urine Blood Neg (Negative) Urine Nitrite Neg (Negative) Urine Bilirubin Neg (Negative) Urine Urobilinogen < 2.0 (<2.0) mg/dL Ur Leukocyte Esterase Tr (Negative) Urine WBC (Auto) 1.0 (0.0-6.0) /HPF Urine RBC (Auto) 1.0 (0.0-6.0) /HPF U Epithel Cells (Auto) 4.0 (0-13.0) /HPF Amorphous Crystals Few Urine Mucus 1+ /HPF - EKG Data -: EKG Interpreted by Me EKG shows normal: sinus rhythm - EKG Data When compared to previous EKG there are: no significant change 03/25/17 22:24 EKG #1 demonstrates sinus tachycardia, 109 bpm, motion artifact, not morphologically consistent with ST elevation myocardial infarction, appears unchanged from prior from 03/20/2017. Repeat EKG is also unchanged. - Radiology Data Radiology results: report reviewed, image reviewed interpreted by me: X-ray of the chest, interpreted by me: Chronic findings, no acute disease, no evidence of congestive heart failure, no evidence of pneumonia. [address] [address] Cat Scan Report Signed Patient: SILVIA SAHA MR#: [id number] : 1960 Acct:[id number] Age/Sex: 57 / F ADM Date: 03/25/17 Loc: ED Attending Dr: Ordering Physician: MIKEY BSIWAS MD Date of Service: 03/25/17 Procedure(s): CT angio chest Accession Number(s): [id number] cc: MIKEY BISWAS MD FINAL REPORT EXAM: CT ANGIO CHEST HISTORY: cp sob TECHNIQUE: CT chest CT angiogram with reconstructions PRIORS: Comparison is February 22, 2017 FINDINGS: There is no evidence of filling defect within the central pulmonary vasculature to suggest the presence of acute pulmonary embolus. No evidence of mediastinal pathologic lymph node enlargement Heart and great vessels are unremarkable. The aorta is normal in caliber. No focal pulmonary infiltrate identified. No pleural fluid collection seen. There are extensive emphysematous changes throughout both lungs Visualized portion of the upper abdomen demonstrates no acute change. 2.3 centimeter low-density left adrenal nodule 1.1 centimeter right adrenal nodule are unchanged and most consistent with adenoma There is compression fracture of T7 unchanged. There mild compression fracture of T9 slightly increased from prior exam IMPRESSION: Pulmonary emphysema Bilateral adrenal adenomas Remote compression fracture T7 unchanged. Mild compression fracture of T9 which is increased from the prior exam No CT evidence for acute pulmonary embolus Transcribed By: [facility] Dictated By: FABY GUPTA MD Electronically Authenticated By: FABY GUPTA MD Signed Date/Time: 03/25/171820 [address] [address] Cat Scan Report Signed Patient: SILVIA SAHA MR#: [id number] : 1960 Acct:[id number] Age/Sex: 57 / F ADM Date: 03/25/17 Loc: ED Attending Dr: Ordering Physician: MIKEY BISWAS MD Date of Service: 03/25/17 Procedure(s): CT abdomen pelvis w con Accession Number(s): [id number] cc: MIKEY BISWAS MD FINAL REPORT EXAM: CT ABDOMEN PELVIS W CON HISTORY: abd pain TECHNIQUE: CT abdomen and pelvis with intravenous contrast PRIORS: None. FINDINGS: No acute abnormality identified in the lung bases. Few tiny low-density foci within the liver too small to further characterize probable small cyst or hemangioma. The spleen demonstrates normal size and attenuation. No pancreatic abnormalities seen. The kidneys demonstrate symmetric contrast enhancement. No evidence of hydronephrosis. There is low-density right adrenal mass 1.5 x 0.95 centimeters. There is a low-density left adrenal mass measuring 2.6 x 2.8 centimeters. These are unchanged from prior exam and most consistent adenoma Abdominal aorta is normal in caliber. No pathologically enlarged lymph nodes are identified. No signs of free fluid or free air No evidence of small bowel dilatation. Colon is nondistended. No pericolonic inflammatory change. The appendix is identified and is unremarkable. Urinary bladder is unremarkable. IMPRESSION: Bilateral adrenal adenoma is unchanged No acute abnormality identified in the abdomen or pelvis Transcribed By: MYNOR Dictated By: FABY GUPTA MD Electronically Authenticated By: FABY GUPTA MD Signed Date/Time: 03/25/171837 DD/ 37 Critical care attestation.: If time is entered above; I have spent that time in minutes in the direct care of this critically ill patient, excluding procedure time. ED Disposition Clinical Impression: Chest pain, Abdominal pain Disposition: DC-01 TO HOME OR SELFCARE Is pt being admited?: No Does the pt Need Aspirin: No Condition: Stable Instructions: Chest Pain (ED), Abdominal Pain (ED) Additional Instructions: Continue current outpatient medications. Take the prescribed medications as directed. Follow up with a meat stringer within the next 3-5 days for your chest pain. Contact any of the listed cardiology groups at your convenience to arrange expedited outpatient follow-up for your chest pain. Please note that CT scan demonstrated numerous incidental abnormalities, including abnormalities of the adrenal gland, which appear to be chronic. However these should be followed up by her primary care doctor within the next 2 -4 months. Follow up with any of the listed primary care physicians as directed. Not following up as recommended may resultant undiagnosed tumor, cancer, malignancy. Please return to the ER right away with new pain, worsened pain, migration of pain, fevers, chills, lethargy, irritability, projectile vomiting, change in mental status, confusion, inability to tolerate liquid feeds. Prescriptions: Acetaminophen [Tylenol Arthritis] 650 mg PO Q6HR PRN #30 tablet.er PRN Reason: Pain Albuterol Sulfate [Proair Respiclick] 90 mcg IH Q4HR PRN #2 aer.pow.ba PRN Reason: Wheezing Dicyclomine [Bentyl] 10 mg PO QID PRN #20 capsule PRN Reason: Pain Referrals: MIKEY NOVA MD [Primary Care Provider] - 3-5 Days [facility] [Provider Group] - 3-5 Days [facility] [Provider Group] - 3-5 Days [facility] [Provider Group] - 3-5 Days
[2017-03-25] MEDS ORDERED: NACL ONE (21:05)
[2017-03-25] MEDS ORDERED: NACL 0.9% 500 ML 500 ML ONE (21:10)
--- NOTE | 2017-03-25 21:53 | XRay Report ---
FINAL REPORT PROCEDURE: XR CHEST 1V AP TECHNIQUE: Chest radiograph anteroposterior view. CPT 91496 HISTORY: cp sob COMPARISON: 03/20/2017 FINDINGS: Heart: Normal. Mediastinum/Vessels: Normal. Lungs/Pleural space: Mild COPD. Lower lung zone pleural thickening. Mild peribronchial cuffing. Bony thorax: Suspect moderate compression deformities of the mid thoracic spine stable but not well seen on frontal view. Life support devices: None. IMPRESSION: No acute cardiopulmonary abnormality.
[2017-03-25 22:13] LABS: Bilirubin,Urine NEG (Negative); Blood,Urine NEG (Negative); Ketones,Urine NEG (Negative); Leukocyte Esterase,Urine TR (Negative); Mucus,Urine 1+ /HPF; Nitrite,Urine NEG (Negative); Protein,Urine <15 mg/dL mg/dL (Negative); Urobilinogen,Urine < 2.0 mg/dL (<2.0)
--- NOTE | 2017-03-25 22:25 | Cat Scan Report ---
FINAL REPORT EXAM: CT ANGIO CHEST HISTORY: cp sob TECHNIQUE: CT chest CT angiogram with reconstructions PRIORS: Comparison is February 22, 2017 FINDINGS: There is no evidence of filling defect within the central pulmonary vasculature to suggest the presence of acute pulmonary embolus. No evidence of mediastinal pathologic lymph node enlargement Heart and great vessels are unremarkable. The aorta is normal in caliber. No focal pulmonary infiltrate identified. No pleural fluid collection seen. There are extensive emphysematous changes throughout both lungs Visualized portion of the upper abdomen demonstrates no acute change. 2.3 centimeter low-density left adrenal nodule 1.1 centimeter right adrenal nodule are unchanged and most consistent with adenoma There is compression fracture of T7 unchanged. There mild compression fracture of T9 slightly increased from prior exam IMPRESSION: Pulmonary emphysema Bilateral adrenal adenomas Remote compression fracture T7 unchanged. Mild compression fracture of T9 which is increased from the prior exam No CT evidence for acute pulmonary embolus
--- NOTE | 2017-03-25 22:42 | Cat Scan Report ---
FINAL REPORT EXAM: CT ABDOMEN PELVIS W CON HISTORY: abd pain TECHNIQUE: CT abdomen and pelvis with intravenous contrast PRIORS: None. FINDINGS: No acute abnormality identified in the lung bases. Few tiny low-density foci within the liver too small to further characterize probable small cyst or hemangioma. The spleen demonstrates normal size and attenuation. No pancreatic abnormalities seen. The kidneys demonstrate symmetric contrast enhancement. No evidence of hydronephrosis. There is low-density right adrenal mass 1.5 x 0.95 centimeters. There is a low-density left adrenal mass measuring 2.6 x 2.8 centimeters. These are unchanged from prior exam and most consistent adenoma Abdominal aorta is normal in caliber. No pathologically enlarged lymph nodes are identified. No signs of free fluid or free air No evidence of small bowel dilatation. Colon is nondistended. No pericolonic inflammatory change. The appendix is identified and is unremarkable. Urinary bladder is unremarkable. IMPRESSION: Bilateral adrenal adenoma is unchanged No acute abnormality identified in the abdomen or pelvis
[2017-03-25] MEDS ORDERED: ULTRAM ONE (23:49)
[2017-03-26] MEDS ORDERED: ULTRAM PO ONE (00:06)
[2017-03-26 00:08] VITALS: BP 116/77
== END 2017-03-26 00:08 | disposition home or self-care (01) ==
LOC: ED 18:20
DX: R07.89 Other chest pain (principal); R10.9 Unspecified abdominal pain; R06.02 Shortness of breath; M19.90 Unspecified osteoarthritis, unspecified site; J44.9 Chronic obstructive pulmonary disease, unspecified; F17.200 Nicotine dependence, unspecified, uncomplicated; I11.0 Hypertensive heart disease with heart failure; I50.9 Heart failure, unspecified; Z99.81 Dependence on supplemental oxygen; Z88.0 Allergy status to penicillin
CPT/HCPCS: 36415; 71010; 71275; 74177; 80053; 81001; 83690; 84484; 85007; 85025; 93005; 93010; 94640; 96374; 99285; J1170; J7040; Q9967

== ENCOUNTER 2017-03-26 18:50 | Emergency (ER) | payer MEDICAID ==
[2017-03-26 19:38] VITALS: BP 110/74
--- NOTE | 2017-03-26 20:52 | Emergency Department Report ---
ED General Adult HPI - General Chief complaint: Dyspnea/Respdistress Stated complaint: SOB Time Seen by Provider: 03/26/17 20:18 Source: patient, EMS (ems notes not available at time of chart dictation), RN notes reviewed, old records reviewed Mode of arrival: Stretcher Limitations: No Limitations, Other (patient typically in a wheelchair) - History of Present Illness Initial comments: This is a 57-year-old female, I have previously evaluated the patient, please see my chart from yesterday for the full details of the patient's history and physical. Patient is brought to the hospital by EMS for shortness of breath for a few days. Patient indicates chronic abdominal pain, chronic chest pain. The symptoms have been going on for days, weeks, months. it typically improve with hydromorphone. It decreased with rest. They do not radiate anywhere, with the exception of the chronic right-sided chest wall pain, which radiates to the back. Patient reports her symptoms today are the same as yesterday. -: Gradual, week(s) Location: chest, back, abdomen Radiation: back Quality: aching Improves with: medication Worsens with: movement Associated Symptoms: chest pain, cough, loss of appetite, shortness of breath, weakness - Related Data Previous Rx's Medication Instructions Recorded Last Taken Type Arformoterol Nebu [Brovana Nebu] 15 mcg IH Q12HRT #60 neb 03/22/17 Unknown Rx Budesonide [Pulmicort Respules] 0.5 mg IH Q12HRT #60 nebu 03/22/17 Unknown Rx Famotidine [Pepcid] 20 mg PO BID #60 tablet 03/22/17 Unknown Rx Gabapentin [Neurontin] 100 mg PO Q8HR #90 capsule 03/22/17 Unknown Rx Haloperidol [Haldol] 2 mg PO Q8H PRN #90 tablet 03/22/17 Unknown Rx Ipratropium/Albuterol Sulfate 1 ampul IH Q6HRT #180 ampul.neb 03/22/17 Unknown Rx [DUONEB *Not for PRN Use*] Levofloxacin [Levaquin] 750 mg PO QDAY #5 tablet 03/22/17 Unknown Rx Nicotine [Habitrol] 14 mg TD QDAY #30 patch 03/22/17 Unknown Rx Prednisone [predniSONE 5 mg (6-Day 5 mg PO .TAPER #1 tab.ds.pk 03/22/17 Unknown Rx Pack, 21 Tabs)] traMADol [Ultram 50 MG tab] 100 mg PO Q8H PRN #20 tablet 03/22/17 Unknown Rx Acetaminophen [Tylenol Arthritis] 650 mg PO Q6HR PRN #30 tablet.er 03/25/17 Unknown Rx Albuterol Sulfate [Proair 90 mcg IH Q4HR PRN #2 aer.pow.ba 03/25/17 Unknown Rx Respiclick] Dicyclomine [Bentyl] 10 mg PO QID PRN #20 capsule 03/25/17 Unknown Rx Allergies Allergy/AdvReac Type Severity Reaction Status Date / Time Penicillins Allergy Unknown Verified 03/26/17 18:57 ED Review of Systems ROS: Stated complaint: SOB Other details as noted in HPI ED Past Medical Hx - Past Medical History Hx Hypertension: Yes Hx Congestive Heart Failure: Yes Hx Diabetes: No Hx Arthritis: Yes Hx Asthma: Yes Hx COPD: Yes Hx HIV: No Additional medical history: Sepsis 2013--[place], history shingles with chronic postherpetic neurologist. Bleeding peptic ulcers requiring blood transfusion - Surgical History Additional Surgical History: Skin Grafts placed after acid quiroga (placed 09/2015) - Social History Smoking Status: Former Smoker Substance Use Type: None - Medications Home Medications: Home Medications Medication Instructions Recorded Confirmed Last Taken Type Arformoterol Nebu [Brovana Nebu] 15 mcg IH Q12HRT #60 neb 03/22/17 Unknown Rx Budesonide [Pulmicort Respules] 0.5 mg IH Q12HRT #60 nebu 03/22/17 Unknown Rx Famotidine [Pepcid] 20 mg PO BID #60 tablet 03/22/17 Unknown Rx Gabapentin [Neurontin] 100 mg PO Q8HR #90 capsule 03/22/17 Unknown Rx Haloperidol [Haldol] 2 mg PO Q8H PRN #90 tablet 03/22/17 Unknown Rx Ipratropium/Albuterol Sulfate 1 ampul IH Q6HRT #180 ampul.neb 03/22/17 Unknown Rx [DUONEB *Not for PRN Use*] Levofloxacin [Levaquin] 750 mg PO QDAY #5 tablet 03/22/17 Unknown Rx Nicotine [Habitrol] 14 mg TD QDAY #30 patch 03/22/17 Unknown Rx Prednisone [predniSONE 5 mg (6-Day 5 mg PO .TAPER #1 tab.ds.pk 03/22/17 Unknown Rx Pack, 21 Tabs)] traMADol [Ultram 50 MG tab] 100 mg PO Q8H PRN #20 tablet 03/22/17 Unknown Rx Acetaminophen [Tylenol Arthritis] 650 mg PO Q6HR PRN #30 tablet.er 03/25/17 Unknown Rx Albuterol Sulfate [Proair 90 mcg IH Q4HR PRN #2 aer.pow.ba 03/25/17 Unknown Rx Respiclick] Dicyclomine [Bentyl] 10 mg PO QID PRN #20 capsule 03/25/17 Unknown Rx ED Physical Exam - General Limitations: No Limitations General appearance: alert, in no apparent distress - Head Head exam: Present: atraumatic, normocephalic - Eye Eye exam: Present: normal appearance, EOMI. Absent: nystagmus - ENT ENT exam: Present: normal exam, normal orophraynx, mucous membranes moist, normal external ear exam - Neck Neck exam: Present: normal inspection, full ROM - Respiratory Respiratory exam: Present: normal lung sounds bilaterally. Absent: respiratory distress, wheezes, rales, rhonchi, stridor, chest wall tenderness - Cardiovascular Cardiovascular Exam: Present: regular rate, normal rhythm, normal heart sounds. Absent: bradycardia, tachycardia, irregular rhythm, systolic murmur, diastolic murmur, rubs, gallop - GI/Abdominal GI/Abdominal exam: Present: soft, tenderness (minimal epigastric tenderness. This is similar to yesterday's examination), normal bowel sounds. Absent: distended, guarding, rebound, rigid, pulsatile mass - Extremities Exam Extremities exam: Present: normal inspection, full ROM. Absent: pedal edema, calf tenderness - Back Exam Back exam: Present: normal inspection, full ROM. Absent: paraspinal tenderness , vertebral tenderness - Neurological Exam Neurological exam: Present: alert, oriented X3, CN II-XII intact, other ( Extraocular movements intact. Tongue midline. No facial droop. Facial sensation intact to light touch in the V1, V2, V3 distribution bilaterally. 5 and 5 strength in 4 extremities.. Sensation is intact to light touch in 4 extremities.). Absent: motor sensory deficit - Psychiatric Psychiatric exam: Present: normal affect, normal mood - Skin Skin exam: Present: warm, dry, intact, normal color. Absent: rash ED Course Vital Signs 03/26/17 03/26/17 03/26/17 18:54 18:57 19:00 Temperature 97.8 F Pulse Rate 110 H 106 H 107 H Respiratory 26 H 18 24 Rate Blood Pressure 134/70 134/70 O2 Sat by Pulse 99 100 Oximetry 03/26/17 03/26/17 19:15 19:30 Temperature Pulse Rate 101 H 102 H Respiratory 27 H 20 Rate Blood Pressure 124/79 110/74 O2 Sat by Pulse 98 99 Oximetry ED Medical Decision Making - Lab Data Vital Signs 03/26/17 03/26/17 03/26/17 18:54 18:57 19:00 Temperature 97.8 F Pulse Rate 110 H 106 H 107 H Respiratory 26 H 18 24 Rate Blood Pressure 134/70 134/70 O2 Sat by Pulse 99 100 Oximetry 03/26/17 03/26/17 19:15 19:30 Temperature Pulse Rate 101 H 102 H Respiratory 27 H 20 Rate Blood Pressure 124/79 110/74 O2 Sat by Pulse 98 99 Oximetry - EKG Data 03/26/17 21:04 Normal sinus, 95 bpm, normal axis, QTC prolonged, abnormal EKG, not morphologically consistent with ST elevation myocardial infarction, appears unchanged from prior EKG - Medical Decision Making Differential diagnosis, including but not limited to: GERD, gastritis, chronic chest wall pain, narcotic dependency Assessment and plan: 57-year-old female whom I evaluated yesterday, with complaints of chronic abdominal and chest wall pain. She is afebrile with reassuring vital signs, her tachycardia has resolved on my exam, her resting heart rate is 93 bpm. The patient is not vomiting, she is tolerating liquid feeds, and she was offered acetaminophen for pain, which she declined. It is very unlikely that there is any emergent condition at this time, the patient is most likely narcotic seeking. Patient is suitable for discharge at this time, she can follow up with an outpatient primary care doctor. She is not wheezing at this time, and she was prescribed nebulizer therapy yesterday. Critical care attestation.: If time is entered above; I have spent that time in minutes in the direct care of this critically ill patient, excluding procedure time. ED Disposition Clinical Impression: Chronic pain syndrome Disposition: DC-01 TO HOME OR SELFCARE Is pt being admited?: No Does the pt Need Aspirin: No Condition: Stable Instructions: Chest Pain (ED) Additional Instructions: Continue current outpatient medications. Follow-up with a primary care doctor or pulmonary doctor within the next month. Follow up with the sales office manager as recommended yesterday. Dr. Sterling is a local primary care doctor; Dr. Antoine is a local pulmonary doctor. Return to the ER right away with new pain, worsening pain, migration of pain, fevers, chills, lethargy, irritability, projectile vomiting, change in mental status, confusion, inability to tolerate liquid feeds. Referrals: PRIMARY CARE, [Primary Care Provider] - 3-5 Days SAMUEL JIMENEZ MD [Staff Physician] - 3-5 Days FIDELINA STERLING MD [Staff Physician] - 3-5 Days [facility] [Provider Group] - 3-5 Days
[2017-03-26] MEDS ORDERED: TYLENOL PO ONE (20:53)
== END 2017-03-26 22:27 | disposition home or self-care (01) ==
LOC: ED 18:50
DX: G89.4 Chronic pain syndrome (principal); I10 Essential (primary) hypertension; I50.9 Heart failure, unspecified; J45.909 Unspecified asthma, uncomplicated; M19.90 Unspecified osteoarthritis, unspecified site; Z87.891 Personal history of nicotine dependence; F17.200 Nicotine dependence, unspecified, uncomplicated; Z88.0 Allergy status to penicillin
CPT/HCPCS: 93005; 93010; 99283

== ENCOUNTER 2017-03-27 13:31 | Emergency (ER) | payer MEDICAID ==
[2017-03-27] MEDS ORDERED: TORADOL IM ONE (20:24)
[2017-03-27] MEDS ORDERED: DUONEB *Not for PRN Use IH ONE (20:24)
--- NOTE | 2017-03-27 20:30 | Emergency Department Report ---
ED General Adult HPI - General Chief complaint: Pain General Stated complaint: BODY PAIN/ORALIA Time Seen by Provider: 03/27/17 19:35 Source: patient, EMS Mode of arrival: Wheelchair Limitations: Physical Limitation - History of Present Illness Initial comments: This is a 57-year-old female nontoxic, well nourished in appearance, no acute signs of distress presents to the ED with c/o of wheezing and general pain. Patient denies any chest pain, shortness of breath, difficulty breathing, fever , chills, nausea, vomiting, chest pain, headache, stiff neck, dental pain, back pain. Patient states allergies to penicillin. Patient denies calf pain, calf tenderness or hemoptysis. Patient stated she wants a refill of tramadol and Percocet for about chronic body aches. Patient states past medical history includes arthritis, asthma, CHF, COPD and hypertension. MD Complaint: general pain -: year(s) Radiation: non-radiation Severity scale (0 -10): 8 Quality: aching Consistency: constant Improves with: none Worsens with: none Associated Symptoms: denies other symptoms. denies: confusion, chest pain, cough, diaphoresis, fever/chills, headaches, loss of appetite, malaise, nausea/ vomiting, rash, seizure, shortness of breath, syncope, weakness Treatments Prior to Arrival: none - Related Data Previous Rx's Medication Instructions Recorded Last Taken Type Arformoterol Nebu [Brovana Nebu] 15 mcg IH Q12HRT #60 neb 03/22/17 Unknown Rx Budesonide [Pulmicort Respules] 0.5 mg IH Q12HRT #60 nebu 03/22/17 Unknown Rx Famotidine [Pepcid] 20 mg PO BID #60 tablet 03/22/17 Unknown Rx Gabapentin [Neurontin] 100 mg PO Q8HR #90 capsule 03/22/17 Unknown Rx Haloperidol [Haldol] 2 mg PO Q8H PRN #90 tablet 03/22/17 Unknown Rx Ipratropium/Albuterol Sulfate 1 ampul IH Q6HRT #180 ampul.neb 03/22/17 Unknown Rx [DUONEB *Not for PRN Use*] Levofloxacin [Levaquin] 750 mg PO QDAY #5 tablet 03/22/17 Unknown Rx Nicotine [Habitrol] 14 mg TD QDAY #30 patch 03/22/17 Unknown Rx Prednisone [predniSONE 5 mg (6-Day 5 mg PO .TAPER #1 tab.ds.pk 03/22/17 Unknown Rx Pack, 21 Tabs)] traMADol [Ultram 50 MG tab] 100 mg PO Q8H PRN #20 tablet 03/22/17 Unknown Rx Acetaminophen [Tylenol Arthritis] 650 mg PO Q6HR PRN #30 tablet.er 03/25/17 Unknown Rx Albuterol Sulfate [Proair 90 mcg IH Q4HR PRN #2 aer.pow.ba 03/25/17 Unknown Rx Respiclick] Dicyclomine [Bentyl] 10 mg PO QID PRN #20 capsule 03/25/17 Unknown Rx ALBUTEROL Inhaler [ProAir HFA 2 puff IH QID PRN #1 inhalation 03/27/17 Unknown Rx Inhaler] Acetaminophen [Tylenol Arthritis] 650 mg PO Q8H PRN #30 tablet.er 03/27/17 Unknown Rx predniSONE [Deltasone] 40 mg PO QDAY #5 tab 03/27/17 Unknown Rx Allergies Allergy/AdvReac Type Severity Reaction Status Date / Time Penicillins Allergy Unknown Verified 03/26/17 18:57 ED Review of Systems ROS: Stated complaint: BODY PAIN/ORALIA Other details as noted in HPI Constitutional: denies: chills, fever Eyes: denies: eye pain, eye discharge, vision change ENT: denies: ear pain, throat pain Respiratory: denies: cough, shortness of breath, wheezing Cardiovascular: denies: chest pain, palpitations Endocrine: no symptoms reported Gastrointestinal: denies: abdominal pain, nausea, diarrhea Genitourinary: denies: urgency, dysuria, discharge Musculoskeletal: denies: back pain, joint swelling, arthralgia Skin: denies: rash, lesions Neurological: denies: headache, weakness, paresthesias Psychiatric: denies: anxiety, depression Hematological/Lymphatic: denies: easy bleeding, easy bruising ED Past Medical Hx - Past Medical History Previous Medical History?: Yes Hx Hypertension: Yes Hx Congestive Heart Failure: Yes Hx Diabetes: No Hx Arthritis: Yes Hx Asthma: Yes Hx COPD: Yes Hx HIV: No Additional medical history: Sepsis 2014--[place], history shingles with chronic postherpetic neurologist. Bleeding peptic ulcers requiring blood transfusion - Surgical History Past Surgical History?: Yes Additional Surgical History: Skin Grafts placed after acid quiroga (placed 09/2015) - Social History Smoking Status: Former Smoker Substance Use Type: Prescribed - Medications Home Medications: Home Medications Medication Instructions Recorded Confirmed Last Taken Type Arformoterol Nebu [Brovana Nebu] 15 mcg IH Q12HRT #60 neb 03/22/17 Unknown Rx Budesonide [Pulmicort Respules] 0.5 mg IH Q12HRT #60 nebu 03/22/17 Unknown Rx Famotidine [Pepcid] 20 mg PO BID #60 tablet 03/22/17 Unknown Rx Gabapentin [Neurontin] 100 mg PO Q8HR #90 capsule 03/22/17 Unknown Rx Haloperidol [Haldol] 2 mg PO Q8H PRN #90 tablet 03/22/17 Unknown Rx Ipratropium/Albuterol Sulfate 1 ampul IH Q6HRT #180 ampul.neb 03/22/17 Unknown Rx [DUONEB *Not for PRN Use*] Levofloxacin [Levaquin] 750 mg PO QDAY #5 tablet 03/22/17 Unknown Rx Nicotine [Habitrol] 14 mg TD QDAY #30 patch 03/22/17 Unknown Rx Prednisone [predniSONE 5 mg (6-Day 5 mg PO .TAPER #1 tab.ds.pk 03/22/17 Unknown Rx Pack, 21 Tabs)] traMADol [Ultram 50 MG tab] 100 mg PO Q8H PRN #20 tablet 03/22/17 Unknown Rx Acetaminophen [Tylenol Arthritis] 650 mg PO Q6HR PRN #30 tablet.er 03/25/17 Unknown Rx Albuterol Sulfate [Proair 90 mcg IH Q4HR PRN #2 aer.pow.ba 03/25/17 Unknown Rx Respiclick] Dicyclomine [Bentyl] 10 mg PO QID PRN #20 capsule 03/25/17 Unknown Rx ALBUTEROL Inhaler [ProAir HFA 2 puff IH QID PRN #1 inhalation 03/27/17 Unknown Rx Inhaler] Acetaminophen [Tylenol Arthritis] 650 mg PO Q8H PRN #30 tablet.er 03/27/17 Unknown Rx predniSONE [Deltasone] 40 mg PO QDAY #5 tab 03/27/17 Unknown Rx ED Physical Exam - General Limitations: Physical Limitation General appearance: alert, in no apparent distress - Head Head exam: Present: atraumatic, normocephalic, normal inspection - Eye Eye exam: Present: normal appearance, PERRL, EOMI. Absent: scleral icterus, conjunctival injection, nystagmus, periorbital swelling, periorbital tenderness Pupils: Present: normal accommodation - ENT ENT exam: Present: normal exam, normal orophraynx, mucous membranes moist, TM's normal bilaterally, normal external ear exam - Neck Neck exam: Present: normal inspection, full ROM. Absent: tenderness, meningismus, lymphadenopathy, thyromegaly - Respiratory Respiratory exam: Present: normal lung sounds bilaterally, wheezes (slight upper and lower lobes). Absent: respiratory distress, rales, rhonchi, stridor, chest wall tenderness, accessory muscle use, decreased breath sounds, prolonged expiratory - Cardiovascular Cardiovascular Exam: Present: regular rate, normal rhythm, normal heart sounds. Absent: irregular rhythm, systolic murmur, diastolic murmur, rubs, gallop - GI/Abdominal GI/Abdominal exam: Present: soft, normal bowel sounds. Absent: distended, tenderness, guarding, rebound, rigid, diminished bowel sounds - Rectal Rectal exam: Present: deferred - Extremities Exam Extremities exam: Present: normal inspection, full ROM, normal capillary refill. Absent: tenderness, pedal edema, joint swelling, calf tenderness - Back Exam Back exam: Present: normal inspection, full ROM. Absent: tenderness, CVA tenderness (R), CVA tenderness (L), muscle spasm, paraspinal tenderness, vertebral tenderness, rash noted - Neurological Exam Neurological exam: Present: alert, oriented X3, CN II-XII intact, normal gait, reflexes normal - Psychiatric Psychiatric exam: Present: normal affect, normal mood - Skin Skin exam: Present: warm, dry, intact, normal color. Absent: rash ED Course Vital Signs 03/27/17 03/27/17 03/27/17 14:21 18:15 20:50 Temperature 98.6 F 98.1 F Pulse Rate 103 H 100 H Pulse Rate [ 90 Bilateral Throughout] Respiratory 20 16 Rate Respiratory 22 Rate [Bilateral Throughout] Blood Pressure 133/94 129/80 Blood Pressure [Right] O2 Sat by Pulse 96 97 Oximetry 03/27/17 21:19 Temperature 98.9 F Pulse Rate 100 H Pulse Rate [ Bilateral Throughout] Respiratory 22 Rate Respiratory Rate [Bilateral Throughout] Blood Pressure Blood Pressure 119/66 [Right] O2 Sat by Pulse 96 Oximetry - Reevaluation(s) Reevaluation #1: 03/27/17 20:40 Patient is speaking in full sentences with no signs of distress noted. Reevaluation #2: 03/27/17 21:54 Post treat assessment: wheezing subsided. Patient stated feels much better. Vitals stable. ED Medical Decision Making - Medical Decision Making This is a 57-year-old female that presents with wheezing and chronic generalized pain. Patient is stable and was examined by me. CXR has been obtained and dictated by radiologist with normal exam. Patient is notified of xray results with no questions noted. Patient receives a DuoNeb, Solu-Medrol, and Toradol for pain. Vital signs stable. Patient is on continuous 2 L nasal cannula for COPD. Patient is on continous montior vitals and has continuous oxygen. No signs or indication of PE or DVT. Wells criteria 0 points. Patient is discharged with prednisone and albuterol. Patient was instructed Follow-up with a primary care doctor in 3-5 days or if symptoms worsen and continue return to emergency room as soon as possible. At time time of discharge, the patient does not seem toxic or ill in appearance. No acute signs of distress noted. Patient agrees to discharge treatment plan of care. No further questions noted by the patient. Patient just has received Ultram 50 mg 4 days ago 20 pills. I will treat patient with Tylenol for pain at discharge. Critical care attestation.: If time is entered above; I have spent that time in minutes in the direct care of this critically ill patient, excluding procedure time. ED Disposition Clinical Impression: Wheezing, Chronic generalized pain COPD (chronic obstructive pulmonary disease) Qualifiers: COPD type: unspecified COPD Qualified Code(s): J44.9 - Chronic obstructive pulmonary disease, unspecified Disposition: DC- TO HOME OR SELFCARE Is pt being admited?: No Does the pt Need Aspirin: No Condition: Stable Instructions: Albuterol (By breathing), Prednisone (By mouth), Chronic Obstructive Pulmonary Disease (ED) Additional Instructions: Follow-up with a primary care doctor in 3-5 days or if symptoms worsen and continue return to emergency room as soon as possible. Prescriptions: Acetaminophen [Tylenol Arthritis] 650 mg PO Q8H PRN #30 tablet.er PRN Reason: Pain ALBUTEROL Inhaler [ProAir HFA Inhaler] 2 puff IH QID PRN #1 inhalation PRN Reason: Shortness Of Breath predniSONE [Deltasone] 40 mg PO QDAY #5 tab Referrals: PRIMARY CARE, [Primary Care Provider] - 3-5 Days FIDELINA MONROY MD [Staff Physician] - 3-5 Days [facility] [Outside] - 3-5 Days [facility] [Outside] - 3-5 Days
--- NOTE | 2017-03-27 21:43 | XRay Report ---
FINAL REPORT EXAM: XR CHEST ROUTINE 2V HISTORY: cough TECHNIQUE: Two view chest PA and lateral PRIORS: None. FINDINGS: Cardiac and mediastinal contours are unremarkable. No focal pulmonary infiltrate is identified. No pleural fluid collection seen. Pulmonary vasculature is unremarkable. Lungs are hyperinflated there is some flattening of the diaphragm IMPRESSION: Hyperinflation which could reflect underlying COPD No acute pulmonary abnormality otherwise identified
[2017-03-28 01:13] VITALS: BP 139/74
== END 2017-03-28 01:13 | disposition home or self-care (01) ==
LOC: ED 13:31
DX: J44.9 Chronic obstructive pulmonary disease, unspecified (principal); M79.1 Myalgia; G89.29 Other chronic pain; I10 Essential (primary) hypertension; M19.90 Unspecified osteoarthritis, unspecified site; Z87.891 Personal history of nicotine dependence; Z88.0 Allergy status to penicillin
CPT/HCPCS: 71020; 94640; 96372; 99284; J1885; J2930

== ENCOUNTER 2017-04-02 16:51 | Emergency (ER) | payer MEDICAID ==
[2017-04-02] MEDS ORDERED: ASPIRIN PO ONE (17:38)
[2017-04-02] MEDS ORDERED: TYLENOL PO ONE (17:38)
[2017-04-02 18:18] LABS: Hematocrit 33.2 % (30.3-42.9); Hemoglobin 10.8 gm/dl (10.1-14.3); Mean Corpuscular HGB Conc 32 % (30-34); Mean Corpuscular Hemoglobin 28 pg (28-32); Mean Corpuscular Volume 87 fl (79-97); Platelet Count 429 K/mm3 (140-440); Red Blood Count 3.81 M/mm3 (3.65-5.03); Red Cell Distribution Width 19.5 % (13.2-15.2)
[2017-04-02 18:33] LABS: BUN/Creatinine Ratio 30; Blood Urea Nitrogen 18 mg/dL (7-17); Calcium 9.3 mg/dL (8.4-10.2); Hemolysis Index 4
[2017-04-02 19:26] LABS: Basophils % (Manual) 0 % (0.0-1.8); Eosinophils % (Manual) 0 % (0.0-4.3); Total Cells Counted 100
[2017-04-02 19:27] LABS: Platelet Estimate Consistent w Auto; RBC Morphology Normal
[2017-04-03 07:28] VITALS: BP 112/63
[2017-04-03] MEDS ORDERED: TESSALON PERLES PO ONE (11:12)
[2017-04-03] MEDS ORDERED: TORADOL IV ONE (11:12)
[2017-04-03] MEDS ORDERED: MUCINEX ER PO ONE (11:13)
--- NOTE | 2017-04-03 11:15 | Emergency Department Report ---
HPI - General Chief Complaint: Chest Pain Time Seen by Provider: 04/03/17 10:32 - HPI HPI: The patient's a 57 yo female who presents for evaluation of chest pain. The patient reports chest pain for the past week, achy in quality, 10/10 in severity , exacerbated with coughing, and radiating to the bilateral arms and legs. She has generalized myalgias and a nonproductive cough as well. The patient denies trauma to the chest, fever, neck pain, parasthesias, dyspnea, cough, hemoptysis , palpitations, dizziness, syncope, unilateral leg swelling, calf muscle pain. Patient also denies cocaine or other stimulant use, history of DVT or PE, recent immobilization, or recent history of cancer. ED Past Medical Hx - Past Medical History Previous Medical History?: Yes Hx Hypertension: Yes Hx Congestive Heart Failure: Yes Hx Diabetes: No Hx Arthritis: Yes Hx Asthma: Yes Hx COPD: Yes Hx HIV: No Additional medical history: Sepsis 2013--[place], history shingles with chronic postherpetic neurologist. Bleeding peptic ulcers requiring blood transfusion - Surgical History Past Surgical History?: Yes Additional Surgical History: Skin Grafts placed after acid quiroga (placed 09/2015) - Social History Smoking Status: Never Smoker Substance Use Type: None - Medications Home Medications: Home Medications Medication Instructions Recorded Confirmed Last Taken Type Arformoterol Nebu [Brovana Nebu] 15 mcg IH Q12HRT #60 neb 03/22/17 Unknown Rx Budesonide [Pulmicort Respules] 0.5 mg IH Q12HRT #60 nebu 03/22/17 Unknown Rx Famotidine [Pepcid] 20 mg PO BID #60 tablet 03/22/17 Unknown Rx Gabapentin [Neurontin] 100 mg PO Q8HR #90 capsule 03/22/17 Unknown Rx Haloperidol [Haldol] 2 mg PO Q8H PRN #90 tablet 03/22/17 Unknown Rx Ipratropium/Albuterol Sulfate 1 ampul IH Q6HRT #180 ampul.neb 03/22/17 Unknown Rx [DUONEB *Not for PRN Use*] Levofloxacin [Levaquin] 750 mg PO QDAY #5 tablet 03/22/17 Unknown Rx Nicotine [Habitrol] 14 mg TD QDAY #30 patch 03/22/17 Unknown Rx Prednisone [predniSONE 5 mg (6-Day 5 mg PO .TAPER #1 tab.ds.pk 03/22/17 Unknown Rx Pack, 21 Tabs)] traMADol [Ultram 50 MG tab] 100 mg PO Q8H PRN #20 tablet 03/22/17 Unknown Rx Acetaminophen [Tylenol Arthritis] 650 mg PO Q6HR PRN #30 tablet.er 03/25/17 Unknown Rx Albuterol Sulfate [Proair 90 mcg IH Q4HR PRN #2 aer.pow.ba 03/25/17 Unknown Rx Respiclick] Dicyclomine [Bentyl] 10 mg PO QID PRN #20 capsule 03/25/17 Unknown Rx ALBUTEROL Inhaler [ProAir HFA 2 puff IH QID PRN #1 inhalation 03/27/17 Unknown Rx Inhaler] Acetaminophen [Tylenol Arthritis] 650 mg PO Q8H PRN #30 tablet.er 03/27/17 Unknown Rx predniSONE [Deltasone] 40 mg PO QDAY #5 tab 03/27/17 Unknown Rx Benzonatate [Tessalon Perles] 100 mg PO Q8HR #14 capsule 04/03/17 Unknown Rx Phenylephrine/Dm/Acetaminop/GG 20 ml PO Q4HR PRN #180 liquid 04/03/17 Unknown Rx [Mucinex Uzgb-Umg-Haunaogaej Lq] traMADol [Ultram 50 MG tab] 50 mg PO Q6HR PRN #15 tablet 04/03/17 Unknown Rx ED Review of Systems ROS: Stated complaint: CHEST PAIN Other details as noted in HPI Constitutional: denies: fever ENT: denies: throat or neck pain Respiratory: reports cough Cardiovascular: reports: chest pain Endocrine: denies unexplained weight loss or gain Gastrointestinal: denies: abdominal pain, nausea Genitourinary: denies: dysuria Musculoskeletal: denies: leg swelling Skin: denies: rash Neurological: denies: headache Hematological/Lymphatic: denies: easy bleeding or easy bruising Psych: denies sadness or hopelessness Physical Exam - Physical Exam Vital Signs: Vital Signs 04/02/17 04/02/17 04/03/17 17:33 17:50 07:27 Temperature 98.5 F Pulse Rate 107 H 84 Respiratory 18 18 22 Rate Blood Pressure 89/62 Blood Pressure 112/63 [Left] O2 Sat by Pulse 100 Oximetry Physical Exam: General: well-nourished, well-developed, no acute distress Head: Normocephalic, atraumatic Eyes: normal sclera ENT: Mucous membranes are pink and moist Neck: trachea midline, neck supple, No neck stiffness, no cervical adenopathy Respiratory: Breath sounds equal bilaterally, no wheezing, rales, or rhonchi Cardio: S1 and S2 present, no murmurs, rubs, gallops, capillary refill is brisk Abdomen: Normoactive bowel sounds, soft abdomen, no rigidity, no guarding or rebound tenderness Chest WALL/Back: No tenderness to palpation of the chest wall, no CVA tenderness with percussion Musc: No pitting edema Skin: No rash Neuro: no facial drooping, normal speech Psych: Normal affect ED Course Vital Signs 04/02/17 04/02/17 04/03/17 17:33 17:50 07:27 Temperature 98.5 F Pulse Rate 107 H 84 Respiratory 18 18 22 Rate Blood Pressure 89/62 Blood Pressure 112/63 [Left] O2 Sat by Pulse 100 Oximetry ED Medical Decision Making - Lab Data Result diagrams: 04/02/17 17:55 04/02/17 17:55 - Medical Decision Making The patient was seen and examined by myself. The patient is placed on a school bus monitor and continuous pulse ox. On initial evaluation, the patient was found to be in no distress. EKG was negative for findings suggestive of acute cardiac infarct. Labs and imaging are obtained. Chest x-ray is negative for pneumothorax, focal consolidation, pulmonary vascular congestion, pleural effusion, or other obvious acute cardiopulmonary disease process. Lab results were non-concerning including levels of troponin, WBC, hemoglobin, hematocrit, electrolytes, renal function. The patient was reevaluated and reported that their symptoms were markedly improved. As the patient has a ROBBY risk score less than 2, and a well's score less than 2, the patient is at low risk of ACS or pulmonary emboli etiology of their symptoms. The patient is stable for discharge with outpatient follow-up. The patient is given follow-up and return instructions. The patient expressed understanding and agreed with the plan. The patient is discharged in stable condition. Critical care attestation.: If time is entered above; I have spent that time in minutes in the direct care of this critically ill patient, excluding procedure time. ED Disposition Clinical Impression: Acute chest pain, Upper respiratory infection, acute, Myalgia Disposition: DC- TO HOME OR SELFCARE Is pt being admited?: No Does the pt Need Aspirin: No Condition: Stable Instructions: Chest Pain (ED), Upper Respiratory Infection (ED) Referrals: MIKEY NOVA MD [Primary Care Provider] - 3-5 Days Time of Disposition: 11:14
--- NOTE | 2017-04-03 11:59 | XRay Report ---
PORTABLE CHEST: Pain. An AP portable view of the chest demonstrates a normal cardiac contour considering the limits of this technique. The lungs are clear with no evidence of infiltrate, fluid or failure. IMPRESSION: Normal portable chest.
== END 2017-04-03 13:06 | disposition home or self-care (01) ==
LOC: ED 16:51
DX: R07.9 Chest pain, unspecified (principal); Z53.21 Procedure and treatment not carried out due to patient leaving prior to being seen by health care provider
CPT/HCPCS: 36415; 71045; 80048; 84484; 85007; 85025; 93005; 93010; J1885

== ENCOUNTER 2017-07-12 11:52 | Emergency (ER) | payer MEDICAID ==
[2017-07-12] MEDS ORDERED: TYLENOL PO ONE (12:39)
[2017-07-12] MEDS ORDERED: VIBRAMYCIN PO ONE (12:39)
[2017-07-12] MEDS ORDERED: CLEOCIN PO ONE (12:39)
[2017-07-12] MEDS ORDERED: NACL 0.9% 1000 ML 1,000 ML IV ONE (14:36)
--- NOTE | 2017-07-12 14:41 | Emergency Department Report ---
HPI - General Chief Complaint: Dyspnea/Respdistress Time Seen by Provider: 07/12/17 12:07 ED Past Medical Hx - Past Medical History Previous Medical History?: Yes Hx Hypertension: Yes Hx Congestive Heart Failure: Yes Hx Diabetes: No Hx Arthritis: Yes Hx Asthma: Yes Hx COPD: Yes Hx HIV: No Additional medical history: Sepsis 2013--[place], history shingles with chronic postherpetic neurologist. Bleeding peptic ulcers requiring blood transfusion - Surgical History Past Surgical History?: Yes Additional Surgical History: Skin Grafts placed after acid quiroga (placed 09/2015) - Social History Smoking Status: Current Every Day Smoker Substance Use Type: Alcohol, Prescribed - Medications Home Medications: Home Medications Medication Instructions Recorded Confirmed Last Taken Type Acetaminophen [Tylenol Arthritis] 650 mg PO Q6HR PRN #30 tablet.er 03/25/1707/12/17 Rx ALBUTEROL Inhaler [ProAir HFA 2 puff IH QID PRN #1 inhalation 05/09/17 07/12/17 07/12/17 Rx Inhaler] Acetaminophen [Tylenol] 1,000 mg PO Q6HR #20 tablet 07/12/17 Unknown Rx Clindamycin [Clindamycin CAP] 450 mg PO TID 10 Days #45 cap 07/12/17 Unknown Rx Doxycycline Hyclate [Doxycycline 100 mg PO Q12HR #20 tab 07/12/17 Unknown Rx Hyclate TAB] Doxycycline [Vibramycin] 100 mg PO Q12HR 07/12/17 07/12/17 07/12/17 History Omeprazole 40 mg PO DAILY 07/12/17 07/12/17 07/12/17 History ED Review of Systems ROS: Stated complaint: ORALIA/ LT HAND LAC Other details as noted in HPI Constitutional: denies: fever ENT: denies: throat or neck pain Respiratory: denies: cough, shortness of breath Cardiovascular: denies: chest pain Endocrine: denies unexplained weight loss or gain Gastrointestinal: denies: abdominal pain, nausea Genitourinary: denies: dysuria Musculoskeletal: reports left hand pain denies: leg swelling Skin: denies: rash Neurological: denies: headache Hematological/Lymphatic: denies: easy bleeding or easy bruising Psych: denies sadness or hopelessness Physical Exam - Physical Exam Vital Signs: Vital Signs 07/12/17 07/12/17 07/12/17 11:57 12:09 12:45 Temperature 98.5 F Pulse Rate 110 H Respiratory 24 24 22 Rate Blood Pressure 119/73 O2 Sat by Pulse 99 100 Oximetry 07/12/17 07/12/17 07/12/17 13:19 13:31 13:45 Temperature Pulse Rate 99 H 97 H 104 H Respiratory 14 16 18 Rate Blood Pressure 113/64 113/64 O2 Sat by Pulse 100 100 100 Oximetry 07/12/17 07/12/17 14:00 14:17 Temperature Pulse Rate 98 H Respiratory 23 Rate Blood Pressure 123/67 123/67 O2 Sat by Pulse 100 Oximetry Physical Exam: General: well-nourished, well-developed, no acute distress Head: Normocephalic, atraumatic Eyes: normal sclera ENT: Mucous membranes are pink and moist Neck: trachea midline, neck supple, No neck stiffness, no cervical adenopathy Respiratory: Breath sounds equal bilaterally, no wheezing, rales, or rhonchi Cardio: S1 and S2 present, no murmurs, rubs, gallops, capillary refill is brisk Abdomen: Normoactive bowel sounds, soft abdomen, no rigidity, no guarding or rebound tenderness Musc: Mild redness and swelling of the dorsal aspect of the left hand is present , no purulent drainage or discharge, sensation, motor function intact in the fingers of the left hand, no swelling of the fingers, capillary refill is brisk Skin: No rash Neuro: no facial drooping, normal speech Psych: Normal affect ED Course Vital Signs 07/12/17 07/12/17 07/12/17 11:57 12:09 12:45 Temperature 98.5 F Pulse Rate 110 H Respiratory 24 24 22 Rate Blood Pressure 119/73 O2 Sat by Pulse 99 100 Oximetry 07/12/17 07/12/17 07/12/17 13:19 13:31 13:45 Temperature Pulse Rate 99 H 97 H 104 H Respiratory 14 16 18 Rate Blood Pressure 113/64 113/64 O2 Sat by Pulse 100 100 100 Oximetry 07/12/17 07/12/17 14:00 14:17 Temperature Pulse Rate 98 H Respiratory 23 Rate Blood Pressure 123/67 123/67 O2 Sat by Pulse 100 Oximetry ED Medical Decision Making - Lab Data Result diagrams: 07/12/17 15:01 07/12/17 15:01 - Medical Decision Making The patient was seen and examined by myself. The patient is placed on a teletypesetter monitor and continuous pulse ox. On initial evaluation, the patient was found to be in no distress. Evaluation orders were placed. Labs and imaging are ordered. The patient is given a Tylenol tablet for treatment of her pain. The patient requests narcotic pain medicine. She is informed that her condition does not warrant narcotic analgesia for treatment of her pain, and additionally that I'm concerned about depressing her respiratory drive as she has severe respiratory disease and poor pulmonary functioning and is currently on 3L O2 to maintain normal oxygen saturation. She states that the physicians at [facility] give her morphine and Dilaudid and that those narcotics are the only medications that will address her pain. Medical records were obtained from [facility]. Medical records revealed that the patient's hand fracture occurred 2 weeks ago and was evaluated and treated at [facility]. Also revealed that the patient was admitted to the [place] medical team at [facility] 3 days ago for treatment of her hand cellulitis. She received an incision and drainage by plastic surgery and wound cultures were negative at time of discharge yesterday. The [place] [facility] and surgical [facility] at [facility] reported significant improvement in the patient's cellulitis from time of discharge yesterday, and that the patient is stable for outpatient treatment as she was negative for abscess, wound culture growth, blood culture growth, and signs of deep hand space infection. The patient was discharged with a prescription for doxycycline and instructions to follow-up with [place] plastic surgery service outpatient. The patient's hospital course also noted that she repeatedly demanded narcotic pain medicine and was FOUND yelling loudly and rudely at staff repeatedly. She also refused to allow repeat exams and continuous monitoring when narcotic pain medicine was withheld. GI PHOTOGRAPHIC EQUIPMENT ASSEMBLER search was performed and the patient was found to Be receiving narcotic prescriptions frequently from multiple physicians throughout [place]. The patient was informed of findings from review of her medical record and prescription history. It was reiterated to the patient that unless medically indicated she would not be receive narcotic pain medicine during her ED course. Furthermore, I recommend that future care providers not provide the patient with narcotics unless absolutely warranted and necessary. X-ray of the left hand confirmed left third metacarpal fracture reported in [facility] admission medical record. Labs reveal low hemoglobin, consistent with known history of chronic anemia. The patient was given antibiotics here for treatment of her cellulitis. Dr. Gutierrez, the physician on-call for the hospitalist service was contacted. He agreed to accept care of the patient. Care of the patient was transferred to Dr. Gutierrez Critical care attestation.: If time is entered above; I have spent that time in minutes in the direct care of this critically ill patient, excluding procedure time. ED Disposition Clinical Impression: Cellulitis of left hand excluding fingers and thumb, Dehydration, Narcotic abuse Fracture of third metacarpal bone of left hand Qualifiers: Encounter type: subsequent encounter Fracture type: closed Metacarpal location : unspecified portion of metacarpal Fracture alignment: nondisplaced Fracture healing: with delayed healing Qualified Code(s): S62.303G - Unspecified fracture of third metacarpal bone, left hand, subsequent encounter for fracture with delayed healing Disposition: OP ADMIT IP TO THIS HOSP Is pt being admited?: Yes Does the pt Need Aspirin: Yes (left hand cellulit) Condition: Stable Instructions: Cellulitis (ED) Prescriptions: Acetaminophen [Tylenol] 1,000 mg PO Q6HR #20 tablet Clindamycin [Clindamycin CAP] 450 mg PO TID 10 Days #45 cap Doxycycline Hyclate [Doxycycline Hyclate TAB] 100 mg PO Q12HR #20 tab Referrals: PRIMARY CARE,MD [Primary Care Provider] - 3-5 Days [facility]Outside] - 3-5 Days Time of Disposition: 14:37
[2017-07-12 15:09] LABS: Basophils # (Auto) 0.1 K/mm3 (0.0-0.1); Basophils % (Auto) 0.5 % (0.0-1.8); Eosinophils # (Auto) 0.1 K/mm3 (0.0-0.4); Eosinophils % (Auto) 0.9 % (0.0-4.3); Hemoglobin 7.5 gm/dl (10.1-14.3); Lymphocytes # (Auto) 1.6 K/mm3 (1.2-5.4); Lymphocytes % (Auto) 14.6 % (13.4-35.0); Mean Corpuscular HGB Conc 31 % (30-34); Mean Corpuscular Hemoglobin 25 pg (28-32); Mean Corpuscular Volume 80 fl (79-97); Monocytes # (Auto) 0.7 K/mm3 (0.0-0.8); Monocytes % (Auto) 6.5 % (0.0-7.3); Platelet Count 516 K/mm3 (140-440); Red Blood Count 2.99 M/mm3 (3.65-5.03)
[2017-07-12 15:26] LABS: BUN/Creatinine Ratio 43; Blood Urea Nitrogen 17 mg/dL (7-17); Calcium 8.7 mg/dL (8.4-10.2); Hemolysis Index 1
--- NOTE | 2017-07-12 15:48 | XRay Report ---
FINAL REPORT EXAM: XR HAND 2V LT HISTORY: dorsal left hand pain and swelling TECHNIQUE: AP and lateral of the left hand PRIORS: None. FINDINGS: There is an acute oblique fracture through the midshaft of the 3rd metacarpal. This is not significantly displaced or angulated. There is significant overlying soft tissue swelling especially dorsally at this level. There is no evidence for dislocation. No radiopaque foreign bodies are seen. Bony mineralization is normal and joint spaces are maintained. IMPRESSION: Acute oblique fracture through the midshaft of the 3rd metacarpal which is not significantly displaced.
[2017-07-12] MEDS ORDERED: DILAUDID IM ONE (15:51)
--- NOTE | 2017-07-12 16:11 | Event Note ---
Date: 07/12/17 Patient has open wound on L Hand Was discharged after I and D from [place] Doing well On po abx Clinda +Doxycycilne dilaudid 2 mg po bid x5 days #10 d/C hOME
[2017-07-12 17:14] VITALS: BP 124/67
== END 2017-07-12 17:14 | disposition admitted as inpatient to this hospital (09) ==
LOC: ED 11:52
DX: S62.303 Unspecified fracture of third metacarpal bone, left hand (principal); L03.114 Cellulitis of left upper limb; E86.0 Dehydration; F19.10 Other psychoactive substance abuse, uncomplicated; I10 Essential (primary) hypertension; J44.9 Chronic obstructive pulmonary disease, unspecified; F17.200 Nicotine dependence, unspecified, uncomplicated; Y92.89 Other specified places as the place of occurrence of the external cause
CPT/HCPCS: 36415; 73120; 80048; 85025; 96372; 99285; J1170

== ENCOUNTER 2018-12-10 18:51 | Emergency (ER) | payer MEDICAID, SELFPAY ==
[2018-12-10] MEDS ORDERED: ZOFRAN ODT PO ONE (20:04)
[2018-12-10] MEDS ORDERED: TYLENOL PO ONE (20:04)
--- NOTE | 2018-12-10 20:04 | Emergency Department Report ---
Blank Doc - Documentation Documentation: 58-year-old female that presents with right sided lateral shingles pain and SOB. Also stated has nausea. This initial assessment/diagnostic orders/clinical plan/treatment(s) is/are subject to change based on patient's health status, clinical progression and re- assessment by fellow clinical providers in the ED. Further treatment and workup at subsequent clinical providers discretion. Patient/guardians urged not to elope from the ED as their condition may be serious if not clinically assessed and managed. Initial orders include: 1- Patient sent to MAIN ED for further evaluation and treatment 2- labs 3- EKG 4- CXR
[2018-12-10] MEDS ORDERED: ZOFRAN ODT ONE (20:08)
[2018-12-10] MEDS ORDERED: TYLENOL ONE (20:08)
[2018-12-10 21:19] LABS: Basophils # (Auto) 0.1 K/mm3 (0.0-0.1); Basophils % (Auto) 0.6 % (0.0-1.8); Eosinophils # (Auto) 0.2 K/mm3 (0.0-0.4); Eosinophils % (Auto) 1.3 % (0.0-4.3); Hematocrit 39.2 % (30.3-42.9); Hemoglobin 12.3 gm/dl (10.1-14.3); Lymphocytes # (Auto) 2.4 K/mm3 (1.2-5.4); Lymphocytes % (Auto) 12.6 % (13.4-35.0); Mean Corpuscular HGB Conc 32 % (30-34); Mean Corpuscular Volume 89 fl (79-97); Monocytes # (Auto) 1.1 K/mm3 (0.0-0.8); Monocytes % (Auto) 5.6 % (0.0-7.3); Platelet Count 374 K/mm3 (140-440); Red Blood Count 4.39 M/mm3 (3.65-5.03); Red Cell Distribution Width 17.4 % (13.2-15.2)
--- NOTE | 2018-12-10 21:26 | XRay Report ---
CHEST 2 VIEWS INDICATION / CLINICAL INFORMATION: Chest Pain. COMPARISON: 05/05/2017 chest FINDINGS: SUPPORT DEVICES: None. HEART / MEDIASTINUM: Stable cardiac mediastinal silhouette. LUNGS / PLEURA: The lungs are clear with normal vascularity. No pleural fluid. No pneumothorax. ADDITIONAL FINDINGS: Diffuse, subjective osteopenia and exaggerated thoracic kyphosis. These are unch anged. Chronic compression fractures in the midthoracic spine are again seen. No acute fracture or ev idence of progression is identified. IMPRESSION: 1. No acute cardiopulmonary abnormality. Signer Name: Juan Griffin MD Signed: 12/10/2018 9:21 PM Workstation Name: [id number]
[2018-12-10 21:34] LABS: INR 0.97 (0.87-1.13)
[2018-12-10 21:35] LABS: Partial Thromboplastin Time 32.6 Sec. (24.2-36.6)
[2018-12-10 21:42] LABS: BUN/Creatinine Ratio 30; Blood Urea Nitrogen 18 mg/dL (7-17); Calcium 9.6 mg/dL (8.4-10.2); Hemolysis Index 4
[2018-12-10 22:47] VITALS: BP 151/90
[2018-12-10] MEDS ORDERED: CLEOCIN 900 MG/50 mL 900 MG/50 ML BAG IV ONE (22:54)
[2018-12-10] MEDS ORDERED: ZOFRAN IV ONE (22:54)
[2018-12-10] MEDS ORDERED: PROVENTIL IH ONE (22:54)
[2018-12-10] MEDS ORDERED: ATROVENT IH ONE (22:54)
[2018-12-10] MEDS ORDERED: MORPHINE IV ONE (22:54)
--- NOTE | 2018-12-10 22:59 | Emergency Department Report ---
ED Abdominal Pain HPI - General Chief Complaint: Dyspnea/Respdistress Stated Complaint: ORALIA Time Seen by Provider: 12/10/18 20:02 Source: patient Mode of arrival: Ambulatory Limitations: No Limitations - History of Present Illness Initial Comments: Patient is 58 years old female with history of COPD and congestive heart failure. Patient presented to the ER complaining of shortness of breath and abdominal pain for the last few days. Patient stated that she has in her back which is causing a lot of pain also. Patient denied any fever or chills. She also denied any nausea or vomiting or diarrhea. MD Complaint: abdominal pain Location: diffuse Radiation: none Migration to: no migration Severity scale (0 -10): 7 Consistency: constant - Related Data Home Medications Medication Instructions Recorded Confirmed Last Taken DOXYCYCLINE Hyclate [Vibramycin] 100 mg PO Q12HR 07/12/17 07/12/17 07/12/17 Omeprazole 40 mg PO DAILY 07/12/17 07/12/17 07/12/17 Previous Rx's Medication Instructions Recorded Last Taken Type Acetaminophen [Tylenol Arthritis] 650 mg PO Q6HR PRN #30 tablet.er 03/25/17 07/12/17 Rx ALBUTEROL Inhaler (OR & NICU) 2 puff IH QID PRN #1 inhalation 05/09/17 07/12/17 Rx [ProAir HFA Inhaler] Acetaminophen [Tylenol] 1,000 mg PO Q6HR #20 tablet 07/12/17 Unknown Rx Clindamycin [Clindamycin CAP] 450 mg PO TID 10 Days #45 cap 07/12/17 Unknown Rx Doxycycline Hyclate [Doxycycline 100 mg PO Q12HR #20 tab 07/12/17 Unknown Rx Hyclate TAB] Allergies Allergy/AdvReac Type Severity Reaction Status Date / Time Penicillins Allergy Unknown Verified 03/26/17 18:57 ED Review of Systems ROS: Stated complaint: ORALIA Other details as noted in HPI Comment: All other systems reviewed and negative Constitutional: denies: chills, fever, malaise, weakness Respiratory: cough, orthopnea, shortness of breath, SOB with exertion, SOB at rest, wheezing Cardiovascular: denies: chest pain, palpitations Gastrointestinal: abdominal pain. denies: nausea, vomiting, diarrhea, constipation, hematemesis, melena, hematochezia Musculoskeletal: back pain Skin: lesions ED Past Medical Hx - Past Medical History Previous Medical History?: Yes Hx Hypertension: Yes Hx Congestive Heart Failure: Yes Hx Diabetes: No Hx Arthritis: Yes Hx Asthma: Yes Hx COPD: Yes Hx HIV: No Additional medical history: Sepsis 2013--[place], history shingles with chronic postherpetic neurologist. Bleeding peptic ulcers requiring blood transfusion - Surgical History Past Surgical History?: Yes Additional Surgical History: Skin Grafts placed after acid quiroga (placed 09/2015) - Social History Smoking Status: Current Every Day Smoker Substance Use Type: None - Medications Home Medications: Home Medications Medication Instructions Recorded Confirmed Last Taken Type Acetaminophen [Tylenol Arthritis] 650 mg PO Q6HR PRN #30 tablet.er 03/25/17 07/12/17 07/12/17 Rx ALBUTEROL Inhaler (OR & NICU) 2 puff IH QID PRN #1 inhalation 05/09/17 07/12/17 07/12/17 Rx [ProAir HFA Inhaler] Acetaminophen [Tylenol] 1,000 mg PO Q6HR #20 tablet 07/12/17 Unknown Rx Clindamycin [Clindamycin CAP] 450 mg PO TID 10 Days #45 cap 07/12/17 Unknown Rx DOXYCYCLINE Hyclate [Vibramycin] 100 mg PO Q12HR 07/12/17 07/12/17 07/12/17 History Doxycycline Hyclate [Doxycycline 100 mg PO Q12HR #20 tab 07/12/17 Unknown Rx Hyclate TAB] Omeprazole 40 mg PO DAILY 07/12/17 07/12/17 07/12/17 History ED Physical Exam - General Limitations: No Limitations General appearance: alert, in no apparent distress - Head Head exam: Present: atraumatic, normocephalic, normal inspection - Eye Eye exam: Present: normal appearance, PERRL - ENT ENT exam: Present: normal exam, normal orophraynx, mucous membranes moist - Neck Neck exam: Present: normal inspection, full ROM. Absent: tenderness, meningismus, lymphadenopathy, thyromegaly - Respiratory Respiratory exam: Present: normal lung sounds bilaterally - Cardiovascular Cardiovascular Exam: Present: regular rate, normal rhythm, normal heart sounds - GI/Abdominal GI/Abdominal exam: Present: soft, normal bowel sounds. Absent: distended, tenderness, guarding, rebound, rigid, organomegaly, mass, bruit, pulsatile mass, hernia - Extremities Exam Extremities exam: Present: normal inspection, full ROM, normal capillary refill. Absent: pedal edema, calf tenderness - Back Exam Back exam: Present: full ROM. Absent: CVA tenderness (R), CVA tenderness (L), muscle spasm - Skin Skin exam: Present: other (4 cm 4 cm lesion to the right side of the back with erythema and cellulitis.) ED Course Vital Signs 12/10/18 12/10/18 12/10/18 19:54 20:03 22:45 Temperature 97.5 F L 98 F 98 F Pulse Rate 97 H 102 H 95 H Pulse Rate [ Throughout] Respiratory 20 20 22 Rate Respiratory Rate [ Throughout] Blood Pressure 128/90 128/90 Blood Pressure 151/90 [Left] O2 Sat by Pulse 99 100 97 Oximetry 12/10/18 12/10/18 23:08 23:32 Temperature Pulse Rate Pulse Rate [ 83 Throughout] Respiratory Rate Respiratory 20 Rate [ Throughout] Blood Pressure Blood Pressure [Left] O2 Sat by Pulse 95 Oximetry ED Medical Decision Making - Lab Data Result diagrams: 12/10/18 21:01 12/10/18 21:01 Critical care attestation.: If time is entered above; I have spent that time in minutes in the direct care of this critically ill patient, excluding procedure time. ED Disposition Clinical Impression: COPD exacerbation, Abdominal pain Disposition: - TO HOME OR SELFCARE Is pt being admited?: No Condition: Stable Instructions: Chronic Bronchitis (ED), Abdominal Pain (ED) Referrals: CARL TYSON MD [Primary Care Provider] - 3-5 Days
[2018-12-10] MEDS ORDERED: ATIVAN IV ONE (23:28)
--- NOTE | 2018-12-11 02:08 | Cat Scan Report ---
CT ABDOMEN AND PELVIS WITH CONTRAST INDICATION: Generalized abdominal pain, duration 2 days CONTRAST: 100 cc Omnipaque 300 IV COMPARISON: 03/25/[address] scans at this location are performed using CT dose reduction for ALARA by means of automated e xposure control. FINDINGS: Lung bases are clear of infiltrates. Mild chronic changes are seen. A 2 mm nodule in the po sterior right lower lobe was not clearly seen on prior study. No pneumoperitoneum is seen. Multiple tiny cysts are again seen throughout the liver. Spleen appears within normal limits. Gallbladder shows no significant abnormalities. No biliary dilatation is seen. Borderline prominence of the pancreatic duct is stable. No pancreatic lesions are seen. Bilateral adrenal hypodense lesions are again seen, 2 adjacent lesions on the left and one on the rig ht. Larger of the 2 on the left has increased in size from diameter of 2.6 cm to a diameter of 3 cm t linda. The smaller the 2 is not significantly changed. The right hypodense lesion appears mildly incre ased in size with transverse diameter previously 11 mm and today transverse diameter is 13 mm. Jewel Hole Finish Opener al density of these ranges from 38-45 Hounsfield units on this contrasted study with mild in homogene ity seen. General appearance is similar to prior examination. No other masses are seen. No lymphadenopathy is noted. No free fluid is seen. Left hip surgical bhardwaj es causes some artifact in the pelvis. Appendix appears within normal limits. No inflammatory changes are seen. No evidence of bowel obstruction is noted. No urinary obstructive changes are seen. Tiny r enal cysts are again seen. IMPRESSION: 1. No acute abnormalities are seen 2. Mild increase in prominence of bilateral adrenal hypodense lesions. These are considered indetermi genaro though may be adenomata. If these have not clearly been shown to be benign in the past further n onurgent evaluation is suggested. Signer Name: Bjorn Maharaj MD Signed: 12/11/2018 2:04 AM Workstation Name: [id number]
== END 2018-12-11 05:10 | disposition home or self-care (01) ==
LOC: ED 18:51
DX: J44.1 Chronic obstructive pulmonary disease with (acute) exacerbation (principal); R10.84 Generalized abdominal pain; I11.0 Hypertensive heart disease with heart failure; I50.9 Heart failure, unspecified; M19.90 Unspecified osteoarthritis, unspecified site; F17.200 Nicotine dependence, unspecified, uncomplicated; Z88.0 Allergy status to penicillin; Z79.899 Other long term (current) drug therapy
CPT/HCPCS: 36415; 71046; 74177; 80048; 84484; 85025; 85610; 85730; 93005; 93010; 94640; 96365; 96375; 99285; J2060; J2270; J2405; Q9967; 94644; Q0162

== ENCOUNTER 2018-12-25 10:49 | Emergency (ER) | payer MEDICAID ==
[2018-12-25] MEDS ORDERED: MORPHINE 2 MG/1 ML INJ IV ONE (11:22)
[2018-12-25] MEDS ORDERED: ONDANSETRON 4 MG/2 ML INJ IV ONE (11:22)
[2018-12-25] MEDS ORDERED: diphenhydrAMINE 50 MG/ML VIAL IV ONE (11:22)
[2018-12-25] MEDS ORDERED: SODIUM CHLORIDE 0.9% 1000 ML 1,000 ML IV ONE (11:23)
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
[2018-12-25] MEDS ORDERED: TETANUS,DIPHTHERIA TOXOID ADULT 0.5 ML INJ IM ONE (11:34)
[2018-12-25] MEDS ORDERED: IPRATROPIUM/ALBUTEROL SULFATE 3 ML AMPUL.NEB IH ONE ×3 (11:38→16:05)
[2018-12-25] MEDS ORDERED: cefTRIAXone/NS 1 GM/50 ML 1 GM/50 ML BAG IV ONE (11:39)
[2018-12-25 12:04] LABS: Basophils # (Auto) 0.1 K/mm3 (0.0-0.1); Basophils % (Auto) 0.7 % (0.0-1.8); Eosinophils # (Auto) 0.1 K/mm3 (0.0-0.4); Eosinophils % (Auto) 1.2 % (0.0-4.3); Hematocrit 36.1 % (30.3-42.9); Hemoglobin 11.4 gm/dl (10.1-14.3); Lymphocytes # (Auto) 1.3 K/mm3 (1.2-5.4); Lymphocytes % (Auto) 10.8 % (13.4-35.0); Mean Corpuscular HGB Conc 32 % (30-34); Mean Corpuscular Volume 89 fl (79-97); Monocytes # (Auto) 0.5 K/mm3 (0.0-0.8); Monocytes % (Auto) 4.1 % (0.0-7.3); Platelet Count 406 K/mm3 (140-440); Red Blood Count 4.04 M/mm3 (3.65-5.03); Red Cell Distribution Width 16.3 % (13.2-15.2)
[2018-12-25 12:14] LABS: INR 0.97 (0.87-1.13)
[2018-12-25 12:15] LABS: Partial Thromboplastin Time 28.6 Sec. (24.2-36.6)
[2018-12-25] MEDS ORDERED: TETANUS,DIPH,PERTUSS(ACELL) VACCINE 0.5 ML SYRINGE IM ONE (12:15)
--- NOTE | 2018-12-25 12:21 | XRay Report ---
CHEST 1 VIEW INDICATION / CLINICAL INFORMATION: Fever and cough. COMPARISON: 12/20/2018 FINDINGS: SUPPORT DEVICES: None. HEART / MEDIASTINUM: No significant abnormality. LUNGS / PLEURA: No significant pulmonary or pleural abnormality.. No pneumothorax. ADDITIONAL FINDINGS: No significant additional findings. IMPRESSION: 1. No acute findings. Signer Name: Kapil Miranda MD Signed: 12/25/2018 12:17 PM Workstation Name: [id number]
[2018-12-25 12:32] LABS: BUN/Creatinine Ratio 43; Blood Urea Nitrogen 17 mg/dL (7-17); Calcium 9.2 mg/dL (8.4-10.2); Creatine Kinase MB 5.2 ng/mL (0.0-4.0); Hemolysis Index 40
[2018-12-25] MEDS ORDERED: HYDROcodone/ACETAMINOPHEN 5-325 MG TAB ONE (12:43)
[2018-12-25] MEDS ORDERED: HYDROcodone/ACETAMINOPHEN 5-325 MG TAB PO ONE (12:48)
[2018-12-25 13:22] LABS: Alanine Aminotransferase 51 units/L (7-56); Albumin 4.1 g/dL (3.9-5)
[2018-12-25 13:30] LABS: Bilirubin,Direct 0.2 mg/dL (0-0.2)
[2018-12-25 19:49] VITALS: BP 146/78
[2018-12-25] MEDS ORDERED: ALBUTEROL 2.5 MG/3 ML NEBU IH ONE ×2 (20:15→20:16)
== END 2018-12-25 20:57 | disposition home or self-care (01) ==
LOC: ED 10:49
DX: L03.312 Cellulitis of back [any part except buttock and flank] (principal); B02.29 Other postherpetic nervous system involvement; J44.9 Chronic obstructive pulmonary disease, unspecified; I11.0 Hypertensive heart disease with heart failure; I50.9 Heart failure, unspecified; M19.90 Unspecified osteoarthritis, unspecified site; A41.9 Sepsis, unspecified organism; F17.200 Nicotine dependence, unspecified, uncomplicated; Z87.19 Personal history of other diseases of the digestive system; Z96.642 Presence of left artificial hip joint; Z99.81 Dependence on supplemental oxygen; Z79.899 Other long term (current) drug therapy; Z88.0 Allergy status to penicillin
CPT/HCPCS: 36415; 71045; 80048; 80076; 82140; 82550; 82553; 83735; 83880; 84484; 85025; 85610; 85730; 87040; 90471; 90715; 94640; 96365; 96375; 99284; J0696; J1200; J2270; J2405; J7030; 94644

== ENCOUNTER 2019-01-10 07:53 | Inpatient (IN) | payer MEDICAID ==
[2019-01-10] MEDS ORDERED: DECADRON IV ONE (08:21)
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
[2019-01-10] MEDS ORDERED: IBUPROFEN PO ONE (08:56)
[2019-01-10 09:05] LABS: Basophils # (Auto) 0.1 K/mm3 (0.0-0.1); Basophils % (Auto) 0.5 % (0.0-1.8); Eosinophils # (Auto) 0.1 K/mm3 (0.0-0.4); Eosinophils % (Auto) 1.1 % (0.0-4.3); Hemoglobin 11.1 gm/dl (10.1-14.3); Lymphocytes # (Auto) 1.3 K/mm3 (1.2-5.4); Lymphocytes % (Auto) 10.5 % (13.4-35.0); Mean Corpuscular HGB Conc 32 % (30-34); Mean Corpuscular Volume 92 fl (79-97); Monocytes # (Auto) 0.8 K/mm3 (0.0-0.8); Monocytes % (Auto) 6.3 % (0.0-7.3); Platelet Count 259 K/mm3 (140-440); Red Cell Distribution Width 14.9 % (13.2-15.2)
--- NOTE | 2019-01-10 09:06 | XRay Report ---
CHEST 2 VIEWS INDICATION / CLINICAL INFORMATION: shortness of breath. COMPARISON: 12/25/18 FINDINGS: SUPPORT DEVICES: None. HEART / MEDIASTINUM: Heart is mildly enlarged but stable. LUNGS / PLEURA: Mild interstitial prominence appears chronic. Lungs are slightly hyperinflated. No pn eumothorax. ADDITIONAL FINDINGS: Anterior wedging of several midthoracic vertebral bodies is unchanged. IMPRESSION: 1. Mild, chronic interstitial prominence with slightly hyperinflated lungs. No acute airspace disease . Signer Name: Carmen Aj MD Signed: 01/10/2019 9:01 AM Workstation Name: [id number]
[2019-01-10] MEDS ORDERED: DUONEB *Not for PRN Use IH ONE ×2 (09:15→09:18)
[2019-01-10 09:59] LABS: Albumin 3.4 g/dL (3.9-5); BUN/Creatinine Ratio 38; Blood Urea Nitrogen 19 mg/dL (7-17); Calcium 8.6 mg/dL (8.4-10.2); Hemolysis Index 94
[2019-01-10 10:11] LABS: Alanine Aminotransferase 11 units/L (7-56)
[2019-01-10] MEDS ORDERED: KIONEX PO ONE (13:40)
[2019-01-10] MEDS ORDERED: DUONEB *Not for PRN Use IH SCH (14:00)
[2019-01-10] MEDS ORDERED: KIONEX ONE (16:51)
[2019-01-10] MEDS ORDERED: MORPHINE IV PRN (18:31)
[2019-01-10] MEDS ORDERED: TYLENOL PO PRN (21:39)
[2019-01-10] MEDS ORDERED: ZOFRAN IV PRN (21:39)
[2019-01-10] MEDS ORDERED: SODIUM CHLORIDE FLUSH SYRINGE 10 ML IV PRN (21:39)
[2019-01-10] MEDS ORDERED: PROVENTIL IH PRN (21:40)
[2019-01-10] MEDS ORDERED: CALCIUM GLUCONATE 2,000 MG in NACL 0.9% 100 ML IV ONE (21:42)
[2019-01-10] MEDS: SOLU-Medrol IV SCH (22:42)
[2019-01-10] MEDS: PEPCID IV SCH (22:42)
[2019-01-10] MEDS: PERCOCET 5/325 PO PRN (22:43)
[2019-01-10] MEDS: LEVAQUIN 750MG/150ML 750 MG/150 ML BAG IV SCH (22:45)
[2019-01-10] MEDS: SODIUM CHLORIDE FLUSH SYRINGE 10 ML IV SCH (22:49)
[2019-01-11 06:31] LABS: Hematocrit 33.9 % (30.3-42.9); Hemoglobin 10.9 gm/dl (10.1-14.3); Mean Corpuscular HGB Conc 32 % (30-34); Mean Corpuscular Volume 90 fl (79-97); Platelet Count 296 K/mm3 (140-440); Red Blood Count 3.78 M/mm3 (3.65-5.03); Red Cell Distribution Width 14.5 % (13.2-15.2)
--- NOTE | 2019-01-11 06:45 | Event Note ---
Date: 01/10/19 See H/p in reports Acute resp failure with [employer] CHF
[2019-01-11] MEDS ORDERED: PROAIR IH PRN (06:51)
[2019-01-11] MEDS ORDERED: ULTRAM PO PRN (06:51)
[2019-01-11] MEDS: PERCOCET 5/325 PO PRN (06:52)
[2019-01-11 06:53] LABS: Alanine Aminotransferase 11 units/L (7-56); Albumin 4.1 g/dL (3.9-5); BUN/Creatinine Ratio 52; Blood Urea Nitrogen 26 mg/dL (7-17); Calcium 8.9 mg/dL (8.4-10.2); Hemolysis Index 4
[2019-01-11] MEDS: SOLU-Medrol IV SCH ×3 (06:53→18:14)
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
[2019-01-11 09:09] LABS: Band Neutrophils # (Manual) 0.1 K/mm3; Basophils % (Manual) 0 % (0.0-1.8); Eosinophils % (Manual) 0 % (0.0-4.3); Monocytes % (Manual) 0 % (0.0-7.3); Platelet Estimate Consistent w Auto; Stomatocytes 1+; Total Cells Counted 100
[2019-01-11] MEDS: NORVASC PO SCH (10:36)
[2019-01-11] MEDS: PEPCID IV SCH ×2 (10:38→23:08)
[2019-01-11] MEDS: SODIUM CHLORIDE FLUSH SYRINGE 10 ML IV SCH ×2 (10:38→23:08)
[2019-01-11] MEDS: DUONEB *Not for PRN Use IH SCH ×4 (10:46→22:04)
--- NOTE | 2019-01-11 11:29 | Progress Note ---
Assessment and Plan Assessment and plan: Patient is a 57 yo woman with a history of HTN, Diastolic CHF, COPD, Chronic Respiratory Failure on Home Oxygen, OA, PVD, Malnutrition, Post Herpetic Neuralgia. Pt states that she is currently homeless and has been living in a tent for the past 3 days without her oxygen or any of her medications. (1) Sepsis Current Visit: Yes Status: Acute Qualifiers: Sepsis type: sepsis due to unspecified organism Qualified Code(s): A41.9 - Sepsis, unspecified organism Plan to address problem: IV abx, ivf resuscitation, monitor uop q shift, serial lactic acid, Chest X ray, urinalysis, blood cultures (2) COPD exacerbation Current Visit: No Status: Acute Plan to address problem: supplemental oxygen, nebulizer therapy, IV abx, hold IV steroid for 24 hours, reassess in AM (3) Acute and chronic respiratory failure Current Visit: No Status: Acute Qualifiers: Respiratory failure complication: hypoxia and hypercapnia Qualified Code(s): J96.21 - Acute and chronic respiratory failure with hypoxia; J96.22 - Acute and chronic respiratory failure with hypercapnia; J96.22 - Acute and chronic respiratory failure with hypercapnia; J96.22 - Acute and chronic respiratory failure with hypercapnia Plan to address problem: supplemental oxygen, nebs, aspiration precautions, pulse oximetry, NIPPV as clinically indicated (4) Nicotine dependence Current Visit: Yes Status: Acute Qualifiers: Substance use status: in withdrawal Plan to address problem: Supportive care, patient counseled, (5) CHF (congestive heart failure) Current Visit: Yes Status: Suspected Qualifiers: Congestive heart failure type: diastolic Congestive heart failure chronicity: chronic diastolic, not Acute Plan to address problem: Fluid restriction, afterload reduction, monitor uop q shift, BNP, Chest x ray,continue medical management. (6) HTN (hypertension) Current Visit: No Status: Chronic Qualifiers: Hypertension type: essential hypertension Qualified Code(s): I10 - Essential (primary) hypertension Plan to address problem: Monitor bp q shift, continue medical management. (7) DVT prophylaxis Current Visit: No Status: Acute main issue is copd and post herpetic neuralgia and anxiety History Interval history: Patient was seen and examined. Follow-up on current diagnosis of COPD. No overnight events reported to me. Patient denies any chest pain, nausea/vomiting or severe headaches. Imaging, nursing note, chart, labs and old chart reviewed. Discussed with patient. Hospitalist Physical - Physical exam Narrative exam: Gen: ill appearing, thin cachetic, pink puffer appearance, chronic disable appearing, NAD, Awake, Alert, Orientated HEENT: NCAT, EOMI, PERRL, OP Clear Neck: supple, no adenopathy, no thyromegaly, no JVD CVS/Heart: RRR, normal S1S2, pulses present bilaterally Chest/Lungs: diminished bs bilateral, rhonchi bilateral, Symmetrical chest expansion, good air entry bilaterally GI/Abdomen: soft, NTND, good bowel sounds, no guarding or rebound /Bladder: no suprapubic tenderness, no CVA or paraspinal tenderness Extermity/Skin: no c/c/e, no obvious rash, old heal shingle rash right mid back MSK: FROM x 4 Neuro: CN 2-12 grossly intact, no new focal deficits Psych: anxiety - Constitutional Vitals: Temp Pulse Resp BP Pulse Ox 97.2 F L 94 H 20 118/82 93 01/10/19 21:38 01/11/19 10:52 01/11/19 10:52 01/11/19 10:36 01/11/19 10:53 Results - Labs CBC & Chem 7: 01/11/19 05:59 01/11/19 05:59 Labs: Laboratory Last Values WBC 12.2 K/mm3 (4.5-11.0) H 01/11/19 05:59 RBC 3.78 M/mm3 (3.65-5.03) 01/11/19 05:59 Hgb 10.9 gm/dl (10.1-14.3) 01/11/19 05:59 Hct 33.9 % (30.3-42.9) 01/11/19 05:59 MCV 90 fl (79-97) 01/11/19 05:59 MCH 29 pg (28-32) 01/11/19 05:59 MCHC 32 % (30-34) 01/11/19 05:59 RDW 14.5 % (13.2-15.2) 01/11/19 05:59 Plt Count 296 K/mm3 (140-440) 01/11/19 05:59 Lymph % (Auto) 10.5 % (13.4-35.0) L 01/10/19 08:50 [place] % (Auto) 6.3 % (0.0-7.3) 01/10/19 08:50 Eos % (Auto) 1.1 % (0.0-4.3) 01/10/19 08:50 Baso % (Auto) 0.5 % (0.0-1.8) 01/10/19 08:50 Lymph # 1.3 K/mm3 (1.2-5.4) 01/10/19 08:50 [place] # 0.8 K/mm3 (0.0-0.8) 01/10/19 08:50 Eos # 0.1 K/mm3 (0.0-0.4) 01/10/19 08:50 Baso # 0.1 K/mm3 (0.0-0.1) 01/10/19 08:50 Add Manual Diff Complete 01/11/19 05:59 Total Counted 100 01/11/19 05:59 Seg Neutrophils % [employer] 01/11/19 05:59 Seg Neuts % (Manual) 96.0 % (40.0-70.0) H 01/11/19 05:59 Band Neutrophils % 1.0 % 01/11/19 05:59 Lymphocytes % (Manual) 3.0 % (13.4-35.0) L 01/11/19 05:59 Reactive Lymphs % (Man) 0 % 01/11/19 05:59 Monocytes % (Manual) 0 % (0.0-7.3) 01/11/19 05:59 Eosinophils % (Manual) 0 % (0.0-4.3) 01/11/19 05:59 Basophils % (Manual) 0 % (0.0-1.8) 01/11/19 05:59 Metamyelocytes % 0 % 01/11/19 05:59 Myelocytes % 0 % 01/11/19 05:59 Promyelocytes % 0 % 01/11/19 05:59 Blast Cells % 0 % 01/11/19 05:59 Nucleated RBC % Not Reportable 01/11/19 05:59 Seg Neutrophils # 9.9 K/mm3 (1.8-7.7) H 01/10/19 08:50 Seg Neutrophils # Man 11.7 K/mm3 (1.8-7.7) H 01/11/19 05:59 Band Neutrophils # 0.1 K/mm3 01/11/19 05:59 Lymphocytes # (Manual) 0.4 K/mm3 (1.2-5.4) L 01/11/19 05:59 Abs React Lymphs (Man) 0.0 K/mm3 01/11/19 05:59 Monocytes # (Manual) 0.0 K/mm3 (0.0-0.8) 01/11/19 05:59 Eosinophils # (Manual) 0.0 K/mm3 (0.0-0.4) 01/11/19 05:59 Basophils # (Manual) 0.0 K/mm3 (0.0-0.1) 01/11/19 05:59 Metamyelocytes # 0.0 K/mm3 01/11/19 05:59 Myelocytes # 0.0 K/mm3 01/11/19 05:59 Promyelocytes # 0.0 K/mm3 01/11/19 05:59 Blast Cells # 0.0 K/mm3 01/11/19 05:59 WBC Morphology Not Reportable 01/11/19 05:59 Hypersegmented Neuts Not Reportable 01/11/19 05:59 Hyposegmented Neuts Not Reportable 01/11/19 05:59 Hypogranular Neuts Not Reportable 01/11/19 05:59 Smudge Cells Not Reportable 01/11/19 05:59 Toxic Granulation Not Reportable 01/11/19 05:59 Toxic Vacuolation Not Reportable 01/11/19 05:59 Dohle Bodies Not Reportable 01/11/19 05:59 Pelger-Huet Anomaly Not Reportable 01/11/19 05:59 Sanchez Rods Not Reportable 01/11/19 05:59 Platelet Estimate Consistent w auto 01/11/19 05:59 Clumped Platelets Not Reportable 01/11/19 05:59 Plt Clumps, EDTA Not Reportable 01/11/19 05:59 Large Platelets Not Reportable 01/11/19 05:59 Giant Platelets Not Reportable 01/11/19 05:59 Platelet Satelliting Not Reportable 01/11/19 05:59 Plt Morphology Comment Not Reportable 01/11/19 05:59 RBC Morphology Not Reportable 01/11/19 05:59 Dimorphic RBCs Not Reportable 01/11/19 05:59 Polychromasia Not Reportable 01/11/19 05:59 Hypochromasia Not Reportable 01/11/19 05:59 Poikilocytosis Not Reportable 01/11/19 05:59 Anisocytosis Not Reportable 01/11/19 05:59 Microcytosis Few 01/11/19 05:59 Macrocytosis Not Reportable 01/11/19 05:59 Spherocytes Not Reportable 01/11/19 05:59 Pappenheimer Bodies Not Reportable 01/11/19 05:59 Sickle Cells Not Reportable 01/11/19 05:59 Target Cells Not Reportable 01/11/19 05:59 Tear Drop Cells Not Reportable 01/11/19 05:59 Ovalocytes Not Reportable 01/11/19 05:59 Stomatocytes 1+ 01/11/19 05:59 Helmet Cells Not Reportable 01/11/19 05:59 Izquierdo-Hornbeck Bodies Not Reportable 01/11/19 05:59 [place] Rings Not Reportable 01/11/19 05:59 [place] Cells Not Reportable 01/11/19 05:59 Bite Cells Not Reportable 01/11/19 05:59 Crenated Cell Not Reportable 01/11/19 05:59 Elliptocytes Not Reportable 01/11/19 05:59 Acanthocytes (Spur) Not Reportable 01/11/19 05:59 Rouleaux Not Reportable 01/11/19 05:59 Hemoglobin C Crystals Not Reportable 01/11/19 05:59 Schistocytes Not Reportable 01/11/19 05:59 Malaria parasites Not Reportable 01/11/19 05:59 [place] Bodies Not Reportable 01/11/19 05:59 Hem Pathologist Commnt No 01/11/19 05:59 POC ABG pH 7.401 (7.35-7.45) 01/10/19 16:18 POC ABG pCO2 70.0 (35-45) H 01/10/19 16:18 POC ABG pO2 171 (80-105) H 01/10/19 16:18 POC ABG HCO3 43.4 (22-26 mml/L) 01/10/19 16:18 POC ABG Total CO2 46 (23-27mmol/L) 01/10/19 16:18 POC ABG O2 Sat 99 01/10/19 16:18 POC ABG Base Excess 19 ((-2) - (+3)mmol/L) 01/10/19 16:18 FiO2 40 % 01/10/19 16:18 Sodium 138 mmol/L (137-145) 01/11/19 05:59 Potassium 4.4 mmol/L (3.6-5.0) D 01/11/19 05:59 Chloride 91.9 mmol/L (98-107) L 01/11/19 05:59 Carbon Dioxide 35 mmol/L (22-30) H 01/11/19 05:59 Anion Gap 16 mmol/L 01/11/19 05:59 BUN 26 mg/dL (7-17) H 01/11/19 05:59 Creatinine 0.5 mg/dL (0.7-1.2) L 01/11/19 05:59 Estimated GFR > 60 ml/min 01/11/19 05:59 BUN/Creatinine Ratio 52 % 01/11/19 05:59 Glucose 159 mg/dL (65-100) H 01/11/19 05:59 Hemoglobin A1c 5.0 % (4-6) 01/10/19 23:43 Calcium 8.9 mg/dL (8.4-10.2) 01/11/19 05:59 Total Bilirubin 0.40 mg/dL (0.1-1.2) 01/11/19 05:59 AST 12 units/L (5-40) 01/11/19 05:59 ALT 11 units/L (7-56) 01/11/19 05:59 Alkaline Phosphatase 98 units/L (35-129) 01/11/19 05:59 Troponin T < 0.010 ng/mL (0.00-0.029) 01/10/19 08:50 NT-Pro-B Natriuret Pep 87.13 pg/mL (0-900) 01/10/19 23:43 Total Protein 6.8 g/dL (6.3-8.2) 01/11/19 05:59 Albumin 4.1 g/dL (3.9-5) 01/11/19 05:59 Albumin/Globulin Ratio 1.5 % 01/11/19 05:59 Active Medications - Current Medications Current Medications: Generic Name Dose Route Start Last Admin Trade Name Freq PRN Reason Stop Dose Admin Acetaminophen 650 mg 01/10/19 21:39 Tylenol PO Q4H PRN Pain MILD(1-3)/Fever >100.5/PENG Albuterol 2.5 mg 01/10/19 21:40 Proventil IH Q4HRT PRN Shortness Of Breath Albuterol/Ipratropium 1 ampul 01/11/19 08:00 01/11/19 10:46 Duoneb *Not For Prn Use* IH 1 ampul QIDRT PRASANNA Administration Amlodipine Besylate 2.5 mg 01/11/19 10:00 01/11/19 10:36 Norvasc PO 0.5 mg QDAY PRASANNA Administration Famotidine 20 mg 01/10/19 22:00 01/11/19 10:38 Pepcid IV 20 mg BID PRASANNA Administration Levofloxacin/Dextrose 750 mg in 150 mls @ 100 mls/hr 01/10/19 22:00 01/10/19 22:45 Levaquin 750mg/150ml IV 100 mls/hr Q24HR@2200 PRASANNA Administration Protocol Methylprednisolone Sodium Succinate 80 mg 01/10/19 22:00 01/11/19 06:53 Solu-Medrol IV 80 mg Q8HR PRASANNA Administration Morphine Sulfate 2 mg 01/10/19 18:31 01/10/19 18:48 Morphine IV 2 mg Q4H PRN Administration Pain, Moderate (4-6) Ondansetron HCl 4 mg 01/10/19 21:39 Zofran IV Q8H PRN Nausea And Vomiting Oxycodone/Acetaminophen 1 tab 01/10/19 21:39 01/11/19 06:52 Percocet 5/325 PO 1 tab Q6H PRN Administration Pain, Moderate (4-6) Sodium Chloride 10 ml 01/10/19 22:00 01/11/19 10:38 Sodium Chloride Flush Syringe 10 Ml IV 10 ml BID PRASANNA Administration Sodium Chloride 10 ml 01/10/19 21:39 Sodium Chloride Flush Syringe 10 Ml IV PRN PRN LINE FLUSH Tramadol HCl 50 mg 01/11/19 06:51 Ultram PO Q6H PRN PAIN Nutrition/Malnutrition Assess - Dietary Evaluation Nutrition/Malnutrition Findings: Nutrition Notes Start: 01/11/19 10:28 Freq: Status: Active Protocol: Document 01/11/19 10:28 HARRISON (Rec: 01/11/19 10:31 HARRISON SRW- [email or web address]) Nutrition Notes Need for Assessment generated from: visitor services information assistant Initial or Follow up Brief Note Current Diagnosis COPD,Hypertension,Heart Failure Other Pertinent Diagnosis COPD exacerbation Current Diet Regular Labs/Tests Reviewed Pertinent Medications Solumedrol Height 5 ft 2 in Weight 57 kg [place] Body Weight (kg) 50.00 BMI 22.9 Weight Status Appropriate Subjective/Other Information Pt screened for skin risk, however Matthew score unavailable. Burn Absent Trauma Absent Minimum of two criteria No Is patient on ventilator? No Is Patient Ambulatory and/or Out of Bed Yes REE-(Cabarrus-St. Jeor-ambulatory/OOB) [ 1440.725 [id number]] Calculation Used for Recommendations Cabarrus-St Jeor Additional Notes Pro needs 0.8-1g/k-57g/ day Fluid needs 1ml/kcal Nutrition Intervention Follow-Up By: 01/15/19 Additional Comments F/U: intakes
[2019-01-11] MEDS: NORCO 5/325 PO PRN ×2 (12:28→18:14)
[2019-01-11] MEDS: ATIVAN PO PRN (12:30)
[2019-01-11] MEDS ORDERED: SOLU-Medrol IV SCH (16:02)
--- NOTE | 2019-01-11 16:11 | Consultation ---
History of Present Illness Consult date: 01/11/19 Requesting physician: DOLLY HALL Reason for consult: dyspnea History of present illness: 58 yo known to me, admitted with worsening SOB and pain due to post-herpetic neuralgia. Having yellow sputum. No hemoptysis. No fevers, chills. Had high K, corrected already. Asking me for pain meds and wants to leave the floor p resumably to smoke. SOB better since presentation. Active Medications Acetaminophen (Tylenol) 650 mg PO Q4H PRN PRN Reason: Pain MILD(1-3)/Fever >100.5/PENG Acetaminophen/Hydrocodone Bitart ([place] 5/325) 2 each PO Q4H PRN PRN Reason: Pain, Moderate (4-6) Last Admin: 01/11/19 12:28 Dose: 2 each Documented by: Albuterol (Proventil) 2.5 mg IH Q4HRT PRN PRN Reason: Shortness Of Breath Albuterol/Ipratropium (Duoneb *Not For Prn Use*) 1 ampul IH QIDRT [facility] Last Admin: 01/11/19 15:21 Dose: 1 ampul Documented by: Amlodipine Besylate (Norvasc) 2.5 mg PO QDAY [facility] Last Admin: 01/11/19 10:36 Dose: 0.5 mg Documented by: Famotidine (Pepcid) 20 mg IV BID [facility] Last Admin: 01/11/19 10:38 Dose: 20 mg Documented by: Levofloxacin/Dextrose (Levaquin 750mg/150ml) 750 mg in 150 mls @ 100 mls/hr IV Q24HR@2200 PRASANNA; Protocol Last Admin: 01/10/19 22:45 Dose: 100 mls/hr Documented by: Lorazepam (Ativan) 0.5 mg PO Q12H PRN PRN Reason: Anxiety Last Admin: 01/11/19 12:30 Dose: 0.5 mg Documented by: Methylprednisolone Sodium Succinate (Solu-Medrol) 40 mg IV Q8HR [facility] Morphine Sulfate (Morphine) 2 mg IV Q4H PRN PRN Reason: Pain, Moderate (8-10) Last Admin: 01/10/19 18:48 Dose: 2 mg Documented by: Ondansetron HCl (Zofran) 4 mg IV Q8H PRN PRN Reason: Nausea And Vomiting Sodium Chloride (Sodium Chloride Flush Syringe 10 Ml) 10 ml IV BID [facility] Last Admin: 01/11/19 10:38 Dose: 10 ml Documented by: Sodium Chloride (Sodium Chloride Flush Syringe 10 Ml) 10 ml IV PRN PRN PRN Reason: LINE FLUSH Tramadol HCl (Ultram) 50 mg PO Q6H PRN PRN Reason: PAIN Past History Past Medical History: other (COPD, Chronic respiratory failure, Shingles, Post- herpetic neuralgia) Social history: smoking, full code. denies: alcohol abuse, prescription drug abuse, IV drug use Family history: other (No pulm issues) Medications and Allergies Allergies Allergy/AdvReac Type Severity Reaction Status Date / Time Penicillins Allergy Unknown Verified 03/26/17 18:57 Home Medications Medication Instructions Recorded Confirmed Last Taken Type ALBUTEROL Inhaler (OR & NICU) 2 puff IH QID PRN #1 inhalation 12/11/18 01/10/19 Unknown Rx [ProAir HFA Inhaler] Albuterol Sulfate [Proventil Hfa] 2 puff IH Q4HR PRN #1 hfa.aer.ad 12/21/18 01/10/19 Unknown Rx traMADol [Ultram 50 MG tab] 50 mg PO Q6HR PRN #10 tablet 12/25/18 01/10/19 Unknown Rx HYDROcodone/APAP 5-325 1 tab PO PRN PRN 01/10/19 01/10/19 01/08/19 History 1 tab Active Meds: Active Medications Acetaminophen (Tylenol) 650 mg PO Q4H PRN PRN Reason: Pain MILD(1-3)/Fever >100.5/PENG Acetaminophen/Hydrocodone Bitart ([place] 5/325) 2 each PO Q4H PRN PRN Reason: Pain, Moderate (4-6) Last Admin: 01/11/19 12:28 Dose: 2 each Documented by: Albuterol (Proventil) 2.5 mg IH Q4HRT PRN PRN Reason: Shortness Of Breath Albuterol/Ipratropium (Duoneb *Not For Prn Use*) 1 ampul IH QIDRT [facility] Last Admin: 01/11/19 15:21 Dose: 1 ampul Documented by: Amlodipine Besylate (Norvasc) 2.5 mg PO QDAY [facility] Last Admin: 01/11/19 10:36 Dose: 0.5 mg Documented by: Famotidine (Pepcid) 20 mg IV BID [facility] Last Admin: 01/11/19 10:38 Dose: 20 mg Documented by: Levofloxacin/Dextrose (Levaquin 750mg/150ml) 750 mg in 150 mls @ 100 mls/hr IV Q24HR@2200 [facility]; Protocol Last Admin: 01/10/19 22:45 Dose: 100 mls/hr Documented by: Lorazepam (Ativan) 0.5 mg PO Q12H PRN PRN Reason: Anxiety Last Admin: 01/11/19 12:30 Dose: 0.5 mg Documented by: Methylprednisolone Sodium Succinate (Solu-Medrol) 40 mg IV Q8HR [facility] Methylprednisolone Sodium Succinate (Solu-Medrol) 40 mg IV Q8HR [facility] Morphine Sulfate (Morphine) 2 mg IV Q4H PRN PRN Reason: Pain, Moderate (8-10) Last Admin: 01/10/19 18:48 Dose: 2 mg Documented by: Ondansetron HCl (Zofran) 4 mg IV Q8H PRN PRN Reason: Nausea And Vomiting Sodium Chloride (Sodium Chloride Flush Syringe 10 Ml) 10 ml IV BID [facility] Last Admin: 01/11/19 10:38 Dose: 10 ml Documented by: Sodium Chloride (Sodium Chloride Flush Syringe 10 Ml) 10 ml IV PRN PRN PRN Reason: LINE FLUSH Tramadol HCl (Ultram) 50 mg PO Q6H PRN PRN Reason: PAIN Review of Systems All systems: negative Physical Examination Vital signs: Vital Signs Temp Pulse Resp BP Pulse Ox 98.6 F 120 H 22 170/100 96 01/10/19 08:05 01/10/19 08:05 01/10/19 08:05 01/10/19 08:05 01/10/19 08:05 General appearance: no acute distress, alert Eyes: non-icteric ENT: oropharynx moist Neck: supple Effort: normal Ascultation: Bilateral: diminished breath sounds Cardiovascular: regular rate and rhythm (no mrg) Gastrointestinal: normoactive bowel sounds, soft, non-tender, non-distended Integumentary: other (post-inflammatory hypopigmentation around R back/side c/w healed shingles) Musculoskeletal: no deformities normal mental status, non-focal exam, pupils equal and round, CN II-XII normal mood appropriate, affect normal Results - Laboratory Findings CBC and BMP: 01/11/19 05:59 01/11/19 05:59 ABG POC ABG pH 7.401 (7.35-7.45) 01/10/19 16:18 POC ABG pCO2 70.0 (35-45) H 01/10/19 16:18 POC ABG pO2 171 (80-105) H 01/10/19 16:18 POC ABG HCO3 43.4 (22-26 mml/L) 01/10/19 16:18 POC ABG Total CO2 46 (23-27mmol/L) 01/10/19 16:18 POC ABG O2 Sat 99 01/10/19 16:18 Abnormal lab findings: Abnormal Labs 01/10/19 01/10/19 01/10/19 08:50 08:50 11:23 WBC 12.2 H Lymph % (Auto) 10.5 L Seg Neutrophils % 81.6 H Seg Neuts % (Manual) Lymphocytes % (Manual) Seg Neutrophils # 9.9 H Seg Neutrophils # Man Lymphocytes # (Manual) POC ABG pCO2 POC ABG pO2 Potassium 5.4 H 5.8 H Chloride 97.6 L Carbon Dioxide 32 H BUN 19 H Creatinine 0.5 L Glucose 113 H Albumin 3.4 L 01/10/19 01/10/19 01/11/19 16:11 16:18 05:59 WBC 12.2 H Lymph % (Auto) Seg Neutrophils % Seg Neuts % (Manual) 96.0 H Lymphocytes % (Manual) 3.0 L Seg Neutrophils # Seg Neutrophils # Man 11.7 H Lymphocytes # (Manual) 0.4 L POC ABG pCO2 63.2 H 70.0 H POC ABG pO2 171 H Potassium Chloride Carbon Dioxide BUN Creatinine Glucose Albumin 01/11/19 05:59 WBC Lymph % (Auto) Seg Neutrophils % Seg Neuts % (Manual) Lymphocytes % (Manual) Seg Neutrophils # Seg Neutrophils # Man Lymphocytes # (Manual) POC ABG pCO2 POC ABG pO2 Potassium Chloride 91.9 L Carbon Dioxide 35 H BUN 26 H Creatinine 0.5 L Glucose 159 H Albumin - Diagnostic Findings Chest x-ray: report reviewed, image reviewed (no acute process) Assessment and Plan Imp: 1. Acute bronchitis 2. Centrilobular emphysema 3. COPD exac. 4. A/C respiratory failure, hypoxia; chronic respiratory failure, hypercapnea 5. Chronic nicotine dependence, cigarettes 6. Hyperkalemia 7. Post-herpetic neuralgia Rec: 1. Levaquin x 5 days 2. Taper Solumedrol 3. Stop smoking, has been counseled 4. Ask rifle case repairer to help her get the O2 tanks that she needs from her [employer] company 5. Goal sats 88-94% 6. Would give her an Rx for Stiolto 2 puffs daily at d/c although I doubt she will be compliant 7. Defer pain management to primary 8. Probably close to baseline Plan of care reviewed w/ patient, she understands/agrees Thanks for the consult.
[2019-01-11] MEDS: LEVAQUIN 750MG/150ML 750 MG/150 ML BAG IV SCH (23:07)
[2019-01-12] MEDS: SOLU-Medrol IV SCH ×2 (03:09→06:40)
[2019-01-12 06:40] VITALS: BP 159/95
[2019-01-12] MEDS: NORCO 5/325 PO PRN (08:23)
[2019-01-12] MEDS: DUONEB *Not for PRN Use IH SCH ×2 (09:12→11:35)
[2019-01-12] MEDS: PEPCID IV SCH (09:43)
[2019-01-12] MEDS: NORVASC PO SCH (09:44)
[2019-01-12] MEDS: ATIVAN PO PRN (09:45)
--- NOTE | 2019-01-12 13:31 | Discharge Summary ---
Providers - Providers Date of Admission: 01/10/19 13:39 Date of discharge: 01/12/19 Attending physician: LIBRA VAUGHN 01/10/19 21:39 Consult to Physician [CONS] Routine Comment: Consulting Provider: FILIBERTO HAILE Physician Instructions: Reason For Exam: copd exac 01/11/19 16:04 Consult to Case Management [CONS] Routine Services Needed at Discharge: Home O2 Notified:: COPY GIVEN TO CM Comment:: plz help her get what she needs re: O2 tanks from [facility] care Primary care physician: CHIEF [employer]Y OFFICER Hospitalization Condition: Stable Hospital course: 58-year-old with a history of advanced COPD presents with acute respiratory failure secondary to COPD exacerbation. Patient brought and treated with Solu- Medrol nebulizers and IV antibiotics. Did well was diagnosed with acute bronchitis defervesce well over p.m. afebrile stable nebulizes. Patient was 79% on room air and 96% on 2 L of O2. Patient is on oxygen at home and will stabilize. Patient had no further wheezing. Was shortness of breath with exertion. Which is her baseline. Patient's pain cachectic appearing protein deficiency malnutrition. Consult approved with pulmonology and recommended stilito she has been tremendously noncompliant. Known by several staff members. Has been uncompliant here noncompliant here and at home. Disposition: DC-01 TO HOME OR SELFCARE Core Measure Documentation - Palliative Care Palliative Care/ Comfort Measures: Not Applicable - Core Measures Any of the following diagnoses?: none Exam - Constitutional Vitals: Temp Pulse Resp BP Pulse Ox 99.1 F 83 25 H 159/95 94 01/12/19 05:14 01/12/19 09:44 01/12/19 08:00 01/12/19 09:44 01/12/19 09:14 General appearance: Present: no acute distress, well-nourished - EENT Eyes: Present: PERRL ENT: hearing intact, clear oral mucosa - Neck Neck: Present: supple, normal ROM - Respiratory Respiratory effort: normal, other (patient's breath sounds clear just had treatment. Doing well. Able to artery and states she wants to go home. En face and loud voice without much difficulty. Patient has home O2.) Respiratory: bilateral: CTA - Cardiovascular Heart Sounds: Present: S1 & S2. Absent: rub, click - Extremities Extremities: pulses symmetrical, No edema Peripheral Pulses: within normal limits - Abdominal General gastrointestinal: Present: soft, non-tender, non-distended, normal bowel sounds Female genitourinary: Present: normal - Integumentary Integumentary: Present: clear, warm, dry - Musculoskeletal Musculoskeletal: gait normal, strength equal bilaterally - Psychiatric Psychiatric: appropriate mood/affect, intact judgment & insight - Neurologic Neurologic: CNII-XII intact, moves all extremities Plan Activity: fall precautions Weight Bearing Status: Weight Bear as Tolerated Diet: low salt Special Instructions: home oxygen via, home health RN Follow up with: [facility] [Provider Group] - 3-5 Days Prescriptions: HYDROcodone/APAP 5-325 [[place] 5-325 mg TAB] 2 each PO Q4H PRN #20 tablet PRN Reason: Pain, Moderate (4-6) amLODIPine [Norvasc] 2.5 mg PO QDAY #30 tablet ALBUTEROL Inhaler (OR & NICU) [ProAir HFA Inhaler] 2 puff IH QID PRN #1 inhalation PRN Reason: Shortness Of Breath ALBUTEROL NEB's [Proventil 0.083% NEBS] 2.5 mg IH Q4HRT PRN #1 nebu PRN Reason: Shortness Of Breath Albuterol Sulfate [Proventil Hfa] 2 puff IH Q4HR PRN #1 hfa.[email or web address].ad PRN Reason: Wheezing traMADol [Ultram 50 MG tab] 50 mg PO Q6HR PRN #10 tablet PRN Reason: Pain
== END 2019-01-12 16:40 | disposition home or self-care (01) | DRG 189 ==
LOC: ED 07:53 → 3A 13:39
PROVIDERS: ADMIT Internal Medicine; ATTEND Internal Medicine
PROC: 4A033R1 Measurement of Arterial Saturation, Peripheral, Percutaneous Approach (ICD-10-PCS; principal; 2019-01-10)
DX: J96.22 Acute and chronic respiratory failure with hypercapnia (principal); J96.21 Acute and chronic respiratory failure with hypoxia; E87.5 Hyperkalemia; F17.203 Nicotine dependence unspecified, with withdrawal; I11.0 Hypertensive heart disease with heart failure; I50.32 Chronic diastolic (congestive) heart failure; J20.9 Acute bronchitis, unspecified; M19.90 Unspecified osteoarthritis, unspecified site; I73.9 Peripheral vascular disease, unspecified; B02.29 Other postherpetic nervous system involvement; E46 Unspecified protein-calorie malnutrition; G89.29 Other chronic pain; Z99.81 Dependence on supplemental oxygen; Z82.49 Family history of ischemic heart disease and other diseases of the circulatory system; Z88.0 Allergy status to penicillin; Z79.899 Other long term (current) drug therapy; Z71.6 Tobacco abuse counseling; J44.0 Chronic obstructive pulmonary disease with (acute) lower respiratory infection; J44.1 Chronic obstructive pulmonary disease with (acute) exacerbation
CPT/HCPCS: 36415; 36600; 71046; 80053; 82803; 83036; 83880; 84132; 84484; 85007; 85025; 93005; 93010; 94640; 94644; 94760; 96374; 96375; G0378; J0610; J1100; J1956; J2270; J2920; J2930

== ENCOUNTER 2019-01-21 12:17 | Emergency (ER) | payer MEDICAID ==
[2019-01-21] MEDS ORDERED: TORADOL IM ONE (15:01)
--- NOTE | 2019-01-21 15:06 | Emergency Department Report ---
Chief Complaint: Pain General Stated Complaint: PAIN/ORALIA Time Seen by Provider: 01/21/19 14:46 - HPI History of Present Illness: Is a 58-year-old female history of COPD who is on oxygen at home who takes neb treatments who is presenting with lower back pain. Patient states the back pain has been present for 1-2 miles is chronic. Patient states that she does not have any pain medicines at this time she does not have a primary care physician. Patient states that her pain was so bad that she neglected to take her no treatment today. - ROS Review of Systems: All other systems have been reviewed and are negative - Exam Vital Signs: Vital Signs 01/21/19 13:02 Pulse Rate 95 H Respiratory 16 Rate O2 Sat by Pulse 100 Oximetry Physical Exam: Patient is alert and oriented 3. Patient's heart tones within normal limits. Lungs are clear to auscultation. Abdomen soft nontender. She is. To be in no acute distress. Back exam does show some diffuse lumbar tenderness. MSE screening note: Focused history and physical exam performed. Due to findings the following was ordered: ED Medical Decision Making - Medical Decision Making Patient has no acute emergent condition at this time. Patient has no co-pay with her insurance. Patient is not requiring acute respiratory intervention at this time. Patient was given a Toradol shot for her chronic pain as well as several Motrin 800s but will not be given narcotics for chronic pain. Patient d ischarged. ED Disposition for MSE Clinical Impression: COPD (chronic obstructive pulmonary disease), Chronic back pain Disposition: Z-01 MED SCREENING EXAM-CONT Is pt being admited?: No Does the pt Need Aspirin: No Condition: Stable Instructions: Chronic Obstructive Pulmonary Disease (ED), Chronic Pain (ED) Referrals: CARL TYSON MD [Referring] - 3-5 Days Time of Disposition: 15:05
== END 2019-01-21 15:40 | disposition home or self-care (01) ==
LOC: ED 12:17
DX: J45.909 Unspecified asthma, uncomplicated (principal); M54.5 Low back pain; G89.29 Other chronic pain; Z88.0 Allergy status to penicillin
CPT/HCPCS: 96372; 99283; J1885

== ENCOUNTER 2019-04-02 21:22 | Emergency (ER) | payer MEDICAID | END 2019-04-02 21:41 | disposition left against medical advice (07) | LOC: ED 21:22 | DX: F29 Unspecified psychosis not due to a substance or known physiological condition (principal); Z53.21 Procedure and treatment not carried out due to patient leaving prior to being seen by health care provider ==